=== PATIENT | female | born 1960 | race Caucasian/White ===

== ENCOUNTER 2023-01-23 09:19 | Outpatient (OUT) | payer OTHER, SELFPAY ==
--- NOTE | 2023-01-23 09:53 | PM.FPHP ---
History of Present Illness History of Present Illness Chief complaint: F/U Narrative: She is here for f/u to right hip injection done 12/31/22. She recieved 50% relief Meds Home Medications and Allergies Home Medications Medication Instructions Recorded Confirmed Type baclofen 10 mg tablet 10 mg PO TID 01/23/23 01/23/23 History levothyroxine 75 mcg tablet 75 mcg PO QDAY 01/23/23 01/23/23 History (Synthroid) loratadine 10 mg tablet (Claritin) 10 mg PO QDAY 01/23/23 01/23/23 History multivitamin 1 tab PO QDAY 01/23/23 01/23/23 History pantoprazole 40 mg tablet,delayed 40 mg PO QDAY 01/23/23 01/23/23 History release sucralfate 1 gram tablet 1 g PO TID 01/23/23 01/23/23 History zonisamide 50 mg capsule 50 mg PO QDAY 01/23/23 01/23/23 History Allergies Allergy/AdvReac Type Severity Reaction Status Date / Time Penicillins Allergy Intermediate Hives Verified 01/23/23 09:38 tetanus immune globulin Allergy Intermediate Redness of Verified 01/23/23 09:38 Skin levofloxacin [From Levaquin] Allergy Unknown Verified 01/23/23 09:38 morphine Allergy Unknown Anxiety Verified 01/23/23 09:38 Results Labs Labs: All other labs normal.
--- NOTE | 2023-01-23 12:44 | P.HP_ITS ---
Consult Note: HPI Data of Consult Patient: known to practice within the last 3 years Consult date: 01/23/23 Requesting Physician: GE MAGALLON NP Primary Care Provider: Norbert Snowden MD Consult Narrative Reason for consult: hip pain Narrative: Ivania is here for f/u to right hip injection done 12/31/22. She received 50% relief of pain and increased function for 2 weeks. No new sensorimotor sx or bowel or bladder issues. We discussed referral to orthopedics for hip d/t steroid injection not working. She has not seen ortho previously. Pain is worse with standing, walking, movements. I also advised to see chiropractor for leg length eval and possible lifts. cc:: CC: GE MAGALLON NP Review of Systems ROS Status of ROS 10 or more systems reviewed and unremarkable except as noted in history and below Meds Home Medications and Allergies Home Medications Medication Instructions Recorded Confirmed Type baclofen 10 mg tablet 10 mg PO TID 01/23/23 01/23/23 History levothyroxine 75 mcg tablet 75 mcg PO QDAY 01/23/23 01/23/23 History (Synthroid) loratadine 10 mg tablet (Claritin) 10 mg PO QDAY 01/23/23 01/23/23 History multivitamin 1 tab PO QDAY 01/23/23 01/23/23 History pantoprazole 40 mg tablet,delayed 40 mg PO QDAY 01/23/23 01/23/23 History release sucralfate 1 gram tablet 1 g PO TID 01/23/23 01/23/23 History zonisamide 50 mg capsule 50 mg PO QDAY 01/23/23 01/23/23 History Allergies Allergy/AdvReac Type Severity Reaction Status Date / Time Penicillins Allergy Intermediate Hives Verified 01/23/23 09:38 tetanus immune globulin Allergy Intermediate Redness of Verified 01/23/23 09:38 Skin levofloxacin [From Levaquin] Allergy Unknown Verified 01/23/23 09:38 morphine Allergy Unknown Anxiety Verified 01/23/23 09:38 Exam Constitutional: Common normals: no apparent distress, average body habitus, oriented x3, no limitations, healthy appearing, alert and well nourished Ge neral appearance: cooperative, comfortable and well developed Nutritional appearance: overweight Orientation/consciousness: Yes awake, Yes oriented to person, Yes oriented to place and Yes oriented to time HENMT: Common normals: normocephalic and head/scalp atraumatic Nose: external nose normal Mouth: oral and palatal mucosa normal Neck & C-Spine: Common normals: full ROM General: normal visual inspection Respiratory: Common normals: normal respiratory effort, no retractions and no use of accessory muscles Effort & inspection: able to speak in complete sentences Back & Pelvis: Thoracic spine/upper back: normal to inspection Lumbar spine/lower back: normal to inspection, pain with ROM, lumbar spinal tenderness, paraspinal muscle tenderness, straight leg raise positive right and other soft tissue findings (positive maryann right, tender over right hip) Skin: Common normals: no rashes or lesions noted Assessment and Plan Assessment and Plan (1) Degenerative arthritis of hip: (2) Lumbar stenosis: Plan LESI and RFA have not helped in past. consult ortho for right hip chiropractic etodolac
== END 2023-01-23 09:20 ==
PROVIDERS: PCP Family Medicine; Visit Provider Nurse Practitioner
DX: M16.9 Osteoarthritis of hip, unspecified (principal); M48.061 Spinal stenosis, lumbar region without neurogenic claudication
CPT/HCPCS: G0463

== ENCOUNTER 2023-03-03 09:19 | Outpatient (OUT) | payer OTHER, SELFPAY ==
[2023-03-03 10:28] LABS: Albumin Level 3.5 g/dL (3.4-5.0); BUN Creatinine Ratio 19.1; Calcium 10.5 mg/dL (8.5-10.1); Chloride 104 mmol/L (98-107); Estimated GFR (African America >60 (>=60); Estimated GFR (Non-African Ame >60 (>=60); Free T3 2.56 pg/mL (2.18-3.98); Glucose 97 mg/dL (74-106); Phosphorus 3.5 mg/dL (2.6-4.7); Sodium 140 mmol/L (136-145); Thyroid Stimulating Hormone 1.406 uIU/mL (0.358-3.740)
[2023-03-03 14:48] LABS: Free T4 1.21 ng/dL (0.76-1.46)
== END 2023-03-03 09:20 | disposition home or self-care (01) ==
LOC: LAB 09:20
PROVIDERS: PCP Family Medicine; Visit Provider Internal Medicine
DX: M81.0 Age-related osteoporosis without current pathological fracture (principal); E55.9 Vitamin D deficiency, unspecified
CPT/HCPCS: 36415; 80069; 82306; 84439; 84443; 84481

== ENCOUNTER 2023-03-25 07:26 | Outpatient (OUT) | payer OTHER, SELFPAY ==
[2023-03-25 07:42] LABS: Basophils Absolute Auto 0.1 10^3/uL (0.0-0.1); Basophils Percent Auto 1.4 % (0.2-2.0); Eosinophils Absolute Auto 0.2 10^3/uL (0.0-0.7); Eosinophils Percent Auto 4.7 % (0.9-7.0); Hematocrit 43.6 % (36.0-48.0); Hemoglobin 13.7 g/dL (12.0-16.0); Immature Granulocytes Abs Auto 0.02 10^3/uL (0.00-0.03); Immature Granulocytes Pct Auto 0.4 % (0.0-0.5); Lymphocytes Absolute Auto 1.8 10^3/uL (1.2-3.8); Lymphocytes Percent Auto 35.8 % (20.5-60.0); Mean Corpuscular HGB Conc 31.4 g/dL (29.9-35.2); Mean Corpuscular Hemoglobin 25.6 pg (26.7-34.0); Mean Corpuscular Volume 81.3 fL (81.0-99.0); Mean Platelet Volume 10.5 fL (9.5-13.5); Monocytes Absolute Auto 0.5 10^3/uL (0.3-0.8); Monocytes Percent Auto 9.1 % (1.7-12.0); Neutrophils Absolute Auto 2.5 10^3/uL (1.4-6.5); Neutrophils Percent Auto 48.6 % (43.0-75.0); Platelet Count 305 10^3/uL (150-450); Red Blood Count 5.36 10^6/uL (4.20-5.40); Red Cell Distribution Width 15.5 % (11.0-15.0); White Blood Count 5.1 10^3/uL (4.0-11.0)
[2023-03-25 07:54] LABS: Estimated Average Glucose 117 mg/dL; Glycohemoglobin A1C 5.7 % (4.5-6.2)
[2023-03-25 08:32] LABS: Alanine Aminotransferase 48 U/L (14-59); Albumin Level 3.7 g/dL (3.4-5.0); Alkaline Phosphatase 97 U/L (46-116); Anion Gap 12.1; Aspartate Amino Transferase 24 U/L (15-37); BUN Creatinine Ratio 24.7; Bilirubin Total 0.6 mg/dL (0.2-1.0); Calcium 10.1 mg/dL (8.5-10.1); Carbon Dioxide 29.8 mmol/L (21.0-32.0); Chloride 104 mmol/L (98-107); Chol HDL Ratio 3.1; Cholesterol 156 mg/dL (<=200); Estimated GFR (African America >60 (>=60); Estimated GFR (Non-African Ame >60 (>=60); Free T3 2.68 pg/mL (2.18-3.98); Globulin 3.7 g/dL; Glucose 99 mg/dL (74-106); HDL Cholesterol 51 mg/dL (40-60); Potassium 3.9 mmol/L (3.5-5.1); Sodium 142 mmol/L (136-145); Thyroid Stimulating Hormone 1.018 uIU/mL (0.358-3.740); Total Protein 7.4 g/dL (6.4-8.2); Triglycerides 170 mg/dL (<=150)
[2023-03-25 08:59] LABS: Free T4 1.23 ng/dL (0.76-1.46)
== END 2023-03-25 07:27 | disposition home or self-care (01) ==
PROVIDERS: PCP Family Medicine; Visit Provider Family Medicine
DX: Z00.00 Encounter for general adult medical examination without abnormal findings (principal); Z79.899 Other long term (current) drug therapy; R53.83 Other fatigue
CPT/HCPCS: 36415; 80053; 80061; 83036; 84439; 84443; 84481; 85025

== ENCOUNTER 2023-10-22 09:52 | Outpatient (OUT) | payer OTHER, SELFPAY ==
--- NOTE | 2023-10-22 09:55 | MM_ITS ---
Patient Name: SHIRA CASON MR#: [id number] : 1960 Exam Date: 10/22/2023 Ordering Doctor: DR Norbert Snowden . RADIOLOGY REPORT PROCEDURE: MM TOMOSYNTHESIS SCREENING BI COMPARISON: MG MAMM SCREEN 3D JOSE CAD, 07/15/2022. MG MAMM SCREEN 3D JOSE CAD, 05/22/2021. INDICATIONS: screening Calculator Name NCI Breast Cancer Risk Assessment Tool 5 Year Breast Cancer Risk 1.50% Lifetime Breast Cancer Risk 6.60% Personal Breast Cancer No Personal Ovarian Cancer No Treatments None Family Cancers Father with colon cancer at age 80; Father with prostate cancer at age 80. LOCATION: [facility] BREAST COMPOSITION: Scattered areas fibroglandular density. FINDINGS: DIAGNOSTIC CATEGORY 2--BENIGN FINDING. NO CHANGE FROM COMPARISON. Scattered benign-appearing nodules are present. Scattered benign-appearing calcifications are present. Scattered benign-appearing lymph nodes are present. RIGHT BREAST: No significant suspicious finding. LEFT BREAST: No significant suspicious finding. RECOMMENDATIONS: ROUTINE MAMMOGRAM AND CLINICAL EVALUATION IN 12 MONTHS. PLEASE NOTE: A NORMAL MAMMOGRAM DOES NOT EXCLUDE THE POSSIBILITY OF BREAST CANCER. A CLINICALLY SUSPICIOUS PALPABLE LUMP SHOULD BE BIOPSIED. Dictated by: Jonathan Manuel MD on 10/22/2023 at 10:59 Approved by: Jonathan Manuel MD on 10/22/2023 at 10:59
== END 2023-10-22 09:53 | disposition home or self-care (01) ==
LOC: MAMMO 09:53
PROVIDERS: PCP Family Medicine; Visit Provider Family Medicine
DX: Z12.31 Encounter for screening mammogram for malignant neoplasm of breast (principal); Z80.0 Family history of malignant neoplasm of digestive organs; Z80.42 Family history of malignant neoplasm of prostate
CPT/HCPCS: 77063; 77067

== ENCOUNTER 2024-03-05 08:05 | Outpatient (OUT) | payer OTHER, SELFPAY ==
--- NOTE | 2024-03-05 08:21 | XR_ITS ---
The [address] [address] Patient Name: SHIRA CASON MRN: [id number] date: 1960 Sex: F Assigned Patient Location: [facility] Current Patient Location: [facility] Accession/Order Number: [id number] Exam Date: 03/05/2024 08:30 Report Date: 03/05/2024 09:04 At the request of: CLARY CONKLIN Procedure: XR DEXA axial skeleton EXAMINATION: XR DEXA axial skeleton, 03/05/2024 8:30 AM EDT HISTORY: Age Related Osteoporosis COMPARISON: 1999 2019, 2017 TECHNIQUE: Dual-energy X-ray absorptiometry (DEXA) bone density study performed for the axial skeleton. FINDINGS: Bone mineral density AP spine L1-L4 measures 1.162 g/sq cm. T score 0.2. Normal Lowest bone mineral density is in the left femoral neck measuring 0.750 g/sq cm. T score -2.1. Osteopenia XR/XR DEXA axial skeleton IMPRESSION: Osteopenia. Moderate fracture risk Pharmacologic treatment recommendations * No uniform recommendation applies to all patients. Management plans must be individualized. * Consider initiating pharmacologic treatment in postmenopausal women and men >= 50 years of age who have the following: Primary fracture prevention: * T-score <= - 2.5 at the femoral neck, total hip, lumbar spine, 33% radius (some uncertainty with existing data) by DXA. * Low bone mass (osteopenia: T-score between - 1.0 and - 2.5) at the femoral neck or total hip by DXA with a 10-year hip fracture risk >= 3% or a 10-year major osteoporosis-related fracture risk >= 20% (i.e., clinical vertebral, hip, forearm, or proximal humerus) based on the [place]-adapted FRAXregistered model. Secondary fracture prevention: * Fracture of the hip or vertebra regardless of BMD [4, 5]. * Fracture of proximal humerus, pelvis, or distal forearm in persons with low bone mass (osteopenia: T-score between - 1.0 and - 2.5). The decision to treat should be individualized in persons with a fracture of the proximal humerus, pelvis, or distal forearm who do not have osteopenia or low BMD [12, 13]. Ronaldo Martinez MSan SL, Citlalli KL, Salvador EM, Parker KG, Roldan AJ, Javier ES. The clinician's guide to prevention and treatment of osteoporosis. Osteoporos Int. 2021;33(10):4301-7348. doi: 10.1007/h12849-701-75158-j. Epub 2021Dec 20. Erratum in: Osteoporos Int. 2021Mar 21;: PMID: 03217896; PMCID: [id number]. Electronically authenticated by: TYLER SALMON Date: 03/05/2024 09:04
[2024-03-05 09:34] LABS: Albumin Level 3.4 g/dL (3.4-5.0); Anion Gap 11.6; BUN Creatinine Ratio 19.7; Calcium 8.9 mg/dL (8.5-10.1); Carbon Dioxide 28.1 mmol/L (21.0-32.0); Chloride 105 mmol/L (98-107); Estimated GFR (African America >60 (>=60); Estimated GFR (Non-African Ame >60 (>=60); Free T3 2.56 pg/mL (2.18-3.98); Glucose 100 mg/dL (74-106); Phosphorus 2.8 mg/dL (2.6-4.7); Potassium 3.7 mmol/L (3.5-5.1); Sodium 141 mmol/L (136-145)
[2024-03-05 10:39] LABS: Free T4 1.17 ng/dL (0.76-1.46)
== END 2024-03-05 08:06 | disposition home or self-care (01) ==
LOC: RAD 08:08
PROVIDERS: PCP Family Medicine; Visit Provider Internal Medicine
DX: M81.0 Age-related osteoporosis without current pathological fracture (principal); E89.0 Postprocedural hypothyroidism; E55.9 Vitamin D deficiency, unspecified; Z79.83 Long term (current) use of bisphosphonates; M85.80 Other specified disorders of bone density and structure, unspecified site
CPT/HCPCS: 36415; 77080; 80069; 82306; 84439; 84443; 84481

== ENCOUNTER 2024-09-06 08:46 | Outpatient (OUT) | payer OTHER, SELFPAY ==
--- OUTSIDE RECORDS SUMMARY | 2024-09-06 09:07 | XMS_ITS | CCD ---
Author Organization [facility]iniSyn[facility] Care Team Providers Care School Leader Name Role Phone BANUELOS ., DR FAITH Majano Admitting Unavailable BANUELOS ., DR FAITH Majano Attending Unavailable BANUELOS ., DR FAITH Majano Consulting Unavailable HOY ., DR GIBSON Primary Care Unavailable HOY ., DR GIBSON Primary Care Unavailable PAYNE ., VEDA Consulting Unavailable BANUELOS ., DR FAITH Majano Admitting Unavailable BANUELOS ., DR FAITH Majano Attending Unavailable HOY ., DR GIBSON Primary Care Unavailable BANUELOS ., DR FAITH Majano Admitting Unavailable BANUELOS ., DR FAITH Majano Attending Unavailable BANUELOS ., DR FAITH Majano Consulting Unavailable PERALTATIFFANY FELIPE Consulting Unavailable HOY ., DR GIBSON Attending Unavailable HOY ., DR GIBSON Consulting Unavailable HOY ., DR GIBSON Admitting Unavailable HOY ., DR GIBSON Primary Care Unavailable ZIEBER, DR JOSE Collazo Consulting Unavailable HOY ., DR GIBSON Attending Unavailable HOY ., DR GIBSON Admitting Unavailable HOY ., DR GIBSON Consulting Unavailable HOY ., DR GIBSON Primary Care Unavailable ZIEBER, DR JOSE Collazo Consulting Unavailable LAKSHMIPATHY ., NARENDRANATH Consulting Pricilla vailable LAKSHMIPATHY ., NARROSEMARYRANATH Admitting Pricilla vailable LAKSHMIPATHY ., TRENTONATH Attending Pricilla vailable HOY ., DR GIBSON Primary Care Unavailable PAYNE ., VEDA Consulting Unavailable BANUELOS ., DR FAITH Majano Admitting Unavailable BANUELOS ., DR FAITH Majano Attending Unavailable HOY ., DR GIBSON Primary Care Unavailable PAYNE ., VEDA Consulting Unavailable BANUELOS ., DR FAITH Majano Attending Unavailable BANUELOS ., DR FAITH Majano Admitting Unavailable HOY ., DR GIBSON Primary Care Unavailable BANUELOS ., DR FAITH Majano Consulting Unavailable BANUELOS ., DR FAITH Majano Attending Unavailable BANUELOS ., DR FAITH Majano Admitting Unavailable HOY ., DR GIBSON Primary Care Unavailable BANUELOS ., DR FAITH Majano Consulting Unavailable BANUELOS ., DR FAITH Majano Attending Unavailable BANUELOS ., DR FAITH Majano Admitting Unavailable HOY ., DR GIBSON Primary Care Unavailable PAYNE ., VEDA Consulting Unavailable BANUELOS ., DR FAITH Majano Consulting Unavailable BANUELOS ., DR AFITH Majano Attending Unavailable BANUELOS ., DR FAITH Majano Admitting Unavailable HOY ., DR GIBSON Primary Care Unavailable TIFFANY PERALTA Consulting Unavailable HOY ., DR GIBSON Primary Care Unavailable BANUELOS ., DR FAITH Majano Admitting Unavailable BANUELOS ., DR FAITH Majano Attending Unavailable BANUELOS ., DR FAITH Majano Consulting Unavailable CARLOS PANG Consulting Unavailable HOY ., DR GIBSON Primary Care Unavailable PAYNE ., VEDA Consulting Unavailable BANUELOS ., DR FAITH Majano Admitting Unavailable BANUELOS ., DR FAITH Majano Attending Unavailable HALKER ., GE Attending Unavailable HALKER ., GE Admitting Unavailable HOY ., DR GIBSON Primary Care Unavailable LAKSHMIPATHY ., NARENDRANATH Attending Pricilla vailable LAKSHMIPATHY ., NARENDRANATH Consulting Pricilla vailable LAKSHMIPATHY ., NARENDKIERRAATH Admitting Pricilla vailable HOY ., DR GIBSON Primary Care Unavailable BANUELOS ., DR FAITH Majano Admitting Unavailable BANUELOS ., DR FAITH Majano Attending Unavailable BANUELOS ., DR FAITH Majano Consulting Unavailable HOY ., DR GIBSON Primary Care Unavailable BANUELOS ., DR FAITH Majano Attending Unavailable BANUELOS ., DR FAITH Majano Consulting Unavailable BANUELOS ., DR FAITH Majano Admitting Unavailable HOY ., DR GIBSON Primary Care Unavailable LAKSHMIPATHY ., NARENDRANATH Attending Pricilla vailable LAKSHMIPATHY ., NARENDRANATH Admitting Pricilla vailable ZIEBER, DR JOSE Collazo Consulting Unavailable HOY ., DR GIBSON Primary Care Unavailable LAKSHMIPATHY ., NARENDYESY Consulting Pricilla vailable RUBIN, AHKAVOND Admitting Unavailable HOY ., DR GIBSON Consulting Unavailable RUBIN, AHKAVOND Attending Unavailable HOY ., DR GIBSON Primary Care Unavailable ZIEBER, DR JOSE Collazo Consulting Unavailable RUBIN, AHJUANCARLOS Consulting Unavailable LAKSHMIPATHY ., NARENDRANATH Attending Pricilla vailable LAKSHMIPATHY ., NARENDRANATH Admitting Pricilla vailable HOY ., DR GIBSON Primary Care Unavailable VIN ., DR FAITH Majano Admitting Unavailable BANUELOS ., DR FAITH Majano Attending Unavailable SP ., DR GIBSON Primary Care Unavailable SP ., DR GIBSON Primary Care Unavailable SP ., DR GIBSON Attending Unavailable SP ., DR GIBSON Consulting Unavailable SP ., DR GIBSON Admitting Unavailable WEST, DR TYLER Lester Consulting Unavailable ELMER ., VEDA Consulting Unavailable VIN ., DR FAITH Majano Admitting Unavailable VIN ., DR FAITH Majano Attending Unavailable SP ., DR GIBSON Primary Care Unavailable NISH EAGLE Attending Unavailable NISH EAGLE Attending Unavailable NISH EAGLE Referring Unavailable Paige Snowden MD Primary Care Provider [phone] Allergies Allergy Classification Reported Allergen(s) Allergy Type Date of Onset Reaction(s) Facility (2 sources) Allopurinol Drug Allergy 7 [facility] Repository (1 source) levoFLOXacin Drug Allergy [facility] Repository (1 source) Morphine Drug Allergy 7 [facility] Repository (2 sources) Penicillin Drug Allergy 7 [facility] Repository (4 sources) levoFLOXacin Drug Allergy 3 Hives, Nausea And Vomiting [facility] Work Phone: (4 sources) Morphine Drug Allergy 3 Rash [facility] (4 sources) Penicillins Drug Allergy 3 Hives, Rash [facility] (4 sources) Tetanus Toxoid, Adsorbed Allergy to substance 3 Rash [facility] Medications Current Medications Medication Drug Class(es) Dates Sig (Normalized) Sig (Original) cholecalciferol 0.025 mg oral capsule (4 sources) Vitamin D cholecalciferol (Vitamin D-3) 25 MCG (1000 UT) capsule Vitamin D3 25 mcg (1,000 unit) capsule Take by oral route. Active etodolac 400 mg oral tablet (3 sources) Nonsteroidal Anti-inflammatory Drug Start: 02-11-2023 End: 05-03-2024 etodolac (Lodine) 400 MG tablet 02/11/2023 05/03/2024 Discontinued levothyroxine sodium 0.075 mg oral tablet (4 sources) l-Thyroxine levothyroxine (Synthroid, Levoxyl) 75 MCG tablet Daily. Active loratadine 10 mg oral tablet (3 sources) loratadine (Claritin) 10 MG tablet Take by mouth Active pantoprazole 40 mg delayed release oral tablet (4 sources) Proton Pump Inhibitor pantoprazole (ProtoNix) 40 MG EC tablet Daily. Active Turmeric Curcumin 500 MG capsule (4 sources) Turmeric Curcumi n 500 MG capsule as directed Orally Active zonisamide 50 mg oral capsule (4 sources) Anti-epileptic Agent Start: 01-28-2023 take 1 capsule by mouth once daily at bedtime zonisamide (Zonegran) 50 MG capsule TAKE 1 CAPSULE BY MOUTH EVERY DAY AT BEDTIME 01/28/2023 Active Problems Active Problems Problem Classification Problem Date Documented Date Episodic/Chronic Complications of surgical procedures or medical care (1 source) Postprocedural hypothyroidism; Translations: [POSTPROCEDURAL HYPOTHYROIDISM] Onset: 03-03-2022 Chronic Esophageal disorders (4 sources) Gastroesophageal reflux disease; Translations: [Gastro-esophageal reflux disease without esophagitis] Onset: 01-23-2022 04-01-2023 Chronic Mood disorders (4 sources) Major depressive disorder; Translations: [Major depressive disorder, single episode, unspecified] Onset: 04-01-2023 04-01-2023 Chronic Nutritional deficiencies (1 source) Vitamin D deficiency, unspecified; Translations: [VITAMIN D DEFICIENCY UNSPECIFIED] Onset: 03-03-2022 Chronic Osteoarthritis (13 sources) Unilateral primary osteoarthritis, right hip; Translations: [Arthritis of left knee] Onset: 12-20-2022 Chronic Osteoporosis (8 sources) Age-related osteoporosis without current pathological fracture; Translations: [Osteoporosis] Onset: 01-23-2022 Chronic Other connective tissue disease (2 sources) History of total replacement of right hip joint; Translations: [Presence of right artificial hip joint] 05-02-2024 Chronic Other nervous system disorders (1 source) Other chronic pain; Translations: [OTHER CHRONIC PAIN] Onset: 12-20-2022 Chronic Other non-traumatic joint disorders (4 sources) Derangement of right shoulder joint; Translations: [Other specific joint derangements of right shoulder, not elsewhere classified] Onset: 04-01-2023 04-01-2023 Chronic Other non-traumatic joint disorders (4 sources) Pain in right hip; Translations: [PAIN IN RIGHT HIP] Onset: 12-19-2022 Episodic Other nutritional; endocrine; and metabolic disorders (4 sources) Body mass index 30+ - obesity; Translations: [Obesity, unspecified] Onset: 04-01-2023 04-01-2023 Chronic Spondylosis; intervertebral disc disorders; other back problems (15 sources) Spondylosis without myelopathy or radiculopathy, lumbar region; Translations: [Other intervertebral disc degeneration, lumbar region] Onset: 04-04-2022 Chronic Thyroid disorders (8 sources) Hyperthyroidism; Translations: [Thyrotoxicosis, unspecified without thyrotoxic crisis or storm] Onset: 01-23-2022 04-01-2023 Chronic Unclassified (1 source) CONTACT W/AND (SUSP) EXPOS COVID-19; Translations: [CONTACT W/AND (SUSP) EXPOS COVID-19] Onset: 08-14-2022 Unclassified (4 sources) LOW BACK PAIN, UNSPECIFIED; Translations: [LOW BACK PAIN, UNSPECIFIED] Onset: 01-11-2022 Past or Other Problems Problem Classification Problem Date Documented Da te Episodic/Chronic Neoplasms of unspecified nature or uncertain behavior (4 sources) Neoplasm of uncertain behavior of skin of chest; Translations: [Neoplasm of uncertain behavior of skin] Onset: 04-01-2023 04-01-2023 Episodic Other and unspecified benign neoplasm (4 sources) Adenomatous polyp of colon ; Translations: [Benign neoplasm of colon, unspecified] Onset: 04-01-2023 04-01-2023 Episodic Other bone disease and musculoskeletal deformities (1 source) Other specified disorders of bone density and structure, unspecified site; Translations: [OTH D/O BONE DEN STRUCT UNS SITE] Onset: 03-03-2022 Episodic Other connective tissue disease (4 sources) Tear of right rotator cuff; Translations: [Unspecified rotator cuff tear or rupture of right shoulder, not specified as traumatic] Onset: 04-01-2023 04-01-2023 Episodic Other fractures (1 source) Collapsed vertebra, not elsewhere classified, lumbar region, initial encounter for fracture; Translations: [COLLAPSED VERT NEC LUMBAR INIT ENC] Onset: 01-17-2022 Episodic Other non-traumatic joint disorders (2 sources) Hip pain; Translations: [Pain in right hip] 05-02-2024 Episodic Other screening for suspected conditions (not mental disorders or infectious disease) (4 sources) Encounter for screening mammogram for malignant neoplasm of breast; Translations: [ENC SCR MAMMO MALIG NEOPLASM BREAST] Onset: 07-15-2022 Episodic Other skin disorders (4 sources) Epidermoid cyst of skin; Translations: [Epidermal cyst] Onset: 04-01-2023 04-01-2023 Episodic Other skin disorders (4 sources) Skin tag; Translations: [Other hypertrophic disorders of the skin] Onset: 04-01-2023 04-01-2023 Episodic Other skin disorders (4 sources) Seborrheic keratosis; Translations: [Other seborrheic keratosis] Onset: 04-01-2023 04-01-2023 Episodic Residual codes; unclassified (1 source) Family history of malignant neoplasm of digestive organs; Translations: [FAM HX MALIG NEOPLASM DIGESTIV ORGN] Onset: 07-17-2022 Episodic Residual codes; unclassified (1 source) Family history of malignant neoplasm of other organs or systems; Translations: [FAM HX MALIG NEOPLASM OTH ORGN/SYS] Onset: 07-17-2022 Episodic Spondylosis; intervertebral disc disorders; other back problems (20 sources) Spinal stenosis, lumbosacral region; Translations: [Muscle spasm of back] Onset: 01-11-2022 Episodic Unclassified (1 source) LOW BACK PAIN, UNSPECIFIED; Translations: [LOW BACK PAIN, UNSPECIFIED] Onset: 01-07-2022 Results Test Name Value Interpretation Reference Range Facil ity [facility] SARS-CoV-2 (COVID-19) RNA LOWELL+probe Ql (Unsp spec) Not detected Normal NOT DETECTED [facility] Comment on above: Result Comment: This test is not yet approved or cleared by the [place] FDA. When there are no FDA-approved or cleared tests available, and other criteria are met, FDA can make tests available under an emergency access mechanism called an Emergency Use Authorization (EUA). The EUA for this test is supported by the Vessel Specialist of Health and Human Service's (HHS's) declaration that circumstances exist to justify the emergency use of in vitro diagnostics for the detection and/or diagnosis of the virus that causes COVID-19. This EUA will remain in effect (meaning this test can be used) for the duration of the COVID-19 declaration justifying emergency of IVDs, unless it is terminated or revoked by FDA (after which the test may no longer be used). When diagnostic testing is negative, the possibility of a false negative should be considered in the context of a patient's recent exposures and the presence of clinical signs and symptoms consistent with SARS-CoV-2. Performed By: #### C VDTB #### [facility] [address] [place], [place] [address] Dr. Tanja Soto Covid-19 PCR ([facility])on SARS-CoV-2 (COVID-19) RNA LOWELL+probe Ql (Unsp spec) Not detected Normal NOT DETECTED [facility] Comment on above: Result Comment: When diagnostic testing is negative, the possibility of a false negative should be considered in the context of a patient's recent exposures and the presence of clinical signs and symptoms consistent with SARS-CoV-2. This test is not yet approved or cleared by the [place] FDA. When there are no FDA-approved or cleared tests available, and other criteria are met, FDA can make tests available under an emergency access mechanism called an Emergency Use Authorization (EUA). The EUA for this test is supported by the Vessel Specialist of Health and Human Service's declaration that circumstances exist to justify the emergency use of in vitro diagnostics for the detection and/or diagnosis of the virus that causes COVID-19. This EUA will remain in effect for the duration of the COVID-19 declaration justifying emergency of IVDs, unless it is terminated or revoked by the FDA (after which the test may no longer be used). Performed By: #### C VDTB ####[facility] [address] [place], [place] [address]WfDr. Tanja Soto MG MAMM SCREEN 3D JOSE CADon 07-15-2022 MG MAMM SCREEN 3D JOSE CAD Patient: SHIRA GIBBS Exam Date: 07/15/2022 : 1960 Gender:F Ordering : DR PAIGE SNOWDEN . Admission #: [id number] Family : Order #: [id number] CLICK HERE TO VIEW EXAM RADIOLOGY REPORT PROCEDURE: MAMMOGRAM SCREENING 3D BILATERAL CAD COMPARISON: MG MAMM SCREEN JOSE W CAD, 03/09/2020. MG MAMM SCREEN 3D JOSE CAD, 05/22/2021. INDICATIONS: Screening mammography Calculator Name NCI Breast Cancer Risk Assessment Tool 5 Year Breast Cancer Risk 1.50% Lifetime Breast Cancer Risk 6.80% Personal Breast Cancer No Personal Ovarian Cancer No Treatments None Family Cancers Father with colon cancer at age 80; Father with prostate cancer at age 80. LOCATION: [facility] BREAST COMPOSITION: Scattered areas fibroglandular density. FINDINGS: DIAGNOSTIC CATEGORY 2--BENIGN FINDING. NO CHANGE FROM COMPARISON. Scattered benign-appearing nodules are present. Scattered benign-appearing calcifications are present. Scattered benign-appearing lymph nodes are present. RIGHT BREAST: No significant suspicious finding. LEFT BREAST: No significant suspicious finding. RECOMMENDATIONS: ROUTINE MAMMOGRAM AND CLINICAL EVALUATION IN 12 MONTHS. PLEASE NOTE: A NORMAL MAMMOGRAM DOES NOT EXCLUDE THE POSSIBILITY OF BREAST CANCER. A CLINICALLY SUSPICIOUS PALPABLE LUMP SHOULD BE BIOPSIED. Dictated by: Tyler Manuel MD on 07/15/2022 at 10:02 Approved by: Tyler Manuel MD on 07/15/2022 at 10:04 Normal [facility] FREE T3on 02-27-2022 FREE T3 3.00 pg/mlL Normal 2.18-3.98 [facility] Comment on above: Performed By: #### F T3, RENAL, TSH ####[facility] [address] [place] [address]Dr. Tanja Soto FREE T4on 02-27-2022 Free T4 [Mass/Vol] 1.34 ng/dL Normal 0.76-1.[address] [facility] Comment on above: Performed By: #### V ITAD, FT4 ####[facility] [address] [place] [address]Dr. Tanja Soto RENAL FUNCTION PANELon 02-27 Albumin [Mass/Vol] 3.3 g/dL Critically low 3.4-5.0 [facility] Comment on above: Performed By: #### F T3, RENAL, TSH ####[facility] [address] [place] [address]Dr. Tanja Soto Calcium [Mass/Vol] 9.0 mg/dL Normal 8.5-10.[address] [facility] Comment on above: Performed By: #### F T3, RENAL, TSH ####[facility] [address] [place] [id number]. Tanja Soto Chloride [Moles/Vol] 105 mmol/L Normal 98-107 [facility] Comment on above: Performed By: #### F T3, RENAL, TSH ####[facility] [address] [place] [id number]. Tanja Soto CO2 [Moles/Vol] 28.3 mmol/L Normal 21.0-32.[address] [facility] Comment on above: Performed By: #### F T3, RENAL, TSH ####[facility] [address] [place] [address]Dr. Tanja Soto Creatinine [Mass/Vol] 0.87 mg/dL Normal 0.55-1.02 [facility] Comment on above: Performed By: #### F T3, RENAL, TSH ####[facility] [address] [place], [place] [address]Dr. Tanja Soto EGFR-AF GREENLANDIC >60 Normal >=[address] [facility] Comment on above: Performed By: #### F T3, RENAL, TSH ####[facility] [address] [place], [place] [address]Dr. Tanja Soto EGFR-NON AF GREENLANDIC >60 Normal >=60 [facility] Comment on above: Performed By: #### F T3, RENAL, TSH ####[facility] [address] [place] [id number]. Tanja Soto Glucose [Mass/Vol] 93 mg/dL Normal 74-106 [facility] Comment on above: Performed By: #### F T3, RENAL, TSH ####[facility] [address] [place] [id number]. Tanja Soto Phosphate [Mass/Vol] 3.1 mg/dL Normal 2.6-4.7 [facility] Comment on above: Performed By: #### F T3, RENAL, TSH ####[facility] [address] [place] [address]Dr. Tanja Soto Potassium [Moles/Vol] 3.6 mmol/L Normal 3.5-5.1 [facility] Comment on above: Performed By: #### F T3, RENAL, TSH ####[facility] [address] [place] [address]Dr. Edelbailey Soto Sodium [Moles/Vol] 140 mmol/L Normal 136-[address] [facility] Comment on above: Performed By: #### F T3, RENAL, TSH ####[facility] [address] [place] [address]Dr. Tanja Soto Urea nitrogen [Mass/Vol] 13.0 mg/dL Normal 7.0-18.0 [facility] Comment on above: Performed By: #### F T3, RENAL, TSH ####[facility] [address] [place] [address]Dr. Tanja Soto TSHon 02-27-2022 TSH 0.759 uIU/mL Normal 0.358-3.740 [facility] Comment on above: Performed By: #### F T3, RENAL, TSH ####[facility] [address] [place] [address]Dr. Tanja Soto VITAMIN D 25 OHon 02-27-2022 VIT D 25-OH 35.5 ng/mL Normal [facility] Comment on above: Performed By: #### Tayler UMANZOR, FT4 ####[facility] [address] [place] [address]Dr. Tanja Soto VIT D RANGES SEE BELOW Normal [facility] Comment on above: Result Comment: <20 ng/mL Vit D deficient 20 - <30 ng/mL Vit D insufficient 30 - 100 ng/mL Vit D sufficient >100 ng/mL Potential Toxicity Performed By: #### Tayler UMANZOR, FT4 ####[facility] [address] [place] [id number]. Tanja Soto XR DEXA BONE DENSITYon 02-27 XR DEXA BONE DENSITY EXAMINATION: XR DEXA BONE DENSITY, 02/27/2022 8:28 AM EDT HISTORY: Senile osteoporosis COMPARISON: DEXA bone densitometry 03/09/2020 TECHNIQUE: Dual-energy X-ray absorptiometry (DEXA) bone density study performed for the axial skeleton. FINDINGS: SPINE ANALYSIS: Average bone mineral density is 1.178 g/cm2. T-score (standard deviation relative to young adult mean): 0.0 . -4.3% change since prior study. HIP ANALYSIS: Lowest bone mineral density is within the left femoral neck, 0.763 g/cm2. T-score (standard deviation relative to young adult mean): -2.0 . +3.6% change since prior study. IMPRESSION: World [employer] Classification: Osteopenia - Moderate Fracture Risk Electronically authenticated by: JOSE PORTER Date: 2022-02-27 16:07 Normal [facility] HIP RIGHT 1 OR 2 VWS WITH PE LVISon 01-23-2022 HIP RIGHT 1 OR 2 VWS WITH PELVIS [facility] Department of Radiology [address] [place] [id number] Patient Name: SHIRA GIBBS : 1960 Sex: F Age: Race: White Pt. Location: Patient Status: D Ordered Date: 01/23/2022 2:45:00 PM Completed Date: 01/23/2022 02:49 PM Requesting Provider: ADÁN CASTRO Attending Provider: ADÁN CASTRO Report Copy To: PAIGE SNOWDEN Signs & Symptoms: M25.551 Pain in right hip I10 History: Kamla Comments: , right hip pain, r/o osteoarthritis, fracture , right hip pain, r/o osteoarthritis, fracture , , , Ordering Provider - A MATTHEW ALBRECHT REFUSE DRIVER , Exam: HIP RIGHT 1 OR 2 VWS WITH PELVIS HIP RIGHT 1 OR 2 VWS WITH PELVIS 01/23/2022 2:50 PM CLINICAL INDICATIONS: M25.551 Pain in right hip I10 TECHNOLOGIST COMMENTS: low back pain radiating to right lateral hip and groin area x 4-6 weeks no direct trauma, patient states she bent over forwards and felt a pop and pain began QUESTION FOR THE RADIOLOGIST: , right hip pain, r/o osteoarthritis, fracture , right hip pain, r/o osteoarthritis, fracture , , , Ordering Provider - A MATTHEW MSN REFUSE DRIVER , PROTOCOL: AP(PA) and Lateral views were obtained. COMPARISON: None FINDINGS: Pelvic ring intact. Sacroiliac joints symmetric. Hips normally aligned bilaterally. No evidence of fracture. There is superior lateral joint space narrowing right hip IMPRESSION: Early degenerative change right hip Electronically signed: Roseann Lemus. Transcribed by: [email or web address], User Resident: Electronically Signed by: ROSEANN LEMUS @ 01/24/2022 02:04 PM Normal [facility] Comment on above: Order Comment: , rig ht hip pain, r/o osteoarthritis, fracture , right hip pain, r/o osteoarthritis, fracture , , , Ordering Provider - A MATTHEW MSN REFUSE DRIVER , MRI LSPINE WO CONon 01-12-20 MRI LSPINE WO CON EXAMINATION: MRI LSPINE WO CON HISTORY: Compression fracture of lumbar spine ; acute lumbar pain radiating to right leg COMPARISON: No relevant comparison available. TECHNIQUE: A variety of imaging planes and parameters were utilized for visualization of suspected pathology. FINDINGS: For the purposes of numbering, sagittal T2 image # 7 extends from the T10-T11 vertebral body superiorly to the S3 level inferiorly. PARASPINAL AREA: Normal with no visible mass. BONES: Slight anterior wedging of T12; developmental versus remote mild compression fracture. CORD/CAUDA EQUINA: Normal caliber, contour, and signal intensity. DISC LEVELS: 12-L1: Early degenerative disc disease is present without focal protrusion or neural impingement. L1-L2: No significant disc/facet abnormality, spinal stenosis, or foraminal stenosis. L2-L3: Mild central canal and bilateral foramen narrowing. Mild diffuse disc bulging and mild disc height reduction. Mild degenerative facet arthropathy bilaterally. L3-L4: Mild central canal and bilateral foramen narrowing. Mild diffuse disc bulging and mild degenerative facet arthropathy. L4-L5: Mild degenerative facet arthropathy. No significant disc bulging, central canal, or foramen narrowing. L5-S1: Moderate-marked foramen narrowing bilaterally without significant central canal narrowing. Mild diffuse disc bulging with moderate disc height reduction. Moderate degenerative facet arthropathy with prominent ligamentum flavum thickening, right greater than left. IMPRESSION: 1. Moderate-marked foramen narrowing at L5-S1 likely contributing to patient's symptoms. Electronically authenticated by: JOSE PORTER Date: 2022-01-11 13:45 Normal [facility] XR LSPINE MIN 4 VIEWSon 12-23 XR LSPINE MIN 4 VIEWS EXAMINATION: XR LSPINE MIN 4 VIEWS HISTORY: Low back pain ; right groin and left leg pain since bending over one and half weeks ago COMPARISON: No relevant comparison available. FINDINGS: BONES: Slight anterior wedging of T12 vertebral body. Minimal grade 1 retrolisthesis of L2 on 3. Mild degenerative facet arthropathy L3-4. DISC SPACES: Moderate narrowing L5-S1. Mild narrowing L2-3. PARASPINOUS: Negative. No paraspinous abnormality is seen. OTHER: Negative. IMPRESSION: 1. Multilevel mild degenerative changes, greatest at L5-S1. 2. Suspect mild remote compression fracture of T12. Electronically authenticated by: JOSE PORTER Date: 2022-01-07 13:40 Normal [facility] Ambulatory Visit Summaryon 0 11-02-2021 Ambulatory Visit Summary KAMLA SHIRA Yarelis :1960 Visit Date:11/02/2021 Ambulatory Visit Instructions Your Care Team Attending Physician - JUANI WATERS, Reece Collazo Primary Care Physician - Paige Snowden MD This Is Your Medications List alendronate (Fosamax 70 mg oral tablet) levothyroxine (levothyroxine 75 mcg (0.075 mg) Tab) pantoprazole (Pantoprazole [address] Tab) sucralfate (sucralfate 1 g Tab) Procedures Performed Colonoscopy (10/24/2021), Excision of cyst (10/24/2021), Excision of lesion of chest wall (10/24/2021), Excision of subcutaneous neoplasm of foot, Laparoscopy assisted vaginal hysterectomy with bilateral salpingo-oophorectom y, ORIF - Open reduction and internal fixation of fracture, Right hemithyroidectomy, Rotator cuff repair. Discharge Vitals Temperature (Temporal Artery) 36.2 ?C Medications What How Much When Instructions Unchanged alendronate (Fosamax 70 mg oral tablet) 1 Tablets By Mouth Every week Unchanged levothyroxine (levothyroxine 75 mcg (0.075 mg) Tab) 1 Tablets By Mouth Every day Unchanged pantoprazole (Pantoprazole [address] Tab) 1 Tablets By Mouth Every day Unchanged sucralfate (sucralfate 1 g Tab) 1 Tablets By Mouth Four times a day (before meals and at bedtime) Allergies Levaquin (Nausea and vomiting) morphine (Insomnia) penicillin (Hives) tetanus toxoids (Local) Problems Ongoing - Any problem that you are currently receiving treatment for. BMI 31.0-31.9,adult Cutaneous skin tags Encounter for screening for colorectal malignant neoplasm Epidermal cyst GERD (gastroesophageal reflux disease) Major depressive disorder Neoplasm of uncertain behavior of skin of chest Nontoxic goiter Osteoporosis Normal [facility] General Surgery Office/Clini c Noteon 11-02-2021 General Surgery Office/Clinic Note Chief Complaint post operative follow up HPI Staff 9 day post operative follow up post colonoscopy with hepatic flexure and sigmoid polypectomies as well as excision cyst right upper back and excision chest lesion. Denies pain, bleeding or drainage. Sutures intact. History of Present Illness 9 days s/p colonoscopy with polypectomies; excision sebaceous cyst of back and seborrheic keratosis of chest wall, also excision/cautery right neck skin tags; doing well, denies abdominal pain or blood in stools, incisions healing well; hepatic flexure polyp inflammatory; sigmoid polyp consistent with 1.2 cm tubulovillous adenoma. Review of Systems ROS - Provider Constitutional: no fever, no sweats, no weight loss. Eyes: no glasses, no blurred vision, no visual loss. ENMT: no dentures, no hoarseness, no swallowing difficulties, no hearing loss, no ear infection(s), no nose bleeds. Cardiovascular: normal blood pressure, no chest pain, regular heartbeat, no heart murmur. Respiratory: no shortness of breath, no cough, no asthma, no wheezing. Gastrointestinal: no nausea, no vomiting, no diarrhea, no constipation, no blood in stool, no change in bowel habits, no abdominal pain, no hepatitis. Genitourinary: no kidney stones, no urine infection, no dysuria. Musculoskeletal: no pain, no weakness. Skin: no changing moles, no rash, no skin lumps. Neurologic: no seizures, no epilepsy, no headache. Psychiatric: no emotional or psychiatric problem. Heme/Lymph: no bleeding problems, no anemia, no blood clots, no transfusions. Allergy/Immunologic: no swollen lymph nodes/glands, no IV drug abuse. Other: Additional ROS info: Except as noted in the above Review of Systems and in the History of Present Illness, all other systems have been reviewed and are negative or noncontributory. Physical Exam Vitals & Measurements T: 36.2 ?C(Temporal Artery) skin: incisions healing well, minimal erythema around sutures; no drainage or ecchymoses. Assessment/Plan 1. Tubulovillous adenoma of colon (D12.6: Benign neoplasm of colon, unspecified) recommend surveillance colonoscopy in 3 years, call sooner if problems/questions. 2. Epidermal cyst (L72.0: Epidermal cyst) sutures removed, doing well. 3. Seborrheic keratosis (L82.1: Other seborrheic keratosis) see # 2 Follow-up No qualifying data available Problem List/Past Medical History Ongoing BMI 31.0-31.9,adult Cutaneous skin tags Encounter for screening for colorectal malignant neoplasm Epidermal cyst GERD (gastroesophageal reflux disease) Major depressive disorder Neoplasm of uncertain behavior of skin of chest Nontoxic goiter Osteoporosis Seborrheic keratosis Tubulovillous adenoma of colon Historical No qualifying data Procedure/Surgical History Colonoscopy (10/24/2021), Excision of cyst (10/24/2021), Excision of lesion of chest wall (10/24/2021), Excision of subcutaneous neoplasm of foot, Laparoscopy assisted vaginal hysterectomy with bilateral salpingo-oophorectom y, ORIF - Open reduction and internal fixation of fracture, Right hemithyroidectomy, Rotator cuff repair. Medications Fosamax 70 mg oral tablet, 70 mg= 1 tab(s), Oral, qWeek levothyroxine 75 mcg (0.075 mg) Tab, 75 mcg= 1 tab(s), Oral, Daily Pantoprazole [address] Tab, 40 mg= 1 tab(s), Oral, Daily sucralfate 1 g Tab, 1 gm= 1 tab(s), Oral, QIDACHS Allergies Levaquin (Nausea and vomiting) morphine (Insomnia) penicillin (Hives) tetanus toxoids (Local) Social History Alcohol - Denies Alcohol Use, 10/09/2021 Substance Abuse - Denies Substance Abuse, 10/09/2021 Tobacco Never (less than 100 in lifetime) Tobacco Use:. Never Smokeless Tobacco Use:., 10/09/2021 Family History Autoimmune disease: Mother. Hypertension: Father. Primary malignant neoplasm of colon: Father. Immunizations Vaccine Date Status Comments influenza virus vaccine, inactivated - Not Given Patient Refuses [facility] Comment on above: Result Comment: Elec tronically Signed By: JUANI WATERS, Reece Vargas\Date and Time Signed: 11/02/21 15:19 EST Reminderson 11-02-2021 Reminders - From: Karen Roth LPN To: N - Clinical; Sent: 11/02/2021 16:03:44 EST Show up: 09/26/2024 07:00:00 EST Subject: colonoscopy recall Due Date/Time: 10/24/2024 07:00:00 EST Reminder/Recall Patient is due for colonoscopy 10/24/2024 due to history of tubulovillous adenoma. Normal [facility] Pathology Noteon 10-26-2021 Pathology Note [id number] #1.00CD:127 Normal [facility] Outside Colonoscopyon 2021 Outside Colonoscopy [id number] #1.00CD:127 Normal [facility] Lab Reportson 10-23-2021 Lab Reports [id number] #1.00CD:127 [facility] Consent for Procedure/Surger yon 10-10-2021 Consent for Procedure/Surgery [id number] #1.00CD:127 Normal [facility] Consent for Procedure/Surgery [id number].. [id number] #1.00CD:127 Normal [facility] Ambulatory Visit Summaryon 0 10-09-2021 Ambulatory Visit Summary SHIRA GIBBS :1960 Visit Date:10/09/2021 Ambulatory Visit Instructions Your Care Team Attending Physician - JUANI WATERS, Reece Collazo Primary Care Physician - Sp WATERS, Paige This Is Your Medications List Contact prescribing physician if questions or concerns alendronate (Fosamax 70 mg oral tablet) levothyroxine (levothyroxine 75 mcg (0.075 mg) Tab) pantoprazole (Pantoprazole [address] Tab) sucralfate (sucralfate 1 g Tab) Procedures Performed Excision of subcutaneous neoplasm of foot, Laparoscopy assisted vaginal hysterectomy with bilateral salpingo-oophorectom y, ORIF - Open reduction and internal fixation of fracture, Right hemithyroidectomy, Rotator cuff repair. Discharge Vitals Heart Rate (Peripheral) 76 Respiratory Rate 16 Blood Pressure 116/74 Height 162.6 cm Height 162.56 cm Weight 83.3 kg Weight 83.3 kg BMI 31.52 Medications What How Much When Instructions Unchanged alendronate (Fosamax 70 mg oral tablet) 1 Tablets By Mouth Every week Contact prescribing physician if questions or concerns Unchanged levothyroxine (levothyroxine 75 mcg (0.075 mg) Tab) 1 Tablets By Mouth Every day Contact prescribing physician if questions or concerns Unchanged pantoprazole (Pantoprazole [address] Tab) 1 Tablets By Mouth Every day Contact prescribing physician if questions or concerns Unchanged sucralfate (sucralfate 1 g Tab) 1 Tablets By Mouth Four times a day (before meals and at bedtime) Contact prescribing physician if questions or concerns Medications and Immunizations Administered Not Given influenza virus vaccine, inactivated, Patient Refuses Allergies Levaquin (Nausea and vomiting) morphine (Insomnia) penicillin (Hives) tetanus toxoids (Local) Problems Ongoing - Any problem that you are currently receiving treatment for. BMI 31.0-31.9,adult GERD (gastroesophageal reflux disease) Major depressive disorder Nontoxic goiter Osteoporosis Normal [facility] Physician Referralon 022 Physician Referral [id number] #1.00CD:127 Normal [facility] Encounters Encounter Date Encounter Type Care Provider Facility Start: 05-12-2024 End: 05-20-2024 Telephone encounter Reji Conklin MD Work Phone: [facility] Start: 05-03-2024 End: 05-03-2024 Bamboo flowsheet Nish HERNÁNDEZ Work Phone: [facility] Start: 05-03-2024 End: 05-03-2024 Bamboo flowsheet Nish HERNÁNDEZ Work Phone: [facility] Start: 05-03-2024 End: 05-03-2024 Office outpatient visit 15 minutes Nish HERNÁNDEZ Work Phone: [facility] Comment on above: Acute right hip pain (Primary Dx); History of total hip replacement, right Start: 05-03-2024 End: 05-03-2024 ambulatory NISH EAGLE Not Available Start: 07-07-2023 End: 07-07-2023 ambulatory NISH EAGLE Not Available Start: 01-23-2023 ambulatory GE MAGALLON . Facili ty:[facility] Start: 12-31-2022 End: 12-31-2022 ambulatory NARENDRANATH LAKSHMIPATHY . Facility:[facility] Start: 12-20-2022 ambulatory NARENDRANATH LAKSHMIPATHY . Facility:[facility] Start: 12-19-2022 End: 12-20-2022 ambulatory NARENDRANATH LAKSHMIPATHY . Facility:[facility] Start: 09-26-2022 End: 09-27-2022 ambulatory VEDA PAYNE . Facility:[facility] Start: 09-12-2022 End: 09-13-[address] PAIGE SNOWDEN . Facility:[facility] Start: 08-14-2022 Encounter for preprocedural laboratory examination DR FAITH BANUELOS . [facility] Start: 08-13-2022 End: 08-13-[address] PAIGE SNOWDEN . Facility:[facility] Start: 08-09-2022 End: 08-10-[address] FAITH BANUELOS . Facility:[facility] Start: 08-09-2022 End: 08-10-2022 Encounter for preprocedural laboratory examination DR FAITH BANUELOS . Facility:[facility] Start: 08-06-2022 End: 08-06-[address] PAIGE SNOWDEN . Facility:[facility] Start: 08-02-2022 End: 08-03-[address] FAITH BANUELOS . Facility:[facility] Start: 07-15-2022 End: 07-16-[address] PAIGE SNODWEN . Facility:[facility] Start: 06-27-2022 End: 06-28-[address] PAIGE SNOWDEN . Facility:[facility] Start: 06-18-2022 End: 06-18-[address] FAITH BANUELOS . Facility:[facility] Start: 05-30-2022 End: 05-31-2022 ambulatory VEDA PAYNE . Facility:[facility] Start: 05-14-2022 End: 05-14-[address] FAITH BANUELOS . Facility:[facility] Start: 04-04-2022 End: 04-05-[address] FAITH BANUELOS . Facility:[facility] Start: 03-19-2022 End: 03-19-[address] FAITH BANUELOS . Facility:[facility] Start: 02-28-2022 End: 03-01-2022 ambulatory VEDA PAYNE . Facility:[facility] Start: 02-27-2022 End: 02-28-2022 ambulatory REJI CONKLIN Facility:[facility] Start: 01-11-2022 End: 01-12-[address] PAIGE SNOWDEN . Facility:[facility] Start: 01-07-2022 End: 01-08-[address] PAIGE SNOWDEN . Facility:[facility] Procedures Date Procedure Procedure Detail Performing Clinician Start: 10-24-2021 Colonoscopy Nish HERNÁNDEZ Work Phone: Plan of Treatment Date Care Activity Detail Author Start: 10-25-2031 Screening for malignant neoplasm of colon [facility] Start: 05-08-2026 End: 05-08-2026 Patient encounter procedure 05/08/2026 10:45 AM EDT Office Visit [facility] [address] [place] [phone] Nish Eagle PA [address] [facility] [address] [place] [address] [facility] Start: 03-07-2025 End: 03-07-2025 Patient encounter procedure 03/07/2025 9:10 AM EDT Office Visit [facility] [address] [place] [phone] Reji Conklin MD [address] [place] [address] [facility] Start: 05-03-2024 End: 05-03-2024 Patient encounter procedure 05/03/2024 10:45 AM EDT Office Visit [facility] [address] [facility] [address] [place] [phone] Nish Eagle PA [address] [facility] [address] [place] [address] Acute right hip pain (Primary Dx); History of total hip replacement, right [facility] Comment on above: Acute right hip pain (Primary Dx); History of total hip replacement, right Start: 04-25-2024 Influenza vaccination Influenza Vacc ine (#1) [facility] Start: 2000 Screening for malignant neoplasm of breast Mammogram [facility] Start: 02-11-1990 Screening for malignant neoplasm of cervix [facility] Start: 02-11-1981 Screening for malignant neoplasm of cervix Pap Smear [facility] Start: 1960 Screening for malignant neoplasm of colon [facility] XR Hip - right 3 Views XR hip right 2 or 3 views Imaging Routine Acute right hip pain 05/03/2024 10:46 AM EDT [facility] Work Phone: Immunizations Immunization Date Immunization Notes Care Provider Fa [facility] 07-27-2018 influenza, injectabl e, quadrivalent, preservative free Nish HERNÁNDEZ Work Phone: [facility] 12-03-2018 influenza virus vacc ine, unspecified formulation Nish HERNÁNDEZ Work Phone: [facility] Payers Date Payer Category Payer Private Health Insurance [facility] [id number] 2023-Present [address] [address] [place] [address] [id number] [id number] 1960 Unknown [id number] 2.16.840.1.884781.3.579. 2.593 1960 Unknown [id number] 2.16.840.1.107980.3.579. 2.593 1960 Unknown [id number] 2.16.840.1.635341.3.579. 2.593 1960 Unknown [id number] 2.16.840.1.390872.3.579. 2.593 1960 Unknown [id number] 2.16.840.1.154118.3.579. 2.593 1960 Unknown [id number] 2.16.840.1.392444.3.579. 2.593 1960 Unknown [id number] 2.16.840.1.660010.3.579. 2.593 1960 Unknown [id number] 2.16.840.1.587423.3.579. 2.593 1960 Unknown [id number] 2.16.840.1.011345.3.579. 2.593 1960 Unknown [id number] 2.16.840.1.491656.3.579. 2.593 1960 Unknown [id number] 2.16.840.1.140804.3.579. 2.593 1960 Unknown [id number] 2.16.840.1.637077.3.579. 2.593 1960 Unknown [id number] 2.16.840.1.564685.3.579. 2.593 1960 Unknown [id number] 2.16.840.1.529489.3.579. 2.593 1960 Unknown [id number] 2.16.840.1.073901.3.579. 2.593 1960 Unknown [id number] 2.16.840.1.506869.3.579. 2.593 1960 Unknown [id number] 2.16.840.1.137381.3.579. 2.593 1960 Unknown [id number] 2.16.840.1.775540.3.579. 2.593 1960 Unknown [id number] 2.16.840.1.716147.3.579. 2.593 1960 Unknown [id number] 2.16.840.1.574874.3.579. 2.593 1960 Unknown [id number] 2.16.840.1.649584.3.579. 2.593 1960 Unknown [id number] 2.16.840.1.977722.3.579. 2.593 1960 Unknown [id number] 2.16.840.1.602523.3.579. 2.593 1960 Unknown [id number] 2.16.840.1.156754.3.579. 2.1259 1960 Unknown [id number] 2.16.840.1.808897.3.579. 2.1259 1960 Unknown [id number] 2.16.840.1.218102.3.579. 2.1259 1959 Private Health Insurance [id number] 1959 Private Health Insurance [id number] Social History Date Type Detail Facility Start: 02-20-[address] [facility] Never smoked tobacco [facility] Start: 02-20-2023 Tobacco use and exposure Smoke less tobacco non-user [facility] Start: 07-07-2023 End: 05-03-2024 Alcoholic beverage intake Lifetime non-drinker (finding) [facility] Start: 07-07-2023 End: 05-03-2024 History of Social function [facility] Start: 07-07-2023 End: 05-03-2024 Tobacco use panel [facility] Start: 1960 Sex assigned at Not on file [facility] Clinical Notes 10-12-2021 to 05-12-2024 Telephone Encounter - Ant Velarde - 05/12/2024 2:07 PM EDTTelephone Encounter - Antdeja Velarde - 05/12/2024 2:07 PM EDTMattBETTY El - 05/03/2024 10:45 AM EDT Note Date & Type Note Facility 05-12-2024 Telephone encounter Note More Needs Levothyroxine Rx canceled to [facility]. Cannot cotton picker at [facility] without cancellation please and thank you. [facility] 05-12-2024 Miscellaneous Notes More Needs Levothyroxine Rx canceled to [facility]. Cannot cotton picker at [facility] without cancellation please and thank you. documented in this encounter [facility] 05-03-2024 History of Presen t illness Narrative Images from the original note were not included. HISTORY OF PRESENT ILLNESS: EST PT Shira Gibbs is an 64 y.o. @ female. (EST PT) HERE FOR YEARLY CHECK OF (R) GREGG 04/24/23 (~1YR) XRAYS DONE TODAY, 05/03/24 IN EPIC NO BONE SCAN PREVIOUS PAIN MGMT ; [facility] DOING WELL. DENIES ANY CURRENT DISCOMFORT IN HER HIP - STATES SHE DOES HAVE SOME CONTINUED LOWER BACK PAIN ; SOME MUSCLE FATIGUE AT TIMES. NOTES GOOD ROM. TAKES TYLENOL PRN. ALLERGIES: Allergies Allergen Reactions Levofloxacin Hives and Nausea And Vomiting Morphine Rash Penicillins Hives and Rash Tetanus Toxoid, Adsorbed Rash HOME MEDICATIONS: Current Outpatient Medications Medication Instructions cholecalciferol (Vitamin D-3) 25 MCG (1000 UT) capsule Vitamin D3 25 mcg (1,000 unit) capsule Take by oral route. levothyroxine (Synthroid, Levoxyl) 75 MCG tablet Daily RT loratadine (Claritin) 10 MG tablet Oral pantoprazole (ProtoNix) 40 MG EC tablet Daily RT Turmeric Curcumin 500 MG capsule as directed Orally zonisamide (Zonegran) 50 MG capsule TAKE 1 CAPSULE BY MOUTH EVERY DAY AT BEDTIME PHYSICAL EXAM: Hip Musculoskeletal Exam Gait Gait is normal. Inspection Leg length disparity: no discrepancy Right Erythema: none Ecchymosis: none Edema: none Deformity: none Previous incision: anterolateral Incision: well-healed Palpation Right Right hip palpation is normal. Increased warmth: none Tenderness: none Range of Motion Right Right hip range of motion is within functional limits. Active ROM: normal. Passive ROM: normal. Strength Right Right hip strength is normal. Extension: 5/5. Flexion: 5/5. Internal rotation: 5/5. External rotation: 5/5. Adduction: 5/5. Abduction: 5/5. Neurovascular Right Right hip neurovascular exam is normal. Pulses - PT: normal Posterior tibial: 2+ General Constitutional: appears stated age Labored breathing: no Psychiatric: normal mood and affect Neurological: alert and oriented x3 Skin: intact Lymphadenopathy: none Vitals: There is no height or weight on file to calculate BMI. Tobacco Use: Low Risk (05/03/2024) Patient History Smoking Tobacco Use: Never Smokeless Tobacco Use: Never Passive Exposure: Not on file Alcohol Use: Not on file IMAGING: Procedures Orders Placed This Encounter Procedures XR hip right 2 or 3 views Order Specific Question: Reason for exam: Answer: POST-OP ASSESSMENT: ICD-10-CM 1. Acute right hip pain M25.551 XR hip right 2 or 3 views 2. History of total hip replacement, right Z96.641 PLAN: Xrays discussed. Pt doing well. Having some return of low back pain after car ride where she leaned over to grab something in car. No pain with manipulation. Pt had prior tx with [facility] pain management and plans to call.. Pt recommend to have dental prophylaxis with cleanings/ tx. Pt advised she had a filling don recently and the dentist told her antibiotics weren't indicated... I discussed with the patient the general recommendations for the use of prophylactic antibiotics prior to dental work after joint replacement. I advised the patient that the use of antibiotics for dental work is still a debated topic amongst specialist and dental providers. I currently have recommended that prophylactic antibiotics be used for lifetime postop and also advised that these guidelines and recommendations may change in the future. Questions answered in laymen terms at the bedside. The diagnosis, home exercise plan and any ongoing restrictions/ recommendations reviewed. If unable to be reached in office, I recommend evaluation at nearest Emergency Room if any symptoms worsened or new symptoms develop for requiring urgent evaluation. documented in this encounter [facility] 12-19-2022 Note PROCEDURE: XR HIP RT 2 3V WO PELVIS HISTORY: Pain in right hip joint , low back pain COMPARISON: None. FINDINGS: BONES:Complete loss of the hip joint space with [id number]-px-samd articulation. Small degenerative osteophytes along superior rim of acetabulum. No fracture or dislocation. SOFT TISSUES:No visible soft tissue swelling. EFFUSION:None visible. OTHER: Negative. IMPRESSION: 1. Marked degenerative joint disease of right hip. Electronically authenticated by: JOSE PORTER Date: 2022-12-19 11:08 [facility] 12-19-2022 Note CONSULTATION CONSULTATION DATE: 12/19/2022 TO: Paige Snowden M.D. CHIEF COMPLAINT: Includes right sided hip pain, leg pain. HISTORY: She rates the pain as being 5-7/10, sharp in character with a deep aching component, increased with activities such as standing, walking and performing transitioning maneuvers. She feels most comfortable in the semi-recumbent position. Denies any change in bowel and bladder habits or new sensorimotor changes in the lower extremities. EXAM: Notable for patient having no clinical radiculopathy involving the lower extremities on today's visit. No clinically myelopathy involving the lower extremities on today's visit. Patient did have a positive right sided FABERs sign and significant myofascial spasm of the lumbar paravertebral muscles on the right side. She had no pain with lumbar facet joint loading maneuvers. IMPRESSION: Our impression is patient appears to have chronic pain secondary to right hip joint related pain clinically. 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 RECOMMENDATIONS: I recommend a right hip x-ray. I have discontinued Robaxin secondary to ineffectiveness. Will trial her on baclofen 10 mg pills, half a pill in the morning and afternoon, half a pill up to two pills at bedtime. I have started her on aquatic therapy and placed the patient on Zonegran 50 mg at h.s. We discussed the possibility of proceeding with a diagnostic right hip joint injection using primarily local anesthetic consisting of Marcaine 0.25% versus proceeding with an epidural steroid injection under fluoroscopic guidance. We will make this determination after we review her imaging study. As part of providing excellent, safe, comprehensive care, the following was completed at our patient's visit: 1. A medication reconciliation and review to ensure accurate knowledge of current/active medications, including asking our patients to inform us about any ssvh-[id number] medications or herbal remedies/nutritional supplements/alternative remedies. 2. A review to specifically ensure our patients have had annual screening for: elevated body mass index (BMI, see intake chart for exact total), tobacco use, screening for depression, and screening for unhealthy alcohol use. When screening is concerning, patients are provided with education and the specific recommendation to discuss the concerning health issue and treatment options with their primary care provider. ADDENDUM: This is report on her right hip x-rays - Did reveal significant osteoarthritic changes/degenerative changes of her right hip joint. At this point, I have recommended that we proceed with a diagnostic right hip joint injection under fluoroscopic guidance. We will be utilizing likely Marcaine at 0.25%. We will use a low dose corticosteroid solution in the form of Depo-Medrol, being no more than 20 mg. We will also inject Omnipaque dye to confirm needle tip placement. She was informed to do a pain diary in the immediate post procedural period. All of her questions answered. She agrees to proceed with the outlined plan. [facility] 09-26-2022 Note CONSULTATION PROCEDURE DATE: 09/26/2022 PREOPERATIVE DIAGNOSIS: Right erector spinae spasm. POSTOPERATIVE DIAGNOSIS: Right erector spinae spasm. PROCEDURE: Right lumbar trigger point injection. Subsequent to obtaining informed consent, the patient was placed in an upright standing forward flexion position. Alcohol prep was used to sterilize the site. A 25 gauge needle with 0.125% Marcaine and 40 mg of Kenalog was used and placed to rest inside the trigger zone. Negative heme. Medication was injected in a slow, fan-like pattern, and patient tolerated the procedure well. She will be followed up in the clinic in three months. [facility] 09-12-2022 Note CONSULTATION CONSULTATION DATE: 09/12/2022 HISTORY OF PRESENT ILLNESS: This is a 62-year-old, very active female, who returns to the clinic status post bilateral RFA of L2, L3 and L4, L5 last completed on 08/13/2022. The patient states she has zero to the right side and 50% to the left. She is very active, going to the gym, and she does multiple exercises with free weights, assisted weights, treadmill and recumbent bicycle. Medications include Robaxin 250 mg q.h.s., magnesium, multivitamin and Extra Strength Tylenol. Occasionally, she will use 600 mg of Motrin. Patient states she has bilateral lower lumbar tightness and it is worse with any physical activity, pushing, pulling and changes in the weather. She denies any vasomotor changes. Patient's REVIEW OF SYSTEMS / PAST MEDICAL HISTORY / ALLERGIES and IMAGES have been reviewed and noted on the chart. PHYSICAL EXAM: VITAL SIGNS: Blood pressure 134/85, heart rate is 82. Temperature is 98. He is 5'4 , weighs 186 pounds. GENERAL IMPRESSION: Pleasant, appropriate, no acute distress. FOCUSED EXAM - BACK: Bilateral paravertebral muscles are spasmodic with a positive jump response to deep palpation that reproduces the patient's pain symptomatology. No spinal axial pain upon compression of the lumbar facets. Samreen's point is non-tender bilaterally. Negative FABERs and compression test. MUSCULOSKELETAL: Motor is intact, 5/5 bilaterally with good muscle tone. Patient walks unassisted with a steady gait. NEUROLOGICAL: Radicular sensory is intact. Negative polyneuropathy. +2 bilateral reflexes to the lower extremities. DIAGNOSIS: Lumbar spondylosis, lumbar spasms, lumbar degenerative disc disease. PLAN: We will preauthorize for bilateral lumbar paravertebral trigger point injections. The patient currently does not use heat, and she was instructed to use a menthol heat rub twice daily to her back, as well as heat application. Stretches were demonstrated, as well as direction given on which gym exercises were appropriate. Upon authorization, patient will be brought back to the clinic to receive those trigger injections, and patient agrees with this plan. [facility] 06-27-2022 Note CONSULTATION CONSULTATION DATE: 06/27/2022 HISTORY OF PRESENT ILLNESS: This is a pleasant, 62-year-old female returning to the clinic status post #2 bilateral MBB of L2, L3 and L4, L5 which was completed on 06/18/2022. This afforded her 90% relief and is ongoing. Today, she rates her pain 1/10 at rest, but will increase to 5/10 with activities. Pushing, pulling, standing, walking, bending and lifting legs up aggravate her pain. Medications include ibuprofen, Robaxin 250 mg q.h.s. magnesium, multivitamin and Vitamin B and D. Patient has been lately increasing her amount of exercise by using the treadmill and a recumbent bike. That does aggravate her pain, but she pushes through anyway. Overall, she feels this second injection made a big improvement in her functionality and overall pain. Patient's REVIEW OF SYSTEMS / PAST MEDICAL HISTORY / ALLERGIES and IMAGES have been reviewed and they are noted on the chart. PHYSICAL EXAM: VITAL SIGNS: Blood pressure is 104/74. Heart rate is 82. Temperature is 97. She is 5'4 , weighs 83.5 kg. GENERAL IMPRESSION: Pleasant, appropriate, no acute distress. FOCUSED EXAM - BACK: Range of motion is guarded in lateral rotation and flexion/extension. Paravertebral muscles are non-spasmodic. Reproduction of patient's spinal axial pain noted to direct compression along the lower lumbar facets of L2, L3 and L4, L5 bilaterally. Pain does not radiate below the knees. Samreen's point is non-tender. Negative FABERs and compression tests. MUSCULOSKELETAL: Motor is intact, 4/5 bilaterally. Patient walks with a stable and steady gait. Good muscle tone. NEUROLOGICAL: Radicular sensory is intact. Negative polyneuropathy. Patellar and Achilles reflexes are +2 bilaterally. DIAGNOSIS: Lumbar degenerative disc disease, lumbar spondylosis, spinal axial lower back pain. PLAN: We will move forward with radiofrequency ablation on the right side, subsequently move to the left of L2, L3 and L4, L5. She is to continue with supportive home measures such as heat and a menthol heat rub, as well as exercise and vitamin regimen. We will continue on Robaxin daily. Patient agrees with the plan of care to move forward. She will be followed up in the office post procedure. [facility] 05-30-2022 Note CONSULTATION CONSULTATION DATE: 05/30/2022 This is a 62-year-old female who returns to the clinic status post #1 bilateral MBB of L2, L3 and L4, L5 completed on 05/14/2022. The patient states she received 90% relief for one hour and 80% relief for one day following. During that time her functionality improved as well as her posture. She was able to walk longer distance, vacuum her carpet and work in the kitchen with less pain. Today at rest her pain is 3 out of 10; with activity goes to 6 out of 10. She describes it as sharp and stabbing with radiating pain to her right leg to mid-tibial region. Activities such as standing, walking, transitioning positions, left leg raises and squatting increase her pain. She does use ice and Vicks which decreases her pain. Medications include ibuprofen 600 mg q. day, Robaxin 250 mg q.h.s., magnesium and a multivitamin regimen. She denies any vasomotor weakness. REVIEW OF SYSTEMS, PAST MEDICAL HISTORY, ALLERGIES AND IMAGES: Have been reviewed and noted in the chart. PHYSICAL EXAM: VITAL SIGNS: Blood pressure 146/84, heart rate is 86, temperature is 97.8. Height is 5'4 , weighs 82.8 kg. GENERAL APPEARANCE: Pleasant, appropriate and in no acute distress. is at bedside. FOCUSED EXAM: BACK: Range of motion is guarded in lateral rotation and flexion/extension. Rotation to the right is limited. Paravertebral muscles are non-spasmodic. Samreen's point is nontender bilaterally, negative Daphne's and compression test. The patient's pain is reproduced upon direct compression of the lower lumbar facets along the posterior elements of L2, L3 and L4, L5. MUSCULOSKELETAL: Motor is intact, 4 out of 5 bilaterally. Has a slight limp to the right. Anterior tibialis muscle with slight weakness to the right lower extremity. The patient does not use assistive device. NEUROLOGICAL: Radicular sensory is intact. Negative polyneuropathy. DIAGNOSIS: Lumbar degenerative disk disease, lumbar spondylosis, spinoaxial lower back pain, lumbar radiculitis. PLAN: We will move forward with #2 bilateral MBB of L2, L3 and L4, L5. The patient does exercise and I reiterated to do non-impact exercises only. She is to continue with her vitamin regimen, heat and stretches. The patient will be brought to the clinic post-procedure and the patient is in agreement with this. [facility] 04-04-2022 Note CONSULTATION CONSULTATION DATE: 04/04/2022 This is a 62-year-old female returning to the clinic status post lumbar epidural steroid injection completed on 03/19/2022 that afforded her 40-50% relief. Her main complaint is right lower back pain in the right leg, radiating pain and right leg weakness. Since the injection, she is able to lift her right leg up and cross it, which she was unable to do before. She cannot do it for a long period of time, but has gained improvement. Today she rates her pain approximately 3 out of 10, which is diffusely across her lower back with radiating pain to the right butt and hip. She was at [employer] recently with a lot of walking and during the end of that day, she was in significant amount of sharp pain. Medications include tizanidine 10 mg q.h.s., diclofenac 75 mg p.r.n., ibuprofen 600 mg p.r.n. and a multivitamin regimen. The patient does state that tizanidine is very strong for her to the point where she may lose bladder control through the night. She denies any new radicular pain or vasomotor changes. REVIEW OF SYSTEMS, PAST MEDICAL HISTORY, ALLERGIES AND IMAGES: Have been reviewed and noted in the chart. PHYSICAL EXAM: VITAL SIGNS: Blood pressure 129/89, heart rate is 75, temperature is 96. Height is 5'5'', weighs 83 kg. GENERAL APPEARANCE: Pleasant, appropriate, no acute distress. Pleasant mood. FOCUSED EXAM: BACK: Range of motion is guarded in lateral rotation and flexion/extension. Reproduction of the patient's spinoaxial pain to direct compression along the posterior elements of the lumbar facets of L2, L3 and L4, L5 bilaterally, right greater than left. Pain does not radiate below the knees. Fullness is palpated along the facets, indicative of ill facet arthropathy, lumbar spondylosis. Paravertebral muscles are non-spasmodic. Samreen's point is mildly tender to the right; negative Daphne's. MUSCULOSKELETAL: Intact 4 out of 5 bilaterally. The patient walks with a stable and steady gait. She does not use an assistive device. Muscle condition is good. NEUROLOGICAL: Negative polyneuropathy, bilateral +2 patellar and Achilles reflexes. DIAGNOSIS: Lumbar radiculitis/spinoaxial motor back pain, lumbar degenerative disk disease, lumbar spondylosis. PLAN: After discussing rhizotomy series with the patient, she agrees to move forward to authorize #1 bilateral MBB to L2, L3 and L4, L5. We will change her muscle relaxer to Robaxin 250 mg q.h.s. and patient was instructed to stop the Tizanidine. She is to continue with her heat rub, stretches and heat application. She is compliant with her vitamins at this time. She will be followed in the clinic post-procedure and would like to move forward. [facility] 02-28-2022 Note CONSULTATION CONSULTATION DATE: 02/28/2022 This is a 62-year-old female that was referred to our clinic as a new patient for her lower back pain and right groin pain. The patient has had pain for some time, but it greatly increased approximately 2 months ago. The patient reports bending over to cotton picker something and following that she had pelvic pain and lower back pain. It is aggravated by prolonged sitting, stairs, bending and lifting. Using ice deceases her pain. She has been seeing her PCP, Dr. Snowden, and he placed her on diclofenac 75 mg b.i.d., tizanidine 4 mg q. day and gabapentin 300 mg q. day. The patient was unable to tolerate the gabapentin and the tizanidine as she felt over-medicated and was near incontinence during the night. The patient just recently returned from [place] and walked on the beach many times. She said it was tolerable but since her trip her pain is increased. Today her pain is 4 out of 10 and described as stabbing and catchy. With increased activity her pain goes to 7 out of 10. She has a recent MRI which reveals some mild central canal stenosis along with foraminal stenosis at multiple levels of her lumbar. She does have a disk bulge in-between L2 and L3. Her pain does radiate down her right lower leg to the anterior, anterior lateral portion to the level of the ankle. Current medications include Fosamax which she just started briefly for osteoporosis and ibuprofen. The patient does like to go to the gym 3-4 times a week and do non-impact exercise. She was sent to Neurosurgery in [place] for a consult where they stated she was not a surgical candidate at this time. REVIEW OF SYSTEMS, PAST MEDICAL HISTORY, ALLERGIES AND IMAGES: Have been reviewed and noted in the chart. PHYSICAL EXAM: VITAL SIGNS: Blood pressure 131/90, heart rate is 97, temperature is 09.2. Height is 5'4 , weighs 82.3 kg. GENERAL APPEARANCE: Pleasant, appropriate, in no acute distress. FOCUSED EXAM: BACK: Range of motion is functional in lateral rotation and flexion/extension. The paravertebral muscles are taut but not spasmodic. Samrene's point is nontender bilaterally. Daphne's, compression tests are negative. Spinoaxial pain is reproduced upon direct compression along the lumbar facets of L1, L2 and L3, L4 bilaterally which reproduces the patient's pain symptomatology and radicular pain to her anterior thigh. MUSCULOSKELETAL: Motor is intact, 4 out of 5 bilaterally. The patient has good muscle tone and walks with a steady gait. NEUROLOGICAL: Patchy hypesthesia noted along right-sided L1, L2, L3 dermatomes to the level of the ankle. Plus 2 bilateral patellar and Achilles reflexes. DIAGNOSIS: Lumbar radiculitis, lumbar degenerative disk, lumbar spinal canal stenosis without claudication. PLAN: I discussed with the patient our interventional approach at our clinic. Vitamin list was given and recommended, which the patient does agree to. I also recommended a lumbar epidural steroid injection at the level of L2, L3 with a decreased Depo dose secondary to her osteoporosis. I did instruct her to continue the diclofenac 75 mg q. day and to half dose the tizanidine down to 2 mg at bedtime. She may continue her non-impact exercises at this time. The patient does agree with the plan of care and procedure and will be followed up in the clinic for following. [facility] Signed and Approved by: VEDA PAYNE . 03/07/2022 09:46:00 [facility] 10-12-2021 Note Chief Complaint consultation for colonoscopy, skin tag, mole and cyst HPI Staff 61 year old female presents on consultation from Dr. Snowden for colonoscopy, skin tags right neck, dark mole on chest and cyst right back. Denies abdominal pain. Reports rectal pain and bleeding with known fissure. Denies nausea or vomiting. No change in bowel habits or unexplained weight loss. Previous colonoscopy completed greater than 10 years ago per patient and reported normal. Father with colon cancer, diagnosed age 80's. Reports multiple year history of dark mole on chest with recent increased darkness. Denies this being painful, bleeding or itching. Reports several skin tags to right neck that frequently get caught in necklace which causes irritation. States she has a cyst mid upper back that has been present many years. Denies this being painful. Spouse used to express malodorous material from this but has not been successful in doing so for quite some time. History of Present Illness 61 yo female with h/o GERD, hypothyroidism, referred for colorectal screening and changing skin lesions; denies change in bms, or abdominal complaints; reports intermittent BRBPR with wiping, that she attributes to a longstanding fissure, but she has no pain; no hematochezia or melena; last colonoscopy over 10 years ago; abdominal operations significant for ELIEZER with bso; denies asa or NSAID use, no SBE prophylaxis; fmhx of colon cancer in patient's father, dx in his 80's, no fmhx of IBD; also irritated cyst upper back, has drained in the past; changing mole on chest and irritated skin tags right neck. Review of Systems PHQ Score Initial Depression Screen Score: 0 ROS - Provider Constitutional: no fever, no sweats, no weight loss. Eyes: no glasses, no blurred vision, no visual loss. ENMT: no dentures, no hoarseness, no swallowing difficulties, no hearing loss, no ear infection(s), no nose bleeds. Cardiovascular: normal blood pressure, no chest pain, regular heartbeat, no heart murmur. Respiratory: no shortness of breath, no cough, no asthma, no wheezing. Gastrointestinal: no nausea, no vomiting, no diarrhea, no constipation, no blood in stool, no change in bowel habits, no abdominal pain, no hepatitis. Genitourinary: no kidney stones, no urine infection, no dysuria. Musculoskeletal: no pain, no weakness. Skin: yes changing moles, no rash, yes skin lumps. Neurologic: no seizures, no epilepsy, no headache. Psychiatric: no emotional or psychiatric problem. Heme/Lymph: no bleeding problems, no anemia, no blood clots, no transfusions. Allergy/Immunologic: no swollen lymph nodes/glands, no IV drug abuse. Other: Additional ROS info: Except as noted in the above Review of Systems and in the History of Present Illness, all other systems have been reviewed and are negative or noncontributory. Physical Exam Vitals & Measurements HR: 76(Peripheral) RR: 16 BP: 116/74 HT: 162.6 cm HT: 162.56 cm WT: 83.3 kg WT: 83.3 kg BMI: 31.52 HEENT: normal conjunctiva, sclera clear, no scleral icterus, EOM intact, PERRLA, oral mucosa moist without lesions. Neck: trachea midline, no mass, symmetric, no thyromegaly or nodules, no adenopathy Respiratory: lungs CTA, respirations non labored. Cardiovascular: regular rate and rhythm, no murmur, no pedal edema or varicosities. Gastrointestinal: obese, soft, non distended, no tenderness, no masses, no palpable hernias, diastasis recti no, no hepatosplenomegaly; normal bs Lymphatic: no cervical adenopathy, Musculoskeletal: normal gait, digits and nails without infection, nodes, cyanosis, clubbing. Skin: no rashes, 1 cm epidermal cyst right upper back, anterior mid chest with 4 mm dark lesion, irregular border, no ulceration; right neck with several inflamed skin tags, 2-4 mm. Psychiatric/Neuro: oriented to time, place, person, judgement normal, affect appropriate for age, insight intact, no focal deficits. Tests: review of old records completed, Discussed surgical options, risks, and possible complications with patient. Assessment/Plan 1. Encounter for screening for colorectal malignant neoplasm (Z12.11: Encounter for screening for malignant neoplasm of colon) plan colonoscopy under anesthesia, informed consent obtained. 2. Epidermal cyst (L72.0: Epidermal cyst) plan excisional biopsy under local anesthesia, informed consent obtained. 3. Neoplasm of uncertain behavior of skin of chest (D48.5: Neoplasm of uncertain behavior of skin) see # 2 4. Cutaneous skin tags (L91.8: Other hypertrophic disorders of the skin) see # 2 5. BMI 31.0-31.9,adult (Z68.31: Body mass index [BMI] 31.0-31.9, adult) recommend diet and exercise. Encounter for screening for malignant neoplasm of rectum (Z12.12: Encounter for screening for malignant neoplasm of rectum) Follow-up No qualifying data available Problem List/Past Medical History Ongoing BMI 31.0-31.9,adult Cutaneous skin tags Encounter for screening for colorectal malignant n (more content not included)... [facility] Comment on above: Result Comment: Elec tronically Signed By: JUANI WATERS, Reece Vargas\Date and Time Signed: 10/12/21 15:42 EST Evaluation note Diagnosis Acute right hip pain- Primary History of total hip replacement, right documented in this encounter [facility] Summary Purpose Family History No Family History Records FoundNo Family History Records FoundNo Family History Records FoundNo Family History Records Found Advance Directives No Advanced Directives Records FoundNo Advanced Directives Records FoundNo Advanced Directives Records FoundNo Advanced Directives Records Found Additional Source Comments INFORMATION SOURCE (unrecogn ized section and content) DATE CREATED AUTHOR 11/11/2021 [facility] DATE CREATED AUTHOR AUTHOR'S ORGANIZ ATION 01/28/2022 [facility] DATE CREATED AUTHOR AUTHOR'S ORGANIZ ATION 01/03/2023 [facility] DATE CREATED AUTHOR AUTHOR'S ORGANIZ ATION 05/09/2024 [facility] [employer] Care Teams (unrecognized sec tion and content) School Leader Relationship Specialty Start Date End Date Paige Snowden MD [address] [place] [address] PCP - General Family Medicine 02/20/23 School Leader Relationship Specialty Start Date End Date Paige Snowden MD [address] [place] [address] PCP - General Family Medicine 02/20/23 Reason for Visit (unrecogniz ed section and content) Reason Comments Post-op FOR RECORDS PERTAINING TO PATIENTS WHO ARE OR HAVE BEEN ENROLLED IN A CHEMICAL DEPENDENCY/SUBSTANCEABUSE PROGRAM, SOME INFORMATION MAY BE OMITTED. This clinical summary was aggregated from multiple sources. Caution should be exercised in using it in the provision of clinical care. This summary normalizes information from multiple sources, and as a consequence, information in this document may materially change the coding, format and clinical context of patient data. In addition, data may be omitted in some cases. CLINICAL DECISIONS SHOULD BE BASED ON THE PRIMARY CLINICAL RECORDS. [facility]. provides no warranty or guarantee of the accuracy or completeness of information in this document.
== END 2024-09-06 08:47 | disposition home or self-care (01) ==
LOC: SLEEP 08:47
PROVIDERS: PCP Family Medicine; Visit Provider Family Medicine
DX: G47.33 Obstructive sleep apnea (adult) (pediatric) (principal)
CPT/HCPCS: 95806

== ENCOUNTER 2024-09-27 20:49 | Outpatient (OUT) | payer OTHER, SELFPAY ==
--- OUTSIDE RECORDS SUMMARY | 2024-09-27 20:51 | XMS_ITS | CCD ---
Author Organization [facility] CliniSyfl Care Team Providers Care Machine Filler Servicer Name Role Phone BANUELOS ., DR FAITH [...] BANUELOS ., DR FAITH Majano Consulting Unavailable PERALTACAMILO FELIPELE Consulting Unavailable HOY ., DR GIBSON Attending [...] FAITH Majano Admitting Unavailable HOY ., DR GIBOSN Primary Care Unavailable PAYNE ., VEDA Consulting [...] Unavailable Paige Snowden MD Primary Care Provider [phone] Allergies Allergy Classification Reported Allergen(s) Allergy Type Date of Onset Reaction(s) Facility (2 sources) Allopurinol Drug Allergy 7 [facility] Repository (1 source) levoFLOXacin Drug Allergy [facility] Repository (1 source) Morphine Drug Allergy 7 [facility] Repository (2 sources) Penicillin Drug Allergy 7 [facility] Repository (4 sources) levoFLOXacin Drug [...] Interpretation Reference Range [facility]il [facility]25 SARS-CoV-2 (COVID-19) RNA LOWELL+probe Ql (Unsp spec) Not detected Normal NOT DETECTED [facility] Comment on above: Result Comment: This test is not yet approved or cleared by the [place] FDA. When there are no FDA-approved or cleared tests available, and other criteria are met, FDA can make tests available under an emergency access mechanism called an Emergency Use Authorization (EUA). The EUA for this test is supported by the Manager Contracting of Health and Human Service's (HHS's) declaration [...] SARS-CoV-2. Performed By: #### C VDTB #### [facility] Laboratory [address] [place], [place] [address] Dr. Tanja Soto Covid-19 PCR ([facility])on SARS-CoV-2 (COVID-19) RNA LOWELL+probe Ql (Unsp spec) Not detected Normal NOT DETECTED [facility] Comment on above: Result [...] for this test is supported by the Manager Contracting of Health and Human Service's declaration that [...] be used). Performed By: #### C VDTB ####[facility] [address] [place], [place] [address]LxDr. Tanja Soto MG MAMM SCREEN 3D JOSE CADon 07-15-2022 MG MAMM SCREEN 3D JOSE CAD Patient: SHIRA GIBBS Exam Date: 07/15/2022 : 1960 Gender:F Ordering : DR PAIGE SNOWDEN . Admission #: [id number] Family : Order #: [id number] CLICK HERE TO VIEW EXAM RADIOLOGY REPORT [...] prostate cancer at age 80. LOCATION: [facility] BREAST COMPOSITION: Scattered areas fibroglandular [...] Manuel MD on 07/15/2022 at 10:04 Normal [facility] FREE T3on 02-27-2022 FREE T3 3.00 pg/mlL Normal 2.18-3.98 [facility] Comment on above: Performed By: #### F T3, RENAL, TSH ####[facility] [address] [place] [address]Dr. Tanja Soto FREE T4on 02-27-2022 Free T4 [Mass/Vol] 1.34 ng/dL Normal 0.76-1.46 [facility] Comment on above: Performed By: #### V ITAD, FT4 ####[facility] [address] [place] [address]Dr. Tanja Soto RENAL FUNCTION PANELon 02-27 Albumin [Mass/Vol] 3.3 g/dL Critically low 3.4-5.0 [facility] Comment on above: Performed By: #### F T3, RENAL, TSH ####[facility] [address] [place] [address]Dr. Tanja Soto Calcium [Mass/Vol] 9.0 mg/dL Normal 8.5-10.1 [facility] Comment on above: Performed By: #### F T3, RENAL, TSH ####[facility] [address] [place] [id number]. Tanja Soto Chloride [Moles/Vol] 105 mmol/L Normal 98-107 [facility] Comment on above: Performed By: #### F T3, RENAL, TSH ####[facility] [address] [place] [id number]. Tanja Soto CO2 [Moles/Vol] 28.3 mmol/L Normal 21.0-32.0 [facility] Comment on above: Performed By: #### F T3, RENAL, TSH ####[facility] [address] [place] [address]Dr. Tanja Soto Creatinine [Mass/Vol] 0.87 mg/dL Normal 0.55-1.02 [facility] Comment on above: Performed By: #### F T3, RENAL, TSH ####[facility] [address] [place], [place] [address]Dr. Tanja Soto EGFR-AF CITIZEN [place] >60 Normal >=60 [facility] Comment on above: Performed By: #### F T3, RENAL, TSH ####[facility] [address] [place], [place] [address]Dr. Tanja Soto EGFR-NON AF CITIZEN OF [place] >60 Normal >=60 [facility] Comment on above: Performed By: #### F T3, RENAL, TSH ####[facility] [address] [place] [id number]. Tanja Soto Glucose [Mass/Vol] 93 mg/dL Normal 74-106 The [facility] Comment on above: Performed By: #### F T3, RENAL, TSH ####[facility] [address] [place] [id number]. Tanja Soto Phosphate [Mass/Vol] 3.1 mg/dL Normal 2.6-4.7 [facility] Comment on above: Performed By: #### F T3, RENAL, TSH ####[facility] [address] [place] [address]Dr. Tanja Soto Potassium [Moles/Vol] 3.6 mmol/L Normal 3.5-5.1 [facility] Comment on above: Performed By: #### F T3, RENAL, TSH ####[facility] [address] [place] [address]Dr. Edelbailey Soto Sodium [Moles/Vol] 140 mmol/L Normal 136-145 [facility] Comment on above: Performed By: #### F T3, RENAL, TSH ####[facility] [address] [place] [address]Dr. Tanja Soto Urea nitrogen [Mass/Vol] 13.0 mg/dL Normal 7.0-18.0 [facility] Comment on above: Performed By: #### F T3, RENAL, TSH ####[facility] [address] [place] [address]Dr. Tanja Soto TSHon 02-27-2022 TSH 0.759 uIU/mL Normal 0.358-3.740 [facility] Comment on above: Performed By: #### F T3, RENAL, TSH ####[facility] [address] [place] [address]Dr. Tanja Soto VITAMIN D 25 OHon 02-27-2022 VIT D 25-OH 35.5 ng/mL Normal [facility] Comment on above: Performed By: #### Tayler UMANZOR, FT4 ####[facility] [address] [place] [address]Dr. Tanja Soto VIT D RANGES SEE BELOW Normal [facility] Comment on above: Result Comment: <20 ng/mL Vit D deficient 20 - <30 ng/mL Vit D insufficient 30 - 100 ng/mL Vit D sufficient >100 ng/mL Potential Toxicity Performed By: #### Tayler UMANZOR, FT4 ####[facility] [address] [place] [id number]. Tanja Soto XR DEXA BONE DENSITYon 02-27 [...] by: JOSE PORTER Date: 2022-02-27 16:07 Normal [facility] HIP RIGHT 1 OR 2 VWS WITH PE LVISon 01-23-2022 HIP RIGHT 1 OR 2 VWS WITH PELVIS [facility] Department of Radiology [address] [place] [id number] Patient Name: SHIRA GIBBS : 1960 [...] , Ordering Provider - A MATTHEW ALBRECHT NEONATAL NURSE PRACTITIONER , Exam: HIP RIGHT 1 OR 2 [...] , Ordering Provider - A MATTHEW MSN NEONATAL NURSE PRACTITIONER , PROTOCOL: AP(PA) and Lateral views were obtained. COMPARISON: None FINDINGS: Pelvic ring intact. Sacroiliac joints symmetric. Hips normally aligned bilaterally. No evidence of fracture. There is superior lateral joint space narrowing right hip IMPRESSION: Early degenerative change right hip Electronically signed: Roseann Lemus. Transcribed by: [email or web address], User Resident: Electronically Signed by: ROSEANN LEMUS @ 01/24/2022 02:04 PM Normal [facility] Comment on above: Order Comment: , rig ht hip pain, r/o osteoarthritis, fracture , right hip pain, r/o osteoarthritis, fracture , , , Ordering Provider - A MATTHEW MSN NEONATAL NURSE PRACTITIONER , MRI LSPINE WO CONon 01-12-20 MRI [...] by: JOSE PORTER Date: 2022-01-11 13:45 Normal [facility] XR LSPINE MIN 4 VIEWSon 12-23 [...] by: JOSE PORTER Date: 2022-01-07 13:40 Normal [facility] Ambulatory Visit Summaryon 0 11-02-2021 Ambulatory [...] skin of chest Nontoxic goiter Osteoporosis Normal [facility] General Surgery Office/Clini c Noteon 11-02-2021 [...] vaccine, inactivated - Not Given Patient Refuses [facility] Comment on above: Result Comment: Elec tronically Signed By: JUANI WATERS, Reece Vargas\Date and Time Signed: 11/02/21 15:19 EST Reminderson 11-02-2021 Reminders - From: Karen Roth LPN To: N - Clinical; Sent: 11/02/2021 16:03:44 EST Show up: 09/26/2024 07:00:00 EST Subject: colonoscopy recall Due Date/Time: 10/24/2024 07:00:00 EST Reminder/Recall Patient is due for colonoscopy 10/24/2024 due to history of tubulovillous adenoma. Normal [facility] Pathology Noteon 10-26-2021 Pathology Note [id number] #1.00CD:127 Normal [facility] Outside Colonoscopyon 2021 Outside Colonoscopy [id number] #1.00CD:127 Normal [facility] Lab Reportson 10-23-2021 Lab Reports [id number] #1.00CD:127 [facility] Consent for Procedure/Surger yon 10-10-2021 Consent for Procedure/Surgery 104.170.. [id number] #1.00CD:127 Normal [facility] Consent for Procedure/Surgery 104.170.. [id number] #1.00CD:127 Normal [facility] Ambulatory Visit Summaryon 0 10-09-2021 Ambulatory [...] Major depressive disorder Nontoxic goiter Osteoporosis Normal [facility] Physician Referralon 022 Physician Referral [id number] #1.00CD:127 Normal [facility] Encounters Encounter Date Encounter Type Care [...] laboratory examination DR FAITH BANUELOS . [facility] Start: 08-13-2022 End: 08-13-[address] PAIGE SNOWDEN . Facility:[facility] Start: 08-09-2022 End: 08-10-[address] FAITH BANUELOS . Facility:[facility] Start: 08-09-2022 End: 08-10-2022 Encounter for preprocedural laboratory examination DR FAITH BANUELOS . Facility:[facility] Start: 08-06-2022 End: 08-06-[address] PAIGE SNOWDEN . Facility:[facility] Start: 08-02-2022 End: 08-03-[address] FAITH BANUELOS . Facility:[facility] Start: 07-15-2022 End: 07-16-[address] PAIGE SNOWDEN . Facility:[facility] Start: 06-27-2022 End: 06-28-2022 ambulatory [...] [address] [place] [id number] Nish Eagle PA [address] [facility] [address] [place] [address] [facility] Start: 03-07-2025 End: 03-07-2025 Patient encounter procedure 03/07/2025 9:10 AM EDT Office Visit [facility] [address] [place] [address] Reji Conklin MD [address] [place] [address] [facility] Start: 05-03-2024 End: 05-03-2024 Patient encounter procedure 05/03/2024 10:45 AM EDT Office Visit [facility] [address] [facility] [address] [place] [id number] Nish Eagle PA [address] [facility] [address] [place] [address] Acute right hip pain (Primary Dx); History of total hip replacement, right [facility] Comment on above: Acute right hip pain (Primary Dx); History of total hip replacement, right Start: 04-25-2024 Influenza vaccination Influenza Vacc ine (#1) [facility] Start: 2000 Screening for malignant neoplasm of breast Mammogram [facility] Start: 02-11-1990 Screening for malignant neoplasm of cervix [facility] Start: 02-11-1981 Screening for malignant neoplasm of cervix Pap Smear [facility] Start: 1960 Screening for malignant neoplasm of colon [facility] XR Hip - right 3 Views XR hip right 2 or 3 views Imaging Routine Acute right hip pain 05/03/2024 10:46 AM EDT [facility] Work Phone: Immunizations Immunization Date Immunization Notes Care Provider Fa [facility] 07-27-2018 influenza, injectabl e, quadrivalent, preservative free Nish HERNÁNDEZ Work Phone: [facility] 12-03-2018 influenza virus vacc ine, unspecified formulation Nish HERNÁNDEZ Work Phone: [facility] Payers Date Payer Category Payer Private Health Insurance [facility] [id number] 2023-Present [address] [address] [place] [address] [id number] [id number] 1960 Unknown [id number] 2.16.840.1.218002.3.579. 2.593 1960 Unknown [id number] 2.16.840.1.225725.3.579. 2.593 1960 Unknown [id number] 2.16.840.1.832567.3.579. 2.593 1960 Unknown [id number] 2.16.840.1.240671.3.579. 2.593 1960 Unknown [id number] 2.16.840.1.494196.3.579. 2.593 1960 Unknown [id number] 2.16.840.1.677533.3.579. 2.593 1960 Unknown [id number] 2.16.840.1.659623.3.579. 2.593 1960 Unknown [id number] 2.16.840.1.270760.3.579. 2.593 1960 Unknown [id number] 2.16.840.1.463599.3.579. 2.593 1960 Unknown [id number] 2.16.840.1.204656.3.579. 2.593 1960 Unknown [id number] 2.16.840.1.418261.3.579. 2.593 1960 Unknown [id number] 2.16.840.1.257413.3.579. 2.593 1960 Unknown [id number] 2.16.840.1.229723.3.579. 2.593 1960 Unknown [id number] 2.16.840.1.400676.3.579. 2.593 1960 Unknown [id number] 2.16.840.1.737269.3.579. 2.593 1960 Unknown [id number] 2.16.840.1.428288.3.579. 2.593 1960 Unknown [id number] 2.16.840.1.765108.3.579. 2.593 1960 Unknown [id number] 2.16.840.1.065451.3.579. 2.593 1960 Unknown [id number] 2.16.840.1.100670.3.579. 2.593 1960 Unknown [id number] 2.16.840.1.016468.3.579. 2.593 1960 Unknown [id number] 2.16.840.1.031155.3.579. 2.593 1960 Unknown [id number] 2.16.840.1.662815.3.579. 2.593 1960 Unknown [id number] 2.16.840.1.305248.3.579. 2.593 1960 Unknown [id number] 2.16.840.1.983275.3.579. 2.1259 1960 Unknown [id number] 2.16.840.1.715249.3.579. 2.1259 1960 Unknown [id number] 2.16.840.1.029615.3.579. 2.1259 1959 Private Health Insurance [id number] 1959 Private Health Insurance [id number] Social History Date Type Detail Facility Start: 02-20-2023 Tobacco smoking stat [facility] Never smoked tobacco [facility] Start: 02-20-2023 Tobacco use and exposure Smoke less tobacco non-user [facility] Start: 07-07-2023 End: 05-03-2024 Alcoholic beverage intake Lifetime non-drinker (finding) [facility] Start: 07-07-2023 End: 05-03-2024 History of Social function [facility] Start: 07-07-2023 End: 05-03-2024 Tobacco use panel [facility] Start: 1960 Sex assigned at Not on file [facility] Clinical Notes 10-12-2021 to 05-12-2024 Telephone Encounter - Ant Velarde - 05/12/2024 2:07 PM EDTTelephone Encounter - Antdeja Velarde - 05/12/2024 2:07 PM EDTMattBETTY El - 05/03/2024 10:45 AM EDT Note Date & Type Note Facility 05-12-2024 Telephone encounter Note More Needs Levothyroxine Rx canceled to [facility]. 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 [facility] 05-12-2024 Miscellaneous Notes More Needs Levothyroxine Rx canceled to [facility]. 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 documented in this encounter [facility] 05-03-2024 History of Presen t illness Narrative [...] with manipulation. Pt had prior tx with [facility] pain management and plans to [...] requiring urgent evaluation. documented in this encounter [facility] 12-19-2022 Note PROCEDURE: XR HIP RT 2 3V WO PELVIS HISTORY: Pain in right hip joint , low back pain COMPARISON: None. FINDINGS: BONES:Complete loss of the hip joint space with nvjt-iz-lujj articulation. Small degenerative osteophytes along superior rim of acetabulum. No fracture or dislocation. SOFT TISSUES:No visible soft tissue swelling. EFFUSION:None visible. OTHER: Negative. IMPRESSION: 1. Marked degenerative joint disease of right hip. Electronically authenticated by: JOSE PORTER Date: 2022-12-19 11:08 [facility] 12-19-2022 Note CONSULTATION CONSULTATION DATE: 12/19/2022 [...] our patients to inform us about any xaxq-vho-smwnprs medications or herbal remedies/nutritional supplements/alternative remedies. 2. [...] to proceed with the outlined plan. [facility] 09-26-2022 Note CONSULTATION PROCEDURE DATE: [...] in the clinic in three months. [facility] 09-12-2022 Note CONSULTATION CONSULTATION DATE: [...] and patient agrees with this plan. [facility] 06-27-2022 Note CONSULTATION CONSULTATION DATE: [...] up in the office post procedure. [facility] 05-30-2022 Note CONSULTATION CONSULTATION DATE: [...] patient is in agreement with this. [facility] 04-04-2022 Note CONSULTATION CONSULTATION DATE: [...] right butt and hip. She was at [place] recently with a lot of walking and [...] and would like to move forward. [facility] 02-28-2022 Note CONSULTATION CONSULTATION DATE: 02/28/2022 This is a 62-year-old female that was referred to our clinic as a new patient for her lower back pain and right groin pain. The patient has had pain for some time, but it greatly increased approximately 2 months ago. 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 The patient just recently returned from [place] and walked on the beach many times. [...] exercise. She was sent to Neurosurgery in [place] for a consult where they stated she [...] paravertebral muscles are taut but not spasmodic. Samreen's point is nontender bilaterally. Daphne's, compression tests [...] followed up in the clinic for following. [facility] Signed and Approved by: VEDA PAYNE . 03/07/2022 09:46:00 [facility] 10-12-2021 Note Chief Complaint consultation for [...] colorectal malignant n (more content not included)... [facility] Comment on above: Result [...] section and content) DATE CREATED AUTHOR 11/11/2021 [facility] DATE CREATED AUTHOR AUTHOR'S ORGANIZ ATION 01/28/2022 [facility] DATE CREATED AUTHOR AUTHOR'S ORGANIZ ATION 01/03/2023 [facility] DATE CREATED AUTHOR AUTHOR'S ORGANIZ ATION 05/09/2024 [facility] dical Specialists EP[employer] Care Teams (unrecognized sec tion and content) Machine Filler Servicer Relationship Specialty Start Date End Date Paige Snowden MD [address] [place] [address] PCP - General Family Medicine 02/20/23 Machine Filler Servicer Relationship Specialty Start Date End Date Paige Snowden MD [address] [place] [address] PCP - General Family Medicine 02/20/23 Reason [...] BE BASED ON THE PRIMARY CLINICAL RECORDS. [employer] [facility]. provides no warranty or guarantee of the accuracy or completeness of information in this document.
== END 2024-09-27 20:50 | disposition home or self-care (01) ==
LOC: SLEEP 20:49
PROVIDERS: PCP Family Medicine; Visit Provider Family Medicine
DX: G47.33 Obstructive sleep apnea (adult) (pediatric) (principal); G47.34 Idiopathic sleep related nonobstructive alveolar hypoventilation
CPT/HCPCS: 95811

== ENCOUNTER 2025-01-19 10:01 | Outpatient (OUT) | payer OTHER, SELFPAY ==
--- OUTSIDE RECORDS SUMMARY | 2024-08-10 06:30 | XMS_ITS ---
Author Organization The [facility] [place] Address [address] [place] [address] Care Team Providers Care Potter Or Ceramic Artist Name Role Phone Tanner Snowden Primary Care Provider [phone] Allergies Allergen (clinical drug ingredient) Drug/Non Drug Allergy documented on EMR Reaction Allergy Type Onset Date Status amoxicillin Amoxicillin hives Drug Allergy Act natalya Levaquin hives Drug Allergy Active morphine Morphine Sulfate isominia Drug Allergy Active Tetanus Immune Globulin rash Drug Allergy Active REASON FOR VISIT Wants Sleep study Medications Medication SIG (Take, Route, Frequency, Duration) Notes Start Date End Date Status Levothyroxine Sodium 75 MCG 1 tablet in the morning on an empty stomach Orally Once a day Active ZyrTEC Allergy 10 MG 1 capsule Orally On ce a day Active Turmeric 500 MG as directed Orally Active Vitamin D (Cholecalciferol) 25 MCG (1000 UT) 1 tablet Orally Once a day Active Pantoprazole Sodium 40 MG TAKE 1 TABLET BY MOUTH EVERY DAY for 30 days Active Social History Tobacco Use: Social History Observation Description Date Details (start date - stop date) Never Smoker NA - NA Tobacco Use/Smoking Question Answer Notes Patient is a nonsmoker Problems Problem Type SNOMED Code ICD Code Onset Dates Problem Status W/U Status Risk Notes Problem Snoring (54250042) Snoring (R06.83) Active confirmed Problem Fatigue (R53.83) Active confirmed Vital Signs Weight 180.2 lbs 08/10/2024 Height 64 in 08/10/2024 Blood pressure systolic 140 mm Hg 08/10/20 24 Blood pressure diastolic 80 mm Hg 024 BMI 30.93 kg/m2 08/10/2024 Procedures Procedure Date Ordered Date Performed Result Body Sit e Sleep study - Diagnostic Polysonogram 08/10/2024 N/A Encounters Encounter Location Date Provider Diagnosis [facility] [address] [facility] [place] [address] 08/10/2024 Tanner Snowden Snoring R06.83 and Fatigue R53.83 Assessments Encounter Date Diagnosis (ICD Code) Assessment Notes Treatment Notes Treatment Clinical Notes Section Notes 08/10/2024 Snoring (ICD-10 - R06.83) 08/10/2024 Fatigue (ICD-10 - R53.83) Plan Of Treatment Pending Test Test Name Order Date Sleep study - Diagnostic Polysonogram Progress Notes * Danitza GIBBSjazielDOB:1960 (64 yo F)Acc No.[id number]:08/10/2024 Progress Note Patient: Ivania MILAN Provider: Yarelis Snowden ([facility])MD :1960 A ge:64 Y S ex:Female Date:08/10/2024 Address:[address] [place] [address] [address], [facility] Check In:10:27 AM ESTCheck O ut:11:10 AM EST Subjective: * Chief Complaints: * W ants Sleep study * HPI: G eneral: stil snoring - then had hip surgery - disussed labs done overf a year ago nees sleep stuy now due fatiguye and snoring. * ROS: E ENT: hearing changes d enies. v isual changes d enies.?non-healing mouth sores d enies. s wollen glands or neck lumps d enies. h oarseness d enies. s ore throat d enies. d ifficulty swallowing d enies. n ose bleeds d enies. n jose miguel congestion d enies. e ar ache d enies. e ar discharge?denies. r inging in ears d enies. l ight sensitivity d enies. e ye pain d enies. b lurring d enies. e ye irritation d enies. d ouble vision d enies.?vision loss d enies. G eneral/Constitutional: Sweats: D enies. F atigue d enies. S leep problems d enies. A norexia d enies. M alaise d enies. W eight loss d enies.?Fatigue or Weakness d enies. F ever or Chills d enies. C ardiovascular: Shortness of Breath w/lying flat d enies. L ightheadedness/dizziness d enies. C hest tightness/ heavy pressure d enies. S welling of legs, ankles, or feet d enies. W aking up with shortness of breath d enies. C hest pain denies. P alpitations d enies. W eight gain d enies. R espiratory: Chronic or frequent cough d enies. C oughing up blood?denies. D ifficulty breathing d enies. P roductive cough d enies. S noring?denies. S hortness of breath that awakens from sleep (PND) d enies. C hest pain d enies. S putum production d enies. W heezing d enies. M usculoskeletal: Joint pain d enies. J oint Fluid d enies. B ack pain d enies. K nee pain d enies. N mary pain d enies. J oint Stiffness d enies. M uscle cramps d enies. W eakness of muscles d enies. A rthritis d enies. M uscle aches d enies. P ain in shoulder(s) d enies. S wollen joints d enies. * Active Problem List K21.9 Acid reflux Modified On:07/03/2023/U Status:confirmed M54.16 Acute lumbar radicul opathy Modified On:07/03/2023/U Status:confirmed Z00.00 Well adult Modified On:06/05/2023/U Status:confirmed M16.11 Unilateral primary o steoarthritis, right hip Modified On:04/04/2023/U Status:confirmed J32.9 Sinusitis Modified On:07/21/2023/U Status:confirmed R06.83 Snoring Modified On:08/10/2024/U Status:confirmed R53.83 Fatigue Modified On:12/17/2024W/U Status:confirmed * Medical History: * Surgical History: r ight shoulder surgery 2020thyroid left rmoval left foot surgery Right Total Hip Arthroplasty * Hospitalization/Major Diagno stic Procedure: s ee above * Family History: F ather: 101 yrs. M other: 74 yrs, diagnosed with Sjogrens syndrome, with unspecified organ involvement. B rother(s): alive. S on(s): alive. D aughter(s): alive. 1 brother(s) - healthy. 1 son(s) , 1 daughter(s) - healthy. . * Social History: T obacco Use: T obacco Use/Smoking P atient is a n onsmoker * Medications: T akingLevothyroxine Sodium 75 MCG Tablet 1 tablet in the morning on an empty stomach Orally Once a day Pantoprazole Sodium 40 MG Tablet Delayed Release TAKE 1 TABLET BY MOUTH EVERY DAY Turmeric 500 MG Tablet as directed Orally Vitamin D (Cholecalciferol) 25 MCG (1000 UT) Tablet 1 tablet Orally Once a day ZyrTEC Allergy(Cetirizine HCl) 10 MG Capsule 1 capsule Orally Once a day Taking Levothyroxine Sodium 75 MCG Tablet 1 tablet in the morning on an empty stomach Orally Once a day Taking Pantoprazole Sodium 40 MG Tablet Delayed Release TAKE 1 TABLET BY MOUTH EVERY DAY Taking Turmeric 500 MG Tablet as directed Orally Taking Vitamin D (Cholecalciferol) 25 MCG (1000 UT) Tablet 1 tablet Orally Once a day Taking ZyrTEC Allergy(Cetirizine HCl) 10 MG Capsule 1 capsule Orally Once a day DiscontinuedCarafate(Sucralfate) 1 GM Tablet 1 tablet on an empty stomach Orally before each meal and bedtime , Notes to Pharmacist: PRNMeloxicam 15 MG Tablet 1 tablet Orally Once a day Medication List reviewed and reconciled with the patientDiscontinued Carafate(Sucralfate) 1 GM Tablet 1 tablet on an empty stomach Orally before each meal and bedtime , Notes to Pharmacist: PRNDiscontinued Meloxicam 15 MG Tablet 1 tablet Orally Once a day Medication List reviewed and reconciled with the patient * Allergies: A moxicillin: hives - Allergy - Criticality LowLevaquin: hives - Side Effects - Criticality HighTetanus Immune Globulin: rash - Allergy - Criticality HighMorphine Sulfate: isominia - Side Effects - Criticality [place][Allergies Verified] Objective: * Vitals: W t:180.2lbs, Ht: 64 in, BP:140/80mm Hg, BMI:30.93Index, Ht-cm: 162.56 cm, Wt-k.74 kg. * Examination: P hysical Exam: GENERAL: w ell developed, well nourished, in no acute distress. HEAD: n ormocephalic/atraumatic. EYES: p upils equal, round and reactive to light, conjunctivae and sclerae normal. EARS: n o deformity or lesion of external ear, canals and TM appear normal bilaterally, TM's intact, not inflamed with normal light reflex, hearing grossly normal to conversational speech. NOSE: n o deformity, discharge, inflammation, or lesions.? MOUTH: m ucous membranes moist, normal oropharynx and posterior pharynx without lesions or exudates, tongue normal, dentition normal. NECK: n mary supple, no masses or palpable cervical nodes, trachea midline, thyroid without nodules, masses, tenderness, or enlargement. CHEST: n o chest wall deformity, no chest wall tenderness.? LUNGS: n ormal respiratory effort and clear to auscultation, no wheezes, rales, or rhonchi, good air exchange. CARDIO: r egular rate and rhythm, normal S1 and S2, nor murmur, rub, or gallop. PULSES: n ormal capillary refill. ABDOMEN: s oft, non-distended, non-tender, no masses. MUSCULOSKELETAL: n o deformity or scoliosis noted, normal range of motion, joints normal, no erythema, edema, effusion, or ecchymosis. EXTREMITY: n o clubbing, cyanosis, edema, or deformity with normal ROM in both upper and lower bilateral extremities. NEUROLOGIC: g rossly normal. SKIN: n o rashes, ulcerations, or suspicious lesions. LYMPH NODES: n o cervical adenopathy, nodes normal. MENTAL STATUS: a lert and oriented x3, normal mood and affect. Assessment: * Assessment: 1. S stephan - R06.83 (Primary) 2 . F atjack - R53.83 Plan: * Treatment: * Procedure Codes: * Preventive Medicine: Screenings/Counseling: B WI ACTION PLAN Above Normal BMI Follow-up D ietary management education, guidance, and counseling * * Sign off status: Completed Visit Status: C HK (Check Out) true * Provider: Yarelis Snowden ([facility])MD Date: 10/11/2023 Generated for Printi ng/Faxing/eTransmitting on: 0 01/19/2025 10:05 AM EDT History and Physical Notes * HPI (History of Present Illness) Category Sub-Category Detail Notes Category Not es General stil snoring - then had hip surgery - disussed labs done overf a year ago nees sleep stuy now due fatiguye and snoring Examination Category Sub-Category Detail Notes Category Not es Physical Exam GENERAL: well developed, well nourished, in no acute distress HEAD: normocephalic/atraum atic EYES: pupils equal, round and reactive to light, conjunctivae and sclerae normal EARS: no deformity or lesi on of external ear, canals and TM appear normal bilaterally, TM's intact, not inflamed with normal light reflex, hearing grossly normal to conversational speech NOSE: no deformity, discha rge, inflammation, or lesions MOUTH: mucous membranes delmi st, normal oropharynx and posterior pharynx without lesions or exudates, tongue normal, dentition normal NECK: neck supple, no mass es or palpable cervical nodes, trachea midline, thyroid without nodules, masses, tenderness, or enlargement CHEST: no chest wall deform ity, no chest wall tenderness LUNGS: normal respiratory e ffort and clear to auscultation, no wheezes, rales, or rhonchi, good air exchange CARDIO: regular rate and rhy thm, normal S1 and S2, nor murmur, rub, or gallop PULSES: normal capillary ref ill ABDOMEN: soft, non-distended, non-tender, no masses RECTAL: MUSCULOSKELETAL: no deformity or scol iosis noted, normal range of motion, joints normal, no erythema, edema, effusion, or ecchymosis EXTREMITY: no clubbing, cyanosi s, edema, or deformity with normal ROM in both upper and lower bilateral extremities NEUROLOGIC: grossly normal SKIN: no rashes, ulceratio ns, or suspicious lesions LYMPH NODES: no cervical adenopat hy, nodes normal MENTAL STATUS: alert and oriented x 3, normal mood and affect
--- OUTSIDE RECORDS SUMMARY | 2024-08-12 04:42 | XMS_ITS ---
Author Organization The [facility] in [place] Address [address] [place] [address] Care Team Providers Care Hitcher Name Role Phone Tanner Snowden Primary Care Provider REASON FOR VISIT sick Medications Medication SIG (Take, Route, Fr equency, Duration) Notes Start Date End Date Status Azithromycin 250 MG 2 tabs today then 1 tab Orally daily for 5 days 08/12/2024 Active Encounters Encounter Location Date Provider Diagnosis [facility] [address] [place] [address] 08/12/2024 Tanner Sp Plan Of Treatment Medication Medication Name Sig Start Date Stop Date Notes Azithromycin 250 MG 2 tabs today then 1 tab Orally daily for 5 days 08/12/2024 Progress Notes * Ivania GIBBSDOB:1960 (64 yo F)Acc No.[id number]:08/12/2024 Patient: Ivania MILAN :1960 A ge:64 Y S ex:Female Address:[address] [place] [address] [address], [place] [address] * Refills Start Azithromycin Tablet, 250 MG, Orally, 6, 2 tabs today then 1 tab, daily, 5 days, Refills=0 * true * Date: Generated for Gustavo watkins/Ayush/eTransmitting on: 0 01/19/2025 10:05 AM EDT
--- OUTSIDE RECORDS SUMMARY | 2025-01-19 05:15 | XMS_ITS ---
Author Organization [facility] [place] Address [address] [place] [address] Care Team Providers Care Privacy Director Name Role Phone Tanner Snowden Primary Care Provider [phone] Allergies Allergen (clinical drug ingredient) Drug/Non Drug Allergy documented on EMR Reaction Allergy Type Onset Date Status amoxicillin Amoxicillin hives Drug Allergy Act natalya Levaquin hives Drug Allergy Active morphine Morphine Sulfate isominia Drug Allergy Active Tetanus Immune Globulin rash Drug Allergy Active REASON FOR VISIT low back pain- this time started in the left groin area and moved to back, Right and ankle swelling, Finger numbness/ tingling- right worse than left, Would like note for Jury Duty Medications Medication SIG (Take, Route, Frequency, Duration) Notes Start Date End Date Status tiZANidine HCl 4 MG 2 tabs Orally qhs fo r 30 days 01/19/2025 Active ZyrTEC Allergy 10 MG 1 capsule Orally On ce a day Active Levothyroxine Sodium 75 MCG 1 tablet in the morning on an empty stomach Orally Once a day Active Pantoprazole Sodium 40 MG TAKE 1 TABLET BY MOUTH EVERY DAY for 30 days Active Meloxicam 15 MG 1 tablet Orally Once a day for 30 days 01/19/2025 Active Tylenol Arthritis Pain 2 PO QD Active Turmeric 500 MG as directed Orally Active Vitamin D (Cholecalciferol) 25 MCG (1000 UT) 1 tablet Orally Once a day Active Probiotic 2 po QD Active Social History Tobacco Use: Social History Observation Description Date Details (start date - stop date) Never Smoker NA - NA Tobacco Use/Smoking Question Answer Notes Patient is a nonsmoker Problems Problem Type SNOMED Code ICD Code Onset Dates Problem Status W/U Status Risk Notes Problem Hip pain, acute, left (M25.552) Active confirmed Problem Carpal tunnel syndrome (49770108) Carpal tunnel syndrome (G56.00) Active confirmed Vital Signs Weight 185.2 lbs 01/19/2025 Height 64 in 01/19/2025 Blood pressure systolic 126 mm Hg 01/20/20 25 Blood pressure diastolic 88 mm Hg 025 BMI 31.79 kg/m2 01/19/2025 Encounters Encounter Location Date Provider Diagnosis [facility] [address] [place] [address] 01/19/2025 Tanner Snowden Acute lumbar radiculopathy M54.16 ; Hip pain, acute, left M25.552 and Carpal tunnel syndrome G56.00 Assessments Encounter Date Diagnosis (ICD Code) Assessment Notes Treatment Notes Treatment Clinical Notes Section Notes 01/19/2025 Acute lumbar radiculopathy (ICD-10 - M54.16) 01/19/2025 Hip pain, acute, left (ICD-10 - M25.552) 01/19/2025 Carpal tunnel syndrome (ICD-10 - G56.00) 01/19/2025 Other Recommended to rest and use a heating pad on the area. Take NSAIDs for pain as needed Plan Of Treatment Medication Medication Name Sig Start Date Stop Date Notes tiZANidine HCl 4 MG 2 tabs Orally qhs for 30 days 01/20/20 25 Meloxicam 15 MG 1 tablet Orally Once a day for 30 days Treatment Notes Assessment Notes Other Recommended to rest and use a heating pad on the area. Take NSAIDs for pain as needed Pending Test Test Name Order Date XR HIP LT 2 3V W PELVIS 01/19/2025 XR LSPINE MIN 4 VIEWS 01/19/2025 Progress Notes * Ivania GIBBSDOB:1960 (64 yo F)Acc No.[id number]:01/19/2025 UNLOCKED PROGRESS NOTE Progress Note Patient: Ivania MILAN Provider: Yarelis Snowden ([facility])MD :1960 A ge:64 Y S ex:Female Date:01/19/2025 Address:[address] [place], [place] [id number] Check In:09:09 AM ESTCheck O ut:09:54 AM EST Subjective: * Chief Complaints: * 1 . Low back pain- this time started in the left groin area and moved to back. 2. Right and ankle swelling. 3. Finger numbness/ tingling- right worse than left. 4. Would like note for Jury Duty. * HPI: G eneral: poor romin back due to back pain - starting a week or so ago - R back pain - and now wtih left back pain diff ambulating Stays in back and int R Groin - seems to be lingering disucssed CTS classic fingers 1-3rd. B ack Pain: The patient complains of -. The symptoms have been present for 1-2 days. The patient believes symptoms are injury related No. The symptoms are mild. Symptomatic treatment has included heating pad, stretching. Associated symptoms include None. * ROS: G eneral/Constitutional: Lightheadedness d enies. C hange in appetite d enies. W eight Change d enies. C ardiovascular: Irregular heartbeat d enies. S welling in hands/feet?denies. R espiratory: Shortness of breath d enies. S hortness of breath with exertion d enies. W heezing d enies. M usculoskeletal: Comments S ee HPI for details. N eurologic: Dizziness d enies. F ainting d enies. H eadache?denies. 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 * Surgical History: r ight shoulder surgery 2019, thyroid left rmoval , left foot surgery , Right Total Hip Arthroplasty . * Hospitalization/Major Diagno stic Procedure: s ee above . * Family History: F ather: 101 yrs. M other: 74 yrs, diagnosed with Sjogrens syndrome, with unspecified organ involvement. B rother(s): alive. S on(s): alive. D aughter(s): alive. 1 brother(s) - healthy. 1 son(s) , 1 daughter(s) - healthy. . * Social History: T obacco Use: T obacco Use/Smoking P atient is a n onsmoker * Medications: T aking Levothyroxine Sodium 75 MCG Tablet 1 tablet in the morning on an empty stomach Orally Once a day , Taking Pantoprazole Sodium 40 MG Tablet Delayed Release TAKE 1 TABLET BY MOUTH EVERY DAY , Taking Probiotic , Notes to Pharmacist: 2 po QD, Taking Turmeric 500 MG Tablet as directed Orally , Taking Tylenol Arthritis Pain , Notes to Pharmacist: 2 PO QD, Taking Vitamin D (Cholecalciferol) 25 MCG (1000 UT) Tablet 1 tablet Orally Once a day , Taking ZyrTEC Allergy(Cetirizine HCl) 10 MG Capsule 1 capsule Orally Once a day , Discontinued Azithromycin 250 MG Tablet 2 tabs today then 1 tab Orally daily , Medication List reviewed and reconciled with the patient * Allergies: A moxicillin: hives - Allergy - Criticality Low, Levaquin: hives - Side Effects - Criticality High, Tetanus Immune Globulin: rash - Allergy - Criticality High, Morphine Sulfate: isominia - Side Effects - Criticality Low. Objective: * Vitals: W t:185.2lbs, Ht: 64 in, BP:126/88mm Hg, BMI:31.79Index, Ht-cm: 162.56 cm, Wt-k.01 kg. * Examination: G eneral Examination: GENERAL APPEARANCE: i n no acute distress, well developed, well nourished. LUNGS: clear to auscultation bilaterally. CARDIO: S1, S2 normal, no murmurs, rubs, gallops. MUSCULOSKELETAL: p oor romin back duet o pain - poor rom in hlp due to pain. EXTREMITIES: no clubbing, cyanosis, or edema. NEUROLOGIC: alert, oriented to time, place, & person.? Assessment: * Assessment: 1. A cute lumbar radiculopathy - M54.16 (Primary) 2 . H ip pain, acute, left - M25.552 3 . C arpal tunnel syndrome - G56.00 Plan: * Treatment: 2. O thers Notes: Recommended to rest and use a heating pad on the area. Take NSAIDs for pain as needed ? * Preventive Medicine: Screenings/Counseling: B CT ACTION PLAN Above Normal BMI Follow-up D ietary management education, guidance, and counseling * * Electronic signature of Tanner Snowden MD, [phone] on 01/19/2025 at 10:05 AM EDT Sign off status: Pending Visit Status: C HK (Check Out) * Provider: Yarelis Snowden ([facility])MD Date: 01/19/2025 Generated for Stalini ng/Faezg/eTransmitting on: 01/19/2025 10:05 AM EDT History and Physical Notes * HPI (History of Present Illness) Category Sub-Category Detail Notes Category Not es General poor romin back due to back pain - starting a week or so ago - R back pain - and now wtih left back pain diff ambulating Stays in back and int R Groin - seems to be lingering disucssed CTS classic fingers 1-3rd Examination Category Sub-Category Detail Notes Category Not es General Examination GENERAL APPEARANCE: in no ac marylu distress, well developed, well nourished CARDIO: S1, S2 normal, no mu rmurs, rubs, gallops LUNGS: clear to auscultatio n bilaterally NEUROLOGIC: alert, oriented to t cor[place], place, & person EXTREMITIES: no clubbing, cyanosi s, or edema MUSCULOSKELETAL: poor romin back duet o pain - poor rom in hlp due to pain
--- OUTSIDE RECORDS SUMMARY | 2025-01-19 10:05 | XMS_ITS | Clinical Summary ---
Author Organization [facility] Address [address] [place] [address] Care Team Providers Care Medical Specialist Name Role Phone Norbert Snowden MD Primary Care Provider [phone] Allergies Active Allergy Reactions Criticality Noted Date Comments Levofloxacin Hives,Nausea And Vomiting 04/01/20 23 Morphine Rash Low 02/17/2023 Penicillins Hives,Rash Low 02/17/2023 Tetanus Toxoid, Adsorbed Rash Low 02/17/2023 Medications levothyroxine (Synthroid, Levoxyl) 75 MCG tablet Daily. Active pantoprazole (ProtoNix) 40 MG EC tablet Daily. Active cholecalciferol (Vitamin D-3) 25 MCG (1000 UT) capsule Vitamin D3 25 mcg (1,000 unit) capsule Take by oral route. Active Turmeric Curcumin 500 MG capsule as directed Orally Active zonisamide (Zonegran) 50 MG capsule TAKE 1 CAPSULE BY MOUTH EVERY DAY AT BEDTIME 01/28/2023 Active loratadine (Claritin) 10 MG tablet Take by mouth Active diclofenac (Voltaren) 75 MG EC tablet Take 1 tablet by mouth in the morning and 1 tablet before bedtime. Do not crush, chew, or split.. Active sucralfate (Carafate) 1 g tablet Take 1 tablet by mouth in the morning and 1 tablet at noon and 1 tablet in the evening and 1 tablet before bedtime. Take before meals. Active Active Problems Problem Noted Date Diagnosed Date Adenomatous polyp of colon 04/01/2023 Arthritis of left knee 04/01/2023 Arthritis of right acromioclavicular joint 04/01 Epidermoid cyst of skin 04/01/2023 Internal derangement of right shoulder Major depressive disorder 04/01/2023 Neoplasm of uncertain behavior of skin of chest 04/01/2023 Obesity with body mass index 30 or greater 04/01 Skin tag 04/01/2023 Seborrheic keratosis 04/01/2023 Simple goiter 04/01/2023 Tear of right rotator cuff 04/01/2023 Chronic low back pain 01/23/2022 Gastroesophageal reflux disease 01/23/2022 Hyperthyroidism 01/23/2022 Osteoporosis 01/23/2022 Immunizations Immunization Administration Dates Next Due Influenza, injectable, quadrivalent, preservativ e free 07/27/2018 Family History Medical History Relation Name Comments Cancer Father Hypertension Father Asthma Other Colon cancer Other Heart disease Other Hyperlipidemia Other Hypertension Other Relation Name Status Comments Brother x 1 Daughter x 1 Alive Father Mother Other Son x 1 Social History Tobacco Use Types Packs/Day Years Used Date Smoking Tobacco: Never Smokeless Tobacco: Never Tobacco Cessation:Counseling Given: Not Answered Alcohol Use Standard Drinks/Week Comments Never 0 (1 standard drink = 0.6 oz pur e alcohol) Comments Unknown Sex and Gender Information Value Date Recorded Sex Assigned at Not on file Legal Sex Female 7:11 PM EDT Gender Identity Not on file Sexual Orientation Not on file Last Filed Vital Signs Vital Sign Reading Time Taken Comments Blood Pressure 120/82 03/08/2024 9:11 AM EDT Pulse 86 03/08/2024 9:11 AM EDT Temperature - - Respiratory Rate 18 03/08/2024 9:11 AM EDT Oxygen Saturation 96% 03/08/2024 9:11 AM EDT Inhaled Oxygen Concentration - - Weight 82.6 kg (182 lb) 03/08/2024 9:11 AM EDT Height 162.6 cm (5' 4 ) 03/08/2024 9:11 AM EDT Body Mass Index 31.24 03/08/2024 9:11 AM EDT Plan of Treatment Upcoming Encounters Date Type Department Care Team (Late st Contact Info) Description 03/07/2025 9:10 AM EDT Office Visit [facility] [address] [place] [id number] Reji Haley MD [address] [place] [address] 05/08/2026 10:45 AM EDT Office Visit [facility] [address] [place] [address] Chris Eagle, [place] [address] [facility] [address] [place] [address] Health Maintenance Due Date Last Done Comments CT Colonography 1960 FIT-DNA 1960 FIT 1960 FOBT 1960 Sigmoidoscopy 1960 Pap Smear 02/11/1981 Cervical Cancer Screening 02/11/1990 HPV/Cotest 02/11/1990 Mammogram 2000 Influenza Vaccine (Season Ended) 2025 07/27/20 18 Colonoscopy 10/25/2031 10/24/2021 Colorectal Cancer Screening 10/25/2031 Insurance [facility] Care Teams Medical Specialist Relationship Specialty Start Date End Date Norbert Snowden MD [address] [facility] [place] [id number] PCP - General Family Medicine 01/07/25
--- OUTSIDE RECORDS SUMMARY | 2025-01-19 10:06 | XMS_ITS | Encounter Summary ---
Author Organization [facility] Address [address] [place] [address] [place] [address] Care Team Providers Care Scientific Programmer Analyst Name Role Phone Norbert Snowden MD Primary Care Provider [phone] Norbert Snowden MD Primary Care Provider [phone] Encounter Details Date Type Department Care Team (Late Contact Info) Description 05/09/2023 Abstract [facility] [address] [facility] [address] [place] [address] Chris Eagle PA [address] [facility] [address] [place] [address] Social History Tobacco Use Types Packs/Day Years Used Date Smoking Tobacco: Never Smokeless Tobacco: Never Alcohol Use Standard Drinks/Week Comments Never 0 (1 standard drink = 0.6 oz pur e alcohol) Comments Unknown Sex and Gender Information Value Date Recorded Sex Assigned at Not on file Legal Sex Female 7:11 PM EDT Gender Identity Not on file Sexual Orientation Not on file COVID-19 Exposure Response Date Recorded In the last 10 days, have yo u been in contact with someone who was confirmed or suspected to have Coronavirus/COVID-19? No / Unsure 05/06/2023 11:39 AM EDT documented as of this encounter Plan of Treatment Upcoming Encounters Date Type Department Care Team (Late Contact Info) Description 03/07/2025 9:10 AM EDT Office Visit [facility] [address] [place] [address] Reji Haley MD [address] [place] [address] 05/08/2026 10:45 AM EDT Office Visit [facility] [address] [facility] [address] [place] [address] Chris Eagle, [place] [address] [facility] [address] [place] [address] documented as of this encounter Visit Diagnoses Not on filedocumented in this encounter Care Teams Scientific Programmer Analyst Relationship Specialty Start Date End Date Norbert Snowden MD PCP - General Family Medicine 02/20/23 01/06/25 Norbert Snowden MD [address] [facility] [place] [address] PCP - General Family Medicine 01/07/25 documented as of this encounter
--- OUTSIDE RECORDS SUMMARY | 2025-01-19 10:06 | XMS_ITS | Patient Health Record ---
Author Organization [facility] [place] Address [address] [place] [address] Care Team Providers Care Director Telemetry Name Role Phone Tanner Snowden Primary Care Provider Allergies Allergen (clinical drug ingredient) Drug/Non Drug Allergy documented on EMR Reaction Allergy Type Onset Date Status amoxicillin Amoxicillin hives Drug Allergy Act natalya Levaquin hives Drug Allergy Active morphine Morphine Sulfate isominia Drug Allergy Active Tetanus Immune Globulin rash Drug Allergy Active Results Component Value Reference Range Notes XR DEXA axial skeleton Reviewed date:03/07/2024 11:58:37 AM Interpretation: Performing Lab: Notes/Report: Source Facility: [place] [id number] XRay Report Signed Patient: SHIRA GIBBS MR#: [id number] : 1960 Acct:[id number] Age/Sex: 64 / F ADM Date: 03/05/24 Loc: RAD Attending Dr: CLARY CONKLIN Ordering Physician: CLARY CONKLIN Date of Service: 03/05/24 Procedure(s): XR DEXA axial skeleton Accession Number(s): [id number] cc: Norbert Snowden M.D.; CLARY CONKLIN [address] [address] Patient Name: SHIRA GIBBS MRN: [id number] date: 1960 Sex: F Assigned Patient Location: RAD Current Patient Location: RAD Accession/Order Number: [id number] Exam Date: 03/05/2024 08:30 Report Date: 03/05/2024 09:04 At the request of: CLARY CONKLIN Procedure: XR DEXA axial skeleton EXAMINATION: XR DEXA axial skeleton, 03/05/2024 8:30 AM EDT HISTORY: Age Related Osteoporosis COMPARISON: 1999 2019, 2017 TECHNIQUE: Dual-energy X-ray absorptiometry (DEXA) bone density study performed for the axial skeleton. FINDINGS: Bone mineral density AP spine L1-L4 measures 1.162 g/sq cm. T score 0.2. Normal Lowest bone mineral density is in the left femoral neck measuring 0.750 g/sq cm. T score -2.1. Osteopenia XR/XR DEXA axial skeleton IMPRESSION: Osteopenia. Moderate fracture risk Pharmacologic treatment recommendations * No uniform recommendation applies to all patients. Management plans must be individualized. * Consider initiating pharmacologic treatment in postmenopausal women and men >= 50 years of age who have the following: Primary fracture prevention: * T-score <= - 2.5 at the femoral neck, total hip, lumbar spine, 33% radius (some uncertainty with existing data) by DXA. * Low bone mass (osteopenia: T-score between - 1.0 and - 2.5) at the femoral neck or total hip by DXA with a 10-year hip fracture risk >= 3% or a 10-year major osteoporosis-related fracture risk >= 20% (i.e., clinical vertebral, hip, forearm, or proximal humerus) based on the US-adapted FRAXregistered model. Secondary fracture prevention: * Fracture of the hip or vertebra regardless of BMD [4, 5]. * Fracture of proximal humerus, pelvis, or distal forearm in persons with low bone mass (osteopenia: T-score between - 1.0 and - 2.5). The decision to treat should be individualized in persons with a fracture of the proximal humerus, pelvis, or distal forearm who do not have osteopenia or low BMD [12, 13]. Michelle MS, Sylvester SL, Citlalli KL, Salvador EM, Parker KG, AJ, Javier ES. The clinician's guide to prevention and treatment of osteoporosis. Osteoporos Int. 2021;33(10):1647-5840. doi: 10.1007/q02169-692-17210-h. Epub 2021Dec 20. Erratum in: Osteoporos Int. 2021Mar 21;: PMID: 77465105; PMCID: [id number]. Electronically authenticated by: TYLER SALMON Date: 03/05/2024 09:04 Dictated By: Tyler Salmon M.D. Signed By: 03/05/24905 DD/ 3 TD/TT: Research Interviewer: [place] [address] XRay Report Signed Patient: GEENA GIBBS MR#: [id number] : 1960 Acct:[id number] Age/Sex: 64 / F ADM Date: 03/05/24 Loc: [facility] Attending Dr: CLARY CONKLIN Ordering Physician: CLARY CONKLIN Date of Service: 03/05/24 Procedure(s): XR DEX A axial skeleton Accession Number(s): [id number] cc: Norbert Snowden M.D. ; CLARY CONKLIN [place] [address] Patient Name: SHIRA GIBBS MRN: [id number] date: 1960 Sex: F Assigned Patient Location: [facility] Current Patient Location: [facility] Accession/Order Numb er: [id number] Exam Date: 03/05/2024 08:30 Report Date: 03/05/2024 09:04 At the request of: CLARY CONKLIN Procedure: XR DEXA a xial skeleton EXAMINATION: XR DEXA axial skeleton, 03/05/2024 8:30 AM EDT HISTORY: Age Related Osteoporosis COMPARISON: 1999 202 , 2019, 2017 TECHNIQUE: Dual-ener gy X-ray absorptiometry (DEXA) bone density study performed for the axial skeleton. FINDINGS: Bone mineral density AP spine L1-L4 measures 1.162 g/sq cm. T score 0.2. Normal Lowest bone mineral density is in the left femoral neck measuring 0.750 g/sq cm. T score -2.1. Osteopenia X R/XR DEXA axial skeleton IMPRESSION: Osteopenia. Moderate fracture risk Pharmacologic treatm ent recommendations * No uniform recommendation applies to all patients. Management plans must be individualized. * Consider initiatin g pharmacologic treatment in postmenopausal women and men >= 50 years of age w ho have the following: Primary fracture prevention: * T-score <= - 2.5 a t the femoral neck, total hip, lumbar spine, 33% radius (some uncertainty wi th existing data) by DXA. * Low bone mass (osteopenia: T-score between - 1.0 and - 2.5) at the femoral neck or total hip by DXA with a 10-year hip fracture risk >= 3% or a 10-year major osteoporosis-related fracture risk >= 20% (i.e., clinical vertebral, hip, forearm, or proximal humerus) based on the US-adapted FRAXregistered model. Secondary fracture prevention: * Fracture of the hi p or vertebra regardless of BMD [4, 5]. * Fracture of proxim al humerus, pelvis, or distal forearm in persons with low bone mass (osteopeni a: T-score between - 1.0 and - 2.5). The decision to treat should be individual ized in persons with a fracture of the proximal humerus, pelvis, or distal forearm who do not have osteopenia or low BMD [12, 13]. Michelle MS, Sylvester SL, Citlalli KL, Salvador EM, Parker KG, AJ, Javier ES. The clinician's guid e to prevention and treatment of osteoporosis. Osteoporos Int. 2021;33(10):3327-3357. doi: 10.1007/b47853-536-32316 -y. Epub 2021Dec 20. Erratum in: Osteoporos Int. 2021Mar 21;: PMID: 83937132; PMCID: [id number]. Electronically authenticated by: TYLER SALMON Date: 03/05/2024 09:04 Dictated By: Preston Salmon M.D. Signed By: 03/05/24905 DD/ 3 TD/TT: Research Interviewer: TSH Reviewed date:03/07/2024 11:58:37 AM Interpretation: Performing Lab: Notes/Report: [facility] , Thyroid Stimulating Hormone 0.550 0.358-3.740 uIU/mL Performing Lab: see note ML - [facility] RENAL FUNCTION PANEL Reviewed date:03/07/2024 11:58:37 AM Interpretation: Performing Lab: Notes/Report: [facility] , Sodium 141 136-145 mmol/L Potassium 3.7 3.5-5.1 mmol/L Chloride 105 98-107 mmol/L Carbon Dioxide 28.1 21.0-32.0 mmol/L Anion Gap 11.6 Glucose 100 74-106 mg/dL Blood Urea Nitrogen 15.0 7.0-18.0 mg/dL Creatinine 0.76 0.55-1.02 mg/dL Estimated GFR ( Staci >60 >=60 Estimated GFR (Non- Rosie >60 >=60 BUN Creatinine Ratio 19.7 Calcium 8.9 8.5-10.1 mg/dL Phosphorus 2.8 2.6-4.7 mg/dL Albumin Level 3.4 3.4-5.0 g/dL Performing Lab: see note ML - [facility] FREE T3 Reviewed date:03/07/2024 11:58:37 AM Interpretation: Performing Lab: Notes/Report: [facility] Free T3 2.56 2.18-3.98 pg/mL Performing Lab: see note ML - [facility] VITAMIN D 25 [place] Reviewed date:03/07/2024 11:58:37 AM Interpretation: Performing Lab: Notes/Report: [facility] , Vitamin D 43.1 >100 ng/mL Potential Toxicity <20 ng/mL Vit D deficient 20-<30 ng/mL Vit D insufficient 30-100 ng/mL Vit D sufficient Performing Lab: see note ML - [facility] FREE T4 Reviewed date:03/07/2024 11:58:37 AM Interpretation: Performing Lab: Notes/Report: [facility] Free T4 1.17 0.76-1.46 ng/dL Performing Lab: see note ML - [facility] Reason For Referral No Information Medications Medication SIG (Take, Route, Frequency, Duration) Notes Start Date End Date Status Meloxicam 15 MG 1 tablet Orally Once a day for 30 days 01/19/2025 Active Tylenol Arthritis Pain 2 PO QD Active tiZANidine HCl 4 MG 2 tabs Orally qhs fo r 30 days 01/19/2025 Active Turmeric 500 MG as directed Orally Active ZyrTEC Allergy 10 MG 1 capsule Orally On ce a day Active Vitamin D (Cholecalciferol) 25 MCG (1000 UT) 1 tablet Orally Once a day Active Levothyroxine Sodium 75 MCG 1 tablet in the morning on an empty stomach Orally Once a day Active Probiotic 2 po QD Active Pantoprazole Sodium 40 MG TAKE 1 TABLET BY MOUTH EVERY DAY for 30 days Active Social History Tobacco Use: Social History Observation Description Date Details (start date - stop date) Never Smoker NA - NA Tobacco Use/Smoking Question Answer Notes Patient is a nonsmoker Alcohol Screen (Audit-C) Question Answer Notes Did you have a drink containing alcohol in the p ast year? No Points 0 Interpretation Negative Problems Problem Type SNOMED Code ICD Code Onset Dates Problem Status W/U Status Risk Notes Problem [id number] Unilateral primary osteoarthritis, right hip (M16.11) Active confirmed Problem Snoring (45340867) Snoring (R06.83) Active conf irmed Problem Fatigue (09306376) Fatigue (R53.83) Active conf irmed Problem Carpal tunnel syndrome (51028096) Carpal tunnel syndrome (G56.00) Active confirmed Problem Acid reflux (521383613) Acid reflux (K21.9) Active confirmed Problem Sinusitis (56840513) Sinusitis (J32.9) Active confirmed Problem Well adult (184463840) Well adult (Z00.00) Active confirmed Problem Arthralgia of the pelvic region and thigh (237526178) Hip pain, acute, left (M25.552) Active confirmed Problem Lumbar radiculopathy (479099726) Acute lumbar radiculopathy (M54.16) Active confirmed Vital Signs Blood pressure diastolic 88 mm Hg 01/19/2025 Height 64 in 01/19/2025 Blood pressure systolic 126 mm Hg 01/19/2025 Weight 185.2 lbs 01/19/2025 BMI 31.79 kg/m2 01/19/2025 Procedures Procedure Date Ordered Date Performed Result Body Sit e Sleep study - Diagnostic Polysonogram 08/10/2024 N/A Encounters Encounter Location Date Provider Diagnosis [facility] [address] [place] [address] 08/12/2024 Tanner Snowden [facility] [address] [place] [address] 08/10/2024 Tanner Snowden Snoring R06.83 and Fatigue R53.83 [facility] [address] [facility] [place] [address] 01/19/2025 Tanner Snowden Acute lumbar radiculopathy M54.16 ; Hip pain, acute, left M25.552 and Carpal tunnel syndrome G56.00 Assessments Encounter Date Diagnosis (ICD Code) Assessment Notes Treatment Notes Treatment Clinical Notes Section Notes 08/10/2024 Snoring (ICD-10 - R06.83) 08/10/2024 Fatigue (ICD-10 - R53.83) 01/19/2025 Acute lumbar radiculopathy (ICD-10 - M54.16) 01/19/2025 Hip pain, acute, left (ICD-10 - M25.552) 01/19/2025 Carpal tunnel syndrome (ICD-10 - G56.00) 01/19/2025 Other Recommended to rest and use a heating pad on the area. Take NSAIDs for pain as needed Plan Of Treatment Pending Test Test Name Order Date CMP (COMPLETE METABOLIC PANEL) T3 FREE, T4 FREE and TSH 03/17/2023 Sleep study - Diagnostic Polysonogram Sleep study - Diagnostic Polysonogram CBC AUTO DIFF 03/17/2023 GLYCOHEMOGLOBIN A1C 03/17/2023 LIPID PROFILE 03/17/2023 XR HIP LT 2 3V W PELVIS 01/19/2025 XR LSPINE MIN 4 VIEWS 01/19/2025 Insurance Providers Payer Name Payer Address Payer Phone Subscriber Number Group Number Insured Name Patient Relationship to Insured Coverage Start Date Coverage End Date [facility] [address] [address] [place], [place] [phone] [id number] Shira Gibbs Self - patient is the insured Medical (General) History Medical History History ICD Code Acute lumbar radiculopathy M54.16 Impingement syndrome of shoulder M75.40 Acute asthmatic bronchitis J45.909 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
--- OUTSIDE RECORDS SUMMARY | 2025-01-19 10:06 | XMS_ITS | Referral Summary ---
Author Organization [facility] Address [address] [place] [address] Care Team Providers Care Production Planner Scheduler Name Role Phone Unavailable Primary Care Provider Unavailabl e Social History Tobacco Use Types Packs/Day Years Used Date Smoking Tobacco: Never Assessed [place] Safety & Environment Answer Date Rec orded Fear of Current or Ex-Partner Not on file Emotionally Abused Not on file 10/16/2023 Physically Abused Not on file 10/16/2023 Sexually Abused Not on file 10/16/2023 Physically or Sexually Abused Not on file Sex and Gender Information Value Date Recorded Sex Assigned at Not on file Gender Identity Not on file Sexual Orientation Not on file Last Filed Vital Signs Vital Sign Reading Time Taken Comments Blood Pressure 128/87 01/23/2022 1:47 PM EDT Pulse 78 01/23/2022 1:47 PM EDT Temperature 36.8 C (98.3 F) 01/23/2022 1:46 PM EDT Respiratory Rate - - Oxygen Saturation - - Inhaled Oxygen Concentration - - Weight 83 kg (183 lb) 01/23/2022 1:34 PM EDT Height - - Body Mass Index - - Plan of Treatment Not on file
--- OUTSIDE RECORDS SUMMARY | 2025-01-19 10:06 | XMS_ITS | Encounter Summary ---
Author Organization [facility] Address [address] [facility] [place] [address] Care Team Providers Care Tumbling Barrel Painter Name Role Phone Norbert Snowden MD Primary Care Provider [phone] Norbert Snowden MD Primary Care Provider [phone] Reason for Visit * Reason Comments Med Refill Encounter Details Date Type Department Care Team (Late st Contact Info) Description 05/23/2023 Refill [facility] [address] [place] [phone] Chris Eagle PA [address] [address] Pre-op examination Social History Tobacco Use Types Packs/Day Years [...] AM EDT documented as of this encounter Miscellaneous Notes * Telephone Encounter - Sandrita Fu RN - 05/23/2023 2:49 PM EDT Medication Therapy Finished. documented in this encounter Plan of Treatment Upcoming Encounters Date Type Department Care Team (Late st Contact Info) Description 03/07/2025 9:10 AM EDT Office Visit [facility] [address] [place] [phone] Reji Haley MD [address] [place] [address] 05/08/2026 10:45 AM EDT Office Visit [facility] [address] [place] [address] Chris Eagle PA [address] [facility] [address] [place] [address] documented as of this encounter Visit Diagnoses Diagnosis Pre-op examination documented in this encounter Care Teams Tumbling Barrel Painter Relationship Specialty Start Date End Date Norbert Snowden MD PCP - General Family Medicine 02/20/23 01/06/25 Norbert Snowden MD [address] [facility] [place] [address] PCP - General Family Medicine 01/07/25 documented as of this encounter
--- OUTSIDE RECORDS SUMMARY | 2025-01-19 10:06 | XMS_ITS | Clinical Summary ---
Author Organization [facility] Address [address] [address] Care Team Providers Care Dope And Fabric Worker Name Role Phone Unavailable Primary Care Provider [...] Mass Index - - Plan of Treatment Health Maintenance Due Date Last Done Comments CT Colonography 1960 Colonoscopy 1960 Colorectal Cancer Screening 1960 FIT-DNA 1960 FIT 1960 FOBT 1960 Medicare Initial Physical (IPPE) 1960 Sigmoidoscopy 1960 Depression Screening 1972 Pap Smear 02/11/1981 Adult Tetanus 02/11/1982 Cervical Cancer Screening 02/11/1990 HPV/Cotest 02/11/1990 Mammogram 2000 Zoster Vaccines (1 of 2) 02/11/2010 Influenza Vaccine (Season Ended) 2025 HIB Vaccines Aged Out No longer eligi ble based on patient's age to complete this topic HPV Vaccines Aged Out No longer eligi ble based on patient's age to complete this topic IPV Vaccines Aged Out No longer eligi ble based on patient's age to complete this topic Meningococcal B Vaccine Aged Out No l onger eligible based on patient's age to complete this topic Meningococcal Vaccine Aged Out No ximena nico eligible based on patient's age to complete this topic Pneumococcal Vaccine: Pediat rics (0 to 5 Years) and At-Risk Patients (6 to 64 Years) Aged Out No longer eligible b ased on patient's age to complete this topic Rotavirus Vaccines Aged Out No longer eligible based on patient's age to complete this topic
--- OUTSIDE RECORDS SUMMARY | 2025-01-19 10:06 | XMS_ITS | Encounter Summary ---
Author Organization [facility] Address [address] [facility] [place] [address] Care Team Providers Care Third Rigger Name Role Phone Norbert Snowden MD Primary Care Provider [phone] Norbert Snowden MD Primary Care Provider [phone] Encounter Details Date Type Department Care Team (Late Contact Info) Description 06/06/2023 Abstract [facility] [address] [facility] [address] [place] [address] Chris Egale PA [address] [facility] [address] [place] [address] Social History Tobacco Use Types Packs/Day Years Used Date Smoking Tobacco: Never Smokeless Tobacco: Never Alcohol Use Standard Drinks/Week Comments Never 0 (1 standard drink = 0.6 oz pur e alcohol) Comments Unknown Sex and Gender Information Value Date Recorded Sex Assigned at Not on file Legal Sex Female 7:11 PM EDT Gender Identity Not on file Sexual Orientation Not on file documented as of this encounter Plan of Treatment Upcoming Encounters Date Type Department Care Team (Late st Contact Info) Description 03/07/2025 9:10 AM EDT Office Visit [facility] [address] [place] [address] Reji Haley MD [address] [place] [address] 05/08/2026 10:45 AM EDT Office Visit [facility] [address] [place] [phone] Chris [place], PA [address] [facility] [address] [place] [address] documented as of this encounter Visit Diagnoses Not on filedocumented in this encounter Care Teams Third Rigger Relationship Specialty Start Date End Date Norbert Snowden MD PCP - General Family Medicine 02/20/23 01/06/25 Norbert Snowden MD [address] [facility] [place] [phone] PCP - General Family Medicine 01/07/25 documented as of this encounter
--- NOTE | 2025-01-19 10:10 | XR_ITS ---
The [address] [address] Patient Name: SHIRA CASON MRN: [id number] date: 1960 Sex: F Assigned Patient Location: [facility] Current Patient Location: [facility] Accession/Order Number: [id number] Exam Date: 01/19/2025 11:02 Report Date: 01/19/2025 11:10 At the request of: PAIGE MARIE MD Procedure: XR hip LT 2V w/ pelvis CLINICAL HISTORY: Acute Lumbar Radiculopathy LUMBAR SPINE -5 views: COMPARISON: 01/07/2022 AP, lateral, both oblique and lateral coned-down view of the lumbosacral junction were obtained. There is osteopenia. Subtle dextroscoliotic curvature is present. There is no acute fracture. There is continued slight retrolisthesis of L2 on L3 and L5 on S1. There is disc space narrowing at L2-3 and the lumbosacral junction. There is mild endplate spurring and lower lumbar facet hypertrophy. No pars defect is identified. The sacroiliac joints are maintained. A partially imaged right hip prosthesis is visualized. There are no paraspinal soft tissue abnormalities. XR/XR hip LT 2V w/ pelvis IMPRESSION: OSTEOPENIA, SUBTLE SCOLIOSIS AND DEGENERATIVE CHANGES SIMILAR TO THE PRIOR. LEFT HIP WITH AP PELVIS - 3 views COMPARISON: None available AP view of the pelvis as well as AP and frog-lateral views of the left hip were obtained. There is osteopenia. A right hip prosthesis is present. The femoral stem is only partially imaged. As visualized the hardware appears intact and in appropriate position. No acute fracture or dislocation is identified. The left hip joint space is maintained. There is no significant hypertrophy. No soft tissue abnormalities are present. IMPRESSION: NO ACUTE BONY FINDINGS. Impression dictated by: Jodi Villalobos M.D. 01/19/2025 11:10 AM Dictation Location: [place] [address] Electronically authenticated by: [id number] Y Date: 01/19/2025 11:10
--- NOTE | 2025-01-19 10:10 | XR_ITS ---
The [address] [address] Patient Name: SHIRA CASON MRN: [id number] date: 1960 Sex: F Assigned Patient Location: [facility] Current Patient Location: [facility] Accession/Order Number: [id number] Exam Date: 01/19/2025 11:02 Report Date: 01/19/2025 11:10 At the request of: PAIGE MARIE MD Procedure: XR hip LT 2V w/ pelvis CLINICAL HISTORY: Acute Lumbar Radiculopathy LUMBAR SPINE -5 views: COMPARISON: 01/07/2022 AP, lateral, both oblique and lateral coned-down view of the lumbosacral junction were obtained. There is osteopenia. Subtle dextroscoliotic curvature is present. There is no acute fracture. There is continued slight retrolisthesis of L2 on L3 and L5 on S1. There is disc space narrowing at L2-3 and the lumbosacral junction. There is mild endplate spurring and lower lumbar facet hypertrophy. No pars defect is identified. The sacroiliac joints are maintained. A partially imaged right hip prosthesis is visualized. There are no paraspinal soft tissue abnormalities. XR/XR lumbar spine min 4V IMPRESSION: OSTEOPENIA, SUBTLE SCOLIOSIS AND DEGENERATIVE CHANGES SIMILAR TO THE PRIOR. LEFT HIP WITH AP PELVIS - 3 views COMPARISON: None available AP view of the pelvis as well as AP and frog-lateral views of the left hip were obtained. There is osteopenia. A right hip prosthesis is present. The femoral stem is only partially imaged. As visualized the hardware appears intact and in appropriate position. No acute fracture or dislocation is identified. The left hip joint space is maintained. There is no significant hypertrophy. No soft tissue abnormalities are present. IMPRESSION: NO ACUTE BONY FINDINGS. Impression dictated by: Jodi Villalobos M.D. 01/19/2025 11:10 AM Dictation Location: [place] [address] Electronically authenticated by: [id number] Y Date: 01/19/2025 11:10
--- OUTSIDE RECORDS SUMMARY | 2025-01-19 10:25 | XMS_ITS | CCD ---
Author Organization [facility] Care Team Providers Care Refrigeration Plant Operator Name Role Phone BANUELOS ., DR FAITH [...] BANUELOS ., DR FAITH Majano Consulting Unavailable PERALTA, TIFFANY Consulting Unavailable HOY ., DR GIBSON Attending Unavailable HOY ., DR GIBSON Consulting Unavailable HOY ., DR GIBSON Admnadege Unavailable HOY ., DR GIBSON Primary Care Unavailable ZIEBER, DR JOSE Collazo Consulting Unavailable HOY ., DR GIBSON Attending Unavailable HOY ., DR GIBSON Admitting Unavailable HOY ., DR GIBSON Consulting Unavailable HOY ., DR GIBSON Primary Care Unavailable ZIEBER, DR JOSE Collazo Consulting Unavailable LAKSHMIPATHY ., NARENDRANATH Consulting Pricilla vailable LAKSHMIPATHY ., NARENDRANATH Admitting Pricilla vailable LAKSHMIPATHY ., SHANTI Attending Pricilla vailable HOY ., DR GIBSON [...] BANUELOS ., DR FAITH Majano Consulting Unavailable BIRDCARLOS Pisano Consulting Unavailable HOY ., DR GIBSON Primary [...] LAKSHMIPATHY ., NARENDYESY Consulting Pricilla vailable RUBIN, AHMAD Admitting Unavailable HOY ., DR GIBSON Consulting Unavailable RUBIN, AHKAVOND Attending Unavailable HOY ., DR GIBSON Primary Care Unavailable ZIEBER, DR JOSE Collazo Consulting Unavailable RUBIN, AHJUANCARLOS Consulting Unavailable LAKSHMIPATHY ., NARENDRANATH Attending Pricilla vailable LAKSHMIPATHY ., NARENDRANATH Admitting Pricilla vailable CYNTHIA ., DR GIBSON Primary Care Unavailable BANUELOS ., DR FAITH Majano Admitting Unavailable ABNUELOS ., DR FAITH Majano Attending Unavailable HOY ., DR GIBSON Primary Care Unavailable HOY ., DR GIBSON Primary Care Unavailable HOY ., DR GIBSON Attending Unavailable HOY ., DR GIBSON Consulting Unavailable HOY ., DR GIBSON Admitting Unavailable WEST, DR TYLER Lester Consulting Unavailable ELMER .VEDA Consulting Unavailable BANUELOS ., DR FAITH Majano Admitting Unavailable BANUELOS ., DR FAITH Majano Attending Unavailable HOStevenson ., DR GIBSON Primary Care Unavailable NISH EAGLE Attending Unavailable NISH EAGLE Attending Unavailable NISH EAGLE Referring Unavailable Paige Snowden MD Primary Care Provider [phone] Reece GLORIA Attending Unavailable Paige Snowden Primary Care Physician Allergies Allergy Classification Reported Allergen(s) Allergy Type Date of Onset Reaction(s) Facility (2 sources) Allopurinol Drug Allergy 7 [facility] Repository (2 sources) levoFLOXacin; Translations: [Levaquin] Drug Allergy [facility] Repository (2 sources) Morphine; Translations: [morphine] Drug Allergy 7 [facility] Repository (4 sources) Penicillin; Translations: [penicillin] Drug Allergy 7 Weal (disorder) [facility] Repository (5 sources) levoFLOXacin; Translations: [levofloxacin] Drug Allergy 3 Hives, Nausea And Vomiting, Nausea and vomiting (disorder) [facility] Work Phone: (5 sources) Morphine; Translations: [morphine] Drug Allergy 7 Rash, Insomnia (disorder) [facility] (4 sources) Penicillins Drug Allergy 3 Hives, Rash [facility] (4 sources) Tetanus Toxoid, Adsorbed Allergy to substance 3 Rash [facility] (1 source) Allopurinol; Translations: [allopurinol] Drug Allergy 7 [facility] Repository (2 sources) Tetanus vaccine; Translations: [tetanus toxoids] Propensity to adverse reactions (disorder) Local (qualifier value) [facility] Repository Medications Current Medications Medication Drug Class(es) Dates Sig (Normalized) Sig (Original) alendronic acid 70 mg oral tablet (1 source) Bisphosphonate Start: 10-05-2021 take 1 tablet by mouth every week Fosamax 70 mg oral tablet 70 mg = 1 tab(s), Oral, qWeek, Refills(s) 0 Start Date: 10/05/21 Status: Ordered cholecalciferol 0.025 mg oral capsule (4 sources) Vitamin D cholecalciferol (Vitamin D-3) 25 MCG (1000 UT) capsule Vitamin D3 25 mcg (1,000 unit) capsule Take by oral route. Active etodolac 400 mg oral tablet (3 sources) Nonsteroidal Anti-inflammatory Drug Start: 02-11-2023 End: 05-03-2024 etodolac (Lodine) 400 MG tablet 02/11/2023 05/03/2024 Discontinued levothyroxine sodium 0.075 mg oral tablet (5 sources) l-Thyroxine Start: 10-05-2021 take 1 tablet by mouth once daily levothyroxine 75 mcg (0.075 mg) Tab 75 mcg = 1 tab(s), Oral, Daily, Refills(s) 0 Start Date: 10/05/21 Status: Ordered levothyroxine (S ynthroid, Levoxyl) 75 MCG tablet Daily. Active loratadine 10 mg oral tablet (3 sources) loratadine (Claritin) 10 MG tablet Take by mouth Active meloxicam 15 mg oral tablet (1 source) Nonsteroidal Anti-inflammatory Drug Start: 10-07-19 take 1 tablet by mouth once daily meloxicam 15 mg Tab 15 mg = 1 tab(s), Oral, Daily, Refills(s) 0 Start Date: 10/07/24 Status: Ordered pantoprazole 40 mg delayed release oral tablet (5 sources) Proton Pump Inhibitor Start: 10-05-19 take 1 tablet by mouth once daily Pantoprazole [address] Tab 40 mg = 1 tab(s), Oral, Daily, Refills(s) 0 Start Date: 10/05/21 Status: Ordered sucralfate 1000 mg oral tablet (1 source) Aluminum Complex Start: 10-05-19 sucralfate 1 g Tab 1 gm = 1 tab(s), Oral, QIDACHS, Refills(s) 0 Start Date: 10/05/21 Status: Ordered Turmeric Curcumin 500 MG capsule (4 sources) Turmeric Curcumi n 500 MG capsule as directed Orally Active zonisamide 50 mg oral capsule (4 sources) Anti-epileptic Agent Start: 01-29-20 take 1 capsule by mouth once daily at bedtime zonisamide (Zonegran) 50 MG capsule TAKE 1 CAPSULE BY MOUTH EVERY DAY AT BEDTIME 01/28/2023 Active Problems Active Problems Problem Classification Problem Date Documented Date Episodic/Chronic Complications of surgical procedures or medical care (1 source) Postprocedural hypothyroidism; Translations: [POSTPROCEDURAL HYPOTHYROIDISM] Onset: 03-03-2022 Chronic Esophageal disorders (5 sources) Gastroesophageal reflux disease; Translations: [Gastro-esophageal reflux disease without esophagitis] Onset: 01-23-2022 04-01-2023 Chronic Mood disorders (5 sources) Major depressive disorder; Translations: [Major depressive disorder, single episode, unspecified] Onset: 04-01-2023 04-01-2023 Chronic Neoplasms of unspecified nature or uncertain behavior (5 sources) Neoplasm of uncertain behavior of skin of chest; Translations: [Neoplasm of uncertain behavior of skin] Onset: 04-01-2023 04-01-2023 Episodic Nutritional deficiencies (1 source) Vitamin D deficiency, unspecified; Translations: [VITAMIN D DEFICIENCY UNSPECIFIED] Onset: 03-03-2022 Chronic Osteoarthritis (13 sources) Unilateral primary osteoarthritis, right hip; Translations: [Arthritis of left knee] Onset: 12-20-2022 Chronic Osteoporosis (9 sources) Age-related osteoporosis without current pathological fracture; Translations: [Osteoporosis] Onset: 01-23-2022 Chronic Other and unspecified benign neoplasm (5 sources) Adenomatous polyp of colon ; Translations: [Benign neoplasm of colon, unspecified] Onset: 04-01-2023 04-01-2023 Episodic Other connective tissue disease (2 sources) History [...] Episodic Other nutritional; endocrine; and metabolic disorders (5 sources) Body mass index 30+ - obesity; Translations: [Obesity, unspecified] Onset: 04-01-2023 04-01-2023 Chronic Other skin disorders (5 sources) Epidermoid cyst of skin; Translations: [Epidermal cyst] Onset: 04-01-2023 04-01-2023 Episodic Spondylosis; intervertebral disc disorders; other back problems (15 sources) Spondylosis without myelopathy or radiculopathy, lumbar region; Translations: [Other intervertebral disc degeneration, lumbar region] Onset: 04-04-2022 Chronic Thyroid disorders (9 sources) Hyperthyroidism; Translations: [Thyrotoxicosis, unspecified without thyrotoxic crisis or storm] Onset: 01-23-2022 04-01-2023 Chronic Unclassified (1 source) CONTACT W/AND (SUSP) EXPOS COVID-19; Translations: [CONTACT W/AND (SUSP) EXPOS COVID-19] Onset: 08-14-2022 Unclassified (4 sources) LOW BACK PAIN, UNSPECIFIED; Translations: [LOW BACK PAIN, UNSPECIFIED] Onset: 01-11-2022 Unclassified (1 source) Patient encounter status 10-12-2021 Unclassified (1 source) Seborrheic keratosis 11-02-2021 Past or Other Problems Problem Classification Problem Date Documented Da te Episodic/Chronic Other bone disease and musculoskeletal deformities (1 [...] 07-15-2022 Episodic Other skin disorders (4 sources) Skin [...] Interpretation Reference Range Facil ity [facility] SARS-CoV-2 (COVID-19) RNA LOWELL+probe Ql (Unsp spec) Not detected Normal NOT DETECTED [facility] Comment on above: Result Comment: This test is not yet approved or cleared by the [place] FDA. When there are no FDA-approved or cleared tests available, and other criteria are met, FDA can make tests available under an emergency access mechanism called an Emergency Use Authorization (EUA). The EUA for this test is supported by the [place] of Health and Human Service's (HHS's) declaration [...] SARS-CoV-2. Performed By: #### C VDTB #### [facility] [address] [place], [place] [address] Dr. Tanja Soto Covid-19 PCR ([facility])on SARS-CoV-2 (COVID-19) RNA LOWELL+probe Ql (Unsp spec) Not detected Normal NOT DETECTED [facility] Comment on above: Result Comment: [...] for this test is supported by the Inspector Chief of Health and Human Service's declaration that [...] be used). Performed By: #### C VDTB ####[facility] [address] [place], [place] [address]NaDr. Tanja Soto MG MAMM SCREEN 3D JOSE CADon 07-15-2022 MG MAMM SCREEN 3D JOSE CAD Patient: SHIRA GIBBS Exam Date: 07/15/2022 : 1960 Gender:F Ordering : DR PAIGE SNOWDEN . Admission #: [id number] Family : Order #: [id number] CLICK HERE TO VIEW EXAM RADIOLOGY REPORT [...] prostate cancer at age 80. LOCATION: [facility] BREAST COMPOSITION: Scattered areas fibroglandular [...] Manuel MD on 07/15/2022 at 10:04 Normal [facility] FREE T3on 02-27-2022 FREE T3 3.00 pg/mlL Normal 2.18-3.98 [facility] Comment on above: Performed By: #### F T3, RENAL, TSH ####[facility] [address] [place] [address]Dr. Tanja Soto FREE T4on 02-27-2022 Free T4 [Mass/Vol] 1.34 ng/dL Normal 0.76-1.46 [facility] Comment on above: Performed By: #### V ITAD, FT4 ####[facility] [address] [place] [address]Dr. Tanja Soto RENAL FUNCTION PANELon 02-27 Albumin [Mass/Vol] 3.3 g/dL Critically low 3.4-5.0 [facility] Comment on above: Performed By: #### F T3, RENAL, TSH ####[facility] [address] [place], [place] [address]Dr. Tanja Soto Calcium [Mass/Vol] 9.0 mg/dL Normal 8.5-10.1 [facility] Comment on above: Performed By: #### F T3, RENAL, TSH ####[facility] [address] [place] [address]Dr. Tanja Soto Chloride [Moles/Vol] 105 mmol/L Normal 98-107 [facility] Comment on above: Performed By: #### F T3, RENAL, TSH ####[facility] [address] [place] [id number]. Tanja Soto CO2 [Moles/Vol] 28.3 mmol/L Normal 21.0-32.0 [facility] Comment on above: Performed By: #### F T3, RENAL, TSH ####[facility] [address] [place] [address]Dr. Tanja Soto Creatinine [Mass/Vol] 0.87 mg/dL Normal 0.55-1.02 [facility] Comment on above: Performed By: #### F T3, RENAL, TSH ####[facility] [address] [place] [address]Dr. Tanja Soto EGFR-AF [place]ER >60 Normal >=60 [facility] Comment on above: Performed By: #### F T3, RENAL, TSH ####[facility] [address] [place] [address]Dr. Tanja Soto EGFR-NON AF [place] >60 Normal >=60 [facility] Comment on above: Performed By: #### F T3, RENAL, TSH ####[facility] [address] [place] [address]Dr. Tanja Soto Glucose [Mass/Vol] 93 mg/dL Normal 74-106 [facility] Comment on above: Performed By: #### F T3, RENAL, TSH ####[facility] [address] [place] [address]Dr. Tanja Soto Phosphate [Mass/Vol] 3.1 mg/dL Normal 2.6-4.7 [facility] Comment on above: Performed By: #### F T3, RENAL, TSH ####[facility] [address] [place] [address]Dr. Tanja Soto Potassium [Moles/Vol] 3.6 mmol/L Normal 3.5-5.1 [facility] Comment on above: Performed By: #### F T3, RENAL, TSH ####[facility] [address] [place] [address]Dr. Tanja Soto Sodium [Moles/Vol] 140 mmol/L Normal 136-145 [facility] Comment on above: Performed By: #### F T3, RENAL, TSH ####[facility] [address] [place] [address]Dr. Tanja Soto Urea nitrogen [Mass/Vol] 13.0 mg/dL Normal 7.0-18.0 [facility] Comment on above: Performed By: #### F T3, RENAL, TSH ####[facility] [address] [place] [address]Dr. Tanja Soto TSHon 02-27-2022 TSH 0.759 uIU/mL Normal 0.358-3.740 [facility] Comment on above: Performed By: #### F T3, RENAL, TSH ####[facility] [address] [place] [address]Dr. Tanja Charles VITAMIN D 25 OHon 02-27-2022 VIT D 25-OH 35.5 ng/mL Normal [facility] Comment on above: Performed By: #### Tayler UMANZOR, FT4 ####[facility] [address] [place] [address]Dr. Tanja Soto VIT D RANGES SEE BELOW Normal [facility] Comment on above: Result Comment: <20 ng/mL Vit D deficient 20 - <30 ng/mL Vit D insufficient 30 - 100 ng/mL Vit D sufficient >100 ng/mL Potential Toxicity Performed By: #### Tayler ITAD, FT4 ####[facility] [address] [place] [id number]. 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 COMPARISON: None FINDINGS: Pelvic ring intact. Sacroiliac joints symmetric. Hips normally aligned bilaterally. No evidence of fracture. There is superior lateral joint space narrowing right hip IMPRESSION: Early degenerative change right hip Electronically signed: Roseann Lemus. 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 General Surgery [place] Start: 05-12-2024 End: 05-20-2024 Telephone encounter Reji [...] right Start: 05-03-2024 End: 05-03-2024 ambulatory NISH Jo KYRIE Not Available Start: 07-07-2023 End: 07-07-2023 ambulatory NISH Jo KYRIE Not Available Start: 01-23-2023 ambulatory GE MAGALLON [...] laboratory examination DR FAITH BANUELOS . [facility] Start: 08-13-2022 End: 08-13-2022 ambulatory [...] End: 01-08-[address] PAIGE SNOWDEN . Facility: Procedures Date Procedure Procedure Detail Performing Clinician Start: 10-24-2021 Colonoscopy Nish HERNÁNDEZ Work Phone: Start: 10-24-2021 Colonoscopy Reece NI LL Start: 10-24-2021 Excision of cyst Michae l NILL Comment on above: back Start: 10-24-2021 Excision of lesion o f chest wall Reece NILL Excision of right lo be of thyroid gland Reece NILL Excision of subcutan eous neoplasm of foot Reece NILL Comment on above: right Laparoscopy assisted vaginal hysterectomy with bilateral salpingo-oophorectomy Reece NILL Open reduction of fr acture with internal fixation Reece NILL Comment on above: left 5th metatarsal Repair of musculoten dinous cuff of shoulder Reece NILL Plan of Treatment Date Care Activity Detail Author Start: 10-25-2031 Screening for malignant neoplasm of colon [facility] Start: 05-08-2026 End: 05-08-2026 Patient encounter procedure 05/08/2026 10:45 AM EDT Office Visit [facility] [address] [place] [address] Nish Eagle, [place] [address] [facility] [address] [place] [address] [facility] Start: 03-07-2025 End: 03-07-2025 Patient encounter procedure 03/07/2025 9:10 AM EDT Office Visit [facility] [address] [place] [address] Reji Conklin MD [address] [place] [address] [facility] Start: 05-03-2024 End: 05-03-2024 Patient encounter procedure 05/03/2024 10:45 AM EDT Office Visit [facility] [address] [place] [address] Nish Eagle PA [address] [facility] [address] [place] [address] Acute right hip pain (Primary Dx); History of total hip replacement, right [facility] Comment on above: Acute right hip pain (Primary Dx); History of total hip replacement, right Start: 04-25-2024 Influenza vaccination Influenza Vacc ine (#1) [facility] Start: 2000 Screening for malignant neoplasm of breast Mammogram [facility] Start: 02-11-1990 Screening for malignant neoplasm of cervix [facility] Start: 02-11-1981 Screening for malignant neoplasm of cervix Pap Smear [facility] Start: 1960 Screening for malignant neoplasm of colon [facility] XR Hip - right 3 Views XR hip right 2 or 3 views Imaging Routine Acute right hip pain 05/03/2024 10:46 AM EDT [facility] Work Phone: Immunizations Immunization Date Immunization Notes Care Provider Fa cility 12-25-2020 SARS-CoV-2 (COVID-19 ) mRNA BNT-162b2 vax Reece NILL [facility] 12-04-2020 SARS-CoV-2 (COVID-19 ) mRNA BNT-162b2 vax Reece NILL [facility] 07-27-2018 influenza, injectable, quadrivalent, preservative free Nish HERNÁNDEZ Work Phone: [facility] 07-27-2018 influenza virus vaccine, unspecified formulation Nish HERNÁNDEZ Work Phone: [facility] NEGATED: Highlighted row has not occurred!10-09-2021 influenza virus vaccine, unspecified formulation Reece JUANI [facility] Payers Date Payer Category Payer Private Health Insurance [facility] [id number] 2023-Present [address] [address] [place] [address] [id number] 1960 Unknown [id number] 2.840.1.477581.3.579. 2.593 1960 Unknown [id number] 2.840.1.514851.3.579. 2.593 1960 Unknown [id number] 2..840.1.859108.3.579. 2.593 1960 Unknown [id number] 2.16.840.1.795249.3.579. 2.593 1960 Unknown [id number] 2.16.840.1.728840.3.579. 2.593 1960 Unknown [id number] 2.16.840.1.027620.3.579. 2.593 1960 Unknown [id number] 2.16.840.1.291383.3.579. 2.593 1960 Unknown [id number] 2.16.840.1.797301.3.579. 2.593 1960 Unknown [id number] 2.16.840.1.013750.3.579. 2.593 1960 Unknown [id number] 2.16.840.1.573091.3.579. 2.593 1960 Unknown [id number] 2.16.840.1.900347.3.579. 2.593 1960 Unknown [id number] 2.16.840.1.446285.3.579. 2.593 1960 Unknown [id number] 2.16.840.1.128502.3.579. 2.593 1960 Unknown [id number] 2.16.840.1.263074.3.579. 2.593 1960 Unknown [id number] 2.16.840.1.121414.3.579. 2.593 1960 Unknown [id number] 2.16.840.1.485256.3.579. 2.593 1960 Unknown [id number] 2.16.840.1.796431.3.579. 2.593 1960 Unknown [id number] 2.16.840.1.699816.3.579. 2.593 1960 Unknown [id number] 2.16.840.1.028941.3.579. 2.593 1960 Unknown [id number] 2.16.840.1.727691.3.579. 2.593 1960 Unknown [id number] 2.16.840.1.537968.3.579. 2.593 1960 Unknown [id number] 2.16.840.1.229325.3.579. 2.593 1960 Unknown [id number] 2.16.840.1.343598.3.579. 2.593 1960 Unknown [id number] 2.16.840.1.468759.3.579. 2.1259 1960 Unknown [id number] 2.16.840.1.703679.3.579. 2.1259 1960 Unknown [id number] 2.16.840.1.665098.3.579. 2.1259 1960 Unknown [id number] 2.16.840.1.920256.3.579. 2.727 1959 Private Health Insurance [id number] 1959 Private Health Insurance [id number] Self-pay Social History Date Type Detail Facility Start: 02-20-2023 End: 10-07-2024 Tobacco smoking status [facility] Never smoked tobacco [facility] Start: 02-20-2023 Tobacco use and exposure Smokeless tobacco non-user [facility] Start: 07-07-2023 End: 05-03-2024 Alcoholic beverage intake Lifetime non-drinker (finding) [facility] Start: 07-07-2023 End: 05-03-2024 History of Social function [facility] Start: 07-07-2023 End: 05-03-2024 Tobacco use panel [facility] Start: 1960 Sex assigned at Not on file [facility] Clinical Notes 02-28-2022 to 05-12-2024 Telephone Encounter - Ant Velarde - 05/12/2024 2:07 PM EDTTelephone Encounter - Ant Velarde - 05/12/2024 2:07 PM EDTMBETTY Whatley - 05/03/2024 10:45 AM EDT Note Date & Type Note Facility 05-12-2024 Telephone encounter Note More Needs Levothyroxine Rx canceled to [facility]. 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 [facility] 05-12-2024 Miscellaneous Notes More Needs Levothyroxine Rx canceled to [facility]. Cannot pickle sorter at [facility] without cancellation please and thank you. documented in this encounter [facility] 05-03-2024 History of Presen t illness Narrative Images from the original note were not included. HISTORY OF PRESENT ILLNESS: EST PT Shira Gibbs is an 64 y.o. @ female. (EST PT) HERE FOR YEARLY CHECK OF (R) GREGG 04/24/23 (~1YR) XRAYS DONE TODAY, 05/03/24 IN [facility] NO BONE SCAN PREVIOUS PAIN MGMT ; [...] with manipulation. Pt had prior tx with [facility] pain management and plans to call.. [...] requiring urgent evaluation. documented in this encounter [facility] 12-19-2022 Note PROCEDURE: XR HIP RT 2 3V WO PELVIS HISTORY: Pain in right hip joint , low back pain COMPARISON: None. FINDINGS: BONES:Complete loss of the hip joint space with odej-dc-yveu articulation. Small degenerative osteophytes along superior rim of acetabulum. No fracture or dislocation. SOFT TISSUES:No visible soft tissue swelling. EFFUSION:None visible. OTHER: Negative. IMPRESSION: 1. Marked degenerative joint disease of right hip. Electronically authenticated by: JOSE PORTER Date: 2022-12-19 11:08 [facility] 12-19-2022 Note CONSULTATION CONSULTATION DATE: 12/19/2022 TO: [...] our patients to inform us about any enrs-hlo-okncygz medications or herbal remedies/nutritional supplements/alternative remedies. 2. [...] to proceed with the outlined plan. [facility] 09-26-2022 Note CONSULTATION PROCEDURE DATE: [...] in the clinic in three months. [facility] 09-12-2022 Note CONSULTATION CONSULTATION DATE: [...] and patient agrees with this plan. [facility] 06-27-2022 Note CONSULTATION CONSULTATION DATE: [...] up in the office post procedure. [facility] 05-30-2022 Note CONSULTATION CONSULTATION DATE: [...] patient is in agreement with this. [facility] 04-04-2022 Note CONSULTATION CONSULTATION DATE: [...] right butt and hip. She was at [place] recently with a lot of walking and [...] and would like to move forward. [facility] 02-28-2022 Note CONSULTATION CONSULTATION DATE: 02/28/2022 This is a 62-year-old female that was referred to our clinic as a new patient for her lower back pain and right groin pain. The patient has had pain for some time, but it greatly increased approximately 2 months ago. The patient reports bending over to pickle sorter something and following that she had pelvic [...] night. The patient just recently returned from [place] walked [place] many times. [...] exercise. She was sent to Neurosurgery in [place] for a consult where they stated she [...] followed up in the clinic for following. [facility] Signed and Approved by: VEDA PAYNE . 03/07/2022 09:46:00 [facility] Evaluation + Plan note No data available for this section [facility] [place] Evaluation note Diagnosis Acute right hip pain- Primary History of total hip replacement, right [facility] No data available for this section [facility] Progress note No data available for this section [facility] [place] Summary Purpose Family History No Family History Records FoundNo Family History Records FoundNo Family History Records FoundNo Family History Records Found No data available for this section Advance Directives No Advanced Directives Records FoundNo Advanced Directives Records FoundNo Advanced Directives Records FoundNo Advanced Directives Records Found Additional Source Comments INFORMATION SOURCE (unrecogn ized section and content) DATE CREATED AUTHOR 01/28/2022 [facility] DATE CREATED AUTHOR AUTHOR'S ORGANIZ ATION 01/03/2023 [facility] DATE CREATED AUTHOR AUTHOR'S ORGANIZ ATION 05/09/2024 [facility] DATE CREATED AUTHOR AUTHOR'S ORGANIZ ATION 10/14/2024 [facility] Care Teams (unrecognized sec tion and content) Personnel Name: Paige Snowden MD Address: Address: [address] [place] [address] Refrigeration Plant Operator Relationship Specialty Start Date End Date Paige Snowden MD [address] [place] [address] [place] [address] PCP - General Family Medicine 02/20/23 Refrigeration Plant Operator Relationship Specialty Start Date End Date Paige Snowden MD [address] [place] [address] [place] [address] PCP - General Family Medicine 02/20/23 Reason [...] BE BASED ON THE PRIMARY CLINICAL RECORDS. [employer] provides no warranty or guarantee of the accuracy or completeness of information in this document.
== END 2025-01-19 10:02 | disposition home or self-care (01) ==
LOC: RAD 10:03
PROVIDERS: PCP Family Medicine; Visit Provider Family Medicine
DX: M54.16 Radiculopathy, lumbar region (principal); M85.80 Other specified disorders of bone density and structure, unspecified site; M51.369 Other intervertebral disc degeneration, lumbar region without mention of lumbar back pain or lower extremity pain
CPT/HCPCS: 72110; 73502

== ENCOUNTER 2025-03-01 09:12 | Outpatient (OUT) | payer MEDICARE, SELFPAY ==
--- OUTSIDE RECORDS SUMMARY | 2025-03-01 09:18 | XMS_ITS | Clinical Summary ---
Author Organization [facility] Address [id number] [address] [place] [address] Care Team Providers Care Veterans' Coordinator Name Role Phone Norbert Snowden MD Primary Care Provider [phone] Social History Tobacco Use Types Packs/Day Years Used Date Smoking Tobacco: Never Assessed Childcare Answer Date Recorded Childcare Unknown 02/03/2019 Employment Answer Date Recorded Employment Unknown 02/03/2019 Comments Unknown Sex and Gender Information Value Date Recorded Sex Assigned at Not on file Legal Sex Female 11:35 AM EDT Gender Identity Not on file Sexual Orientation Not on file Plan of Treatment Health Maintenance Due Date Last Done Comments Depression Screening 1972 Tobacco Screening 1972 Adult BMI Screening 02/11/1978 DTaP,Tdap and Td Vaccines (1 - Tdap) 02/11/1979 Pap Smear 02/11/1981 Zoster (Shingles) Vaccine (1 of 2) 02/11/2010 COVID-19 Vaccine ( season) 04/25/202410/2020, 12/04/2020 Influenza Vaccine 04/25/2025 07/27/2018 Medical Devices Not on file Insurance [id number] PLAN Care Teams Veterans' Coordinator Relationship Specialty Start Date End Date Norbert Snowden MD PCP - General Family Medicine 04/01/23
--- OUTSIDE RECORDS SUMMARY | 2025-03-01 09:19 | XMS_ITS | Clinical Summary ---
Author Organization The [facility] Address [address] [place] [address] Care Team Providers Care Vaccine Customer Representative Name Role Phone Unavailable Primary Care Provider Unavailabl e Social History Tobacco Use Types Packs/Day Years Used Date Smoking Tobacco: Never Assessed [place] Safety & Environment Answer Date Rec orded Fear of Current or Ex-Partner Not on file Emotionally Abused Not on file 10/16/2023 Physically Abused Not on file 10/16/2023 Sexually Abused Not on file 10/16/2023 Physically or Sexually Abused Not on file Comments Unknown Sex and Gender Information Value Date Recorded Sex Assigned at Not on file Legal Sex Female 10:20 PM EDT Gender Identity Not on file [...]
--- OUTSIDE RECORDS SUMMARY | 2025-03-01 09:19 | XMS_ITS | Encounter Summary ---
Author Organization [facility] Address [address] [facility] [place] [address] Care Team Providers Care Aircraft Restorer Name Role Phone Norbert Snowden MD Primary Care Provider [phone] Norbert Snowden MD Primary Care Provider [phone] Encounter Details Date Type Department Care Team (Late st Contact Info) Description 06/06/2023 Abstract [facility] [address] [facility] [address] [place] [address] Chris Eagle PA [address] [facility] [address] [place] [address] Social History Tobacco Use Types Packs/Day Years [...] [facility] [address] [place] [address] Reji Haley MD [address] [place] [address] 05/08/2026 10:45 AM EDT Office Visit [facility] [address] [place] [address] Chris Eagle, PA [address] [facility] 150 [place] [address] documented as of this encounter Visit Diagnoses Not on filedocumented in this encounter Care Teams Aircraft Restorer Relationship Specialty Start Date End Date Norbert Snowden MD PCP - General Family Medicine 02/20/23 01/06/25 Norbert Snowden MD [address] [facility] [place] [address] PCP - General Family Medicine 01/07/25 documented as of this encounter
--- OUTSIDE RECORDS SUMMARY | 2025-03-01 09:19 | XMS_ITS | Encounter Summary ---
Author Organization [facility] Address [address] [place] [address] Care Team Providers Care Public Health Staff Nurse Name Role Phone Norbert Snowden MD Primary Care Provider [phone] Norbert Snowden MD Primary Care Provider [phone] Reason for Visit * Reason Comments Med Refill Encounter Details Date Type Department Care Team (Late st Contact Info) Description 05/23/2023 Refill [facility] [address] [place] [address] Chris Eagle PA [address] [address] Pre-op examination Social History Tobacco Use Types [...] [address] [place] [phone] Reji Haley MD [address] [place] [address] 05/08/2026 10:45 AM EDT Office Visit [facility] [address] [place] [address] Chris Eagle PA [address] [facility] [address] [place] [address] documented as of this encounter Visit Diagnoses Diagnosis Pre-op examination documented in this encounter Care Teams Public Health Staff Nurse Relationship Specialty Start Date End Date Norbert Snowden MD PCP - General Family Medicine 02/20/23 01/06/25 Norbert Snowden MD [address] [facility] [place] [address] PCP - General Family Medicine 01/07/25 documented as of this encounter
--- OUTSIDE RECORDS SUMMARY | 2025-03-01 09:19 | XMS_ITS | Encounter Summary ---
Author Organization [facility] Address [address] [facility] [place] [address] Care Team Providers Care Condenser Tester Name Role Phone Norbert Snowden MD Primary Care Provider [phone] Norbert Snowden MD Primary Care Provider [phone] Encounter Details Date Type Department Care Team (Late Contact Info) Description 05/09/2023 Abstract [facility] [address] [facility] 150 [place] [address] Chris Eagle PA [address] [facility] 150 [place] [address] Social History Tobacco Use Types Packs/Day Years [...] [address] [place] [address] Reji Haley MD [address] [place] [address] 05/08/2026 10:45 AM EDT Office Visit [facility] [address] [facility] [address] [place] [address] Chris Eagle, PA [address] [facility] 150 [place] [address] documented as of this encounter Visit Diagnoses Not on filedocumented in this encounter Care Teams Condenser Tester Relationship Specialty Start Date End Date Norbert Snowden MD PCP - General Family Medicine 02/20/23 01/06/25 Norbert Snowden MD [address] [facility] [place] [address] PCP - General Family Medicine 01/07/25 documented as of this encounter
[2025-03-01 10:12] LABS: Hematocrit 37.9 % (36.0-48.0); Hemoglobin 11.2 g/dL (12.0-16.0); Immature Granulocytes Abs Auto 0.01 10^3/uL (0.00-0.03); Immature Granulocytes Pct Auto 0.1 % (0.0-0.5); Lymphocytes Absolute Auto 1.3 10^3/uL (1.2-3.8); Mean Corpuscular HGB Conc 29.6 g/dL (29.9-35.2); Mean Corpuscular Hemoglobin 21.8 pg (26.7-34.0); Mean Corpuscular Volume 73.9 fL (81.0-99.0); Platelet Count 336 10^3/uL (150-450); Red Blood Count 5.13 10^6/uL (4.20-5.40); White Blood Count 7.6 10^3/uL (4.0-11.0)
[2025-03-01 10:25] LABS: Alanine Aminotransferase 52 U/L (14-59); Albumin Globulin Ratio 0.9; Albumin Level 3.4 g/dL (3.4-5.0); Alkaline Phosphatase 118 U/L (46-116); Anion Gap 14.4; Aspartate Amino Transferase 31 U/L (15-37); Blood Urea Nitrogen 22.0 mg/dL (7.0-18.0); Calcium 9.8 mg/dL (8.5-10.1); Carbon Dioxide 27.5 mmol/L (21.0-32.0); Chloride 106 mmol/L (98-107); Cholesterol 126 mg/dL (<=200); Estimated GFR (African America >60 (>=60 mL/min/1.73m^2); Estimated GFR (Non-African Ame >60 (>=60 mL/min/1.73m^2); Globulin 3.9 g/dL; Glucose 96 mg/dL (74-106); HDL Cholesterol 51 mg/dL (40-60); Potassium 3.9 mmol/L (3.5-5.1); Sodium 144 mmol/L (136-145); Total Protein 7.3 g/dL (6.4-8.2); Triglycerides 81 mg/dL (<=150); VLDL CHOLESTEROL 16.2 mg/dL
[2025-03-01 10:37] LABS: Iron 18.0 ug/dL (50.0-170.0)
== END 2025-03-01 09:13 | disposition home or self-care (01) ==
LOC: LAB 09:17
PROVIDERS: PCP Family Medicine; Visit Provider Family Medicine
DX: K21.9 Gastro-esophageal reflux disease without esophagitis (principal); K63.5 Polyp of colon; E78.5 Hyperlipidemia, unspecified; R73.09 Other abnormal glucose; D64.9 Anemia, unspecified; R53.83 Other fatigue; E55.9 Vitamin D deficiency, unspecified
CPT/HCPCS: 36415; 80053; 80061; 82306; 83036; 83540; 84436; 85025

== ENCOUNTER 2025-03-01 09:22 | Outpatient (OUT) | payer MEDICARE, SELFPAY ==
--- OUTSIDE RECORDS SUMMARY | 2024-10-12 14:40 | XMS_ITS ---
Author Name Auto Generated Organization [facility] Care Team Providers Care Circuit Court Clerk Name Role Phone NISH MITTAL Attending Unavailable NISH MITTAL Referring Unavailable Reece GLORIA Attending Unavailable PROBLEMS No Problem Records Found PROCEDURES No Procedure Records Found RESULTS No Result Records Found ALLERGIES DATE TYPE / CODE NAME / CODE REACTION SEVERITY SOURCE 12/03/2016 [id number]([facility]) allopurinol Unknown [facility] 12/03/2016 [id number]([facility] morphine [id number] [facility] MATTHIEU([facility]) penicillin [id number] [facility] MATTHIEU([facility] [place]) tetanus toxoids [id number] [facility] [id number]([facility]) Levaquin [id number] [facility] ENCOUNTERS ADMIT/DISCHARGE ACCOUNT NUMBER ADMITTING ENCOUNTER CLASS LOCATION SOURCE 10/12/2024/ 5 [id number] Ambulatory [facility] ding:[facility] 05/03/2024/ 4 [id number] Ambulatory Building:[facility] 05/03/2024/ 4 [id number] Ambulatory Building:[facility] PAYERS ENCOUNTER GUARANTOR PAYER SUBSCRIBER SOURCE 10/12/2024 SHIRA CASONDOB: [facility] 79Tel: ~([phone] (HP) Primary Insurance:SELF PAYPolicy Number: Effective Date:1799-08-24 SHIRA PATINO [facility] 05/03/2024 SHIRA ROGERS: [address] [address]Hey: (HP) Primary Insurance:[facility]AREPolicy Number: [id number] Date:2023-01-23 SHIRA ROGERS: [id number] [place] [id number] [facility] 05/03/2024 SHIRA ROGERS: [address] [address]Pui: (HP) Primary Insurance:[place] [facility]ALTHCAREPolicy Number: [id number] Date:2023-01-23 SHIRA ROGERS: [id number] [place] [id number] [facility]
--- OUTSIDE RECORDS SUMMARY | 2025-03-01 09:27 | XMS_ITS | Clinical Summary ---
Author Organization [facility] Address [address] [place] [address] Care Team Providers Care Shellfish Bed Worker Name Role Phone Norbert Snowden MD Primary Care Provider [phone] Allergies Active Allergy Reactions Criticality Noted Date [...] ENDOCRINOLOGY [address] [place] [address] Reji Haley MD [address] [place] [address] 05/08/2026 10:45 AM EDT Office Visit [facility] [address] [place] [address] Chris Eagle, PA [address] [facility] [address] [place] [address] Health Maintenance Due Date Last Done Comments CT Colonography 1960 FIT-DNA 1960 FIT 1960 FOBT 1960 Sigmoidoscopy 1960 Pap Smear 02/11/1981 Cervical Cancer Screening 02/11/1990 HPV/Cotest 02/11/1990 Mammogram 2000 Pneumococcal Vaccine: 65+ Years (1 of 1 - PCV) 010 Influenza Vaccine (#1) 2025 07/27/2018 Colonoscopy 10/25/2031 10/24/2021 Colorectal Cancer Screening 10/25/2031 Insurance [facility] Care Teams Shellfish Bed Worker Relationship Specialty Start Date End Date Norbert Snowden MD [address] [facility] [place] [address] PCP - General Family Medicine 01/07/25
[2025-03-01 10:43] LABS: Free T3 2.38 pg/mL (2.18-3.98); Thyroid Stimulating Hormone 0.162 uIU/mL (0.358-3.740)
== END 2025-03-01 09:23 | disposition home or self-care (01) ==
LOC: LAB 09:24
PROVIDERS: PCP Family Medicine; Visit Provider Internal Medicine
DX: E89.0 Postprocedural hypothyroidism (principal); K21.9 Gastro-esophageal reflux disease without esophagitis; K63.5 Polyp of colon; E78.5 Hyperlipidemia, unspecified; R73.09 Other abnormal glucose; D64.9 Anemia, unspecified; R53.83 Other fatigue; E55.9 Vitamin D deficiency, unspecified
CPT/HCPCS: 36415; 80053; 80061; 82306; 83036; 83540; 84436; 84439; 84443; 84481; 85025

== ENCOUNTER 2025-03-10 10:48 | Outpatient (OUT) | payer MEDICARE, SELFPAY ==
--- OUTSIDE RECORDS SUMMARY | 2025-03-07 09:10 | XMS_ITS | Encounter Summary ---
Author Organization [facility] Address [address] [facility] [place] [address] Care Team Providers Care Electromechanical Assembler Name Role Phone Norbert Snowden MD Primary Care Provider [phone] Reason for Visit * Reason Comments Follow-up Thyroid Problem Encounter Details Date Type Department Care Team (Latest Contact Info) Description 03/07/2025 9:10 AM EDT [facility] Visit [facility] [address] [place] [phone] Reji Haley MD [address] [place] [address] S/P partial thyroidectomy (Primary Dx); Age-related osteoporosis without current pathological fracture ; intermediate project manager use of bisphosphonates; Vitamin D deficiency Social History Tobacco Use Types Packs/Day Years [...] on file documented as of this encounter Last Filed Vital Signs Vital Sign Reading Time Taken Comments Blood Pressure 130/80 03/07/2025 9:25 AM EDT Pulse 81 03/07/2025 9:25 AM EDT Temperature - - Respiratory Rate 18 03/07/2025 9:25 AM EDT Oxygen Saturation 96% 03/07/2025 9:25 AM EDT Inhaled Oxygen Concentration - - Weight 82.6 kg (182 lb) 03/07/2025 9:25 AM EDT Height 162.6 cm (5' 4 ) 03/07/2025 9:25 AM EDT Body Mass Index 31.24 03/07/2025 9:25 AM EDT documented in this encounter Progress Notes * Reji Haley MD - 03/07/2025 9:10 AM EDT Ivania Gibbs is a 65 y.o. female No ref. provider found presents with chief complaint of Follow-up and Thyroid Problem HPI: IM : 02/2025 Follow-up visit 03/07/2025 for lab TSH 0.162, free T4 1.27 ( 0.76-1.48), free T3 2.38 ( 2.18-3.98) she is currently on levothyroxine 75 mcg daily, she is off Fosamax since 02/2022 plan to do DEXA scan next year, she was on Fosamax from 2010 on 05/2022 Interim History: 02/2024 Follow-up visit of 03/08/2024. she is on 75 mcg daily, OFF Fosamax 70 once weekly since 02/2022 due to drug holiday . and was before since 2010. lab wnl in 02/2024 TSH 0.55, FT3 2.57 (2.18-3.91), FT4 1.17(0.76-1.46), calcium 8.9 back to normal. had Right hip replacement done in 03/2023. new Dexa scan on 02/2024 L1- L4 1.161 0.2, LFN 0.750 -2.1. Interim History: 02/2023 Follow-up visit of 03/10/2023. she is on 75 mcg daily, OFF Fosamax 70 once weekly since 02/2023 due to drug holiday . lab wnl in 02/2023 TSH 1.406, FT3 2.56 (2.18-3.91), FT4 1.21(0.76-1.46), calcium 10.5 mildly high. had Right hip replacement Interim History: 02/2022. Follow-up visit of 03/12/2022. she is on 75 mcg daily and Fosamax 70 once weekly. lab wnl in 02/2022 TSH 0.759, calcium 9 ( 8.5-10.1) , FT3 3 (2.18-3.91). new DEXASCAN L1-L4 1.178 T socre 0, LFN 0.763 -2.0, RFN 0.811 -1.6. she is on fosamax for almost 10-11 since 2010 and it is time to stop and take drug holiday Interim History: 02/2021. Follow-up visit of 03/08/2021. Vitamin D 38 and she is on 75 mcg daily and Fosamax 70 once weekly. lab wnl in 02/2021 TSH 1.61,FT4 1.21(0.78-2.19), calcium 10 ( 8.4-10.2) Interim History: 02/2020. Follow-up visit of 03/16/2020. She has DEXA scan done L1-L4 1.231, 0.4, right femoral neck 0.76 3.8and thyroid lab within normal limits. Vitamin D 36 and she is on 75 mcg daily and Fosamax 70 once weekly. Interim History 12/11: Followup visit on 12/21/2018 for labs. Kidney function within normal limits. Calcium back to normal at 9.8 (8.4-10.4). TSH 1.515, free T4 1.14 (0.70-2.19). Vitamin D 27. Currently, she is on levothyroxine 75 mcg daily and alendronate 70 once weekly. Off calcium supplement. Off vitamin D supplement. Off multivitamin. Only doing Tums on and off for her GERD. Followup visit 04/28/18 for lab: TSH 5.2, free T4 1.16 (0.79-2.19). She is on levothyroxine 50 mcg daily. Vitamin D 41, calcium 10.3 (8.4-10.2), and she is levothyroxine 50 and she is vitamin D 1000 units. Off calcium supplement. Interim History: 02/09 Followup visit on 01/28/18 for labs: TSH 2.85, free T4 1.29 (0.78-2.19), vitamin D 31, kidney function within normal limits, GFR above 60, calcium back to normal (10). She cut back her calcium tablet to once a day. She also using Tums and multivitamin. INTERIM HISTORY 10/12 Follow up patient for lab. Calcium 10.5 (8.4-10.2), albumin 4.3, TSH 3.46, free T4 1.28 (0.78-2.19), free T3 4.84 (2.77-5.27), vitamin D 45. DEXA scan in 09/11: Lumbar spine T score -1.5, bone mineral density 0.126, -1.8% from last one in 2013, LFN T score -2.0, BMD 0.753, RFN -1.5, BMD 0.766. She is on levothyroxine 50 mcg daily, alendronate 70 mg once weekly, calcium 600/400, vitamin D twice a day. HPI: follow up visit 06/2017 hypothyroidism presented as fatigue, weight gain Hypothyroidism first diagnosed 12/06 status post right thyroidectomy Symptoms consistent with weakness Associated symptomsinclude osteoporosis With respect to the fertility postmenopausal The treatment that the patient had include improvement Response to therapy had been good compared to the last visit stable Side effect of the medication include none Compliance with the medical regime has been as good the patient cannot seem to lose weight unable to put up with the last lab TSH 3.77, FT4 1.34(0.78-2.19) in 09/10. She is on levothyroxine 50 MCG daily, needs refill today. She is on alendronalte 70 mg once weekly on Friday, since 2009, last Dexa scan in 12/06 with improvement of lumbar spine. SUBJECTIVE: MEDICATIONS: Current Outpatient Medications Medication Instructions cholecalciferol (Vitamin D-3) 25 MCG (1000 UT) capsule diclofenac (Voltaren) 75 MG EC tablet 1 tablet, 2 times daily levothyroxine (SYNTHROID, LEVOXYL) 75 mcg, Oral, Daily before breakfast loratadine (Claritin) 10 MG tablet Take by mouth pantoprazole (ProtoNix) 40 MG EC tablet Daily RT sucralfate (Carafate) 1 g tablet 1 tablet, 4 times daily before meals and nightly Turmeric Curcumin 500 MG capsule zonisamide (Zonegran) 50 MG capsule ALLERGIES: Allergies Allergen Reactions Levofloxacin Hives and Nausea And Vomiting Morphine Rash Penicillins Hives and Rash Tetanus Toxoid, Adsorbed Rash Past Medical History: Diagnosis Date Age-related osteoporosis without current pathological fracture Anxiety COVID-19 Depression GERD (gastroesophageal reflux disease) intermediate (current) use of bisphosphonates Nontoxic multinodular goiter Osteoporosis Overweight Postprocedural hypothyroidism Thyroid disease Vitamin D deficiency, unspecified Past Surgical History: Procedure Laterality Date FOOT SURGERY Left 2009 plate and 2 screws HYSTERECTOMY 2009 SHOULDER ARTHROSCOPY W/ ROTATOR CUFF REPAIR Right 08/31/2018 W/ SLAP REPAIR ; DR AVELAR THYROIDECTOMY, PARTIAL Left 11/24/2012 TOTAL HIP ARTHROPLASTY 04/24/2023 DR RIOS REVIEW OF SYMPTOMS: 14 POINT OF SYSTEM REVIEWED AND NEGATIVE OBJECTIVE: Visit Vitals BP 130/80 Pulse 81 Resp 18 Ht 5' 4 Wt 182 lb SpO2 96% BMI 31.24 kg/m² Smoking Status Never BSA 1.93 m² Physical Exam Constitutional: Appearance: Normal appearance. She is normal weight. HENT: Head: Normocephalic and atraumatic. Right Ear: External ear normal. Nose: Nose normal. Mouth/Throat: Pharynx: Oropharynx is clear. Eyes: Extraocular Movements: Extraocular movements intact. Pupils: Pupils are equal, round, and reactive to light. Cardiovascular: Rate and Rhythm: Normal rate and regular rhythm. Pulmonary: Effort: Pulmonary effort is normal. Abdominal: General: Abdomen is flat. Palpations: Abdomen is soft. Musculoskeletal: General: Normal range of motion. Skin: General: Skin is warm. Neurological: General: No focal deficit present. Mental Status: She is alert. Psychiatric: Mood and Affect: Mood normal. Behavior: Behavior normal. ASSESSMENT AND PLAN: Assessment/Plan Diagnoses and all orders for this visit: S/P partial thyroidectomy - levothyroxine (Synthroid, Levoxyl) 75 MCG tablet; Take 1 tablet (75 mcg) by mouth in the morning.Take before meals. - T3, free; Future - T4, free; Future - TSH; Future We will continue with levothyroxine 75 mcg daily Age-related osteoporosis without current pathological fracture - DEXA bone density; Future She was on Fosamax for almost 10 years from 2010 until 2021 we will check DEXA scan next year and give further recommendation. intermediate project manager use of bisphosphonates Vitamin D deficiency - Vitamin D 25 hydroxy Total; Future - Renal function panel; Future Follow up in about 1 year (around 03/07/2026). documented in this encounter Plan of Treatment Upcoming Encounters Date Type Department Care Team (Late st Contact Info) Description 03/06/2026 11:30 AM EDT Office Visit [facility] [address] [place] [phone] Reji Haley MD [address] [place] [address] 05/08/2026 10:45 AM EDT Office Visit [facility] [address] [place] [address] Chris Eagle, BETTY [address] [place] [address] Scheduled Orders Name Type Priority Associated Diagnoses Orde r Schedule T3, free Lab Routine S/P partial thyroidectomy Expected: 03/07/2025 (Approximate), Expires: 03/07/2026 T4, free Lab Routine S/P partial thyroidectomy Expected: 03/07/2025 (Approximate), Expires: 03/07/2026 TSH Lab Routine S/P partial thyroidectomy Expected: 03/07/2025 (Approximate), Expires: 03/07/2026 DEXA bone density Imaging Routine Age-related osteoporosis without current pathological fracture Expected: 03/07/2025, Expires: 03/07/2026 Vitamin D 25 hydroxy Total Lab Routine Vitamin D deficiency Expected: 03/07/2025 (Approximate), Expires: 03/07/2026 Renal function panel Lab Routine Vitamin D deficiency Expected: 03/07/2025 (Approximate), Expires: 03/07/2026 documented as of this encounter Visit Diagnoses Diagnosis S/P partial thyroidectomy- Primary Other postprocedural status Age-related osteoporosis without current pathological fracture intermediate use of bisphosphonates Vitamin D deficiency documented in this encounter Care Teams Electromechanical Assembler Relationship Specialty Start Date End Date Norbert Snowden MD [address] [place] [phone] PCP - General Family Medicine 01/07/25 documented as of this encounter
--- OUTSIDE RECORDS SUMMARY | 2025-03-09 23:59 | XMS_ITS | Continuity of Care Document ---
Author Organization [facility] Address [address] [facility] [place] [address] Care Team Providers Care Automatic Casting Machine Operator Name Role Phone Sp Norbert Primary Care Physician Encounter [id number] Date(s): 03/09/25 - 03/09/25 [facility] [address] [facility], [place], [place] [address] Encounter Diagnosis Personal history of adenomatous and serrated colon polyps(Discharge Diagnosis) - 03/09/25 Iron deficiency(Discharge Diagnosis) - 03/09/25 Epigastric pain(Discharge Diagnosis) - 03/09/25 Chronic GERD(Discharge Diagnosis) - 03/09/25 Discharge Disposition: Home (Routine DC) Attending Physician: Reece GLORIA MD Encounter Type: Clinic Allergies, Adverse Reactions, Alerts Substance Criticality Severity Reaction Reaction Severity Status morphine Insomnia Active Levaquin Nausea and vomiting Active penicillin Hives Active tetanus toxoids Local Acti ve Immunizations Given and Recorded Vaccine Date Status Refusal Reason SARS-CoV-2 (COVID-19) mRNA BNT-162b2 vax 12/25/20 Recorded SARS-CoV-2 (COVID-19) mRNA BNT-162b2 vax 12/04/20 Recorded Not Given Vaccine Date Status Refusal Reason influenza virus vaccine, inactivated 10/09/21 Not Given Patient Refuses Medications cetirizine 10 mg Tab 10 mg = 1 tab(s), Oral, Daily, Refills(s) 0 Start Date: 03/09/25 Status: Ordered Repeat number: 1 ferrous sulfate 325 mg Tab 325 mg = 1 tab(s), Oral, Daily, Refills(s) 0 Start Date: 03/09/25 Status: Ordered Repeat number: 1 levothyroxine 75 mcg (0.075 mg) Tab 75 mcg = 1 tab(s), Oral, Daily, Refills(s) 0 Start Date: 10/05/21 Status: Ordered Repeat number: 1 meloxicam 15 mg Tab 15 mg = 1 tab(s), Oral, Daily, Refills(s) 0 Start Date: 10/07/24 Status: Ordered Repeat number: [address] Tab 40 mg = 1 tab(s), Oral, Daily, Refills(s) 0 Start Date: 10/05/21 Status: Ordered Repeat number: 1 Probiotic Digestive Aid Gummies 5 mg, Chewed, BID, Refill(s) 0 Start Date: 03/09/25 Status: Ordered Repeat number: 1 tiZANidine 4 mg Tab 42 EA, 0 Refill(s), TAKE 2 TABLETS BY MOUTH AT BEDTIME, Refills(s) 0 Start Date: 03/02/25 Status: Ordered Repeat number: 1 turmeric 500 mg oral capsule 500 mg = 1 cap(s), Oral, Daily, Refills(s) 0 Start Date: 03/09/25 Status: Ordered Repeat number: 1 Tylenol 8 HR Arthritis Pain = 2 tab(s), Oral, Daily, Refills(s) 0 Start Date: 03/09/25 Status: Ordered Repeat number: 1 Vitamin D3 1000 intl units (25 mcg) Tab 25 mcg = 1 tab(s), Oral, Daily, Refills(s) 0 Start Date: 03/09/25 Status: Ordered Repeat number: 1 Problem List Condition Confirmation Course Effective Dates Status H ealth Status Informant Tubulovillous adenoma of colon Confirmed Active BMI 31.0-31.9,adult Confirmed Active Epidermal cyst Confirmed Resolved Epigastric pain Confirmed Active GERD (gastroesophageal reflux disease) Confirmed Active Chronic GERD Confirmed Active Personal history of adenomatous and serrated colon polyps Confirmed Active Iron deficiency Confirmed Active Major depressive disorder Confirmed Active Neoplasm of uncertain behavior of skin of chest Confirmed Resolved Obesity due to excess calories Confirmed Active Osteoporosis Confirmed Active Encounter for screening for colorectal malignant neoplasm Confirmed Active Seborrheic keratosis Confirmed Active Nontoxic goiter Confirmed Active Procedures Procedure Date Related Diagnosis Body Site Status Colonoscopy 10/24/21 Completed Excision of cyst 1 10/24/21 Comple roddy Excision of lesion of chest wall 10/24/21 Completed Arthroplasty of right hip Completed Colonoscopy Completed Excision of subcutaneous chalo plasm of foot 2 Completed Laparoscopy assisted vaginal hysterectomy with bilateral salpingo-oophorectomy Completed ORIF - Open reduction and in ternal fixation of fracture 3 Completed Right hemithyroidectomy C ompleted Rotator cuff repair Compl eted 1back 2right 3left 5th metatarsal Social History Social History Type Response Smoking Status Never (less than 100 in lifetime);Never entered on: 03/09/25 Sex Female Sex Representation Female (finding) Patient Care team information Care Team Personnel Name: Norbert Snowden MD Position: FT Physician Member Role: Primary Care Physician Address: [address] [place] [address] Telecom: Care Team Related Persons Name: TARYN DONNELLY Name: MIGUEL DONNELLY Name: SYBIL GIBBS Name: SLICK GIBBS Name: Slick Gibbs Insurance Providers Guarantor name: SHIRA GIBBS Health Plan Information #: 1 Payer: MILES Payer Identifier: [id number] Member Number: [id number] Group Number: [id number] Subscriber Identifier: [id number] Relationship to Subscriber: Self Coverage Type: MEDICARE Coverage Verification Date: NA Telecom: NA Address:
--- OUTSIDE RECORDS SUMMARY | 2025-03-10 10:51 | XMS_ITS | Encounter Summary ---
Author Organization [facility] Address [address] [place] [address] Care Team Providers Care Maintenance Shop Laborer Name Role Phone Norbert Snowden MD Primary Care Provider [phone] Norbert Snowden MD Primary Care Provider [phone] Encounter Details Date Type Department Care Team (Late Contact Info) Description 05/09/2023 Abstract [facility] [address] [place] [address] Chris Eagle, BETTY [address] [place] [address] Social History Tobacco Use Types Packs/Day Years [...] Department Care Team (Late Contact Info) Description 03/06/2026 11:30 AM EDT Office Visit [facility] [address] [place] [address] Reji Haley MD [address] [place] [address] 05/08/2026 10:45 AM EDT Office Visit [facility] [address] [place] [address] Chris Eagle, PA [address] [place] [address] documented as of this encounter Visit Diagnoses Not on filedocumented in this encounter Care Teams Maintenance Shop Laborer Relationship Specialty Start Date End Date Norbert Snowden MD PCP - General Family Medicine 02/20/23 01/06/25 Norbert Snowden MD [address] [facility] [place] [address] PCP - General Family Medicine 01/07/25 documented as of this encounter
--- OUTSIDE RECORDS SUMMARY | 2025-03-10 10:51 | XMS_ITS | Encounter Summary ---
Author Organization [facility] Address [address] [facility] [address] Care Team Providers Care Supervisor Brake Repair Name Role Phone Norbert Snowden MD Primary Care Provider [phone] Norbert Snowden MD Primary Care Provider [phone] Reason for Visit * Reason Comments Med Refill Encounter Details Date Type Department Care Team (Late st Contact Info) Description 05/23/2023 Refill [facility] [address] [address] Chris Eagle PA [address] [place] [address] Pre-op examination Social History Tobacco Use Types [...] [address] [place] [address] Reji Haley MD [address] [place] [address] 05/08/2026 10:45 AM EDT Office Visit [facility] [address] [place] [address] Chris Eagle, BETTY [address] [place] [address] documented as of this encounter Visit Diagnoses Diagnosis Pre-op examination documented in this encounter Care Teams Supervisor Brake Repair Relationship Specialty Start Date End Date Norbert Snowden MD PCP - General Family Medicine 02/20/23 01/06/25 Norbert Snowden MD [address] [facility] [place] [address] PCP - General Family Medicine 01/07/25 documented as of this encounter
--- OUTSIDE RECORDS SUMMARY | 2025-03-10 10:51 | XMS_ITS | Clinical Summary ---
Author Organization [facility] Address [address] [place] [address] Care Team Providers Care Mixing Machine Tender Cork Rod Name Role Phone Unavailable Primary Care Provider [...]
--- OUTSIDE RECORDS SUMMARY | 2025-03-10 10:51 | XMS_ITS | Clinical Summary ---
Author Organization [employer] [facility] tem Address [id number] [address] [place] [address] Care Team Providers Care Tube Building Machine Operator Name Role Phone Norbert Snowden MD Primary Care Provider [phone] Social History Tobacco Use Types Packs/Day Years [...] and Td Vaccines (1 - Tdap) 02/11/1979 Zoster (Shingles) Vaccine (1 of 2) 02/11/2010 COVID-19 Vaccine ( season) 04/25/202410/2020, 12/04/2020 Fall Risk Screening 02/11/2025 Influenza Vaccine 04/25/2025 07/27/2018 Medical Devices Not on file Insurance [id number] PLAN Care Teams Tube Building Machine Operator Relationship Specialty Start Date End Date Norbert Snowden MD PCP - General Family Medicine 04/01/23
--- OUTSIDE RECORDS SUMMARY | 2025-03-10 10:51 | XMS_ITS | Encounter Summary ---
Author Organization [facility] Address [address] [place] [address] Care Team Providers Care Medical Clerk Name Role Phone Norbert Snowden MD Primary Care Provider [phone] Encounter Details Date Type Department Care Team (Late st Contact Info) Description 03/01/2025 Orders Only [facility] [address] [place] [address] Reji Haley MD [address] [place] [address] Social History Tobacco Use Types Packs/Day Years [...] AM EDT Office Visit [facility] [address] [place] [address] Reji Haley MD [address] [place] [address] 05/08/2026 10:45 AM EDT Office Visit [facility] [address] [place] [address] Chris Eagle, PA [address] [facility] [place] [address] documented as of this encounter Procedures Procedure Name Priority Date/Time Associated Diagnosis Comments T3, FREE Routine 03/01/2025 11:22 AM EDT TSH Routine 03/01/2025 11:22 AM EDT T4, FREE Routine 03/01/2025 11:22 AM EDT documented in this encounter Results * T3, free (03/01/2025 11:22 AM EDT) Blood Venous blood specimen / Unknown us Reji Haley MD LAB BLOOD ORDERABLES Final Re sult * T4, free (03/01/2025 11:22 AM EDT) Blood Venous blood specimen / Unknown us Reji Haley MD LAB BLOOD ORDERABLES Final Re sult * TSH (03/01/2025 11:22 AM EDT) Blood Venous blood specimen / Unknown us Reji Haley MD LAB BLOOD ORDERABLES Final Re sult documented in this encounter Visit Diagnoses Not on filedocumented in this encounter Care Teams Medical Clerk Relationship Specialty Start Date End Date Norbert Snowden MD [address] [facility] [place] [address] PCP - General Family Medicine 01/07/25 documented as of this encounter
--- OUTSIDE RECORDS SUMMARY | 2025-03-10 10:51 | XMS_ITS | Encounter Summary ---
Author Organization [facility] Address [address] [place] [address] Care Team Providers Care Petrol Tanker Driver Name Role Phone Norbert Snowden MD Primary Care Provider [phone] Norbert Snowden MD Primary Care Provider [phone] Encounter Details Date Type Department Care Team (Late st Contact Info) Description 06/06/2023 Abstract [facility] [address] [place] [address] Chris Eagle, BETTY [address] [place] [address] Social History Tobacco Use Types [...] ENDOCRINOLOGY [address] [place] [id number] Reji Haley MD [address] [place] [address] 05/08/2026 10:45 AM EDT Office Visit [facility] [address] [facility] [address] [place] [address] Chris Eagle, PA [address] [facility] [place] [address] documented as of this encounter Visit Diagnoses Not on filedocumented in this encounter Care Teams Petrol Tanker Driver Relationship Specialty Start Date End Date Norbert Snowden MD PCP - General Family Medicine 02/20/23 01/06/25 Norbert Snowden MD [address] [facility] [place] [phone] PCP - General Family Medicine 01/07/25 documented as of this encounter
--- OUTSIDE RECORDS SUMMARY | 2025-03-10 10:51 | XMS_ITS | Clinical Summary ---
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 Active cholecalciferol (Vitamin D-3) 25 MCG (1000 UT) capsule Active Turmeric Curcumin 500 MG capsule Activ e zonisamide (Zonegran) 50 MG capsule 3 Active loratadine (Claritin) 10 MG tablet Take by mouth Active diclofenac (Voltaren) 75 MG EC tablet Take 1 tablet by mouth in the morning and 1 tablet before bedtime. Do not crush, chew, or split. Active sucralfate (Carafate) 1 g tablet Take 1 tablet by mouth in the morning and 1 tablet at noon and 1 tablet in the evening and 1 tablet before bedtime. Take before meals. Active levothyroxine (Synthroid, Levoxyl) 75 MCG tabletIndications :S/P partial thyroidectomy Take 1 tablet (75 mcg) by mouth in the morning. Take before meals. 90 tablet 3 5 03/02/20 26 Active levothyroxine (Synthroid, Levoxyl) 75 MCG tablet in the morning. 03/07/20 25 Discontinu ed(Reorder ) Active Problems Problem Noted Date Diagnosed Date [...] reflux disease 01/23/2022 Hyperthyroidism 01/23/2022 Osteoporosis 01/23/2022 Encounters Date Type Department Care Team Description 03/07/2025 9:10 AM EDT Office Visit [facility] [address] [place] [address] Reji Haley MD S/P partial thyroidectomy (Primary Dx); Age-related osteoporosis without current pathological fracture ; custodial use of bisphosphonates; Vitamin D deficiency 03/07/2025 Bamboo flowsheet [facility] [address] [place] [address] Reji Haley MD 03/01/2025 [facility] [address] [place] [address] Reji Haley MD from Last 3 Months Immunizations Immunization Administration Dates Next Due Influenza, [...] Mass Index 31.24 03/07/2025 9:25 AM EDT Plan of Treatment Upcoming Encounters Date Type Department Care Team (Late st Contact Info) Description 03/06/2026 11:30 AM EDT Office Visit [facility] [address] [place] [address] Rjei Haley MD [address] [place] [address] 05/08/2026 10:45 AM EDT Office Visit [facility] [address] [place] [address] Chris Eagle PA [address] [facility] [place] [address] Health Maintenance Due Date Last Done Comments CT Colonography 1960 FIT-DNA 1960 FIT 1960 FOBT 1960 Sigmoidoscopy 1960 Pap Smear 02/11/1981 Cervical Cancer Screening 02/11/1990 HPV/Cotest 02/11/1990 Mammogram 2000 Pneumococcal Vaccine: 65+ Years (1 of 1 - PCV) 010 Influenza Vaccine (#1) 2025 07/27/2018 Colonoscopy 10/25/2031 10/24/2021 Colorectal Cancer Screening 10/25/2031 Procedures Procedure Name Priority Date/Time Associated Diagnosis Comments T3, FREE Routine 03/01/2025 11:22 AM EDT T4, FREE Routine 03/01/2025 11:22 AM EDT TSH Routine 03/01/2025 11:22 AM EDT from Last 3 Months Results * T3, free (03/01/2025 11:22 AM EDT) Blood Venous blood specimen / Unknown Reji Haley MD LAB BLOOD ORDERABLES Final Re sult * TSH (03/01/2025 11:22 AM EDT) Blood Venous blood specimen / Unknown Reji Haley MD LAB BLOOD ORDERABLES Final Re sult * T4, free (03/01/2025 11:22 AM EDT) Blood Venous blood specimen / Unknown Reji Haley MD LAB BLOOD ORDERABLES Final Re sult from Last 3 Months Insurance [employer] Care Teams Farmworker Brooder Farm Relationship Specialty Start Date End Date Norbert Snowden MD [address] [place] [address] PCP - General Family Medicine 01/07/25
--- OUTSIDE RECORDS SUMMARY | 2025-03-10 10:51 | XMS_ITS | Encounter Summary ---
Author Organization [facility] Address [address] [place] [address] Care Team Providers Care Heel Room Supervisor Name Role Phone Norbert Snowden MD Primary Care Provider [phone] Encounter Details Date Type Department Care Team (Late st Contact Info) Description 03/07/2025 Bamboo flowsheet [facility] [address] [place] [phone] Reji Haley MD [address] [place] [address] Social History Tobacco Use Types [...] Visit [facility] [address] [place] [phone] Reji Haley MD [address] [place] [address] 05/08/2026 10:45 AM EDT Office Visit [facility] [address] [place] [address] Chris Eagle, PA [address] [facility] [place] [address] documented as of this encounter Visit Diagnoses Not on filedocumented in this encounter Care Teams Heel Room Supervisor Relationship Specialty Start Date End Date Norbert Snowden MD [address] [facility] [place] [address] PCP - General Family Medicine 01/07/25 documented as of this encounter
--- OUTSIDE RECORDS SUMMARY | 2025-03-10 11:04 | XMS_ITS | CCD ---
Author Organization [facility] CliniSymo Care Team Providers Care Edi Analyst Name Role Phone BANUELOS ., DR FAITH [...] ., NARENDRANATH Consulting Pricilla vailable LAKSHMIPATHY ., NARENZOATH Admitting Pricilla vailable LAKSHMIPATHY ., SHANTI Attending [...] BANUELOS ., DR FAITH Majano Attending Unavailable CYNTHIA ., DR GIBSON Primary Care Unavailable CYNTHIA ., DR GIBSON Primary Care Unavailable CYNTHIA ., DR GIBSON Attending Unavailable HOY ., DR GIBSON Consulting Unavailable HOY ., DR GIBSON Admitting Unavailable WEST, DR TYLER Lester Consulting Unavailable PAYNE ., VEDA Consulting Unavailable BANUELOS ., DR FAITH Majano Admitting Unavailable BANUELOS ., DR FAITH Majano Attending Unavailable CYNTHIA ., DR GIBSON Primary Care Unavailable Paige Snowden MD Primary Care Provider [phone] Paige Snowden Primary Care Physician [phone] Reece GLORIA Attending Unavailable Reece GLORIA Attending Unavailable Paige Snowden MD Primary Care Provider [phone] REJI CONKLIN Attending Unavailable NISH EAGLE Attending Unavailable NISH EAGLE Referring Unavailable Allergies Allergy Classification Reported Allergen(s) Allergy Type Date of Onset Reaction(s) Facility (2 sources) Allopurinol Drug Allergy 7 [facility] Repository (2 sources) levoFLOXacin; Translations: [Levaquin] Drug Allergy [facility] Repository (2 sources) Morphine; Translations: [morphine] Drug Allergy 7 [facility] Repository (5 sources) Penicillin; Translations: [penicillin] Drug Allergy 7 Weal (disorder) [facility] Repository (9 sources) levoFLOXacin; Translations: [levofloxacin] Drug Allergy 3 Hives, Nausea And Vomiting, Nausea and vomiting (disorder) [facility] Work Phone: (9 sources) Morphine; Translations: [morphine] Drug Allergy 7 Rash, Insomnia (disorder) [facility] (7 sources) Penicillins Drug Allergy 3 Hives, Rash [facility] (7 sources) Tetanus Toxoid, Adsorbed Allergy to substance 3 Rash [facility] (3 sources) Tetanus vaccine; Translations: [tetanus toxoids] Drug allergy Local (qualifier value) [facility] [place] (1 source) Allopurinol; Translations: [allopurinol] Drug Allergy 7 [facility] Repository Medications Current Medications Medication Drug Class(es) Dates Sig (Normalized) Sig (Original) alendronic acid 70 mg oral tablet (1 source) Bisphosphonate Start: 10-05-2021 take 1 tablet by mouth every week Fosamax 70 mg oral tablet 70 mg = 1 tab(s), Oral, qWeek, Refills(s) 0 Start Date: 10/05/21 Status: Ordered cetirizine hydrochloride 10 mg oral tablet (1 source) Histamine-1 Receptor Antagonist Start: 03-09-2025 take 1 tablet by mouth once daily cetirizine 10 mg Tab 10 mg = 1 tab(s), Oral, Daily, Refills(s) 0 Start Date: 03/09/25 Status: Ordered Repeat number: 1 cholecalciferol 0.025 mg oral capsule (7 sources) Vitamin D cholecalciferol (Vitamin D-3) 25 MCG (1000 UT) capsule Active cholecalciferol (Vitamin D-3) 25 MCG (1000 UT) capsule Vitamin D3 25 mcg (1,000 unit) capsule Take by oral route. Active diclofenac sodium 75 mg delayed release oral tablet (3 sources) Nonsteroidal Anti-inflammatory Drug take 1 tablet by mouth in the morning diclofenac (Voltaren) 75 MG EC tablet Take 1 tablet by mouth in the morning and 1 tablet before bedtime. Do not crush, chew, or split. Active etodolac 400 mg oral tablet (3 sources) Nonsteroidal Anti-inflammatory Drug Start: 023 End: etodolac (Lodine) 400 MG tablet 02/11/2023 05/03/2024 Discontinued ferrous sulfate 325 mg oral tablet (1 source) Start: take 1 tablet by mouth once daily ferrous sulfate 325 mg Tab 325 mg = 1 tab(s), Oral, Daily, Refills(s) 0 Start Date: 03/09/25 Status: Ordered Repeat number: 1 levothyroxine sodium 0.075 mg oral tablet (11 sources) l-Thyroxine Start: 025 End: 026 take 1 tablet by mouth before mealtime levothyroxine (Synthroid, Levoxyl) 75 MCG tablet Indications: S/P partial thyroidectomy Take 1 tablet (75 mcg) by mouth in the morning. Take before meals. 90 tablet 3 03/07/2025 03/02/2026 Active Start: 10-05-2021 take 1 tablet by michelle th once daily levothyroxine 75 mcg (0.075 mg) Tab 75 mcg = 1 tab(s), Oral, Daily, Refills(s) 0 Start Date: 10/05/21 Status: Ordered Repeat number: 1 loratadine 10 mg oral tablet (6 sources) loratadine (Claritin) 10 MG tablet Take by mouth Active meloxicam 15 mg oral tablet (2 sources) Nonsteroidal Anti-inflammatory Drug Start: 5 take 1 tablet by mouth once daily meloxicam 15 mg Tab 15 mg = 1 tab(s), Oral, Daily, Refills(s) 0 Start Date: 10/07/24 Status: Ordered Repeat number: 1 pantoprazole 40 mg delayed release oral tablet (9 sources) Proton Pump Inhibitor Start: 2 take 1 tablet by mouth once daily Pantoprazole [address] Tab 40 mg = 1 tab(s), Oral, Daily, Refills(s) 0 Start Date: 10/05/21 Status: Ordered Repeat number: 1 Probiotic Digestive Aid Gummies (1 source) Start: 5 Probiotic Digestive Aid Gummies 5 mg, Chewed, BID, Refill(s) 0 Start Date: 03/09/25 Status: Ordered Repeat number: 1 sucralfate 1000 mg oral tablet (4 sources) Aluminum Complex Start: 2 sucralfate 1 g Tab 1 gm = 1 tab(s), Oral, QIDACHS, Refills(s) 0 Start Date: 10/05/21 Status: Ordered sucralfate (Ciara fate) 1 g tablet Take 1 tablet by mouth in the morning and 1 tablet at noon and 1 tablet in the evening and 1 tablet before bedtime. Take before meals. Active Turmeric Curcumin 500 MG cap shantel (7 sources) Turmeric Curcumi n 500 MG capsule Active Turmeric Curcumi n 500 MG capsule as directed Orally Active turmeric extract 500 mg oral capsule (1 source) Start: 03-09-2025 take 1 capsule by mouth once daily turmeric 500 mg oral capsule 500 mg = 1 cap(s), Oral, Daily, Refills(s) 0 Start Date: 03/09/25 Status: Ordered Repeat number: 1 Tylenol 8 HR Arthritis Pain (1 source) Start: 03-09-2025 take 2 tablets by mouth once daily Tylenol 8 HR Arthritis Pain = 2 tab(s), Oral, Daily, Refills(s) 0 Start Date: 03/09/25 Status: Ordered Repeat number: 1 Vitamin D3 1000 intl units (25 mcg) Tab (1 source) Start: 03-09-2025 take 1 tablet by mouth once daily Vitamin D3 1000 intl units (25 mcg) Tab 25 mcg = 1 tab(s), Oral, Daily, Refills(s) 0 Start Date: 03/09/25 Status: Ordered Repeat number: 1 zonisamide 50 mg oral capsule (7 sources) Anti-epileptic Agent Start: 01-28-2023 zonisamide (Zonegran) 50 MG capsule 01/28/2023 Active Completed/Discontinued Medications Medication Drug Class(es) Dates Sig (Normalized) Sig (Original) tiZANidine 4 mg oral tablet (1 source) Central alpha-2 Adrenergic Agonist Start: 03-02-2025 tiZANidine 4 mg Tab 42 EA, 0 Refill(s), TAKE 2 TABLETS BY MOUTH AT BEDTIME, Refills(s) 0 Start Date: 03/02/25 Status: Ordered Repeat number: 1 Problems Active Problems Problem Classification Problem Date Documented Date Episodic/Chronic Abdominal pain (2 sources) Epigastric pain; Translations: [Epigastric pain] Onset: 03-09-2025 Episodic Complications of surgical procedures or medical care (3 sources) Postprocedural hypothyroidism; Translations: [History of subtotal thyroidectomy] Onset: 03-03-2022 03-07-2025 Chronic Esophageal disorders (11 sources) Gastroesophageal reflux disease; Translations: [Gastro-esophageal reflux disease without esophagitis] Onset: 01-23-2022 04-01-2023 Chronic Mood disorders (9 sources) Major depressive disorder; Translations: [Major depressive disorder, single episode, unspecified] Onset: 04-01-2023 04-01-2023 Chronic Neoplasms of unspecified nature or uncertain behavior (9 sources) Neoplasm of uncertain behavior of skin of chest; Translations: [Neoplasm of uncertain behavior of skin] Onset: 04-01-2023 04-01-2023 Episodic Nutritional deficiencies (3 sources) Vitamin D deficiency, unspecified; Translations: [Vitamin D deficiency] Onset: 03-03-2022 03-07-2025 Chronic Nutritional deficiencies (2 sources) Iron deficiency; Translations: [Iron deficiency] Onset: 03-09-2025 Episodic Osteoarthritis (19 sources) Unilateral primary osteoarthritis, right hip; Translations: [Arthritis of left knee] Onset: 12-20-2022 Chronic Osteoporosis (15 sources) Age-related osteoporosis without current pathological fracture; Translations: [Osteoporosis] Onset: 01-23-2022 Chronic Other aftercare (2 sources) Long-term current use of bisphosphonates; Translations: [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] 03-07-2025 Episodic Other and unspecified benign neoplasm (9 sources) Adenomatous polyp of colon ; Translations: [Benign neoplasm of colon, unspecified] Onset: 04-01-2023 04-01-2023 Episodic Other and unspecified benign neoplasm (2 sources) History of polyp of colon; Translations: [Personal history of adenomatous and serrated colon polyps] Onset: 03-09-2025 Episodic Other connective tissue disease (2 sources) History of total replacement of right hip joint; Translations: [Presence of right artificial hip joint] 05-02-2024 Chronic Other nervous system disorders (1 source) Other chronic pain; Translations: [OTHER CHRONIC PAIN] Onset: 12-20-2022 Chronic Other non-traumatic joint disorders (7 sources) Derangement of right shoulder joint; Translations: [Other specific joint derangements of right shoulder, not elsewhere classified] Onset: 04-01-2023 04-01-2023 Chronic Other non-traumatic joint disorders (4 sources) Pain in right hip; Translations: [PAIN IN RIGHT HIP] Onset: 12-19-2022 Episodic Other nutritional; endocrine; and metabolic disorders (9 sources) Body mass index 30+ - obesity; Translations: [Obesity, unspecified] Onset: 04-01-2023 04-01-2023 Chronic Other nutritional; endocrine; and metabolic disorders (1 source) Obesity caused by energy imbalance 03-09-2025 Chronic Other skin disorders (9 sources) Epidermoid cyst of skin; Translations: [Epidermal cyst] Onset: 04-01-2023 04-01-2023 Episodic Spondylosis; intervertebral disc disorders; other back problems (15 sources) Spondylosis without myelopathy or radiculopathy, lumbar region; Translations: [Other intervertebral disc degeneration, lumbar region] Onset: 04-04-2022 Chronic Thyroid disorders (16 sources) Hyperthyroidism; Translations: [Thyrotoxicosis, unspecified without thyrotoxic crisis or storm] Onset: 01-23-2022 04-01-2023 Chronic Unclassified (1 source) CONTACT W/AND (SUSP) EXPOS COVID-19; Translations: [CONTACT W/AND (SUSP) EXPOS COVID-19] Onset: 08-14-2022 Unclassified (4 sources) LOW BACK PAIN, UNSPECIFIED; Translations: [LOW BACK PAIN, UNSPECIFIED] Onset: 01-11-2022 Unclassified (2 sources) Patient encounter status 10-12-2021 Unclassified (2 sources) Seborrheic keratosis 11-02-2021 Past or Other Problems Problem Classification Problem Date Documented Da te Episodic/Chronic Other bone disease and musculoskeletal deformities (1 source) Other specified disorders of bone density and structure, unspecified site; Translations: [OTH D/O BONE DEN STRUCT UNS SITE] Onset: 03-03-2022 Episodic Other connective tissue disease (7 sources) Tear of right rotator cuff; Translations: [...] BREAST] Onset: 07-15-2022 Episodic Other skin disorders (7 sources) Skin tag; Translations: [Other hypertrophic disorders of the skin] Onset: 04-01-2023 04-01-2023 Episodic Other skin disorders (7 sources) Seborrheic keratosis; Translations: [Other seborrheic keratosis] Onset: 04-01-2023 04-01-2023 Episodic Residual codes; unclassified (1 source) Family history of malignant neoplasm of digestive organs; Translations: [FAM HX ROZ NEOPLASM DIGESTIV ORGN] Onset: 07-17-2022 Episodic Residual codes; unclassified (1 source) Family history of malignant neoplasm of other organs or systems; Translations: [FAM HX MALPATY NEOPLASM OTH ORGN/SYS] Onset: 07-17-2022 Episodic Spondylosis; intervertebral disc disorders; other back problems (20 sources) Spinal stenosis, lumbosacral region; Translations: [Muscle spasm of back] Onset: 01-11-2022 Episodic Unclassified (1 source) LOW BACK PAIN, UNSPECIFIED; Translations: [LOW BACK PAIN, UNSPECIFIED] Onset: 01-07-2022 Results Test Name Value Interpretation Reference Range Facil ity Covid-19 PCR (CVDTB)on 07-25 SARS-CoV-2 (COVID-19) RNA LOWELL+probe Ql (Unsp spec) Not detected Normal NOT DETECTED [facility] Comment on above: Result Comment: This test is not yet approved or cleared by the [place] FDA. When there are no FDA-approved or cleared tests available, and other criteria are met, FDA can make tests available under an emergency access mechanism called an Emergency Use Authorization (EUA). The EUA for this test is supported by the [place] of Health and Human Service's (HHS's) declaration [...] consistent with SARS-CoV-2. Performed By: #### [facility] #### [facility] [address] [place] [address] Dr. Tanja Soto Covid-19 PCR (CVDTBH)on SARS-CoV-2 (COVID-19) RNA LOWELL+probe Ql (Unsp spec) Not detected Normal NOT DETECTED [facility] Comment on above: Result Comment: When diagnostic [...] for this test is supported by the [place] of Health and Human Service's declaration that [...] longer be used). Performed By: #### C [facility] ####[facility] [id number] [place], [place] [address]Al. Tanja Soto MG MAMM SCREEN 3D JOSE CADon 07-15-2022 MG MAMM SCREEN 3D JOSE CAD Patient: SHIRA GIBBS Exam Date: 07/15/2022 : 1960 Gender:F Ordering : DR PAIGE SNOWDEN . Admission #: [id number] Family : Order #: [id number] CLICK HERE TO VIEW EXAM RADIOLOGY REPORT [...] prostate cancer at age 80. LOCATION: [facility] BREAST COMPOSITION: Scattered areas fibroglandular density. FINDINGS: [...] MD on 07/15/2022 at 10:04 Normal [facility] FREE T3on 02-27-2022 FREE T3 3.00 pg/mlL Normal 2.18-3.98 [facility] Comment on above: Performed By: #### F T3, RENAL, TSH ####[facility] [address] [place] [address]Dr. Tanja Charles FREE T4on 02-27-2022 Free T4 [Mass/Vol] 1.34 ng/dL Normal 0.76-1.46 [facility] Comment on above: Performed By: #### V ITAD, FT4 ####[facility] [id number] [place] [address]Dr. Tanja Soto RENAL FUNCTION PANELon 02-27 Albumin [Mass/Vol] 3.3 g/dL Critically low 3.4-5.0 [facility] Comment on above: Performed By: #### F T3, RENAL, TSH ####[facility] [id number] [place] [address]Dr. Tanja Soto Calcium [Mass/Vol] 9.0 mg/dL Normal 8.5-10.1 [facility] Comment on above: Performed By: #### F T3, RENAL, TSH ####[facility] [id number] [place] [address]Dr. Tanja Soto Chloride [Moles/Vol] 105 mmol/L Normal 98-107 [facility] Comment on above: Performed By: #### F T3, RENAL, TSH ####[facility] [address] [place] [address]Dr. Tanja Soto CO2 [Moles/Vol] 28.3 mmol/L Normal 21.0-32.0 [facility] Comment on above: Performed By: #### F T3, RENAL, TSH ####[facility] [address] [place] [address]Dr. Tanja Soto Creatinine [Mass/Vol] 0.87 mg/dL Normal 0.55-1.02 [facility] Comment on above: Performed By: #### F T3, RENAL, TSH ####[facility] [id number] [place] [id number]. Tanja Soto EGFR-AF MALDIVIAN >60 Normal >=60 [facility] Comment on above: Performed By: #### F T3, RENAL, TSH ####[facility] [id number] [place] [id number]. Tanja Soto EGFR-NON AF MALDIVIAN >60 Normal >=60 [facility] Comment on above: Performed By: #### F T3, RENAL, TSH ####[facility] [address] [place] [address]Dr. Tanja Soto Glucose [Mass/Vol] 93 mg/dL Normal 74-106 [facility] Comment on above: Performed By: #### F T3, RENAL, TSH ####[facility] [address] [place] [address]Dr. Edelbailey Soto Phosphate [Mass/Vol] 3.1 mg/dL Normal 2.6-4.7 [facility] Comment on above: Performed By: #### F T3, RENAL, TSH ####[facility] [address] [place], [place] [address]Dr. Tanja Soto Potassium [Moles/Vol] 3.6 mmol/L Normal 3.5-5.1 [facility] Comment on above: Performed By: #### F T3, RENAL, TSH ####[facility] [address] [place] [id number]. Tanja Soto Sodium [Moles/Vol] 140 mmol/L Normal 136-145 [facility] Comment on above: Performed By: #### F T3, RENAL, TSH ####[facility] [address] [place] [address]Dr. Tanja Soto Urea nitrogen [Mass/Vol] 13.0 mg/dL Normal 7.0-18.0 [facility] Comment on above: Performed By: #### F T3, RENAL, TSH ####[facility] [address] [place], [place] [id number]. Tanja Soto TSHon 02-27-2022 TSH 0.759 uIU/mL Normal 0.358-3.740 [facility] Comment on above: Performed By: #### F T3, RENAL, TSH ####[facility] [address] [place], [place] [address]Uk. Tanja Soto VITAMIN D 25 OHon 02-27-2022 VIT D 25-OH 35.5 ng/mL Normal [facility] Comment on above: Performed By: #### V ITAD, FT4 ####[facility] [address] [place] [id number]. Tanja Soto VIT D RANGES SEE BELOW Normal [facility] Comment on above: Result Comment: <20 ng/mL Vit D deficient 20 - <30 ng/mL Vit D insufficient 30 - 100 ng/mL Vit D sufficient >100 ng/mL Potential Toxicity Performed By: #### V ITAD, FT4 ####[facility] [address] [place] [id number]. Tanja Soto XR DEXA BONE DENSITYon 02-27 [...] by: JOSE PORTER Date: 2022-02-27 16:07 Normal [facility] HIP RIGHT 1 OR 2 VWS WITH PE LVISon 01-23-2022 HIP RIGHT 1 OR 2 VWS WITH PELVIS [facility] Department of Radiology [address] [place] [id number] Patient Name: SHIRA GIBBS : 1960 Sex: F Age: Race: White Pt. Location: 85 Patient Status: D Ordered Date: 01/23/2022 2:45:00 PM Completed Date: 01/23/2022 02:49 PM Requesting Provider: ADÁN CASTRO Attending Provider: ADÁN CASTRO Report Copy To: PAIGE SNOWDEN Signs & Symptoms: M25.551 Pain in right hip I10 History: [place] Comments: , right hip pain, r/o osteoarthritis, fracture , right hip pain, r/o osteoarthritis, fracture , , , Ordering Provider - A MATTHEW MSN [employer]OMOBI[employer] RENTAL AGENT , Exam: HIP RIGHT 1 OR 2 [...] , Ordering Provider - A MATTHEW MSN [employer]OM[employer] RENTAL AGENT , PROTOCOL: AP(PA) and Lateral views were obtained. COMPARISON: None FINDINGS: Pelvic ring intact. Sacroiliac joints symmetric. Hips normally aligned bilaterally. No evidence of fracture. There is superior lateral joint space narrowing right hip IMPRESSION: Early degenerative change right hip Electronically signed: Roseann Lemus. Transcribed by: [email or web address], User Resident: Electronically Signed by: ROSEANN LEMUS @ 01/24/2022 02:04 PM Normal [facility] Comment on above: Order Comment: , rig ht hip pain, r/o osteoarthritis, fracture , right hip pain, r/o osteoarthritis, fracture , , , Ordering Provider - Catrachita ALBRECHT [employer]OMOBILE RENTAL AGENT , MRI LSPINE WO CONon 01-12-20 MRI [...] by: JOSE PORTER Date: 2022-01-11 13:45 Normal [facility] XR LSPINE MIN 4 VIEWSon 12-23 [...] by: JOSE PORTER Date: 2022-01-07 13:40 Normal [facility] Vital Signs Date Time Vital Sign Value Performing Clinician Faci lity 03-07-2025 09:25-0400 Body height 162.6 cm Reji Conklin MD Work Phone: [facility] 03-07-2025 09:25-0400 Body mass index (BMI) [Ratio] 31.24 kg/m2 Reji Conklin MD Work Phone: [facility] 03-07-2025 09:25-0400 Body weight 82.56 kg Reji Conklin MD Work Phone: [facility] 03-07-2025 09:25-0400 Diastolic blood pressure 80 mm[Hg] Reji Conklin MD Work Phone: [facility] 03-07-2025 09:25-0400 Heart rate 81 /min Reji Conklin MD Work Phone: [facility] 03-07-2025 09:25-0400 Respiratory rate 18 /min Reji Conklin MD Work Phone: [facility] 03-07-2025 09:25-0400 SaO2% (BldA) [Mass fraction] 96 % Reji Conklin MD Work Phone: [facility] 03-07-2025 09:25-0400 Systolic blood pressure 130 mm[Hg] Reji Conklin MD Work Phone: [facility] Healthcare Encounters Encounter Date Encounter Type Care Provider Facility Start: 03-09-2025 ambulatory Reece GLORIA Facility :[facility] Start: 03-09-2025 End: 03-09-2025 Patient encounter procedure Reece GLORIA [facility] Start: 03-07-2025 End: 03-07-2025 Bamboo flowsheet Reji Conklin MD Work Phone: [facility] Start: 03-07-2025 End: 03-07-2025 Bamboo flowsheet Reji Conklin MD Work Phone: [facility] Start: 03-07-2025 End: 03-07-2025 ambulatory REJI CONKLIN Not Available Start: 03-07-2025 End: 03-07-2025 Office outpatient visit 40 minutes Reji Conklin MD Work Phone: [facility] Comment on above: S/P partial thyroide ctomy (Primary Dx); Age-related osteoporosis without current pathological fracture ; nursing home use of bisphosphonates; Vitamin D deficiency Start: 10-12-2024 End: 10-12-2024 ambulatory Reece GLORIA Facility:[facility] Start: 10-12-2024 End: 10-12-2024 Patient encounter procedure Reece GLORIA [facility] Start: 05-12-2024 End: 05-20-2024 Telephone encounter Reji Conklin MD Work Phone: [facility] Start: 05-03-2024 End: 05-03-2024 Bamboo flowsheet Nish HERNÁNDEZ Work Phone: [facility] Start: 05-03-2024 End: 05-03-2024 Bamboo flowsheet Nish HERNÁNDEZ Work Phone: [facility] Start: 05-03-2024 End: 05-03-2024 Office outpatient visit 15 minutes Nish Eagle PA Work Phone: [facility] Comment on above: Acute right hip pain (Primary Dx); History of total hip replacement, right Start: 05-03-2024 End: 05-03-2024 ambulatory NISH EAGLE Not Available Start: 01-23-2023 [...] laboratory examination DR FAITH BANUELOS . 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 Reece NILL Comment on above: right Laparoscopy assisted vaginal hysterectomy with bilateral salpingo-oophorectomy Reece NILL Open reduction of fr acture with internal fixation Reece NILL Comment on above: left 5th metatarsal Repair of joint of right hip Reece NILL Repair of musculoten dinous cuff of shoulder Reece NILL Plan of Treatment Date Care Activity Detail Author Start: 10-25-2031 Screening for malignant neoplasm of colon [facility] Start: 05-08-2026 End: 05-08-2026 Patient encounter procedure [facility] Start: 03-06-2026 End: 03-06-2026 Patient encounter procedure 03/06/2026 11:30 AM EDT Office Visit [facility] [address] [place] [id number] Reji Conklin MD [address] [place] [address] [facility] [facility] Start: 04-25-2025 Influenza vaccination Influenza Vaccine (#1) [facility] Start: 03-07-2025 End: 03-07-2026 25-hydroxyvitamin D3 [Mass/volume] in Serum or Plasma Vitamin D 25 hydroxy Total Lab Routine Vitamin D deficiency Expected: 03/07/2025 (Approximate), Expires: 03/07/2026 [facility] Comment on above: Expected: 03/07/2025 (Approximate), Expi res: 03/07/2026 Start: 03-07-2025 End: 03-07-2026 DXA Skeletal system Views for bone density DEXA bone density Imaging Routine Age-related osteoporosis without current pathological fracture Expected: 03/07/2025, Expires: 03/07/2026 [facility] Comment on above: Expected: 03/07/2025, Expires: Start: 03-07-2025 End: 03-07-2026 Renal function panel Renal function panel Lab Routine Vitamin D deficiency Expected: 03/07/2025 (Approximate), Expires: 03/07/2026 [facility] Comment on above: Expected: 03/07/2025 (Approximate), Expi res: 03/07/2026 Start: 03-07-2025 End: 03-07-2026 Thyrotropin [Units/volume] in Serum or Plasma TSH Lab Routine S/P partial thyroidectomy Expected: 03/07/2025 (Approximate), Expires: 03/07/2026 [facility] Comment on above: Expected: 03/07/2025 (Approximate), Expi res: 03/07/2026 Start: 03-07-2025 End: 03-07-2026 Thyroxine (T4) free [Mass/volume] in Serum or Plasma T4, free Lab Routine S/P partial thyroidectomy Expected: 03/07/2025 (Approximate), Expires: 03/07/2026 [facility] Comment on above: Expected: 03/07/2025 (Approximate), Expi res: 03/07/2026 Start: 03-07-2025 End: 03-07-2026 Triiodothyronine (T3) Free [Mass/volume] in Serum or Plasma T3, free Lab Routine S/P partial thyroidectomy Expected: 03/07/2025 (Approximate), Expires: 03/07/2026 [facility] Work Phone: Comment on above: Expected: 03/07/2025 (Approximate), Expi res: 03/07/2026 Start: 03-07-2025 End: 03-07-2025 Patient encounter procedure 03/07/2025 9:10 AM EDT Office Visit [facility] [address] [place] [address] Reji Conklin MD [address] [place] [address] [facility] Start: 05-03-2024 End: 05-03-2024 Patient encounter procedure 05/03/2024 10:45 AM EDT Office Visit [facility] [address] [place] [address] Nish Eagle PA [address] [place] [address] Acute right hip pain (Primary Dx); History of total hip replacement, right [facility] Comment on above: Acute right hip pain (Primary Dx); History of total hip replacement, right Start: 04-25-2024 Influenza vaccination Influenza Vaccine (#1) [facility] Start: 02-11-2010 Pneumococcal Vaccine: 65+ Years (1 of 1 - PCV) Pneumococcal Vaccine: 65+ Years (1 of 1 - PCV) [facility] Start: 2000 Screening for malignant neoplasm of breast Mammogram [facility] Start: 02-11-1990 Screening for malignant neoplasm of cervix [facility] Start: 02-11-1981 Screening for malignant neoplasm of cervix Pap Smear [facility] Start: 1960 Screening for malignant neoplasm of colon [facility] XR Hip - right 3 Views XR hip ri ght 2 or 3 views Imaging Routine Acute right hip pain 05/03/2024 10:46 AM EDT [facility] Work Phone: Immunizations Immunization Date Immunization Notes Care Provider Fa cility 12-25-2020 SARS-CoV-2 (COVID-19 ) mRNA BNT-162b2 vax Reece NILL [facility] 12-04-2020 SARS-CoV-2 (COVID-19 ) mRNA BNT-162b2 vax Reece NILL [facility] 07-27-2018 influenza, injectable, quadrivalent, preservative free Nish HERNÁNDEZ Work Phone: [facility] 07-27-2018 influenza virus vaccine, unspecified formulation Nish HERNÁNDEZ Work Phone: [facility] NEGATED: Highlighted row has not occurred!10-09-2021 influenza virus vaccine, unspecified formulation Reece JUANI [facility] Payers Date Payer Category Payer Medicare [id number] 2025 Medicare (Managed Care) [employer] [id number] 2025 Medicare [id number] 2023 Private Health Insurance [facility] [id number] 2023-Present [address] [address] [place] [address] [id number] [id number] 1960 Unknown [id number] 2.16.840.1.406953.3.579. 2.593 1960 Unknown [id number] 2.16.840.1.969688.3.579. 2.593 1960 Unknown [id number] 2.16.840.1.814301.3.579. 2.593 1960 Unknown [id number] 2.16.840.1.497860.3.579. 2.593 1960 Unknown [id number] 2.16.840.1.430063.3.579. 2.593 1960 Unknown [id number] 2.16.840.1.354387.3.579. 2.593 1960 Unknown [id number] 2.16.840.1.185928.3.579. 2.593 1960 Unknown [id number] 2.16.840.1.529062.3.579. 2.593 1960 Unknown [id number] 2.16.840.1.843729.3.579. 2.593 1960 Unknown [id number] 2.16.840.1.118386.3.579. 2.593 1960 Unknown [id number] 2.16.840.1.057015.3.579. 2.593 1960 Unknown [id number] 2.16.840.1.714591.3.579. 2.593 1960 Unknown [id number] 2.16.840.1.951432.3.579. 2.593 1960 Unknown [id number] 2.16.840.1.219564.3.579. 2.593 1960 Unknown [id number] 2.16.840.1.342408.3.579. 2.593 1960 Unknown [id number] 2.16.840.1.119521.3.579. 2.593 1960 Unknown [id number] 2.16.840.1.801406.3.579. 2.593 1960 Unknown [id number] 2.16.840.1.716056.3.579. 2.593 1960 Unknown [id number] 2.16.840.1.506288.3.579. 2.593 1960 Unknown [id number] 2.16.840.1.770328.3.579. 2.593 1960 Unknown [id number] 2.16.840.1.538522.3.579. 2.593 1960 Unknown [id number] 2.16.840.1.714923.3.579. 2.593 1960 Unknown [id number] 2.16.840.1.553390.3.579. 2.593 1960 Unknown [id number] 2.16.840.1.999971.3.579. 2.727 1960 Unknown [id number] 2.16.840.1.937030.3.579. 2.727 1960 Unknown [id number] 2.16.840.1.218118.3.579. 2.1259 1960 Unknown [id number] 2.16.840.1.412793.3.579. 2.1259 1960 Unknown [id number] 2.16.840.1.567252.3.579. 2.1259 1959 Private Health Insurance [id number] 1959 Private Health Insurance [id number] Self-pay Social History Date Type Detail Facility Start: 02-20-2023 End: 03-09-2025 Tobacco smoking status NHIS Never smoked tobacco [facility] Start: 02-20-2023 Tobacco use and exposure Smoke less tobacco non-user [facility] Start: 07-07-2023 End: 10-26-2024 Alcoholic beverage intake Lifetime non-drinker (finding) [facility] Start: 07-07-2023 End: 05-03-2024 History of Social function [facility] Start: 07-07-2023 End: 05-03-2024 Tobacco use panel [facility] Start: 1960 Sex assigned at Not on file [facility] Tobacco smoking status Never [facility] [place] Sexual Orientation [facility] [place] Start: 11-13-2018 Sex Female (finding) [facility] Clinical Notes 02-28-2022 to 03-07-2025 Reji Conklin MD - 03/07/2025 9:10 AM EDTTelephone Encounter - Ant Velarde - 05/12/2024 2:07 PM EDTTelephone Encounter - Ant Velarde - 05/12/2024 2:07 PM EDT Note Date & Type Note Facility 03-07-2025 History of Presen t illness Narrative Shira Gibbs is a 65 y.o. female No [...] in 03/2023. new Dexa scan on 02/2024 L1-L4 1.161 0.2, LFN 0.750 -2.1. Interim History: [...] L1-L4 1.231, 0.4, right femoral neck 0.76 3.8 and thyroid lab within normal limits. Vitamin D [...] right thyroidectomy Symptoms consistent with weakness Associated symptoms include osteoporosis With respect to the fertility postmenopausal [...] Anxiety COVID-19 Depression GERD (gastroesophageal reflux disease) nursing home (current) use of bisphosphonates Nontoxic multinodular goiter [...] Wt 182 lb SpO2 96% BMI 31.24 kg/m Smoking Status Never BSA 1.93 m Physical Exam Constitutional: Appearance: Normal appearance. She [...] mouth in the morning. Take before meals. - T3, free; Future - T4, free; Future - TSH; Future We will continue with levothyroxine 75 mcg daily Age-related osteoporosis without current pathological fracture - DEXA bone density; Future She was on Fosamax for almost 10 years from 2010 until 2021 we will check DEXA scan next year and give further recommendation. 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 documented in this encounter [facility] 05-12-2024 Telephone encounter Note More Needs Levothyroxine Rx canceled to [facility]. 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 [facility] 05-12-2024 Miscellaneous Notes More Needs Levothyroxine Rx canceled to [facility]. 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 documented in this encounter [facility] 05-03-2024 History of Presen t illness Narrative Images from the original note were not included. HISTORY OF PRESENT ILLNESS: EST PT Shira Gibbs is an 64 y.o. @ female. (EST PT) HERE FOR YEARLY CHECK OF (R) GREGG 04/24/23 (~1YR) XRAYS DONE TODAY, 05/03/24 IN [facility] NO BONE SCAN PREVIOUS PAIN MGMT ; [...] with manipulation. Pt had prior tx with [facility] pain management and plans to call.. [...] requiring urgent evaluation. documented in this encounter [facility] 12-19-2022 Note PROCEDURE: XR HIP RT 2 3V WO PELVIS HISTORY: Pain in right hip joint , low back pain COMPARISON: None. FINDINGS: BONES:Complete loss of the hip joint space with [id number]-[id number] articulation. Small degenerative osteophytes along superior rim of acetabulum. No fracture or dislocation. SOFT TISSUES:No visible soft tissue swelling. EFFUSION:None visible. OTHER: Negative. IMPRESSION: 1. Marked degenerative joint disease of right hip. Electronically authenticated by: JOSE PORTER Date: 2022-12-19 11:08 [facility] 12-19-2022 Note CONSULTATION CONSULTATION DATE: 12/19/2022 [...] our patients to inform us about any [id number] medications or herbal remedies/nutritional supplements/alternative remedies. 2. [...] to proceed with the outlined plan. [facility] 09-26-2022 Note CONSULTATION PROCEDURE DATE: 09/26/2022 PREOPERATIVE [...] in the clinic in three months. [facility] 09-12-2022 Note CONSULTATION CONSULTATION DATE: 09/12/2022 HISTORY [...] and patient agrees with this plan. [facility] 06-27-2022 Note CONSULTATION CONSULTATION DATE: 06/27/2022 HISTORY [...] up in the office post procedure. [facility] 05-30-2022 Note CONSULTATION CONSULTATION DATE: 05/30/2022 This [...] patient is in agreement with this. [facility] 04-04-2022 Note CONSULTATION CONSULTATION DATE: 04/04/2022 This [...] right butt and hip. She was at [place] recently with a lot of walking and [...] and would like to move forward. [facility] 02-28-2022 Note CONSULTATION CONSULTATION DATE: 02/28/2022 This is a 62-year-old female that was referred to our clinic as a new patient for her lower back pain and right groin pain. The patient has had pain for some time, but it greatly increased approximately 2 months ago. 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 The patient just recently returned from [place] and walked on the beach many times. [...] exercise. She was sent to Neurosurgery in [place] for a consult where they stated she [...] followed up in the clinic for following. [facility] Signed and Approved by: VEDA PAYNE . 03/07/2022 09:46:00 [facility] Evaluation + Plan note No data available for this section [facility] [place] Evaluation note Diagnosis Acute right hip pain- Primary History of total hip replacement, right [facility] Diagnosis S/P partial thyroidectomy- Primary Other postprocedural status Age-related osteoporosis without current pathological fracture nursing home use of bisphosphonates Vitamin D deficiency [facility] No data available for this section [facility] Progress note No data available for this section [facility] Summary Purpose Family History No Family History Records FoundNo Family History Records Found No data available for this section No Family History Records Found No data available for this section No Family History Records Found Advance Directives No Advanced Directives Records FoundNo Advanced Directives Records FoundNo Advanced Directives Records FoundNo Advanced Directives Records Found Additional Source Comments INFORMATION SOURCE (unrecogn ized section and content) DATE CREATED AUTHOR 01/28/2022 [facility] DATE CREATED AUTHOR AUTHOR'S ORGANIZ ATION 01/03/2023 [facility] DATE CREATED AUTHOR AUTHOR'S ORGANIZ ATION 03/05/2025 [facility] DATE CREATED AUTHOR AUTHOR'S ORGANIZ ATION 03/10/2025 [facility] [employer] Care Teams (unrecognized sec tion and content) Edi Analyst Relationship Specialty Start Date End Date Paige Snowden MD [address] [place] [address] PCP - General Family Medicine 02/20/23 Edi Analyst Relationship Specialty Start Date End Date Paige Snowden MD [address] [place] [address] PCP - General Family Medicine 02/20/23 Edi Analyst Relationship Specialty Start Date End Date Paige Snowden MD [address] [place] [address] PCP - General Family Medicine 01/07/25 Edi Analyst Relationship Specialty Start Date End Date Paige Snowden MD [address] [place] [address] PCP - General Family Medicine 01/07/25 Reason for Visit (unrecogniz ed section and content) Reason Comments Post-op Reason Comments Follow-up Thyroid Problem FOR RECORDS PERTAINING TO PATIENTS WHO ARE [...] BE BASED ON THE PRIMARY CLINICAL RECORDS. [facility]. provides no warranty or guarantee of the accuracy or completeness of information in this document.
--- NOTE | 2025-03-10 11:28 | PM.CN ---
Consult Note: HPI Data of Consult Patient: known to practice within the last 3 years Requesting Physician: Emma Avila NP Primary Care Provider: Norbert Snowden MD Consult Narrative Reason for consult: low back pain Narrative: Ivania Gibbs a pleasant 65 year old female presents for evaluation of chronic moderate to severe low back pain. Pain today 1/10 increasing to 8/10 intermittently without aggravating or alleviating factors per pt. she has completed > 6 weeks of provider guided HEP from her PCP and engaged in workout regimen without improvement in her pain. has utilized tylenol arthritis with mild relief, failed unknown muscle relaxer from pcp. pain aching. known hx of ddd and facet arthropathy. previously found benefit to lumbar RFAs per pt. noting intermittent left groin pain as well. upcoming orthopedic consult for hip pain. cc:: CC: Emma Avila NP Review of Systems ROS Musculoskeletal Reports: back pain Meds Home Medications and Allergies Home Medications �Medication �Instructions �Recorded �Confirmed �Type baclofen 10 mg tablet 10 mg PO TID 01/23/23 01/23/23 History levothyroxine 75 mcg tablet 75 mcg PO QDAY 01/23/23 01/23/23 History (Synthroid) loratadine 10 mg tablet (Claritin) 10 mg PO QDAY 01/23/23 01/23/23 History multivitamin 1 tab PO QDAY 01/23/23 01/23/23 History pantoprazole 40 mg tablet,delayed 40 mg PO QDAY 01/23/23 01/23/23 History release sucralfate 1 gram tablet 1 g PO TID 01/23/23 01/23/23 History zonisamide 50 mg capsule 50 mg PO QDAY 01/23/23 01/23/23 History Allergies Allergy/AdvReac Type Severity Reaction Status Date / Time Penicillins Allergy Intermediate Hives Verified 01/23/23 09:38 tetanus immune globulin Allergy Intermediate Redness of Verified 01/23/23 09:38 Skin levofloxacin (From Levaquin) Allergy Unknown Verified 01/23/23 09:38 morphine Allergy Unknown Anxiety Verified 01/23/23 09:38 Exam Constitutional Documenting provider has reviewed patient's vital signs: yes Common normals: no apparent distress, oriented x3, healthy appearing, alert and well nourished General appearance: cooperative HENMT Common normals: normocephalic, hearing grossly normal bilaterally and moist oral mucous membranes Head and scalp: normocephalic Eye Common normals: PERRL Pupil: PERRL Neck & C-Spine Common normals: full ROM General: normal visual inspection Chest Common normals: inspection of chest normal Respiratory Common normals: normal respiratory effort, no retractions and no use of accessory muscles Back & Pelvis Lumbar spine/lower back: pain with ROM, lumbar spinal tenderness and straight leg raise negative bilaterally Other: increased pain with forward flexion positive facet loading bilaterally facet tenderness noted L2-4 strength 5/5 in BLE sensation intact BLE Neuro Common normals: oriented x3 Sensorium/orientation: alert Psych Common normals: mental status grossly normal, thought process normal, cooperative, affect normal, speech normal and activity/motor behavior normal Speech: normal speech Thought process: normal thought process Results Imaging lumbar xray: Attestation: I have reviewed the pertinent imaging results. Radiologist's impression: AP, lateral, both oblique and lateral coned-down view of the lumbosacral junction were obtained. There is osteopenia. Subtle dextroscoliotic curvature is present. There is no acute fracture. There is continued slight retrolisthesis of L2 on L3 and L5 on S1. There is disc space narrowing at L2-3 and the lumbosacral junction. There is mild endplate spurring and lower lumbar facet hypertrophy. No pars defect is identified. The sacroiliac joints are maintained. A partially imaged right hip prosthesis is visualized. There are no paraspinal soft tissue abnormalities. Additional Findings Additional findings: If on a controlled substance or opioids, I have checked an [place]ARRS report on this patient and there are no aberrancies noted in the prescribing history.��If on a controlled substance or opioid a drug screen was completed and reviewed within the last year, and if there has not been a drug screen completed we ordered one today to monitor higher risk, state monitored pain medication use. As part of providing excellent, safe, comprehensive care, the following was completed at our patient's visit: 1. A medication reconciliation and review to ensure accurate knowledge of current/active medications, including asking our patients to inform us about any [id number] medications or herbal remedies/nutritional supplements/alternative remedies. 2. A review to specifically ensure our patients have had annual screening for screening for depression, screening for tobacco use, and screening for unhealthy alcohol use. For concerning screenings had a discussion with the patient, provided patient education, and recommended follow-up with primary care provider when appropriate. If patient noted with a risk of falling, they received education on strength, gait, and balance training to prevent future risk of falling. Portions of this note may have been carried over from the previous visit and updated as appropriate. Please note this office utilizes paper charting in addition to the electronic medical record. A list of current medications, vitals, and PMH is available there as the clinical staff outside of myself do not have access to [employer] charting during the clinic day operations. As part of providing quality comprehensive care the current medications, vitals, and PMH were reviewed in the paper chart. Assessment and Plan Assessment and Plan (1) Lumbar spondylosis: Assessment and Plan: The patient has had over 3 months of moderate to severe low back pain with functional impairment and inadequate response to conservative care including NSAIDS (unless there are contraindication such as concurrent blood thinners), multiple oral or topical pain medications, and home exercise program/physical therapy.� Patient has completed >6 weeks of guided home exercise program and/or formal physical therapy program without relief of their symptoms.� The Oswestry Disability Index was completed, and the patient scored a 14%.� (2) Degenerative disc disease (DDD) of lumbosacral region with axial back pain without leg pain: Plan update lumbar mri without contrast to assess low back pain and ddd f/u with orthopedics as scheduled for hip pain continue tylenol prn, not interested in additional medication management f/u to review mri
== END 2025-03-10 10:49 | disposition home or self-care (01) ==
LOC: PM 10:48
PROVIDERS: PCP Family Medicine; Visit Provider Nurse Practitioner
DX: M47.816 Spondylosis without myelopathy or radiculopathy, lumbar region (principal); M51.369 Other intervertebral disc degeneration, lumbar region without mention of lumbar back pain or lower extremity pain
CPT/HCPCS: G0463

== ENCOUNTER 2025-03-14 07:11 | Outpatient (OUT) | payer MEDICARE, SELFPAY ==
--- OUTSIDE RECORDS SUMMARY | 2025-03-14 07:14 | XMS_ITS | CCD ---
Author Organization [facility] CliniSysd Care Team Providers Care Manager Of Production Name Role Phone BANUELOS ., DR FAITH [...] ., NARENZOATH Admitting Pricilla vailable LAKSHMIPATHY ., TRENTONATH Attending [...] Primary Care Unavailable BANUELOS ., DR FAITH Majaon Consulting Unavailable BANUELOS ., DR FAITH Majano [...] CYNTHIA ., DR GIBSON Primary Care Unavailable HOStevenson ., DR GIBSON Attending Unavailable HOY ., DR GIBSON Consulting Unavailable HOY ., DR GIBSON Admitting Unavailable WEST, DR TYLER Lester Consulting Unavailable PAYNE ., VEDA Consulting Unavailable BANUELOS ., DR FAITH Majano Admitting Unavailable BANUELOS ., DR FAITH Majano Attending Unavailable CYNTHIA ., DR GIBSON Primary Care Unavailable Paige Snowden MD Primary Care Provider [phone] Paige Snowden Primary Care Physician [phone] Paige Snowden MD Primary Care Provider [phone] REJI CONKLIN Attending Unavailable NISH EAGLE Attending Unavailable NISH EAGLE Referring Unavailable Reece GLORIA Attending Unavailable Reece GLORIA Attending Unavailable Allergies Allergy Classification Reported Allergen(s) Allergy Type Date of Onset Reaction(s) Facility (2 sources) Allopurinol Drug Allergy 7 [facility] Repository (2 sources) levoFLOXacin; Translations: [Levaquin] Drug Allergy [facility] Repository (2 sources) Morphine; Translations: [morphine] Drug Allergy 7 [facility] Repository (5 sources) Penicillin; Translations: [penicillin] Drug Allergy 7 Weal (disorder) [facility] Repository (9 sources) levoFLOXacin; Translations: [levofloxacin] Drug [...] [tetanus toxoids] Drug allergy Local (qualifier value) [facility] [place] (1 source) Allopurinol; Translations: [allopurinol] Drug Allergy 7 [facility] Repository Medications Current Medications Medication Drug [...] sources) Long-term current use of bisphosphonates; Translations: [lobsterman (current) use of bisphosphonates] 03-07-2025 Episodic Other [...] spec) Not detected Normal NOT DETECTED [facility] Comment on above: Result Comment: This test is not yet approved or cleared by the [place] FDA. When there are no FDA-approved or cleared tests available, and other criteria are met, FDA can make tests available under an emergency access mechanism called an Emergency Use Authorization (EUA). The EUA for this test is supported by the [place] of Health and Human Service's (HHS's) declaration [...] consistent with SARS-CoV-2. Performed By: #### [facility] #### [facility] [address] [place] [address] Dr. Tanja Soto Covid-19 PCR (CVDTBH)on SARS-CoV-2 (COVID-19) RNA LOWELL+probe Ql (Unsp spec) Not detected Normal NOT DETECTED [facility] Comment on above: Result Comment: [...] for this test is supported by the Outpatient Interviewing Clerk of Health and Human Service's declaration that [...] longer be used). Performed By: #### C [facility] ####[facility] [address] [place], [place] [address]Bs. Tanja Soto MG MAMM SCREEN 3D JOSE CADon 07-15-2022 MG MAMM SCREEN 3D JOSE CAD Patient: SHIRA GIBBS Exam Date: 07/15/2022 : 1960 Gender:F Ordering : DR PAIGE SNOWDEN . Admission #: [id number] Family : Order #: [id number] CLICK HERE TO VIEW EXAM RADIOLOGY REPORT [...] prostate cancer at age 80. LOCATION: [facility] BREAST COMPOSITION: Scattered areas fibroglandular [...] MD on 07/15/2022 at 10:04 Normal [facility] FREE T3on 02-27-2022 FREE T3 3.00 pg/mlL Normal 2.18-3.98 [facility] Comment on above: Performed By: #### F T3, RENAL, TSH ####[facility] [address] [place] [address]Dr. Tanja Charles FREE T4on 02-27-2022 Free T4 [Mass/Vol] 1.34 ng/dL Normal 0.76-1.46 [facility] Comment on above: Performed By: #### V ITAD, FT4 ####[facility] [address] [place] [address]Dr. Tanja Soto RENAL FUNCTION PANELon 02-27 Albumin [Mass/Vol] 3.3 g/dL Critically low 3.4-5.0 [facility] Comment on above: Performed By: #### F T3, RENAL, TSH ####[facility] [address] [place] [address]Dr. Tanja Soto Calcium [Mass/Vol] 9.0 mg/dL Normal 8.5-10.1 [facility] Comment on above: Performed By: #### F T3, RENAL, TSH ####[facility] [address] [place] [address]Dr. Tanja Soto Chloride [Moles/Vol] 105 mmol/L Normal 98-107 [facility] Comment on above: Performed By: #### F T3, RENAL, TSH ####[facility] [address] [place] [address]Dr. Tanja Soto CO2 [Moles/Vol] 28.3 mmol/L Normal 21.0-32.0 [facility] Comment on above: Performed By: #### F T3, RENAL, TSH ####[facility] [address] [place] [address]Dr. Tanja Soto Creatinine [Mass/Vol] 0.87 mg/dL Normal 0.55-1.02 [facility] Comment on above: Performed By: #### F T3, RENAL, TSH ####[facility] [address] [place] [id number]. Tanja Soto EGFR-AF [place] >60 Normal >=60 The [facility] Comment on above: Performed By: #### F T3, RENAL, TSH ####[facility] [address] [place] [id number]. Tanja Soto EGFR-NON AF [place] >60 Normal >=60 [facility] Comment on above: Performed By: #### F T3, RENAL, TSH ####[facility] [address] [place] [address]Dr. Tanja Soto Glucose [Mass/Vol] 93 mg/dL Normal 74-106 [facility] Comment on above: Performed By: #### F T3, RENAL, TSH ####[facility] [address] [place] [address]Dr. Edelbailey Soto Phosphate [Mass/Vol] 3.1 mg/dL Normal 2.6-4.7 [facility] Comment on above: Performed By: #### F T3, RENAL, TSH ####[facility] [address] [place], [place] [address]Dr. Tanja Soto Potassium [Moles/Vol] 3.6 mmol/L Normal 3.5-5.1 [facility] Comment on above: Performed By: #### F T3, RENAL, TSH ####[facility] [address] [place] [id number]. Tanja Soto Sodium [Moles/Vol] 140 mmol/L Normal 136-145 [facility] Comment on above: Performed By: #### F T3, RENAL, TSH ####[facility] [address] [place] [address]Dr. Tanja Soto Urea nitrogen [Mass/Vol] 13.0 mg/dL Normal 7.0-18.0 [facility] Comment on above: Performed By: #### F T3, RENAL, TSH ####[facility] [address] [place], [place] [id number]. Tanja Soto TSHon 02-27-2022 TSH 0.759 uIU/mL Normal 0.358-3.740 [facility] Comment on above: Performed By: #### F T3, RENAL, TSH ####[facility] [address] [place], [place] [address]Rm. Tanja Soto VITAMIN D 25 OHon 02-27-2022 VIT D 25-OH 35.5 ng/mL Normal [facility] Comment on above: Performed By: #### V ITAD, FT4 ####[facility] [address] [place] [id number]. Tanja Soto VIT D RANGES SEE BELOW Normal [facility] Comment on above: Result Comment: <20 ng/mL Vit D deficient 20 - <30 ng/mL Vit D insufficient 30 - 100 ng/mL Vit D sufficient >100 ng/mL Potential Toxicity Performed By: #### V ITAD, FT4 ####[facility] [address] [place] [id number]. Tanja Soto XR DEXA BONE DENSITYon 02-27 [...] JOSE PORTER Date: 2022-02-27 16:07 Normal [facility] HIP RIGHT 1 OR 2 VWS WITH PE LVISon 01-23-2022 HIP RIGHT 1 OR 2 VWS WITH PELVIS [facility] Department of Radiology [address] [place] [id number] Patient Name: SHIRA GIBBS : 1960 Sex: F Age: Race: White Pt. Location: 85 Patient Status: D Ordered Date: 01/23/2022 2:45:00 PM Completed Date: 01/23/2022 02:49 PM Requesting Provider: ADÁN CASTRO Attending Provider: ADÁN CASTRO Report Copy To: PAIGE SNOWDEN Signs & Symptoms: M25.551 Pain in right hip I10 History: [place] Comments: , right hip pain, r/o osteoarthritis, fracture , right hip pain, r/o osteoarthritis, fracture , , , Ordering Provider - A MATTHEW MSN GARMENT CUTTER , Exam: HIP RIGHT 1 OR 2 [...] , Ordering Provider - A MATTHEW MSN GARMENT CUTTER , PROTOCOL: AP(PA) and Lateral views were obtained. COMPARISON: None FINDINGS: Pelvic ring intact. Sacroiliac joints symmetric. Hips normally aligned bilaterally. No evidence of fracture. There is superior lateral joint space narrowing right hip IMPRESSION: Early degenerative change right hip Electronically signed: Roseann Lemus. Transcribed by: [id number], User Resident: Electronically Signed by: ROSEANN LEMUS @ 01/24/2022 02:04 PM Normal [facility] Comment on above: Order Comment: , rig ht hip pain, r/o osteoarthritis, fracture , right hip pain, r/o osteoarthritis, fracture , , , Ordering Provider - Catrachita ALBRECHT GARMENT CUTTER , MRI LSPINE WO CONon 01-12-20 MRI [...] contributing to patient's symptoms. Electronically authenticated by: JOES PORTER Date: 2022-01-11 13:45 Normal [facility] XR LSPINE MIN 4 VIEWSon 12-23 XR [...] by: JOSE PORTER Date: 2022-01-07 13:40 Normal [facility] Vital Signs Date Time Vital Sign Value Performing Clinician Faci lity 03-07-2025 09:25-0400 Body height 162.6 cm Reji Conklin MD Work Phone: [facility] 03-07-2025 09:25-0400 Body mass index (BMI) [Ratio] 31.24 kg/m2 Reji Conklin MD Work Phone: [facility] 03-07-2025 09:25-0400 Body weight 82.56 kg Reji Conklin MD Work Phone: [facility] 03-07-2025 09:25-0400 Diastolic blood pressure 80 mm[Hg] Reji Conklin MD Work Phone: [facility] 03-07-2025 09:25-0400 Heart rate 81 /min Reji Conklin MD Work Phone: [facility] 03-07-2025 09:25-0400 Respiratory rate 18 /min Reji Conklin MD Work Phone: [facility] 03-07-2025 09:25-0400 SaO2% (BldA) [Mass fraction] 96 % Reji Conklin MD Work Phone: [facility] 03-07-2025 09:25-0400 Systolic blood pressure 130 mm[Hg] Reji Conklin MD Work Phone: [facility] Healthcare Encounters Encounter Date Encounter Type Care Provider Facility Start: 03-09-2025 End: 03-09-2025 ambulatory Reece GLORIA Facility:[facility] [place] Start: 03-09-2025 End: 03-09-2025 Patient encounter procedure Reece GLORIA [facility] Start: 03-07-2025 End: 03-07-2025 Bamboo flowsheet Reji Conklin MD Work Phone: [facility] Start: 03-07-2025 End: 03-07-2025 Bamboo flowsheet Reji Conklin MD Work Phone: [facility] Start: 03-07-2025 End: 03-07-2025 ambulatory REJI CONKLIN Not Available Start: 03-07-2025 End: 03-07-2025 Office outpatient visit 40 minutes Reji Conklin MD Work Phone: [facility] Comment on above: S/P partial thyroide ctomy (Primary Dx); Age-related osteoporosis without current pathological fracture ; group home use of bisphosphonates; Vitamin D deficiency Start: 10-12-2024 End: 10-12-2024 ambulatory Reece GLORIA Facility:[facility] [place] Start: 10-12-2024 End: 10-12-2024 Patient encounter procedure Reece GLORIA [facility] Start: 05-12-2024 End: 05-20-2024 Telephone encounter Reji Conklin MD Work Phone: [facility] Start: 05-03-2024 End: 05-03-2024 Bamboo flowsheet Nish HERNÁNDEZ Work Phone: [facility] Start: 05-03-2024 End: 05-03-2024 Bamboo [...] laboratory examination DR FAITH BANUELOS . [facility] Start: 08-13-2022 End: 08-13-2022 ambulatory [...] Screening for malignant neoplasm of colon [facility] Start: 05-08-2026 End: 05-08-2026 Patient encounter procedure [facility] Start: 03-06-2026 End: 03-06-2026 Patient encounter procedure 03/06/2026 11:30 AM EDT Office Visit [facility] [address] [place] [phone] Reji Conklin MD [address] [place] [address] [facility] Start: 04-25-2025 Influenza vaccination Influenza Vaccine (#1) [facility] Start: 03-07-2025 End: 03-07-2026 25-hydroxyvitamin D3 [Mass/volume] in Serum or Plasma Vitamin D 25 hydroxy Total Lab Routine Vitamin D deficiency Expected: 03/07/2025 (Approximate), Expires: 03/07/2026 [facility] Comment on above: Expected: 03/07/2025 (Approximate), Expi res: 03/07/2026 Start: 03-07-2025 End: 03-07-2026 DXA Skeletal system Views for bone density DEXA bone density Imaging Routine Age-related osteoporosis without current pathological fracture Expected: 03/07/2025, Expires: 03/07/2026 [facility] Comment on above: Expected: 03/07/2025, Expires: Start: 03-07-2025 End: 03-07-2026 Renal function panel Renal function panel Lab Routine Vitamin D deficiency Expected: 03/07/2025 (Approximate), Expires: 03/07/2026 [facility] Comment on above: Expected: 03/07/2025 (Approximate), Expi res: 03/07/2026 Start: 03-07-2025 End: 03-07-2026 Thyrotropin [Units/volume] in Serum or Plasma TSH Lab Routine S/P partial thyroidectomy Expected: 03/07/2025 (Approximate), Expires: 03/07/2026 [facility] Comment on above: Expected: 03/07/2025 (Approximate), Expi res: 03/07/2026 Start: 03-07-2025 End: 03-07-2026 Thyroxine (T4) free [Mass/volume] in Serum or Plasma T4, free Lab Routine S/P partial thyroidectomy Expected: 03/07/2025 (Approximate), Expires: 03/07/2026 [facility] Comment on above: Expected: 03/07/2025 (Approximate), Expi res: 03/07/2026 Start: 03-07-2025 End: 03-07-2026 Triiodothyronine (T3) Free [Mass/volume] in Serum or Plasma T3, free Lab Routine S/P partial thyroidectomy Expected: 03/07/2025 (Approximate), Expires: 03/07/2026 [facility] Work Phone: Comment on above: Expected: 03/07/2025 (Approximate), Expi res: 03/07/2026 Start: 03-07-2025 End: 03-07-2025 Patient encounter procedure 03/07/2025 9:10 AM EDT Office Visit [facility] [address] [place] [id number] Reji Conklin MD [address] [place] [address] [facility] Start: 05-03-2024 End: 05-03-2024 Patient encounter procedure 05/03/2024 10:45 AM EDT Office Visit [facility] [address] [place] [address] Nish Eagle PA [address] [facility] [address] [place] [address] Acute right hip pain (Primary Dx); History of total hip replacement, right [facility] Comment on above: Acute right hip pain (Primary Dx); History of total hip replacement, right Start: 04-25-2024 Influenza vaccination Influenza Vaccine (#1) [facility] Start: 02-11-2010 Pneumococcal Vaccine: 65+ Years (1 of 1 - PCV) Pneumococcal Vaccine: 65+ Years (1 of 1 - PCV) [facility] Start: 2000 Screening for malignant neoplasm of breast Mammogram [facility] Start: 02-11-1990 Screening for malignant neoplasm of cervix [facility] Start: 02-11-1981 Screening for malignant neoplasm of cervix Pap Smear [facility] Start: 1960 Screening for malignant neoplasm of colon [facility] XR Hip - right 3 Views XR hip ri ght 2 or 3 views Imaging Routine Acute right hip pain 05/03/2024 10:46 AM EDT [facility] Work Phone: Immunizations Immunization Date Immunization Notes Care Provider Fa cility 12-25-2020 SARS-CoV-2 (COVID-19 ) mRNA BNT-162b2 vax Reece NILL [facility] 12-04-2020 SARS-CoV-2 (COVID-19 ) mRNA BNT-162b2 vax Reece NILL [facility] 07-27-2018 influenza, injectable, quadrivalent, preservative free Nish HERNÁNDEZ Work Phone: [facility] 07-27-2018 influenza virus vaccine, unspecified formulation Nish HERNÁNDEZ Work Phone: [facility] NEGATED: Highlighted row has not occurred!10-09-2021 influenza virus vaccine, unspecified formulation Reece JUANI [facility] Payers Date Payer Category Payer Medicare [id number] 2025 Medicare (Managed Care) ELKEA Radha [employer] Member Subscriber Plan / Payer (Effective 2025-Present) Name: Shira Gibbs Relation to Subscriber: Self Name: Shira Gibbs Payer ID: [id number] (NAIC) Type: Not on file Address: [place] [id number] 2025 Medicare [id number] 2023 Private Health Insurance [facility] [id number] 2023-Present [address] [address] [place] [address] [id number] [id number] 1960 Unknown [id number] 2.16.840.1.310784.3.579. 2.593 1960 Unknown [id number] 2.16.840.1.485289.3.579. 2.593 1960 Unknown [id number] 2.16.840.1.345905.3.579. 2.593 1960 Unknown [id number] 2.16.840.1.907133.3.579. 2.593 1960 Unknown [id number] 2.16.840.1.709320.3.579. 2.593 1960 Unknown [id number] 2.16.840.1.424206.3.579. 2.593 1960 Unknown [id number] 2.16.840.1.766605.3.579. 2.593 1960 Unknown [id number] 2.16.840.1.744963.3.579. 2.593 1960 Unknown [id number] 2.16.840.1.189103.3.579. 2.593 1960 Unknown [id number] 2.16.840.1.737730.3.579. 2.593 1960 Unknown [id number] 2.16.840.1.264800.3.579. 2.593 1960 Unknown [id number] 2.16.840.1.364508.3.579. 2.593 1960 Unknown [id number] 2.16.840.1.567211.3.579. 2.593 1960 Unknown [id number] 2.16.840.1.110200.3.579. 2.593 1960 Unknown [id number] 2.16.840.1.881334.3.579. 2.593 1960 Unknown [id number] 2.16.840.1.953825.3.579. 2.593 1960 Unknown [id number] 2.16.840.1.383480.3.579. 2.593 1960 Unknown [id number] 2.16.840.1.093971.3.579. 2.593 1960 Unknown [id number] 2.16.840.1.508346.3.579. 2.593 1960 Unknown [id number] 2.16.840.1.491754.3.579. 2.593 1960 Unknown [id number] 2.16.840.1.314602.3.579. 2.593 1960 Unknown [id number] 2.16.840.1.777927.3.579. 2.593 1960 Unknown [id number] 2.16.840.1.937565.3.579. 2.593 1960 Unknown [id number] 2.16.840.1.668283.3.579. 2.1259 1960 Unknown [id number] 2.16.840.1.689231.3.579. 2.1259 1960 Unknown [id number] 2.16.840.1.839129.3.579. 2.1259 1960 Unknown [id number] 2.16.840.1.494217.3.579. 2.727 1960 Unknown [id number] 2.16.840.1.449791.3.579. 2.727 1959 Private Health Insurance [id number] 1959 Private Health Insurance [id number] Self-pay Social History Date Type Detail Facility Start: 02-20-2023 End: 03-09-2025 Tobacco smoking status NHIS Never smoked tobacco [facility] Start: 02-20-2023 Tobacco use and exposure Smoke less tobacco non-user [facility] Start: 07-07-2023 End: 10-26-2024 Alcoholic beverage intake Lifetime non-drinker (finding) [facility] Start: 07-07-2023 End: 05-03-2024 History of Social function [facility] Start: 07-07-2023 End: 05-03-2024 Tobacco use panel [facility] Start: 1960 Sex assigned at Not on file [facility] Tobacco smoking status Never [facility] [place] Sexual Orientation [facility] [place] Start: 11-13-2018 Sex Female (finding) [facility] Clinical Notes 02-28-2022 to 03-09-2025 Reji Conklin MD - 03/07/2025 9:10 AM EDTTelephone Encounter - Ant Velarde - 05/12/2024 2:07 PM EDTTelephone Encounter - Ant Velarde - 05/12/2024 2:07 PM EDT Note Date & Type Note Facility 03-09-2025 Note General Surgery Offi ce/Clinic Note Chief Complaint consultation for colonoscopy HPI Staff 65 year old female presents on consultation for surveillance colonoscopy. Last colonoscopy completed 10/2021 with sigmoid villous adenoma. Denies abdominal or rectal pain. No rectal bleeding or change in bowel habits. Denies nausea, vomiting or weight loss. Reports longstanding history of GERD with recent increase in frequency and intensity of epigastric pain and heartburn. She has been taking Pantoprazole for several years. Labs completed 03/01/25 with H/H 13.7 and 43.6, iron 18. History of Present Illness 65 yo female with h/o GERD, hypothyroidism, osteoporosis, referred for surveillance colonoscopy; last colonoscopy 10/2021 with removal of 1.2 cm tubulovillous adenoma from sigmoid colon; patient denies change in bms or blood in stools, reports intermittent epigastric pain and breakthrough GERD despite PPI daily; also recently found to have iron deficiency; abd operations significant for LS assisted vaginal hysterectomy with bilateral salpingo-oophorectomy; no previous EGD; on Meloxicam, no asa; no tobacco use; fmhx of colon cancer in patient's father dx in his 80's, no Fmhx of IBD. Review of Systems PHQ Score Initial Depression Screen Score: 0 SCORE ROS - Provider Constitutional: no fever, no [...] noncontributory. Physical Exam Vitals & Measurements HR: 72(Peripheral) RR: 16 BP: 116/78 HT: 64 in HT: 162.5 cm WT: 184.086 lb WT: 83.5 kg BMI: 31.62 HEENT: normal conjunctiva, sclera clear, no scleral [...] diastasis recti no, no hepatosplenomegaly; normal bs Musculoskeletal: normal gait, digits and nails without infection, nodes, cyanosis, clubbing. Skin: no rashes, no lesions, no ulcers, no subcutaneous nodules, induration. Psychiatric/Neuro: oriented to time, place, person, judgement normal, affect appropriate for age, insight intact, no focal deficits. Tests: review of old records completed , Discussed surgical options, risks, and possible complications with patient. Assessment/Plan 1. Personal history of adenomatous and serrated colon polyps (Z86.0101: Personal history of adenomatous and serrated colon polyps) plan surveillance colonoscopy under anesthesia, informed consent obtained. 2. Epigastric pain (R10.13: Epigastric pain) plan EGD with anesthesia for further evaluation, informed consent obtained. 3. Chronic GERD (K21.9: Gastro-esophageal reflux disease without esophagitis) see above 4. Iron deficiency (E61.1: Iron deficiency) see above Follow-up No qualifying data available Problem List/Past Medical History Ongoing BMI 31.0-31.9,adult Chronic GERD Encounter for screening for colorectal malignant neoplasm Epigastric pain GERD (gastroesophageal reflux disease) Iron deficiency Major depressive disorder Nontoxic goiter Obesity due to excess calories Osteoporosis Personal history of adenomatous and serrated colon polyps Seborrheic keratosis Tubulovillous adenoma of colon Historical Epidermal cyst Neoplasm of uncertain behavior of skin of chest Procedure/Surgical History Colonoscopy (10/24/2021), Excision of cyst (10/24/2021), Excision of lesion of chest wall (10/24/2021), Arthroplasty of right hip, Colonoscopy, Excision of subcutaneous neoplasm of foot, Laparoscopy assisted vaginal hysterectomy with bilateral salpingo-oophorectomy, ORIF - Open reduction and internal fixation of fracture, Right hemithyroidectomy, Rotator cuff repair. Medications cetirizine 10 mg (more content not included)... [facility] Comment on above: Result Comment: Elec tronically Signed By: JUANI WATERS, Reece Vargas\Date and Time Signed: 03/09/25 14:23 EDT 03-07-2025 History of Presen t illness Narrative [...] Anxiety COVID-19 Depression GERD (gastroesophageal reflux disease) group home (current) use of bisphosphonates Nontoxic multinodular [...] scan next year and give further recommendation. lobsterman use of bisphosphonates Vitamin D deficiency - Vitamin D 25 hydroxy Total; Future - Renal function panel; Future Follow up in about 1 year (around 03/07/2026). documented in this encounter [facility] 05-12-2024 Telephone encounter Note More Needs Levothyroxine Rx canceled to [facility]. Cannot waste picker at [facility] without cancellation please and thank you. [facility] 05-12-2024 Miscellaneous Notes More Needs Levothyroxine Rx canceled to [facility]. Cannot waste picker at [facility] without cancellation please and thank you. documented in this encounter [facility] 05-03-2024 History of Presen t illness Narrative Images from the original note were not included. HISTORY OF PRESENT ILLNESS: EST PT Shira Gibbs is an 64 y.o. @ female. (EST PT) HERE FOR YEARLY CHECK OF (R) GREGG 04/24/23 (~1YR) XRAYS DONE TODAY, 05/03/24 IN [facility] NO BONE SCAN PREVIOUS PAIN MGMT [...] with manipulation. Pt had prior tx with [facility] pain management and plans to call.. [...] urgent evaluation. documented in this encounter [facility] 12-19-2022 Note PROCEDURE: XR HIP RT 2 3V WO PELVIS HISTORY: Pain in right hip joint , low back pain COMPARISON: None. FINDINGS: BONES:Complete loss of the hip joint space with [id number] articulation. Small degenerative osteophytes along superior rim of acetabulum. No fracture or dislocation. SOFT TISSUES:No visible soft tissue swelling. EFFUSION:None visible. OTHER: Negative. IMPRESSION: 1. Marked degenerative joint disease of right hip. Electronically authenticated by: JOSE PORTER Date: 2022-12-19 11:08 [facility] 12-19-2022 Note CONSULTATION CONSULTATION DATE: 12/19/2022 TO: [...] our patients to inform us about any [id number] medications or herbal remedies/nutritional supplements/alternative remedies. 2. [...] to proceed with the outlined plan. [facility] 09-26-2022 Note CONSULTATION PROCEDURE DATE: [...] in the clinic in three months. [facility] 09-12-2022 Note CONSULTATION CONSULTATION DATE: [...] and patient agrees with this plan. [facility] 06-27-2022 Note CONSULTATION CONSULTATION DATE: [...] up in the office post procedure. [facility] 05-30-2022 Note CONSULTATION CONSULTATION DATE: [...] patient is in agreement with this. [facility] 04-04-2022 Note CONSULTATION CONSULTATION DATE: [...] right butt and hip. She was at [place] recently with a lot of walking and [...] and would like to move forward. [facility] 02-28-2022 Note CONSULTATION CONSULTATION DATE: 02/28/2022 This is a 62-year-old female that was referred to our clinic as a new patient for her lower back pain and right groin pain. The patient has had pain for some time, but it greatly increased approximately 2 months ago. The patient reports bending over to waste picker something and following that she had [...] night. The patient just recently returned from [place] and walked on the beach many times. [...] exercise. She was sent to Neurosurgery in [place] for a consult where they stated she [...] followed up in the clinic for following. [facility] Signed and Approved by: VEDA PAYNE . 03/07/2022 09:46:00 [facility] Evaluation + Plan note No data available for this section [facility] [place] Evaluation note Diagnosis Acute right hip pain- Primary History of total hip replacement, right documented in this encounter [facility] HealthcareEvaluation note* Diagnosis S/P partial thyroidectomy- Primary Other postprocedural status Age-related osteoporosis without current pathological fracture group home use of bisphosphonates Vitamin D deficiency documented in this encounter [facility] Discharge instructions No data available for this section [facility] [place] Progress note No data available for this section [facility] [place] Summary Purpose Family History No Family History Records FoundNo Family History Records Found No data available for this section No data available for this section No Family History Records FoundNo Family History Records Found Advance Directives No Advanced Directives Records FoundNo Advanced Directives Records FoundNo Advanced Directives Records FoundNo Advanced Directives Records Found Additional Source Comments INFORMATION SOURCE (unrecogn ized section and content) DATE CREATED AUTHOR 01/28/2022 [facility] DATE CREATED AUTHOR AUTHOR'S ORGANIZ ATION 01/03/2023 [facility] DATE CREATED AUTHOR AUTHOR'S ORGANIZ ATION 03/10/2025 [facility] EPIC DATE CREATED AUTHOR AUTHOR'S ORGANIZ ATION 03/11/2025 [facility] Care Teams (unrecognized sec tion and content) Manager Of Production Relationship Specialty Start Date End Date Paige Snowden MD [address] [place] [address] PCP - General Family Medicine 02/20/23 Manager Of Production Relationship Specialty Start Date End Date Paige Snowden MD [address] [place] [address] PCP - General Family Medicine 02/20/23 Manager Of Production Relationship Specialty Start Date End Date Paige Snowden MD [address] [place] [address] PCP - General Family Medicine 01/07/25 Manager Of Production Relationship Specialty Start Date End Date Paige Snowden MD [address] [place] [address] PCP - General Family Medicine 01/07/25 Reason [...] BE BASED ON THE PRIMARY CLINICAL RECORDS. [employer] provides no warranty or guarantee of the accuracy or completeness of information in this document.
--- NOTE | 2025-03-14 07:27 | MR_ITS ---
The [address] [address] Patient Name: SHIRA CASON MRN: [id number] date: 1960 Sex: F Assigned Patient Location: MRI Current Patient Location: MRI Accession/Order Number: [id number] Exam Date: 03/14/2025 08:42 Report Date: 03/14/2025 08:48 At the request of: KEL JEFFERS NP Procedure: MR lumbar spine wo con MRI lumbar spine performed without contrast INDICATION: Intervertebral disc degeneration lumbar region chronic lumbar pain with radiculopathy COMPARISON: X-rays lumbar spine 01/19/2025 FINDINGS: Lumbar vertebral heights, alignment maintained. Moderate intervertebral space narrowing L5-S1 xywj-nc-wwjalwni intervertebral space space narrowing L2-L3. Minimal intervertebral space narrowing L1-2 and L4-5. There is mild loss of height T11 and T12 likely on a chronic and/or congenital basis. Endplate marrow changes notably L2-3 and L5-S1. The conus medullaris terminates normally at1. T12-L1: Broad-based disc bulge with facet arthropathy. Canal neural foramen are patent. L1-2: Broad-based disc bulge with facet arthropathy. Canal and foramina grossly patent. L2-3: Broad-based disc bulge with itgi-nc-gzajxkce facet arthropathy. Mild central canal stenosis. There is mild left greater than right neural foraminal narrowing. L3-L4: Broad-based disc bulge with moderate to severe facet arthropathy. Moderate central canal narrowing. Moderate left vbnc-ay-bkqebujb right neural foraminal narrowing. L4-5: Disc desiccation with moderate severe facet arthropathy. Mild right mild to moderate left foraminal narrowing identified. L5-S1: Circumferential disc bulge with endplate osteophytosis greatest in the right extending to right foraminal zone. There is bilateral facet arthropathy. There is moderate to severe right subarticular recess narrowing and right neural foraminal narrowing, correlate with right L5 and S1 radiculopathy. Moderate left foraminal narrowing. Minimal canal narrowing. MR/MR lumbar spine wo con IMPRESSION: Multilevel degenerative changes greatest right L5-S1, correlate with possible right L5 and S1 radiculopathy. Otherwise otlk-zg-bczxcrnt degenerative changes elsewhere. Multilevel facet arthropathy greatest L3-L5. Impression dictated by: Mendoza Gale M.D. 03/14/2025 8:48 AM Dictation Location: [place] [address] Electronically authenticated by: [id number] Y Date: 03/14/2025 08:48
== END 2025-03-14 07:12 | disposition home or self-care (01) ==
LOC: MRI 07:12
PROVIDERS: PCP Family Medicine; Visit Provider Nurse Practitioner
DX: M51.360 Other intervertebral disc degeneration, lumbar region with discogenic back pain only (principal); Z12.31 Encounter for screening mammogram for malignant neoplasm of breast; K21.9 Gastro-esophageal reflux disease without esophagitis; Z80.0 Family history of malignant neoplasm of digestive organs; Z80.42 Family history of malignant neoplasm of prostate
CPT/HCPCS: 72148; 77063; 77067

== ENCOUNTER 2025-03-14 07:17 | Outpatient (OUT) | payer MEDICARE, SELFPAY ==
--- OUTSIDE RECORDS SUMMARY | 2025-02-23 05:30 | XMS_ITS ---
Author Organization The [facility] in [place] Address [address] [place] [address] Care Team Providers Care Reservations Agent Name Role Phone Sp Tanner Primary Care Provider Allergies Allergen (clinical drug ingredient) Drug/Non Drug Allergy documented on EMR Reaction Allergy Type Onset Date Status amoxicillin Amoxicillin hives Drug Allergy Act natalya Levaquin hives Drug Allergy Active morphine Morphine Sulfate isominia Drug Allergy Active Tetanus Immune Globulin rash Drug Allergy Active Reason For Referral Reason + FH and Dx with col on polyps Diagnosis 1 Colon polyps (K63.5) Referral Organization [facility] [place] [facility] Referring Provider First Name Tanner Referring Provider Last Name Sp Referring Provider Speciality Family Med kristina Referred Provider Reece Hutson Referred Provider Specialty General Surg bennett Referral Priority Routine REASON FOR VISIT needs referral for colonoscopy- Dr Hutson [facility], patient wants referral for repeat- had polyps when hadlast one done, three years ago this past September Medications Medication SIG (Take, Route, Frequency, Duration) Notes Start Date End Date Status Vitamin D (Cholecalciferol) 25 MCG (1000 UT) 1 tablet Orally Once a day Active Tylenol Arthritis Pain 2 PO QD Active Turmeric 500 MG as directed Orally Active tiZANidine HCl 4 MG 2 tabs Orally qhs fo r 30 days 01/19/2025 Active ZyrTEC Allergy 10 MG 1 capsule Orally On ce a day Active Probiotic 2 po QD Active Pantoprazole Sodium 40 MG TAKE 1 TABLET BY MOUTH EVERY DAY for 30 days Active Meloxicam 15 MG 1 tablet Orally Once a day for 30 days PRN 01/19/2025 Active Levothyroxine Sodium 75 MCG 1 tablet in the morning on an empty stomach Orally Once a day Active Social History Tobacco Use: Social History Observation Description Date Details (start date - stop date) Never Smoker NA - NA Tobacco Use/Smoking Question Answer Notes Patient is a nonsmoker Problems Problem Type SNOMED Code ICD Code Onset Dates Problem Status W/U Status Risk Notes Problem Gastroesophageal reflux disease (150337846) GERD (gastroeso phageal reflux disease) (K21.9) Active confirmed Problem Colon polyps (K63.5) Active confirmed Vital Signs Weight 182.6 lbs 02/23/2025 Height 64 in 02/23/2025 Blood pressure systolic 118 mm Hg 02/24/20 25 Blood pressure diastolic 82 mm Hg 025 BMI 31.34 kg/m2 02/23/2025 Encounters Encounter Location Date Provider Diagnosis [facility] [address] [place] [address] 02/23/2025 Tanner Hoceline GERD (gastroesophage al reflux disease) K21.9 and Colon polyps K63.5 Assessments Encounter Date Diagnosis (ICD Code) Assessment Notes Treatment Notes Treatment Clinical Notes Section Notes 02/23/2025 GERD (gastroesophage al reflux disease) (ICD-10 - K21.9) 02/23/2025 Colon polyps (ICD-10 - K63.5) Plan Of Treatment Pending Test Test Name Order Date HEMOGLOBIN A1C (GLYCO) 02/23/2025 IRON, TOTAL 02/23/2025 LIPID PANEL (CHOL/TRIG/HDL/LDL) 02/24/20 25 VITAMIN D, 25 LEVEL (TOTAL) 02/23/2025 THYROID PANEL (T4/TSH/FREE T3) 5 MM screening mammo BI 02/23/2025 CMP (COMP MET MCCANN) w/eGFR CKD-EPI 2024 CBC WITH DIFF 02/23/2025 Referrals Referral Date Details 02/23/2025 02/23/2025, + FH and Dx with colon polyps, Reece uHtson Progress Notes * Corrine GIBBS:1960 (65 yo F)Acc No.[id number]:02/23/2025 Progress Note Patient: Ivania MILAN Provider: Yarelis Snowden ([facility])MD :1960 A ge:65 Y S ex:Female Date:02/23/2025 Address:[address] [place] [address] [address], [id number] Check In:09:31 AM ESTCheck O ut:10:02 AM EST Subjective: * Chief Complaints: * n eeds referral for colonoscopy- Dr Hutson [facility]patient wants referral for repeat- had polyps when had last one done, three years ago this past September * HPI: G eneral: 3 year ago 0 polyps - opn scoping - Dr Hutson + fh colon cancer -0 no 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 * ROS: E ENT: hearing changes d [...] joints d enies. * Active Problem List M54.16 Acute lumbar radicul opathy Modified On:07/03/2023U Status:confirmed Z00.00 Well adult Modified On:06/05/2023U Status:confirmed M16.11 Unilateral primary o steoarthritis, right hip Modified On:04/04/2023/U Status:confirmed J32.9 Sinusitis Modified On:07/21/2023U Status:confirmed R06.83 Snoring Modified On:08/10/2024U Status:confirmed R53.83 Fatigue Modified On:08/10/2024/U Status:confirmed M25.552 Hip pain, acute, lef t Modified On:01/19/2025/U Status:confirmed G56.00 Carpal tunnel syndro me Modified On:01/19/2025/U Status:confirmed K21.9 GERD (gastroesophage al reflux disease) Modified On:02/23/2025/U Status:confirmed K63.5 Colon polyps Modified On:02/23/2025U Status:confirmed * Medical History: * Surgical History: r ight shoulder surgery 2020thyroid left rmoval left foot surgery Right Total Hip Arthroplasty * Hospitalization/Major Diagno stic Procedure: s ee above * Family History: F ather: 101 yrs. M other: 74 yrs, diagnosed with Sjogrens syndrome, with unspecified organ involvement. B edyer(s): alive. S on(s): alive. D aughter(s): alive. 1 brother(s) - healthy. 1 son(s) , 1 daughter(s) - healthy. . * Social History: T obacco Use: T obacco Use/Smoking P atient is a n onsmoker * Medications: T akingLevothyroxine Sodium 75 MCG Tablet 1 tablet in the morning on an empty stomach Orally Once a day Meloxicam 15 MG Tablet 1 tablet Orally Once a day , Notes to Pharmacist: PRNPantoprazole Sodium 40 MG Tablet Delayed Release TAKE 1 TABLET BY MOUTH EVERY DAY Probiotic , Notes to Pharmacist: 2 po QDtiZANidine HCl 4 MG Tablet 2 tabs Orally qhs Turmeric 500 MG Tablet as directed Orally Tylenol Arthritis Pain , Notes to Pharmacist: 2 PO QDVitamin D (Cholecalciferol) 25 MCG (1000 UT) Tablet 1 tablet Orally Once a day ZyrTEC Allergy(Cetirizine HCl) 10 MG Capsule 1 capsule Orally Once a day Medication List reviewed and reconciled with the patientTaking Levothyroxine Sodium 75 MCG Tablet 1 tablet in the morning on an empty stomach Orally Once a day Taking Meloxicam 15 MG Tablet 1 tablet Orally Once a day , Notes to Pharmacist: PRNTaking Pantoprazole Sodium 40 MG Tablet Delayed Release TAKE 1 TABLET BY MOUTH EVERY DAY Taking Probiotic , Notes to Pharmacist: 2 po QDTaking tiZANidine HCl 4 MG Tablet 2 tabs Orally qhs Taking Turmeric 500 MG Tablet as directed Orally Taking Tylenol Arthritis Pain , Notes to Pharmacist: 2 PO QDTaking Vitamin D (Cholecalciferol) 25 MCG (1000 UT) Tablet 1 tablet Orally Once a day Taking ZyrTEC Allergy(Cetirizine HCl) 10 MG Capsule 1 capsule Orally Once a day Medication List reviewed and reconciled with the patient * Allergies: A moxicillin: hives - Allergy - Criticality LowLevaquin: hives - Side Effects - Criticality HighTetanus Immune Globulin: rash - Allergy - Criticality HighMorphine Sulfate: isominia - Side Effects - Criticality [place][Allergies Verified] Objective: * Vitals: W t:182.6lbs, Ht: 64 in, BP:118/82mm Hg, BMI:31.34Index, Ht-cm: 162.56 cm, Wt-k.83 kg. * Examination: P hysical Exam: GENERAL: [...] mood and affect. Assessment: * Assessment: 1. G ERD (gastroesophageal reflux disease) - K21.9 (Primary) 2 . C olon polyps - K63.5 Plan: * Treatment: 2. C olon polyps L AB: HEMOGLOBIN A1C (GLYCO) L AB: IRON, TOTAL L AB: LIPID PANEL (CHOL/TRIG/HDL/LDL) L AB: VITAMIN D, 25 LEVEL (TOTAL) L AB: THYROID PANEL (T4/TSH/FREE T3) L AB: CMP (COMP MET MCCANN) w/eGFR CKD-EPI L AB: CBC WITH DIFF Referral To:Reece Hutson General Surgery Reason:+ FH and Dx with colon polyps * Procedure Codes: * Preventive Medicine: Screenings/Counseling: B CO ACTION PLAN Above Normal BMI Follow-up D ietary management education, guidance, and counseling * * Sign off status: Completed Visit Status: C HK (Check Out) true * Provider: Yarelis Snowden ([facility])MD Date: 02/23/2025 Generated for Printi ng/Faxing/eTransmitting on: 0 03/14/2025 07:19 AM EDT History and Physical Notes * HPI (History of Present Illness) Category Sub-Category Detail Notes Category Not es General 3 year ago 0 polyps - opn scoping - Dr Hutson + colon cancer -0 no 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
--- OUTSIDE RECORDS SUMMARY | 2025-02-28 05:46 | XMS_ITS ---
Author Organization The [facility] in [place] Address [address] [place] [address] Care Team Providers Care Cattle Dealer Name Role Phone Tanner Snowden Primary Care Provider REASON FOR VISIT records to pain management Encounters Encounter Location Date Provider Diagnosis [facility] [address] [place] [address] 02/28/2025 Tanner Snowden Plan Of Treatment No Information Progress Notes * Ivania GIBBSDOB:1960 (65 yo F)Acc No.[id number]:02/28/2025 Patient: Ivania MILAN :1960 A ge:65 Y S ex:Female Address:[address] [place] [address] [address], [place] [address] * true * Date: Generated for Gustavo watkins/Ayush/eTransmitting on: 0 03/14/2025 07:20 AM EDT
--- OUTSIDE RECORDS SUMMARY | 2025-03-01 15:28 | XMS_ITS ---
Author Organization The [facility] in [place] Address [address] [place] [address] Care Team Providers Care Video Production Coordinator Name Role Phone Tanner Snowden Primary Care Provider [phone] REASON FOR VISIT lab results Medications Medication SIG (Take, Route, Frequency, Duration) Notes Start Date End Date Status Ferrous Sulfate 325 (65 Fe) MG 1 tablet Orally twice daily for 30 days 03/02/2025 Active Encounters Encounter Location Date Provider Diagnosis [facility] [address] [place] [address] 03/01/2025 Tanner Sp Plan Of Treatment Medication Medication Name Sig Start Date Stop Date Notes Ferrous Sulfate 325 (65 Fe) MG 1 tablet Orally twice daily for 30 days 03/02/2025 Progress Notes * Ivania GIBBSDOB:1960 (65 yo F)Acc No.[id number]:03/01/2025 Patient: Ivania MILAN :1960 A ge:65 Y S ex:Female Address:[address] [place] [address] [address], [place] [address] * Refills Start Ferrous Sulfate Tablet, 325 (65 Fe) MG, Orally, 60, 1 tablet, twice daily, 30 days, Refills=11 * true * Date: Generated for Gustavo watkins/Ayush/eTkatharinesmitting on: 0 03/14/2025 07:20 AM EDT
--- OUTSIDE RECORDS SUMMARY | 2025-03-14 07:19 | XMS_ITS | CCD ---
Author Organization [facility] CliniSyaz Care Team Providers Care Utilization Manager Name Role Phone BANUELOS ., DR FAITH [...] Primary Care Unavailable BANUELOS ., DR FAITH Maajno Attending Unavailable BANUELOS ., DR FAITH Majano [...] Unavailable Paige Snowden MD Primary Care Provider [phone] Paige Snowden Primary Care Physician [phone] Paige Snowden MD Primary Care Provider [phone] REJI CONKLIN Attending Unavailable NISH EAGLE Attending Unavailable NISH EAGLE Referring Unavailable Reece GLORIA Attending Unavailable Reece GLORIA Attending Unavailable Allergies Allergy Classification Reported Allergen(s) Allergy Type Date of Onset Reaction(s) Facility (2 sources) Allopurinol Drug Allergy 7 [facility] Repository (2 sources) levoFLOXacin; Translations: [Levaquin] Drug Allergy [facility] Repository (2 sources) Morphine; Translations: [morphine] Drug Allergy 7 [facility] Repository (5 sources) Penicillin; Translations: [penicillin] Drug Allergy 7 Weal (disorder) [facility] Repository (9 sources) levoFLOXacin; Translations: [levofloxacin] [...] [tetanus toxoids] Drug allergy Local (qualifier value) [facility] [place] (1 source) Allopurinol; Translations: [allopurinol] Drug Allergy 7 [facility] Repository Medications Current Medications Medication Drug [...] Long-term current use of bisphosphonates; Translations: [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 When there are no FDA-approved or cleared tests available, and other criteria are met, FDA can make tests available under an emergency access mechanism called an Emergency Use Authorization (EUA). The EUA for this test is supported by the [place] of Health and Human Service's (HHS's) declaration [...] consistent with SARS-CoV-2. Performed By: #### [facility] #### [facility] [address] [place] [address] Dr. Tanja Soto Covid-19 PCR (CVDTBH)on SARS-CoV-2 (COVID-19) RNA LOWELL+probe Ql (Unsp spec) Not detected Normal NOT DETECTED [facility] Comment on above: Result Comment: When [...] for this test is supported by the [place] of Health and Human Service's declaration that [...] longer be used). Performed By: #### C [facility] ####[facility] [address] [place], [place] [address]Fn. Tanja Soto MG MAMM SCREEN 3D JOSE CADon 07-15-2022 MG MAMM SCREEN 3D JOSE CAD Patient: SHIRA GIBBS Exam Date: 07/15/2022 : 1960 Gender:F Ordering : DR PAIGE SNOWDEN . Admission #: [id number] Family : Order #: [id number] CLICK HERE TO VIEW EXAM RADIOLOGY REPORT [...] prostate cancer at age 80. LOCATION: [facility] BREAST COMPOSITION: Scattered areas fibroglandular density. [...] MD on 07/15/2022 at 10:04 Normal [facility] FREE T3on 02-27-2022 FREE T3 3.00 pg/mlL Normal 2.18-3.98 [facility] Comment on above: Performed By: #### F T3, RENAL, TSH ####[facility] [address] [place] [address]Dr. Tanja Charles FREE T4on 02-27-2022 Free T4 [Mass/Vol] 1.34 ng/dL Normal 0.76-1.46 [facility] Comment on above: Performed By: #### V ITAD, FT4 ####[facility] [address] [place] [address]Dr. Tanja Soto RENAL FUNCTION PANELon 02-27 Albumin [Mass/Vol] 3.3 g/dL Critically low 3.4-5.0 [facility] Comment on above: Performed By: #### F T3, RENAL, TSH ####[facility] [address] [place] [address]Dr. Tanja Soto Calcium [Mass/Vol] 9.0 mg/dL Normal 8.5-10.1 [facility] Comment on above: Performed By: #### F T3, RENAL, TSH ####[facility] [address] [place] [address]Dr. Tanja Soto Chloride [Moles/Vol] 105 mmol/L Normal 98-107 [facility] Comment on above: Performed By: #### F T3, RENAL, TSH ####[facility] [address] [place] [address]Dr. Tanja Soto CO2 [Moles/Vol] 28.3 mmol/L Normal 21.0-32.0 [facility] Comment on above: Performed By: #### F T3, RENAL, TSH ####[facility] [address] [place] [address]Dr. Tanja Soto Creatinine [Mass/Vol] 0.87 mg/dL Normal 0.55-1.02 [facility] Comment on above: Performed By: #### F T3, RENAL, TSH ####[facility] [address] [place] [id number]. Tanja Soto EGFR-AF NORWEGIAN >60 Normal >=60 [facility] Comment on above: Performed By: #### F T3, RENAL, TSH ####[facility] [address] [place] [id number]. Tanja Soto EGFR-NON AF NORWEGIAN >60 Normal >=60 [facility] Comment on above: Performed By: #### F T3, RENAL, TSH ####[facility] [address] [place] [address]Dr. Tanja Soto Glucose [Mass/Vol] 93 mg/dL Normal 74-106 [facility] Comment on above: Performed By: #### F T3, RENAL, TSH ####[facility] [address] [place] [address]Dr. Edelbailey Soto Phosphate [Mass/Vol] 3.1 mg/dL Normal 2.6-4.7 [facility] Comment on above: Performed By: #### F T3, RENAL, TSH ####[facility] [address] [place], [place] [address]Dr. Tanja Soto Potassium [Moles/Vol] 3.6 mmol/L Normal 3.5-5.1 [facility] Comment on above: Performed By: #### F T3, RENAL, TSH ####[facility] [address] [place] [id number]. Tanja Soto Sodium [Moles/Vol] 140 mmol/L Normal 136-145 [facility] Comment on above: Performed By: #### F T3, RENAL, TSH ####[facility] [address] [place] [address]Dr. Tanja Soto Urea nitrogen [Mass/Vol] 13.0 mg/dL Normal 7.0-18.0 [facility] Comment on above: Performed By: #### F T3, RENAL, TSH ####[facility] [address] [place], [place] [id number]. Tanja Soto TSHon 02-27-2022 TSH 0.759 uIU/mL Normal 0.358-3.740 [facility] Comment on above: Performed By: #### F T3, RENAL, TSH ####[facility] [address] [place], [place] [address]Dv. Tanja Soto VITAMIN D 25 OHon 02-27-2022 VIT D 25-OH 35.5 ng/mL Normal [facility] Comment on above: Performed By: #### V ITAD, FT4 ####[facility] [address] [place] [id number]. Tanja Soto VIT D RANGES SEE BELOW Normal [facility] Comment on above: Result Comment: <20 ng/mL Vit D deficient 20 - <30 ng/mL Vit D insufficient 30 - 100 ng/mL Vit D sufficient >100 ng/mL Potential Toxicity Performed By: #### V ITAD, FT4 ####[facility] [address] [place] [id number]. Tanja Soto XR DEXA BONE DENSITYon 02-27 [...] JOSE PORTER Date: 2022-02-27 16:07 Normal [facility] HIP RIGHT 1 OR 2 VWS WITH PE LVISon 01-23-2022 HIP RIGHT 1 OR 2 VWS WITH PELVIS [facility] Department of Radiology [address] [place] [id number] Patient Name: SHIRA GIBBS : 1960 Sex: F Age: Race: White Pt. Location: 85 Patient Status: D Ordered Date: 01/23/2022 2:45:00 PM Completed Date: 01/23/2022 02:49 PM Requesting Provider: ADÁN CASTRO Attending Provider: ADÁN CASTRO Report Copy To: PAIGE SNOWDEN Signs & Symptoms: M25.551 Pain in right hip I10 History: [place] Comments: , right hip pain, r/o osteoarthritis, fracture , right hip pain, r/o osteoarthritis, fracture , , , Ordering Provider - A MATTHEW MSN [employer]TR[employer]PPLY SUPERVISOR , Exam: HIP RIGHT 1 OR 2 [...] , Ordering Provider - A MATTHEW MSN [employer]TR[employer] SUPERVISOR , PROTOCOL: AP(PA) and Lateral views were obtained. COMPARISON: None FINDINGS: Pelvic ring intact. Sacroiliac joints symmetric. Hips normally aligned bilaterally. No evidence of fracture. There is superior lateral joint space narrowing right hip IMPRESSION: Early degenerative change right hip Electronically signed: Roseann Lemus. Transcribed by: [email or web address], User Resident: Electronically Signed by: ROSEANN LEMUS @ 01/24/2022 02:04 PM Normal [facility] Comment on above: Order Comment: , rig ht hip pain, r/o osteoarthritis, fracture , right hip pain, r/o osteoarthritis, fracture , , , Ordering Provider - Catrachita ALBRECHT [employer]ENTRAL [employer]PPLY SUPERVISOR , MRI LSPINE WO CONon 01-12-20 MRI [...] by: JOSE PORTER Date: 2022-01-11 13:45 Normal [facility] XR LSPINE MIN 4 VIEWSon 12-23 [...] by: JOSE PORTER Date: 2022-01-07 13:40 Normal [facility] Vital Signs Date Time Vital Sign Value Performing Clinician Faci lity 03-07-2025 09:25-0400 Body height 162.6 cm Reji Conklin MD Work Phone: [facility] 03-07-2025 09:25-0400 Body mass index (BMI) [Ratio] 31.24 kg/m2 Reji Conklin MD Work Phone: [facility] 03-07-2025 09:25-0400 Body weight 82.56 kg Reji Conklin MD Work Phone: [facility] 03-07-2025 09:25-0400 Diastolic blood pressure 80 mm[Hg] Reji Conklin MD Work Phone: [facility] 03-07-2025 09:25-0400 Heart rate 81 /min Reji Conklin MD Work Phone: [facility] 03-07-2025 09:25-0400 Respiratory rate 18 /min Reji Conklin MD Work Phone: [facility] 03-07-2025 09:25-0400 SaO2% (BldA) [Mass fraction] 96 % Reji Conklin MD Work Phone: [facility] 03-07-2025 09:25-0400 Systolic blood pressure 130 mm[Hg] Reji Conklin MD Work Phone: [facility] Encounters Encounter Date Encounter Type Care Provider Facility Start: 03-09-2025 End: 03-09-2025 ambulatory Reece GLORIA Facility:[facility] Start: 03-09-2025 End: 03-09-2025 Patient encounter procedure Reece GLORIA [facility] Start: 03-07-2025 End: 03-07-2025 Bamboo flowsheet Reji Conklin MD Work Phone: [facility] Start: 03-07-2025 End: 03-07-2025 Bamboo flowsheet Reji Conklin MD Work Phone: [facility] Start: 03-07-2025 End: 03-07-2025 ambulatory REJI CONKLIN Not Available Start: 03-07-2025 End: 03-07-2025 Office outpatient visit 40 minutes Reji Conklin MD Work Phone: [facility] Comment on above: S/P partial thyroide ctomy (Primary Dx); Age-related osteoporosis without current pathological fracture ; shelter use of bisphosphonates; Vitamin D deficiency Start: 10-12-2024 End: 10-12-2024 ambulatory Reece GLORIA Facility:[facility] Start: 10-12-2024 End: 10-12-2024 Patient encounter procedure Reece GLORIA [facility] Start: 05-12-2024 End: 05-20-2024 Telephone encounter Reji Conklin MD Work Phone: [facility] Start: 05-03-2024 End: 05-03-2024 Bamboo flowsheet Nish HERNÁNDEZ Work Phone: [facility] Start: 05-03-2024 End: 05-03-2024 Bamboo flowsheet [...] laboratory examination DR FAITH BANUELOS . [facility] Start: 08-13-2022 End: 08-13-[address] [...] 10-25-2031 Screening for malignant neoplasm of colon [facility] Start: 05-08-2026 End: 05-08-2026 Patient encounter procedure [facility] Start: 03-06-2026 End: 03-06-2026 Patient encounter procedure 03/06/2026 11:30 AM EDT Office Visit [facility] [address] [place] [phone] Reji Conklin MD [address] [place] [address] [facility] Start: 04-25-2025 Influenza vaccination Influenza Vaccine (#1) [facility] Start: 03-07-2025 End: 03-07-2026 25-hydroxyvitamin D3 [Mass/volume] in Serum or Plasma Vitamin D 25 hydroxy Total Lab Routine Vitamin D deficiency Expected: 03/07/2025 (Approximate), Expires: 03/07/2026 [facility] Comment on above: Expected: 03/07/2025 (Approximate), Expi res: 03/07/2026 Start: 03-07-2025 End: 03-07-2026 DXA Skeletal system Views for bone density DEXA bone density Imaging Routine Age-related osteoporosis without current pathological fracture Expected: 03/07/2025, Expires: 03/07/2026 [facility] Comment on above: Expected: 03/07/2025, Expires: Start: 03-07-2025 End: 03-07-2026 Renal function panel Renal function panel Lab Routine Vitamin D deficiency Expected: 03/07/2025 (Approximate), Expires: 03/07/2026 [facility] Comment on above: Expected: 03/07/2025 (Approximate), Expi res: 03/07/2026 Start: 03-07-2025 End: 03-07-2026 Thyrotropin [Units/volume] in Serum or Plasma TSH Lab Routine S/P partial thyroidectomy Expected: 03/07/2025 (Approximate), Expires: 03/07/2026 [facility] Comment on above: Expected: 03/07/2025 (Approximate), Expi res: 03/07/2026 Start: 03-07-2025 End: 03-07-2026 Thyroxine (T4) free [Mass/volume] in Serum or Plasma T4, free Lab Routine S/P partial thyroidectomy Expected: 03/07/2025 (Approximate), Expires: 03/07/2026 [facility] Comment on above: Expected: 03/07/2025 (Approximate), Expi res: 03/07/2026 Start: 03-07-2025 End: 03-07-2026 Triiodothyronine (T3) Free [Mass/volume] in Serum or Plasma T3, free Lab Routine S/P partial thyroidectomy Expected: 03/07/2025 (Approximate), Expires: 03/07/2026 [facility] Work Phone: Comment on above: Expected: 03/07/2025 (Approximate), Expi res: 03/07/2026 Start: 03-07-2025 End: 03-07-2025 Patient encounter procedure 03/07/2025 9:10 AM EDT Office Visit [facility] [address] [place] [phone] Reji Conklin MD [address] [place] [address] [facility] Start: 05-03-2024 End: 05-03-2024 Patient encounter procedure 05/03/2024 10:45 AM EDT Office Visit [facility] [address] [place] [address] Nish Eagle PA [address] [facility] [address] [place] [address] Acute right hip pain (Primary Dx); History of total hip replacement, right [facility] Comment on above: Acute right hip pain (Primary Dx); History of total hip replacement, right Start: 04-25-2024 Influenza vaccination Influenza Vaccine (#1) [facility] Start: 02-11-2010 Pneumococcal Vaccine: 65+ Years (1 of 1 - PCV) Pneumococcal Vaccine: 65+ Years (1 of 1 - PCV) [facility] Start: 2000 Screening for malignant neoplasm of breast Mammogram [facility] Start: 02-11-1990 Screening for malignant neoplasm of cervix [facility] Start: 02-11-1981 Screening for malignant neoplasm of cervix Pap Smear [facility] Start: 1960 Screening for malignant neoplasm of colon [facility] XR Hip - right 3 Views XR hip ri ght 2 or 3 views Imaging Routine Acute right hip pain 05/03/2024 10:46 AM EDT [facility] Work Phone: Immunizations Immunization Date Immunization Notes Care Provider Fa cility 12-25-2020 SARS-CoV-2 (COVID-19 ) mRNA BNT-162b2 vax Reece NILL [facility] 12-04-2020 SARS-CoV-2 (COVID-19 ) mRNA BNT-162b2 vax Reece NILL [facility] 07-27-2018 influenza, injectable, quadrivalent, preservative free Nish HERNÁNDEZ Work Phone: [facility] 07-27-2018 influenza virus vaccine, unspecified formulation Nish HERNÁNDEZ Work Phone: [facility] NEGATED: Highlighted row has not occurred!10-09-2021 influenza virus vaccine, unspecified formulation Reece JUANI [facility] Payers Date Payer Category Payer Medicare [id number] 2025 Medicare (Managed Care) ELKEA Radha [employer] Member Subscriber Plan / Payer (Effective 2025-Present) Name: Shira Gibbs Relation to Subscriber: Self Name: Shira Gibbs Payer ID: [id number] (NAIC) Type: Not on file Address: [place] [id number] 2025 Medicare [id number] 2023 Private Health Insurance [facility] [id number] 2023-Present [address] [address] [place] [address] [id number] [id number] 1960 Unknown [id number] 2.16.840.1.714983.3.579. 2.593 1960 Unknown [id number] 2.16.840.1.953843.3.579. 2.593 1960 Unknown [id number] 2.16.840.1.725977.3.579. 2.593 1960 Unknown [id number] 2.16.840.1.997812.3.579. 2.593 1960 Unknown [id number] 2.16.840.1.369067.3.579. 2.593 1960 Unknown [id number] 2.16.840.1.997184.3.579. 2.593 1960 Unknown [id number] 2.16.840.1.881277.3.579. 2.593 1960 Unknown [id number] 2.16.840.1.002048.3.579. 2.593 1960 Unknown [id number] 2.16.840.1.012049.3.579. 2.593 1960 Unknown [id number] 2.16.840.1.367286.3.579. 2.593 1960 Unknown [id number] 2.16.840.1.014827.3.579. 2.593 1960 Unknown [id number] 2.16.840.1.315649.3.579. 2.593 1960 Unknown [id number] 2.16.840.1.190717.3.579. 2.593 1960 Unknown [id number] 2.16.840.1.813133.3.579. 2.593 1960 Unknown [id number] 2.16.840.1.307489.3.579. 2.593 1960 Unknown [id number] 2.16.840.1.447903.3.579. 2.593 1960 Unknown [id number] 2.16.840.1.099846.3.579. 2.593 1960 Unknown [id number] 2.16.840.1.245928.3.579. 2.593 1960 Unknown [id number] 2.16.840.1.597704.3.579. 2.593 1960 Unknown [id number] 2.16.840.1.474401.3.579. 2.593 1960 Unknown [id number] 2.16.840.1.097018.3.579. 2.593 1960 Unknown [id number] 2.16.840.1.245705.3.579. 2.593 1960 Unknown [id number] 2.16.840.1.643457.3.579. 2.593 1960 Unknown [id number] 2.16.840.1.822424.3.579. 2.1259 1960 Unknown [id number] 2.16.840.1.594221.3.579. 2.1259 1960 Unknown [id number] 2.16.840.1.439006.3.579. 2.1259 1960 Unknown [id number] 2.16.840.1.611223.3.579. 2.727 1960 Unknown [id number] 2.16.840.1.811693.3.579. 2.727 1959 Private Health Insurance [id number] 1959 Private Health Insurance [id number] Self-pay Social History Date Type Detail Facility Start: 02-20-2023 End: 03-09-2025 Tobacco smoking status NHIS Never smoked tobacco [facility] Start: 02-20-2023 Tobacco use and exposure Smoke less tobacco non-user [facility] Start: 07-07-2023 End: 10-26-2024 Alcoholic beverage intake Lifetime non-drinker (finding) [facility] Start: 07-07-2023 End: 05-03-2024 History of Social function [facility] Start: 07-07-2023 End: 05-03-2024 Tobacco use panel [facility] Start: 1960 Sex assigned at Not on file [facility] Tobacco smoking status Never [facility] [place] Sexual Orientation [facility] [place] Start: 11-13-2018 Sex Female (finding) [facility] Clinical Notes 02-28-2022 to 03-09-2025 Reji Conklin [...] cetirizine 10 mg (more content not included)... [facility] Comment on above: Result Comment: Elec [...] Anxiety COVID-19 Depression GERD (gastroesophageal reflux disease) shelter (current) use of bisphosphonates Nontoxic multinodular goiter [...] next year and give further recommendation. 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 documented in this encounter [facility] 05-12-2024 Telephone encounter Note More Needs Levothyroxine Rx canceled to [facility]. Cannot package pick up at [facility] without cancellation please and thank you. [facility] 05-12-2024 Miscellaneous Notes More Needs Levothyroxine Rx canceled to [facility]. Cannot package pick up at [facility] without cancellation please and thank you. documented in this encounter [facility] 05-03-2024 History of Presen t illness Narrative Images from the original note were not included. HISTORY OF PRESENT ILLNESS: EST PT Shira Gibbs is an 64 y.o. @ female. (EST PT) HERE FOR YEARLY CHECK OF (R) GREGG 04/24/23 (~1YR) XRAYS DONE TODAY, 05/03/24 IN [facility] NO BONE SCAN PREVIOUS PAIN MGMT [...] with manipulation. Pt had prior tx with [facility] pain management and plans to call.. [...] requiring urgent evaluation. documented in this encounter [facility] 12-19-2022 Note PROCEDURE: XR HIP RT 2 3V WO PELVIS HISTORY: Pain in right hip joint , low back pain COMPARISON: None. FINDINGS: BONES:Complete loss of the hip joint space with lzsp-uv-kyjp articulation. Small degenerative osteophytes along superior rim of acetabulum. No fracture or dislocation. SOFT TISSUES:No visible soft tissue swelling. EFFUSION:None visible. OTHER: Negative. IMPRESSION: 1. Marked degenerative joint disease of right hip. Electronically authenticated by: JOSE PORTER Date: 2022-12-19 11:08 [facility] 12-19-2022 Note CONSULTATION CONSULTATION DATE: 12/19/2022 [...] our patients to inform us about any xzsj-mkt-[id number] medications or herbal remedies/nutritional supplements/alternative remedies. 2. [...] to proceed with the outlined plan. [facility] 09-26-2022 Note CONSULTATION PROCEDURE DATE: 09/26/2022 [...] in the clinic in three months. [facility] 09-12-2022 Note CONSULTATION CONSULTATION DATE: 09/12/2022 [...] and patient agrees with this plan. [facility] 06-27-2022 Note CONSULTATION CONSULTATION DATE: 06/27/2022 [...] up in the office post procedure. [facility] 05-30-2022 Note CONSULTATION CONSULTATION DATE: 05/30/2022 [...] patient is in agreement with this. [facility] 04-04-2022 Note CONSULTATION CONSULTATION DATE: 04/04/2022 [...] right butt and hip. She was at [facility] recently with a lot of walking and [...] and would like to move forward. [facility] 02-28-2022 Note CONSULTATION CONSULTATION DATE: 02/28/2022 This is a 62-year-old female that was referred to our clinic as a new patient for her lower back pain and right groin pain. The patient has had pain for some time, but it greatly increased approximately 2 months ago. The patient reports bending over to package pick up something and following that she had pelvic [...] night. The patient just recently returned from [place] and walked on the beach many times. [...] exercise. She was sent to Neurosurgery in [place] for a consult where they stated she [...] followed up in the clinic for following. [facility] Signed and Approved by: VEDA PAYNE . 03/07/2022 09:46:00 [facility] Evaluation + Plan note No data available for this section [facility] [place] Evaluation note Diagnosis Acute right hip pain- Primary History of total hip replacement, right documented in this encounter [facility] HealthcareEvaluation note* Diagnosis S/P partial thyroidectomy- Primary Other postprocedural status Age-related osteoporosis without current pathological fracture shelter use of bisphosphonates Vitamin D deficiency documented in this encounter [facility] Dis[facility] instructions No data available for this section [facility] [place] Progress note No data available for this section [facility] [place] Summary Purpose Family History No Family History [...] and content) DATE CREATED AUTHOR 01/28/2022 [facility] DATE CREATED AUTHOR AUTHOR'S ORGANIZ ATION 01/03/2023 [facility] DATE CREATED AUTHOR AUTHOR'S ORGANIZ ATION 03/10/2025 [facility] EPIC DATE CREATED AUTHOR AUTHOR'S ORGANIZ ATION 03/11/2025 [facility] Care Teams (unrecognized sec tion and content) Utilization Manager Relationship Specialty Start Date End Date Paige Snowden MD [address] [facility] [place] [address] PCP - General Family Medicine 02/20/23 Utilization Manager Relationship Specialty Start Date End Date Paige Snowden MD [address] [facility] [place] [address] PCP - General Family Medicine 02/20/23 Utilization Manager Relationship Specialty Start Date End Date Paige Snowden MD [address] [facility] [place] [address] PCP - General Family Medicine 01/07/25 Utilization Manager Relationship Specialty Start Date End Date Paige Snowden MD [address] [facility] [place] [address] PCP - General Family Medicine 01/07/25 Reason [...] BE BASED ON THE PRIMARY CLINICAL RECORDS. [employer] provides no warranty or guarantee of the accuracy or completeness of information in this document.
--- OUTSIDE RECORDS SUMMARY | 2025-03-14 07:19 | XMS_ITS | Clinical Summary ---
Author Organization [facility] tem Address [id number] [address] [place] [address] Care Team Providers Care Cisco Consultant Name Role Phone Norbert Snowden MD Primary Care Provider [phone] Social History Tobacco Use Types Packs/Day Years [...] 07/27/2018 Medical Devices Not on file Insurance [id number] PLAN Care Teams Cisco Consultant Relationship Specialty Start Date End Date Norbert Snowden MD PCP - General Family Medicine 04/01/23
--- OUTSIDE RECORDS SUMMARY | 2025-03-14 07:20 | XMS_ITS | Patient Health Record ---
Author Organization The [facility] [place] Address [address] [place] [address] Care Team Providers Care Orthopaedic General Name Role Phone Sp Tanner Primary Care Provider Allergies Allergen (clinical drug ingredient) Drug/Non Drug Allergy documented on EMR Reaction Allergy Type Onset Date Status amoxicillin Amoxicillin hives Drug Allergy Act natalya Levaquin hives Drug Allergy Active morphine Morphine Sulfate isominia Drug Allergy Active Tetanus Immune Globulin rash Drug Allergy Active Results Component Value Reference Range Notes CBC AUTO DIFF Reviewed date:03/01/2025 07:29:43 PM Interpretation: Performing Lab: Notes/Report: The [facility] , White Blood Count 7.6 4.0-11.0 10 3/uL Red Blood Count 5.13 4.20-5.40 10 6/uL Hemoglobin 11.2 12.0-16.0 g/dL Hematocrit 37.9 36.0-48.0 % Mean Corpuscular Volume 73.9 81.0-99.0 fL Mean Corpuscular Hemoglobin 21.8 26.7-34.0 pg Mean Corpuscular HGB Conc 29.6 29.9-35.2 g/dL Red Cell Distribution Width 17.2 11.0-15.0 % Platelet Count 336 150-450 10 3/uL Mean Platelet Volume 10.3 9.5-13.5 fL Neutrophils Percent Auto 72.1 43.0-75.0 % Lymphocytes Percent Auto 16.5 20.5-60.0 % Monocytes Percent Auto 8.0 1.7-12.0 % Eosinophils Percent Auto 2.6 0.9-7.0 % Basophils Percent Auto 0.7 0.2-2.0 % Immature Granulocytes Pct Auto 0.1 0.0-0.5 % Neutrophils Absolute Auto 5.5 1.4-6.5 10 3/uL Lymphocytes Absolute Auto 1.3 1.2-3.8 10 3/uL Monocytes Absolute Auto 0.6 0.3-0.8 10 3/uL Eosinophils Absolute Auto 0.2 0.0-0.7 10 3/uL Basophils Absolute Auto 0.1 0.0-0.1 10 3/uL Immature Granulocytes Abs Auto 0.01 0.00-0.03 10 3/uL Performing Lab: see note ML - [facility] FREE T3 Reviewed date:03/01/2025 07:29:43 PM Interpretation: Performing Lab: Notes/Report: The [facility] Free T3 2.38 2.18-3.98 pg/mL Performing Lab: see note ML - [facility] FREE T4 Reviewed date:03/01/2025 07:29:43 PM Interpretation: Performing Lab: Notes/Report: The [facility] T4 1.27 0.76-1.46 ng/dL Performing Lab: see note ML - [facility] GLYCOHEMOGLOBIN A1C Reviewed date:03/01/2025 07:29:43 PM Interpretation: Performing Lab: Notes/Report: The [facility] , Glycohemoglobin A1C 6.0 4.5-6.2 % ADA RECOMMENDED LIMIT 4.0 - 6.0 ADA THERAPEUTIC TARGET < 7.0 ACTION SUGGESTED > 7.0 Estimated Average Glucose 126 Performing Lab: see note ML - [facility] IRON Reviewed date:03/01/2025 07:29:43 PM Interpretation: Performing Lab: Notes/Report: The [facility] , Iron 18.0 50.0-170.0 ug/dL Performing Lab: see note ML - [facility] LB LIPID PROFILE Reviewed date:03/01/2025 07:29:43 PM Interpretation: Performing Lab: Notes/Report: The [facility] , Triglycerides 81 <=150 mg/dL Cholesterol 126 <=200 mg/dL HDL Cholesterol 51 40-60 mg/dL > or =60 mg/dl - LOW CARDIOVASCULAR RISK <40 mg/dl - HIGH CARDIOVASCULAR RISK LDL Cholesterol Calculated 58.8 <100 mg/dl OPTIMAL 100-129 mg/dl NEAR OR ABOVE OPTIMAL 130-159 mg/dl BORDERLINE HIGH 160-189 mg/dl HIGH >190 mg/dl VERY HIGH VLDL CHOLESTEROL 16.2 Chol HDL Ratio 2.5 3.3 - 4.4 LOW RISK 4.4 - 7.1 AVERAGE RISK 7.1 - 11.0 MODERATE RISK >11.0 HIGH RISK Performing Lab: see note ML - [facility] LB PROF 14(COMP METB) Reviewed date:03/01/2025 07:29:43 PM Interpretation: Performing Lab: Notes/Report: The [facility] , Sodium 144 136-145 mmol/L Potassium 3.9 3.5-5.1 mmol/L Chloride 106 98-107 mmol/L Carbon Dioxide 27.5 21.0-32.0 mmol/L Anion Gap 14.4 Glucose 96 74-106 mg/dL Blood Urea Nitrogen 22.0 7.0-18.0 mg/dL Creatinine 0.57 0.55-1.02 mg/dL Estimated GFR ( Staci >60 >=60 mL/min/1.73m 2 Estimated GFR (Non- Rosie >60 >=60 mL/min/1.73m 2 BUN Creatinine Ratio 38.6 Calcium 9.8 8.5-10.1 mg/dL Bilirubin Total 0.5 0.2-1.0 mg/dL Aspartate Amino Transferase 31 15-37 U/L Alanine Aminotransferase 52 14-59 U/L Alkaline Phosphatase 118 46-116 U/L Total Protein 7.3 6.4-8.2 g/dL Albumin Level 3.4 3.4-5.0 g/dL Globulin 3.9 Albumin Globulin Ratio 0.9 Performing Lab: see note ML - [facility] LB T4 Reviewed date:03/01/2025 07:29:43 PM Interpretation: Performing Lab: Notes/Report: The [facility] , T4 Thyroxine 8.40 4.80-13.90 ug/dL Performing Lab: see note ML - [facility] LB TSH Reviewed date:03/01/2025 07:29:43 PM Interpretation: Performing Lab: Notes/Report: The [facility] , Thyroid Stimulating Hormone 0.162 0.358-3.740 uIU/mL Performing Lab: see note - [facility] LB VITAMIN D 25 [place] Reviewed date:03/01/2025 07:29:43 PM Interpretation: Performing Lab: Notes/Report: The [facility] , Vitamin D 49.5 <20 ng/mL Vit D deficient 20-<30 ng/mL Vit D insufficient 30-100 ng/mL Vit D sufficient >100 ng/mL Potential Toxicity Performing Lab: see note ML - The [facility] LB XR lumbar spine min 4V Reviewed date:01/19/2025 08:00:26 PM Interpretation: Performing Lab: Notes/Report: Source Facility: [facility] [place] [address] XRay Report Signed Patient: SHIRA GIBBS MR#: [id number] : 1960 Acct:[id number] Age/Sex: 64 / F ADM Date: 01/19/25 Loc: RAD Attending Dr: Norbert Marie M.D. Ordering Physician: Norbert Marie M.D. Date of Service: 01/19/25 Procedure(s): XR lumbar spine min 4V Accession Number(s): [id number] cc: Norbert Marie M.D. [place] [address] Patient Name: SHIRA GIBBS MRN: [id number] date: 1960 Sex: F Assigned Patient Location: [facility] Current Patient Location: [facility] Accession/Order Number: [id number] Exam Date: 01/19/2025 11:02 Report Date: 01/19/2025 11:10 At the request of: NORBERT MARIE MD Procedure: XR hip LT 2V w/ pelvis CLINICAL HISTORY: Acute Lumbar Radiculopathy LUMBAR SPINE -5 views: COMPARISON: 01/07/2022 AP, lateral, both oblique and lateral coned-down view of the lumbosacral junction were obtained. There is osteopenia. Subtle dextroscoliotic curvature is present. There is no acute fracture. There is continued slight retrolisthesis of L2 on L3 and L5 on S1. There is disc space narrowing at L2-3 and the lumbosacral junction. There is mild endplate spurring and lower lumbar facet hypertrophy. No pars defect is identified. The sacroiliac joints are maintained. A partially imaged right hip prosthesis is visualized. There are no paraspinal soft tissue abnormalities. XR/XR lumbar spine min 4V IMPRESSION: OSTEOPENIA, SUBTLE SCOLIOSIS AND DEGENERATIVE CHANGES SIMILAR TO THE PRIOR. LEFT HIP WITH AP PELVIS - 3 views COMPARISON: None available AP view of the pelvis as well as AP and frog-lateral views of the left hip were obtained. There is osteopenia. A right hip prosthesis is present. The femoral stem is only partially imaged. As visualized the hardware appears intact and in appropriate position. No acute fracture or dislocation is identified. The left hip joint space is maintained. There is no significant hypertrophy. No soft tissue abnormalities are present. IMPRESSION: NO ACUTE BONY FINDINGS. Impression dictated by: Jodi Villalobos M.D. 01/19/2025 11:10 AM Dictation Location: [place] [address] Electronically authenticated by: [id number] Y Date: 01/19/2025 11:10 Dictated By: Jodi Villalobos M.D. Signed By: 01/19/25 1112 DD/ 1110 TD/TT: Masonry Supervisor: [place] [address] XRay Report Signed Patient: GEENA GIBBS MR#: [id number] : 1960 Acct:[id number] Age/Sex: 64 / F ADM Date: 01/19/25 Loc: [facility] Attending Dr: Mariam Marie M.D. Ordering Physician: Norbert Marie M.D. Date of Service: 01/19/25 Procedure(s): XR lum bar spine min 4V Accession Number(s): [id number] cc: Norbert Marie M.D. [place] [address] Patient Name: SHIRA GIBBS MRN: [id number] date: 1960 Sex: F Assigned Patient Location: [facility] Current Patient Location: [facility] Accession/Order Numb er: [id number] Exam Date: 01/19/2025 11:02 Report Date: 01/19/2025 11:10 At the request of: NORBERT MARIE MD Procedure: XR hip LT 2V w/ pelvis CLINICAL HISTORY: Ac [place] Lumbar Radiculopathy LUMBAR SPINE -5 views: COMPARISON: 01/07/2022 AP, lateral, both oblique and lateral coned-down view of the lumbosacral junction were obtain ed. There is osteopenia. Subtle dextroscoliotic curvature is present . There is no acute fracture. There is continued slight retrolisthesis of L2 on L3 and L5 on S1. There is disc space narrowing at L2-3 and the lumbosacral junction. There is mild endplate spurring and lower lumbar facet hypertrophy. No pars defect is identified. The sacroiliac joints are maintaine d. A partially imaged right hip prosthesis is visualized. There are no paraspi nal soft tissue abnormalities. XR/XR lumbar spine min 4V IMPRESSION: OSTEOPENIA, SUBTLE SCOLIOSIS AND DEGENERATIVE CHANGES SIMILAR TO THE PRIOR. LEFT HIP WITH AP PEL VIS - 3 views COMPARISON: None available AP view of the pelvi s as well as AP and frog-lateral views of the left hip were obtained. There is osteopenia. A right hip prosthesis is present. The femoral stem is only partially imaged. As visualized the hardware appears intact and in appropriate position. No acute fracture or dislocation is identified. The left hip joint space is maintained. There is no significant hypertrophy. No soft tissue abnormalities are present. IMPRESSION: NO ACUTE BONY FINDINGS. Impression dictated by: Jodi Villalobos M.D. 01/19/2025 11:10 AM Dictation Location: [place] [address] Electronically authenticated by: [id number] Y Date: 01/19/2025 11:10 Dictated By: Jodi Villalobos M.D. Signed By: 01/19/25 1112 DD/ 1110 TD/TT: Masonry Supervisor: XR hip LT 2V w/ pelvis Reviewed date:01/19/2025 08:00:26 PM Interpretation: Performing Lab: Notes/Report: Source Facility: [facility] [place] [address] [place] [address] XRay Report Signed Patient: SHIRA GIBBS MR#: [id number] : 1960 Acct:[id number] Age/Sex: 64 / F ADM Date: 01/19/25 Loc: [facility] Attending Dr: Norbert Marie M.D. Ordering Physician: Norbert Marie M.D. Date of Service: 01/19/25 Procedure(s): XR hip LT 2V w/ pelvis Accession Number(s): [id number] cc: Norbert Marie M.D. [place] [address] Patient Name: SHIRA GIBBS MRN: [facility]:[id number] date: 1960 Sex: F Assigned Patient Location: [facility] Current Patient Location: [facility] Accession/Order Number: [id number] Exam Date: 01/19/2025 11:02 Report Date: 01/19/2025 11:10 At the request of: NORBERT MARIE MD Procedure: XR hip LT 2V w/ pelvis CLINICAL HISTORY: Acute Lumbar Radiculopathy LUMBAR SPINE -5 views: COMPARISON: 01/07/2022 AP, lateral, both oblique and lateral coned-down view of the lumbosacral junction were obtained. There is osteopenia. Subtle dextroscoliotic curvature is present. There is no acute fracture. There is continued slight retrolisthesis of L2 on L3 and L5 on S1. There is disc space narrowing at L2-3 and the lumbosacral junction. There is mild endplate spurring and lower lumbar facet hypertrophy. No pars defect is identified. The sacroiliac joints are maintained. A partially imaged right hip prosthesis is visualized. There are no paraspinal soft tissue abnormalities. XR/XR hip LT 2V w/ pelvis IMPRESSION: OSTEOPENIA, SUBTLE SCOLIOSIS AND DEGENERATIVE CHANGES SIMILAR TO THE PRIOR. LEFT HIP WITH AP PELVIS - 3 views COMPARISON: None available AP view of the pelvis as well as AP and frog-lateral views of the left hip were obtained. There is osteopenia. A right hip prosthesis is present. The femoral stem is only partially imaged. As visualized the hardware appears intact and in appropriate position. No acute fracture or dislocation is identified. The left hip joint space is maintained. There is no significant hypertrophy. No soft tissue abnormalities are present. IMPRESSION: NO ACUTE BONY FINDINGS. Impression dictated by: Jodi Villalobos M.D. 01/19/2025 11:10 AM Dictation Location: [place] [address] Electronically authenticated by: [id number] Y Date: 01/19/2025 11:10 Dictated By: Jodi Villalobos M.D. Signed By: 01/19/25 1112 DD/ 111 TD/TT: Masonry Supervisor: [address] [address] XRay Report Signed Patient: GEENA GIBBS MR#: [id number] : 1960 Acct:[id number] Age/Sex: 64 / F ADM Date: 01/19/25 Loc: RAD Attending Dr: Mariam Marie M.D. Ordering Physician: Norbert Marie M.D. Date of Service: 01/19/25 Procedure(s): XR hip LT 2V w/ pelvis Accession Number(s): [id number] cc: Norbert Marie M.D. [place] [address] Patient Name: SHIRA GIBBS MRN: [id number] date: 1960 Sex: F Assigned Patient Location: [facility] Current Patient Location: [facility] Accession/Order Numb er: [id number] Exam Date: 01/19/2025 11:02 Report Date: 01/19/2025 11:10 At the request of: NORBERT MARIE MD Procedure: XR hip LT 2V w/ pelvis CLINICAL HISTORY: Ac [place] Lumbar Radiculopathy LUMBAR SPINE -5 views: COMPARISON: 01/07/2022 AP, lateral, both oblique and lateral coned-down view of the lumbosacral junction were obtain ed. There is osteopenia. Subtle dextroscoliotic curvature is present . There is no acute fracture. There is continued slight retrolisthesis of L2 on L3 and L5 on S1. There is disc space narrowing at L2-3 and the lumbosacral junction. There is mild endplate spurring and lower lumbar facet hypertrophy. No pars defect is identified. The sacroiliac joints are maintaine d. A partially imaged right hip prosthesis is visualized. There are no paraspi nal soft tissue abnormalities. XR/XR hip LT 2V w/ pelvis IMPRESSION: OSTEOPENIA, SUBTLE SCOLIOSIS AND DEGENERATIVE CHANGES SIMILAR TO THE PRIOR. LEFT HIP WITH AP PEL VIS - 3 views COMPARISON: None available AP view of the pelvi s as well as AP and frog-lateral views of the left hip were obtained. There is osteopenia. A right hip prosthesis is present. The femoral stem is only partially imaged. As visualized the hardware appears intact and in appropriate position. No acute fracture or dislocation is identified. The left hip joint space is maintained. There is no significant hypertrophy. No soft tissue abnormalities are present. IMPRESSION: NO ACUTE BONY FINDINGS. Impression dictated by: Jodi Villalobos M.D. 01/19/2025 11:10 AM Dictation Location: [place] [address] Electronically authenticated by: [id number] Y Date: 01/19/2025 11:10 Dictated By: Jodi Villalobos M.D. Signed By: 01/19/25 1112 DD/ 1110 TD/TT: Masonry Supervisor: Reason For Referral Reason + FH and Dx with col on polyps Diagnosis 1 Colon polyps (K63.5) Referral Organization [facility] Referring Provider First Name Tanner Referring Provider Last Name Sp Referring Provider Speciality Family Med kristina Referred Provider Reece Hutson Referred Provider Specialty General Surg bennett Referral Priority Routine Medications Medication SIG (Take, Route, Frequency, Duration) Notes Start Date End Date Status Vitamin D (Cholecalciferol) 25 MCG (1000 UT) 1 tablet Orally Once a day Active Tylenol Arthritis Pain 2 PO QD Active Turmeric 500 MG as directed Orally Active Ferrous Sulfate 325 (65 Fe) MG 1 tablet Orally twice daily for 30 days 03/02/2025 Active tiZANidine HCl 4 MG 2 tabs [...] Problem Status W/U Status Risk Notes Problem [id number] Unilateral primary osteoarthritis, right hip (M16.11) Active confirmed Problem Snoring (23590845) Snoring (R06.83) Active conf irmed Problem Fatigue (08451241) Fatigue (R53.83) Active conf irmed Problem Gastroesophageal reflux disease (259464772) GERD (gastroesophagea l reflux disease) (K21.9) Active confirmed Problem Carpal tunnel syndrome (82998350) Carpal tunnel syndrome (G56.00) Active confirmed Problem Sinusitis (86624166) Sinusitis (J32.9) Active confirmed Problem Well adult (341268368) Well adult (Z00.00) Active confirmed Problem Polyp of colon (disorder) (92924592) Colon polyps (K63.5) Active confirmed Problem Arthralgia of the pelvic region and thigh (647464413) Hip pain, acute, left (M25.552) Active confirmed Problem Lumbar radiculopathy (932876057) Acute lumbar radiculopathy (M54.16) Active confirmed Vital Signs Blood pressure diastolic 82 mm Hg 02/23/2025 Height 64 in 02/23/2025 Blood pressure systolic 118 mm Hg 02/23/2025 Weight 182.6 lbs 02/23/2025 BMI 31.34 kg/m2 02/23/2025 Procedures Procedure Date Ordered Date Performed Result Body Sit e Sleep study - Diagnostic Polysonogram 08/10/2024 N/A Encounters Encounter Location Date Provider Diagnosis [facility] [address] [place] [address] 02/28/2025 Tanner Marie [facility] [address] [place] [address] 03/01/[address] [facility] [address] [place] [address] 08/12/2024 Tanner Marie [facility] [address] [place] [address] 01/19/2025 Tanner Hoy Acute lumbar radiculopathy M54.16 [facility] [address] [place] [address] 08/10/2024 Tanner Hoy Snoring R06.83 and Fatigue R53.83 [facility] [address] [place] [address] 01/19/2025 Tanner Hoy Acute lumbar radiculopathy M54.16 ; Hip pain, acute, left M25.552 and Carpal tunnel syndrome G56.00 [facility] [address] [place] [address] 02/23/2025 Tanner Hoy GERD (gastroesophage al reflux disease) K21.9 and Colon polyps K63.5 Assessments Encounter Date Diagnosis (ICD Code) Assessment Notes Treatment Notes Treatment Clinical Notes Section Notes 08/10/2024 Snoring (ICD-10 - R06.83) 08/10/2024 Fatigue (ICD-10 - R53.83) 01/19/2025 Acute lumbar radiculopathy (ICD-10 - M54.16) 01/19/2025 Hip pain, acute, left (ICD-10 - M25.552) 02/23/2025 GERD (gastroesophageal reflux disease) (ICD-10 - K21.9) 02/23/2025 Colon polyps (ICD-10 - K63.5) 01/19/2025 Acute lumbar radiculopathy (ICD-10 - M54.16) 01/19/2025 Carpal tunnel syndrome (ICD-10 - G56.00) 01/19/2025 Other Recommended to rest and use a heating pad on the area. Take NSAIDs for pain as needed Plan Of Treatment Pending Test Test Name Order Date CMP (COMPLETE METABOLIC PANEL) HEMOGLOBIN A1C (GLYCO) 02/23/2025 IRON, TOTAL 02/23/2025 LIPID PANEL (CHOL/TRIG/HDL/LDL) 02/24/20 25 VITAMIN D, 25 LEVEL (TOTAL) 02/23/2025 T3 FREE, T4 FREE and TSH 03/17/2023 Sleep study - Diagnostic Polysonogram Sleep study - Diagnostic Polysonogram CBC AUTO DIFF 03/17/2023 GLYCOHEMOGLOBIN A1C 03/17/2023 LIPID PROFILE 03/17/2023 XR HIP LT 2 3V W PELVIS 01/19/2025 XR LSPINE MIN 4 VIEWS 01/19/2025 THYROID PANEL (T4/TSH/FREE T3) 5 MM screening mammo BI 02/23/2025 CMP (COMP MET MCCANN) w/eGFR CKD-EPI 2024 CBC WITH DIFF 02/23/2025 Insurance Providers Payer Name Payer Address Payer Phone Subscriber Number Group Number Insured Name Patient Relationship to Insured Coverage Start Date Coverage End Date 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
--- NOTE | 2025-03-14 07:21 | MM_ITS ---
Patient Name: SHIRA CASON MR#: [id number] : 1960 Exam Date: 03/14/2025 Ordering Doctor: DR PAIGE MARIE . RADIOLOGY REPORT PROCEDURE: MM TOMOSYNTHESIS SCREENING BI COMPARISON: MM TOMOSYNTHESIS SCREENING BI, 10/22/2023. MG MAMM SCREEN 3D JOSE CAD, 07/15/2022. MG MAMM SCREEN 3D JOSE CAD, 05/22/2021. MG MAMM JOSE SCRN W CAD DIG, 12/14/2013. INDICATIONS: Screening Calculator Name NCI Breast Cancer Risk Assessment Tool 5 Year Breast Cancer Risk 1.60% Lifetime Breast Cancer Risk 6.20% Personal Breast Cancer No Personal Ovarian Cancer No Treatments None Family Cancers Father with colon cancer at age 80; Father with prostate cancer at age 80. LOCATION: [facility] BREAST COMPOSITION: There are scattered areas of fibroglandular density. FINDINGS: RIGHT BREAST: No significant suspicious finding. LEFT BREAST: No significant suspicious finding. DIAGNOSTIC CATEGORY 1--NEGATIVE. RECOMMENDATIONS: ROUTINE MAMMOGRAM AND CLINICAL EVALUATION IN 12 MONTHS. PLEASE NOTE: A NORMAL MAMMOGRAM DOES NOT EXCLUDE THE POSSIBILITY OF BREAST CANCER. A CLINICALLY SUSPICIOUS PALPABLE LUMP SHOULD BE BIOPSIED. Dictated by: Mendoza Gale MD on 03/14/2025 at 12:32 Approved by: Mendoza Glae MD on 03/14/2025 at 12:34
== END 2025-03-14 07:18 | disposition home or self-care (01) ==
LOC: MAMMO 07:18
PROVIDERS: PCP Family Medicine; Visit Provider Family Medicine
DX: Z12.31 Encounter for screening mammogram for malignant neoplasm of breast (principal); K21.9 Gastro-esophageal reflux disease without esophagitis; Z80.0 Family history of malignant neoplasm of digestive organs; Z80.42 Family history of malignant neoplasm of prostate
CPT/HCPCS: 77063; 77067

== ENCOUNTER 2025-03-15 09:21 | Outpatient (OUT) | payer MEDICARE, SELFPAY ==
--- OUTSIDE RECORDS SUMMARY | 2025-02-28 05:46 | XMS_ITS ---
Author Organization The [facility] in [place] Address [address] [place] [address] Care Team Providers Care Resident Care Aid Name Role Phone Tanner Snowden Primary Care Provider [phone] REASON FOR VISIT records to pain management Encounters Encounter Location Date Provider Diagnosis [facility] [address] [place] [address] 02/28/2025 Tanner Snowden Plan Of Treatment No Information Progress Notes * Ivania GIBBSDOB:1960 (65 yo F)Acc No.[id number]:02/28/2025 Patient: Ivania MILAN :1960 A ge:65 Y S ex:Female Address:[address] [place] [address] [address], [place] [address] * true * Date: Generated for Gustavo watkins/Ayush/eTransmitting on: 0 03/15/2025 09:24 AM EDT
--- OUTSIDE RECORDS SUMMARY | 2025-03-01 15:28 | XMS_ITS ---
Author Organization The [facility] in [place] Address [address] [place] [address] Care Team Providers Care Counselor Aide Name Role Phone Tanner Snowden Primary Care Provider REASON FOR VISIT lab results Medications Medication SIG (Take, Route, Frequency, Duration) Notes Start Date End Date Status Ferrous Sulfate 325 (65 Fe) MG 1 tablet Orally twice daily for 30 days 03/02/2025 Active Encounters Encounter Location Date Provider Diagnosis [facility] [address] [place] [address] 03/01/2025 Tanner Sp Plan Of Treatment Medication Medication Name Sig Start Date Stop Date Notes Ferrous Sulfate 325 (65 Fe) MG 1 tablet Orally twice daily for 30 days 03/02/2025 Progress Notes * Ivania IGBBSDOB:1960 (65 yo F)Acc No.[id number]:03/01/2025 Patient: Ivania MILAN :1960 A ge:65 Y S ex:Female Address:[address] [place] [address] [address], [place] [address] * Refills Start Ferrous Sulfate Tablet, 325 (65 Fe) MG, Orally, 60, 1 tablet, twice daily, 30 days, Refills=11 * true * Date: Generated for Gustavo watkins/Ayush/eTkatharinesmitting on: 0 03/15/2025 09:24 AM EDT
--- OUTSIDE RECORDS SUMMARY | 2025-03-07 09:10 | XMS_ITS | Encounter Summary ---
Author Organization [facility] Address [address] [facility] [place] [address] Care Team Providers Care Master Plumber Name Role Phone Norbert Snowden MD Primary Care Provider [phone] Reason for Visit * Reason Comments Follow-up Thyroid Problem Encounter Details Date Type Department Care Team (Latest Contact Info) Description 03/07/2025 9:10 AM EDT Office Visit [facility] [address] [place] [phone] Reji Haley MD [address] [place] [address] S/P partial thyroidectomy (Primary Dx); Age-related osteoporosis without current pathological fracture ; rat exterminator use of 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 Smoking Status Never BSA 1.93 m?? Physical Exam Constitutional: Appearance: Normal appearance. She [...] scan next year and give further recommendation. alf use of bisphosphonates Vitamin D deficiency - Vitamin D 25 hydroxy Total; Future - Renal function panel; Future Follow up in about 1 year (around 03/07/2026). documented in this encounter Plan of Treatment Upcoming Encounters Date Type Department Care Team (Late st Contact Info) Description 03/06/2026 11:30 AM EDT Office Visit [facility] [address] [place] [address] Reji Haley MD [address] [place] [address] 05/08/2026 10:45 AM EDT Office Visit [facility] [address] [place] [address] Chris Eagel PA [address] [facility] [place] [address] Scheduled Orders Name Type Priority [...] status Age-related osteoporosis without current pathological fracture rat exterminator use of bisphosphonates Vitamin D deficiency documented in this encounter Care Teams Master Plumber Relationship Specialty Start Date End Date Norbert Snowden MD [address] [facility] [place] [address] PCP - General Family Medicine 01/07/25 documented as of this encounter
--- OUTSIDE RECORDS SUMMARY | 2025-03-14 14:34 | XMS_ITS ---
Author Organization The [facility] in [place] Address [address] [place] [address] Care Team Providers Care Hotbed Lever Operator Name Role Phone Tanner Snowden Primary Care Provider REASON FOR VISIT Mammogram Results- LMTCB X 1 Encounters Encounter Location Date Provider Diagnosis [facility] [address] [place] [address] 03/14/2025 Tanner Snowden Plan Of Treatment No Information Progress Notes * Ivania GIBBSDOB:1960 (65 yo F)Acc No.[id number]:03/14/2025 UNLOCKED PROGRESS NOTE Patient: Ivania MILAN :1960 A ge:65 Y S ex:Female Address:[address] [facility] [address], [place] [address] * * Date:
--- OUTSIDE RECORDS SUMMARY | 2025-03-15 09:24 | XMS_ITS | Patient Health Record ---
Author Organization [facility] in [place] Address [address] [place] [address] Care Team Providers Care Pipe Blanks Cut Off Saw Operator Name Role Phone Sp Tanner Primary Care [...] 07:29:43 PM Interpretation: Performing Lab: Notes/Report: The [facility] , White Blood Count 7.6 4.0-11.0 [...] 3/uL Performing Lab: see note ML - [facility] FREE T3 Reviewed date:03/01/2025 07:29:43 PM Interpretation: Performing Lab: Notes/Report: The [facility] Free T3 2.38 2.18-3.98 pg/mL Performing Lab: see note ML - [facility] FREE T4 Reviewed date:03/01/2025 07:29:43 PM Interpretation: Performing Lab: Notes/Report: The [facility] T4 1.27 0.76-1.46 ng/dL Performing Lab: see note ML - [facility] GLYCOHEMOGLOBIN A1C Reviewed date:03/01/2025 07:29:43 PM Interpretation: Performing Lab: Notes/Report: The [facility] , Glycohemoglobin A1C 6.0 4.5-6.2 % ADA RECOMMENDED LIMIT 4.0 - 6.0 ADA THERAPEUTIC TARGET < 7.0 ACTION SUGGESTED > 7.0 Estimated Average Glucose 126 Performing Lab: see note ML - [facility] IRON Reviewed date:03/01/2025 07:29:43 PM Interpretation: Performing Lab: Notes/Report: The [facility] , Iron 18.0 50.0-170.0 ug/dL Performing Lab: see note ML - [facility] LB LIPID PROFILE Reviewed date:03/01/2025 07:29:43 PM Interpretation: Performing Lab: Notes/Report: The [facility] , Triglycerides 81 <=150 mg/dL Cholesterol [...] RISK Performing Lab: see note ML - [facility] LB PROF 14(COMP METB) Reviewed date:03/01/2025 07:29:43 PM Interpretation: Performing Lab: Notes/Report: The [facility] , Sodium 144 136-145 mmol/L Potassium [...] 0.9 Performing Lab: see note ML - [facility] LB T4 Reviewed date:03/01/2025 07:29:43 PM Interpretation: Performing Lab: Notes/Report: The [facility] , T4 Thyroxine 8.40 4.80-13.90 ug/dL Performing Lab: see note ML - [facility] LB TSH Reviewed date:03/01/2025 07:29:43 PM Interpretation: Performing Lab: Notes/Report: The [facility] , Thyroid Stimulating Hormone 0.162 0.358-3.740 uIU/mL Performing Lab: see note - [facility] LB VITAMIN D 25 [place] Reviewed date:03/01/2025 07:29:43 PM Interpretation: Performing Lab: Notes/Report: The [facility] , Vitamin D 49.5 <20 ng/mL Vit D deficient 20-<30 ng/mL Vit D insufficient 30-100 ng/mL Vit D sufficient >100 ng/mL Potential Toxicity Performing Lab: see note ML - The [facility] LB MM tomosynthesis screening B I Reviewed date:03/14/2025 06:35:11 PM Interpretation: Performing Lab: Notes/Report: Source Facility: [facility]-[address] [place] [address] [place] [address] Mammography Report Signed Patient: SHIRA GIBBS MR#: [id number] : 1960 Acct:[id number] Age/Sex: 65 / F ADM Date: 03/14/25 Loc: MAMMO Attending Dr: Paige Marie M.D. Ordering Physician: Paige Marie M.D. Results: Date of Service: 03/14/25 Follow Up: Procedure(s): MM tomosynthesis screening BI Accession Number(s): [id number] cc: Paige Marie M.D. Patient Name: SHIRA GIBBS MR#: [id number] : 1960 Exam Date: 03/14/2025 Ordering Doctor: DR PAIGE MARIE . RADIOLOGY REPORT PROCEDURE: MM TOMOSYNTHESIS SCREENING BI COMPARISON: MM TOMOSYNTHESIS SCREENING BI, 10/22/2023. MG MAMM SCREEN 3D JOSE CAD, 07/15/2022. MG MAMM SCREEN 3D JOSE CAD, 05/22/2021. MG MAMM JOSE SCRN W CAD DIG, 12/14/2013. INDICATIONS: Screening Calculator Name NCI Breast Cancer Risk Assessment Tool 5 Year Breast Cancer Risk 1.60% Lifetime Breast Cancer Risk 6.20% Personal Breast Cancer No Personal Ovarian Cancer No Treatments None Family Cancers Father with colon cancer at age 80; Father with prostate cancer at age 80. LOCATION: The [facility] BREAST COMPOSITION: There are scattered areas of fibroglandular density. FINDINGS: RIGHT BREAST: No significant suspicious finding. LEFT BREAST: No significant suspicious finding. DIAGNOSTIC CATEGORY 1--NEGATIVE. RECOMMENDATIONS: ROUTINE MAMMOGRAM AND CLINICAL EVALUATION IN 12 MONTHS. PLEASE NOTE: A NORMAL MAMMOGRAM DOES NOT EXCLUDE THE POSSIBILITY OF BREAST CANCER. A CLINICALLY SUSPICIOUS PALPABLE LUMP SHOULD BE BIOPSIED. Dictated by: Mendoza Gale MD on 03/14/2025 at 12:32 Approved by: Mendoza Gale MD on 03/14/2025 at 12:34 Dictated By: Mendoza Gale M.D. Signed By: 03/14/25 1235 DD/ 1234 TD/TT: Snow Ranger: [place] [address] Mammography Report Signed Patient: GEENA GIBBS MR#: [id number] : 1960 Acct:[id number] Age/Sex: 65 / F ADM Date: 03/14/25 Loc: MAMMO Attending Dr: Mariam Marie M.D. Ordering Physician: Paige Marie M.D. Results: Date of Service: 03/14/25 Follow Up: Procedure(s): MM tomosynthesis screening BI Accession Number(s): [id number] cc: Paige Marie M.D. Patient Name: SHIRA GIBBS MR#: [id number] : 1960 Exam Date: 03/14/2025 Ordering Doctor: DR PAIGE MARIE . RADIOLOGY REPORT PROCEDURE: MM TOMOSYNTHESIS SCREENING BI COMPARISON: MM TOMOSYNTHESIS SCREENING BI, 10/22/2023. MG MAMM SCREEN 3D JOSE CAD, 07/15/2022. MG MAMM SCREEN 3D JOSE CAD, 05/22/2021. MG MAMM JOSE SCRN W CAD DIG, 12/14/2013. INDICATIONS: Screening Calculator Name NCI Breast Cancer Risk Assessment Tool 5 Year Breast Cancer Risk 1.60% Lifetime Breast Canc er Risk 6.20% Personal Breast Canc er No Personal Ovarian Can cer No Treatments None Family Cancers Fathe r with colon cancer at age 80; Father with prostate cancer at age 80. LOCATION: [facility] BREAST COMPOSITION: There are scattered areas of fibroglandular density. FINDINGS: RIGHT BREAST: No significant suspicious finding. LEFT BREAST: No significant suspicious finding. DIAGNOSTIC CATEGORY 1--NEGATIVE. RECOMMENDATIONS: ROUTINE MAMMOGRAM AN D CLINICAL EVALUATION IN 12 MONTHS. PLEASE NOTE: A JAY L MAMMOGRAM DOES NOT EXCLUDE THE POSSIBILITY OF BREAST CANCER. A CLINICALLY SUSPICIOUS PALPABLE LUMP SHOULD BE BIOPSIED. Dictated by: Mendoza Gale MD on 03/14/2025 at 12:32 Approved by: Mendoza Gale MD on 03/14/2025 at 12:34 Dictated By: Radha Gale M.D. Signed By: 03/14/25 1235 DD/ 1234 TD/TT: Snow Ranger: MR lumbar spine wo con Reviewed date:03/14/2025 06:35:11 PM Interpretation: Performing Lab: Notes/Report: Source Facility: [place] [address] [place] [address] Magnetic Resonance Report Signed Patient: SHIRA GIBBS MR#: [id number] : 1960 Acct:[id number] Age/Sex: 65 / F ADM Date: 03/14/25 Loc: MRI Attending Dr: Kel Jeffers NP Ordering Physician: Kel Jeffers NP Date of Service: 03/14/25 Procedure(s): MR lumbar spine wo con Accession Number(s): [id number] cc: Kel Jeffers NP; Paige Marie M.D. [place] [address] Patient Name: SHIRA GIBBS MRN: [id number] date: 1960 Sex: F Assigned Patient Location: MRI Current Patient Location: MRI Accession/Order Number: [id number] Exam Date: 03/14/2025 08:42 Report Date: 03/14/2025 08:48 At the request of: KEL JEFFERS NP Procedure: MR lumbar spine wo con MRI lumbar spine performed without contrast INDICATION: Intervertebral disc degeneration lumbar region chronic lumbar pain with radiculopathy COMPARISON: X-rays lumbar spine 01/19/2025 FINDINGS: Lumbar vertebral heights, alignment maintained. Moderate intervertebral space narrowing L5-S1 yabn-dp-yseukeuc intervertebral space space narrowing L2-L3. Minimal intervertebral space narrowing L1-2 and L4-5. There is mild loss of height T11 and T12 likely on a chronic and/or congenital basis. Endplate marrow changes notably L2-3 and L5-S1. The conus medullaris terminates normally at1. T12-L1: Broad-based disc bulge with facet arthropathy. Canal neural foramen are patent. L1-2: Broad-based disc bulge with facet arthropathy. Canal and foramina grossly patent. L2-3: Broad-based disc bulge with nhgk-lq-wbyvasbh facet arthropathy. Mild central canal stenosis. There is mild left greater than right neural foraminal narrowing. L3-L4: Broad-based disc bulge with moderate to severe facet arthropathy. Moderate central canal narrowing. Moderate left alnw-is-xupexkck right neural foraminal narrowing. L4-5: Disc desiccation with moderate severe facet arthropathy. Mild right mild to moderate left foraminal narrowing identified. L5-S1: Circumferential disc bulge with endplate osteophytosis greatest in the right extending to right foraminal zone. There is bilateral facet arthropathy. There is moderate to severe right subarticular recess narrowing and right neural foraminal narrowing, correlate with right L5 and S1 radiculopathy. Moderate left foraminal narrowing. Minimal canal narrowing. MR/MR lumbar spine wo con IMPRESSION: Multilevel degenerative changes greatest right L5-S1, correlate with possible right L5 and S1 radiculopathy. Otherwise olcz-zk-ryzaumku degenerative changes elsewhere. Multilevel facet arthropathy greatest L3-L5. Impression dictated by: Mendoza Gale M.D. 03/14/2025 8:48 AM Dictation Location: [place] [address] Electronically authenticated by: [id number] Y Date: 03/14/2025 08:48 Dictated By: Mendoza Gale M.D. Signed By: 03/14/25 0850 DD/ 0848 TD/TT: Snow Ranger: [place] [address] Magnetic Resonance Report Signed Patient: GEENA GIBBS MR#: [id number] : 1960 Acct:[id number] Age/Sex: 65 / F ADM Date: 03/14/25 Loc: MRI Attending Dr: Kel Jeffers NP Ordering Physician: Kel Jeffers NP Date of Service: 03/14/25 Procedure(s): MR lum bar spine wo con Accession Number(s): [id number] cc: Kel Jeffers NP; Paige Marie M.D. [place] [id number] Patient Name: SHIRA GIBBS MRN: [id number] date: 1960 Sex: F Assigned Patient Location: MRI Current Patient Location: MRI Accession/Order Numb er: [id number] Exam Date: 03/14/2025 08:42 Report Date: 03/14/2025 08:48 At the request of: KEL JEFFERS NP Procedure: MR lumbar spine wo con MRI lumbar spine performed without contrast INDICATION: Intervertebral disc degeneration lumbar region chronic lumbar pain with radiculopathy COMPARISON: X-rays lumbar spine 01/19/2025 FINDINGS: Lumbar vertebral heights, alignment maintained. Moderate intervertebral space narrowing L5-S1 aluc-fz-unpjpade intervertebral space space narrowing L2-L 3. Minimal intervertebral space narrowing L1-2 and L4-5. There is mild loss o f height T11 and T12 likely on a chronic and/or congenital basis. Endplate bill ow changes notably L2-3 and L5-S1. The conus medullaris terminates normally at1. T12-L1: Broad-based disc bulge with facet arthropathy. Canal neural foramen are patent. L1-2: Broad-based di sc bulge with facet arthropathy. Canal and foramina grossly patent. L2-3: Broad-based di sc bulge with lfck-iw-ivaoncyy facet arthropathy. Mild central canal stenos is. There is mild left greater than right neural foraminal narrowing. L3-L4: Broad-based d isc bulge with moderate to severe facet arthropathy. Moderate central can al narrowing. Moderate left pifi-nq-gwlamwta right neural foraminal narrowing. L4-5: Disc desiccati on with moderate severe facet arthropathy. Mild right mild to moderate lef t foraminal narrowing identified. L5-S1: Circumferenti al disc bulge with endplate osteophytosis greatest in the right extending to right foraminal zone. There is bilateral facet arthropathy. There i s moderate to severe right subarticular recess narrowing and right neural foraminal narrowing, correlate with right L5 and S1 radiculopathy. Moder ate left foraminal narrowing. Minimal canal narrowing. MR/MR lumbar spine wo con IMPRESSION: Multilevel degenerat natalya changes greatest right L5-S1, correlate with possible right L5 and S1 radiculopathy. Otherwise hhdc-fc-vilbnqut degenerative changes elsewhere. Multilevel facet arthropathy greatest L3-L5. Impression dictated by: Mendoza Gale M.D. 03/14/2025 8:48 AM Dictation Location: [place] [address] Electronically authenticated by: [id number] Y Date: 03/14/2025 08:48 Dictated By: Radha Gale M.D. Signed By: 03/14/25 0850 DD/ 0848 TD/TT: Snow Ranger: XR lumbar spine min 4V Reviewed date:01/19/2025 08:00:26 PM Interpretation: Performing Lab: Notes/Report: Source Facility: [place] [address] XRay Report Signed Patient: SHIRA GIBBS MR#: [id number] : 1960 Acct:[id number] Age/Sex: 64 / F ADM Date: 01/19/25 Loc: RAD Attending Dr: Paige Marie M.D. Ordering Physician: Paige Marie M.D. Date of Service: 01/19/25 Procedure(s): XR lumbar spine min 4V Accession Number(s): [id number] cc: Paige Marie M.D. [place] [address] Patient Name: SHIRA GIBBS MRN: [id number] date: 1960 Sex: F Assigned Patient Location: [facility] Current Patient Location: [facility] Accession/Order Number: [id number] Exam Date: 01/19/2025 11:02 Report Date: 01/19/2025 11:10 At the request of: PAIGE MARIE MD Procedure: XR hip LT 2V [...] Villalobos M.D. 01/19/2025 11:10 AM Dictation Location: [place] [address] Electronically authenticated by: [id number] Y Date: 01/19/2025 11:10 Dictated By: Jodi Villalobos M.D. Signed By: 01/19/25 1112 DD/ 1110 TD/TT: Snow Ranger: [place] [address] XRay Report Signed Patient: GEENA GIBBS MR#: [id number] : 1960 Acct:[id number] Age/Sex: 64 / F ADM Date: 01/19/25 Loc: RAD Attending Dr: Mariam Marie M.D. Ordering Physician: Paige Marie M.D. Date of Service: 01/19/25 Procedure(s): XR lum bar spine min 4V Accession Number(s): [id number] cc: Paige Marie M.D. [address] [address] Patient Name: SHIRA GIBBS MRN: [id number] date: 1960 Sex: F Assigned Patient Location: [facility] Current Patient Location: [facility] Accession/Order Numb er: [id number] Exam Date: 01/19/2025 11:02 Report Date: 01/19/2025 11:10 At the request of: PAIGE MARIE MD Procedure: XR hip LT 2V w/ pelvis CLINICAL HISTORY: [place] Lumbar Radiculopathy LUMBAR SPINE -5 views: COMPARISON: [...] Villalobos M.D. 01/19/2025 11:10 AM Dictation Location: [place] [address] Electronically authenticated by: [id number] Y Date: 01/19/2025 11:10 Dictated By: Jodi Villalobos M.D. Signed By: 01/19/25 1112 DD/ 1110 TD/TT: Snow Ranger: XR hip LT 2V w/ pelvis Reviewed date:01/19/2025 08:00:26 PM Interpretation: Performing Lab: Notes/Report: Source Facility: [place] [address] [address] XRay Report Signed Patient: SHIRA GIBBS MR#: [id number] : 1960 Acct:[id number] Age/Sex: 64 / F ADM Date: 01/19/25 Loc: RAD Attending Dr: Paige Marie M.D. Ordering Physician: Paige Marie M.D. Date of Service: 01/19/25 Procedure(s): XR hip LT 2V w/ pelvis Accession Number(s): [id number] cc: Paige Marie M.D. The [place] [address] Patient Name: SHIRA GIBBS MRN: [id number] date: 1960 Sex: F Assigned Patient Location: [facility] Current Patient Location: [facility] Accession/Order Number: [id number] Exam Date: 01/19/2025 11:02 Report Date: 01/19/2025 11:10 At the request of: PAIGE MARIE MD Procedure: XR hip LT 2V [...] Villalobos M.D. 01/19/2025 11:10 AM Dictation Location: [place] [address] Electronically authenticated by: [id number] Y Date: 01/19/2025 11:10 Dictated By: Jodi Villalobos M.D. Signed By: 01/19/25 1112 DD/ 1110 TD/TT: Snow Ranger: [place] [address] XRay Report Signed Patient: GEENA GIBBS MR#: [id number] : 1960 Acct:[id number] Age/Sex: 64 / F ADM Date: 01/19/25 Loc: RAD Attending Dr: Mariam Marie M.D. Ordering Physician: Paige Marie M.D. Date of Service: 01/19/25 Procedure(s): XR hip LT 2V w/ pelvis Accession Number(s): [id number] cc: Paige Marie M.D. [place] [id number] Patient Name: SHIRA GIBBS MRN: [id number] date: 1960 Sex: F Assigned Patient Location: [facility] Current Patient Location: [facility] Accession/Order Numb er: [id number] Exam Date: 01/19/2025 11:02 Report Date: 01/19/2025 11:10 At the request of: PAIGE MARIE MD Procedure: XR hip LT 2V w/ pelvis CLINICAL HISTORY: [place] Lumbar Radiculopathy LUMBAR SPINE -5 views: COMPARISON: [...] Villalobos M.D. 01/19/2025 11:10 AM Dictation Location: [place] [address] Electronically authenticated by: [id number] Y Date: 01/19/2025 11:10 Dictated By: Jodi Villalobos M.D. Signed By: 01/19/25 1112 DD/ 1110 TD/TT: Snow Ranger: Reason For Referral Reason + FH and Dx with col on polyps Diagnosis 1 Colon polyps (K63.5) Referral Organization [facility] Referring Provider First Name Tanner Referring Provider [...] Problem Status W/U Status Risk Notes Problem [id number] Unilateral primary osteoarthritis, right hip (M16.11) Active confirmed Problem Snoring (77960617) Snoring (R06.83) Active conf irmed Problem Fatigue (46694392) Fatigue (R53.83) Active conf irmed Problem Gastroesophageal reflux disease (413736551) GERD (gastroesophagea l reflux disease) (K21.9) Active confirmed Problem Carpal tunnel syndrome (80127964) Carpal tunnel syndrome (G56.00) Active confirmed Problem Sinusitis (82570155) Sinusitis (J32.9) Active confirmed Problem Well adult (810823939) Well adult (Z00.00) Active confirmed Problem Polyp of colon (disorder) (84097250) Colon polyps (K63.5) Active confirmed Problem Arthralgia of the pelvic region and thigh (682179012) Hip pain, acute, left (M25.552) Active confirmed Problem Lumbar radiculopathy (253799395) Acute lumbar radiculopathy (M54.16) Active confirmed Vital Signs Blood pressure diastolic 82 mm Hg 02/23/2025 Height 64 in 02/23/2025 Blood pressure systolic 118 mm Hg 02/23/2025 Weight 182.6 lbs 02/23/2025 BMI 31.34 kg/m2 02/23/2025 Procedures Procedure Date Ordered Date Performed Result Body Sit e Sleep study - Diagnostic Polysonogram 08/10/2024 N/A Encounters Encounter Location Date Provider Diagnosis [facility] [address] [place] [address] 08/10/2024 Tanner Hoy Snoring R06.83 and Fatigue R53.83 [facility] [address] [place] [address] 01/19/2025 Tanner Hoy Acute lumbar radiculopathy M54.16 ; Hip pain, acute, left M25.552 and Carpal tunnel syndrome G56.00 [facility] [address] [place] [address] 02/23/2025 Tanner Aricceline GERD (gastroesophage al reflux disease) K21.9 and Colon polyps K63.5 [facility] [address] [place] [address] 08/12/2024 Tanner Marie [facility] [address] [place] [address] 01/19/2025 Tanner Marie Acute lumbar radiculopathy M54.16 [facility] [address] [place] [address] 02/28/2025 Tanner Marie [facility] [address] [place] [address] 03/01/2025 Tanner Marie [facility] [address] [place] [address] 03/14/2025 Tanner Marie Assessments Encounter Date Diagnosis (ICD Code) Assessment Notes Treatment Notes Treatment Clinical Notes Section Notes 08/10/2024 Snoring (ICD-10 - R06.83) 08/10/2024 Fatigue (ICD-10 - R53.83) 01/19/2025 Hip pain, acute, left (ICD-10 - M25.552) 01/19/2025 Acute lumbar radiculopathy (ICD-10 - M54.16) 02/23/2025 GERD (gastroesophageal reflux disease) (ICD-10 - K21.9) 02/23/2025 Colon polyps (ICD-10 - K63.5) 01/19/2025 Acute lumbar radiculopathy (ICD-10 - M54.16) 01/19/2025 Carpal tunnel syndrome (ICD-10 - G56.00) 01/19/2025 Other Recommended to rest and use a heating pad on the area. Take NSAIDs for pain as needed Plan Of Treatment Pending Test Test Name Order Date CMP (COMPLETE METABOLIC PANEL) 3 HEMOGLOBIN A1C (GLYCO) 02/23/2025 IRON, TOTAL 02/23/2025 [...] Insured Coverage Start Date Coverage End Date [facility] [address] [address] [place] [address] [id number] Shira Gibbs Self - patient is the [...]
--- OUTSIDE RECORDS SUMMARY | 2025-03-15 09:24 | XMS_ITS | Encounter Summary ---
Author Organization [facility] Address [address] [place] [address] Care Team Providers Care Vp Talent Management Name Role Phone Norbert Snowden MD Primary Care Provider [phone] Norbert Snowden MD Primary Care Provider [phone] Encounter Details Date Type Department Care Team (Late st Contact Info) Description 06/06/2023 Abstract [facility] [address] [place] [address] Chris [place], BETTY [address] [place] [address] Social History Tobacco Use Types [...] ENDOCRINOLOGY [address] [place] [address] Reji Haley MD [address] [place] [address] 05/08/2026 10:45 AM EDT Office Visit [facility] [address] [facility] [address] [place] [address] [place], [place] [address] [facility] [place] [address] documented as of this encounter Visit Diagnoses Not on filedocumented in this encounter Care Teams Vp Talent Management Relationship Specialty Start Date End Date Norbert Snowden MD PCP - General Family Medicine 02/20/23 01/06/25 Norbert Snowden MD [address] [facility] [place] [address] PCP - General Family Medicine 01/07/25 documented as of this encounter
--- OUTSIDE RECORDS SUMMARY | 2025-03-15 09:24 | XMS_ITS | Encounter Summary ---
Author Organization [facility] Address [address] [place] [address] Care Team Providers Care Charge Rn Name Role Phone Norbert Snowden MD Primary Care Provider [phone] Encounter Details Date Type Department Care Team (Late st Contact Info) Description 03/07/2025 Bamboo flowsheet [facility] [address] [place] [phone] Reji Haley MD [address] [place] [address] Social History Tobacco Use Types [...] [facility] [address] [place] [address] Reji Haley MD [address] [place] [address] 05/08/2026 10:45 AM EDT Office Visit [facility] [address] [place] [address] Chris [place], [place] [address] [facility] [place] [address] documented as of this encounter Visit Diagnoses Not on filedocumented in this encounter Care Teams Charge Rn Relationship Specialty Start Date End Date Norbert Snowden MD [address] [facility] [place] [address] PCP - General Family Medicine 01/07/25 documented as of this encounter
--- OUTSIDE RECORDS SUMMARY | 2025-03-15 09:24 | XMS_ITS | Clinical Summary ---
Author Organization [email or web address] [facility] tem Address [id number] [address] [place] [address] Care Team Providers Care Ear Pull Machine Operator Name Role Phone Norbert Snowden MD Primary Care Provider [phone] Social History Tobacco Use Types Packs/Day Years [...] 07/27/2018 Medical Devices Not on file Insurance [id number] PLAN Care Teams Ear Pull Machine Operator Relationship Specialty Start Date End Date Norbert Snowden MD PCP - General Family Medicine 04/01/23
--- OUTSIDE RECORDS SUMMARY | 2025-03-15 09:24 | XMS_ITS | Encounter Summary ---
Author Organization [facility] Address [address] [place] [address] Care Team Providers Care Craft Center Director Name Role Phone Norbert Snowden MD Primary Care Provider [phone] Encounter Details Date Type Department Care Team (Late st Contact Info) Description 03/01/2025 Orders Only [facility] [address] [place] [address] Reji Haley MD [address] [place] [address] Social History Tobacco Use Types [...] Visit [facility] [address] [place] [address] Reji Haley MD [address] [place] [address] 05/08/2026 10:45 AM EDT Office Visit [facility] [address] [place] [address] Chris Eagle, PA [address] [facility] [place] [address] documented as of this encounter [...] Venous blood specimen / Unknown us Reji Halye MD LAB BLOOD ORDERABLES Final Re sult * TSH (03/01/2025 11:22 AM EDT) Blood Venous blood specimen / Unknown us Reji Haley MD LAB BLOOD ORDERABLES Final Re sult documented in this encounter Visit Diagnoses Not on filedocumented in this encounter Care Teams Craft Center Director Relationship Specialty Start Date End Date Norbert Snowden MD [address] [facility] [place] [address] PCP - General Family Medicine 01/07/25 documented as of this encounter
--- OUTSIDE RECORDS SUMMARY | 2025-03-15 09:24 | XMS_ITS | Encounter Summary ---
Author Organization [facility] Address [address] [place] [address] [place] [address] Care Team Providers Care Car Blocker Name Role Phone Norbert Snowden MD Primary Care Provider [phone] Norbert Snowden MD Primary Care Provider [phone] Encounter Details Date Type Department Care Team (Late Contact Info) Description 05/09/2023 Abstract [facility] [address] [place] [address] Chris Eagle, BETTY [address] [place] [address] Social History Tobacco Use Types [...] ENDOCRINOLOGY [address] [place] [address] Reji Haley MD [address] [place] [address] 05/08/2026 10:45 AM EDT Office Visit [facility] [address] [place] [address] Chris Eagle, PA [address] [place] [address] documented as of this encounter Visit Diagnoses Not on filedocumented in this encounter Care Teams Car Blocker Relationship Specialty Start Date End Date Norbert Snowden MD PCP - General Family Medicine 02/20/23 01/06/25 Norbert Snowden MD [address] [facility] [place] [address] PCP - General Family Medicine 01/07/25 documented as of this encounter
--- OUTSIDE RECORDS SUMMARY | 2025-03-15 09:24 | XMS_ITS | Encounter Summary ---
Author Organization [facility] Address [address] [facility] [place] [address] Care Team Providers Care Health Informatics Advisor Name Role Phone Norbert Snowden MD Primary Care Provider [phone] Norbert Snowden MD Primary Care Provider [phone] Reason for Visit * Reason Comments Med Refill Encounter Details Date Type Department Care Team (Late st Contact Info) Description 05/23/2023 Refill [facility] [address] [facility] [place] [place] [address] Chris Eagle PA [address] [place] [address] Pre-op examination Social History Tobacco [...] [address] [place] [address] Reji Haley MD [address] [place] [address] 05/08/2026 10:45 AM EDT Office Visit [facility] [address] [place] [address] Chris Eagle, BETTY [address] [place] [address] documented as of this encounter Visit Diagnoses Diagnosis Pre-op examination documented in this encounter Care Teams Health Informatics Advisor Relationship Specialty Start Date End Date Norbert Snowden MD PCP - General Family Medicine 02/20/23 01/06/25 Norbert Snowden MD [address] [facility] [place] [address] PCP - General Family Medicine 01/07/25 documented as of this encounter
--- OUTSIDE RECORDS SUMMARY | 2025-03-15 09:24 | XMS_ITS | Clinical Summary ---
Author Organization [facility] Address [address] [place] [address] Care Team Providers Care Laboratory Immunologist Name Role Phone Norbert Snowden MD Primary Care Provider [phone] Allergies Active Allergy Reactions Criticality Noted Date [...] ENDOCRINOLOGY [address] [place] [address] Reji Hlaey MD S/P partial thyroidectomy (Primary Dx); Age-related osteoporosis without current pathological fracture ; shelter use of bisphosphonates; Vitamin D deficiency 03/07/2025 Bamboo flowsheet [facility] [address] [place] [address] Reji Haley MD 03/01/2025 [facility] [address] [place] [address] Reji Haley MD from Last 3 Months [...] [facility] [address] [place] [address] Reji Haley MD [address] [place] [address] 05/08/2026 10:45 AM EDT Office Visit [facility] [address] [place] [address] Chris Eagle PA [address] [facility] [place] [address] Health Maintenance Due Date Last [...] Months Insurance [employer] Care Teams Laboratory Immunologist Relationship Specialty Start Date End Date Norbert Snowden MD [address] [place] [address] PCP - General Family Medicine 01/07/25
--- OUTSIDE RECORDS SUMMARY | 2025-03-15 09:25 | XMS_ITS | Clinical Summary ---
Author Organization [facility] Address [address] [place] [address] Care Team Providers Care Chip Bin Operator Name Role Phone Unavailable Primary Care Provider [...]
== END 2025-03-15 09:22 | disposition home or self-care (01) ==
LOC: PST 09:21
PROVIDERS: PCP Family Medicine; Visit Provider Surgery
DX: Z01.818 Encounter for other preprocedural examination (principal); Z86.0101 Personal history of adenomatous and serrated colon polyps; Z12.11 Encounter for screening for malignant neoplasm of colon

== ENCOUNTER 2025-03-23 07:24 | Day surgery (SDC) | payer MEDICARE, SELFPAY ==
--- OUTSIDE RECORDS SUMMARY | 2025-02-28 05:46 | XMS_ITS ---
Author Organization The [facility] in [place] Address [address] [place] [address] Care Team Providers Care Imaging Analyst Name Role Phone Tanner Snowden Primary Care Provider REASON FOR VISIT records to pain management Encounters Encounter Location Date Provider Diagnosis [facility] [address] [place] [address] 02/28/2025 Tanner Snowden Plan Of Treatment No Information Progress Notes * Ivania GIBBSDOB:1960 (65 yo F)Acc No.[id number]:02/28/2025 Patient: Ivania MILAN :1960 A ge:65 Y S ex:Female Address:[address] [place] [address] [address], [place] [address] * true * Date: Generated for Gustavo watkins/Ayush/eTransmitting on: 0 03/23/2025 07:26 AM EDT
--- OUTSIDE RECORDS SUMMARY | 2025-03-01 15:28 | XMS_ITS ---
Author Organization The [facility] in [place] Address [address] [place] [address] Care Team Providers Care Clark Driver Name Role Phone Tanner Snowden Primary Care Provider [phone] REASON FOR VISIT lab results Medications Medication SIG (Take, Route, Frequency, Duration) Notes Start Date End Date Status Ferrous Sulfate 325 (65 Fe) MG 1 tablet Orally twice daily for 30 days 03/02/2025 Active Encounters Encounter Location Date Provider Diagnosis [facility] [address] [place] [address] 03/01/2025 Tanner Sp Plan Of Treatment Medication Medication Name Sig Start Date Stop Date Notes Ferrous Sulfate 325 (65 Fe) MG 1 tablet Orally twice daily for 30 days 03/02/2025 Progress Notes * Ivania GIBBSDOB:1960 (65 yo F)Acc No.[id number]:03/01/2025 Patient: Ivania MILNA :1960 A ge:65 Y S ex:Female Address:[address] [place] [address] [address], [place] [address] * Refills Start Ferrous Sulfate Tablet, 325 (65 Fe) MG, Orally, 60, 1 tablet, twice daily, 30 days, Refills=11 * true * Date: Generated for Gustavo watkins/Ayush/eTkatharinesmitting on: 0 03/23/2025 07:27 AM EDT
--- OUTSIDE RECORDS SUMMARY | 2025-03-14 14:34 | XMS_ITS ---
Author Organization The [facility] [place] Address [address] [place] [address] Care Team Providers Care Core Maker Helper Name Role Phone Tanner Snowden Primary Care Provider REASON FOR VISIT Mammogram Results Encounters Encounter Location Date Provider Diagnosis [facility] [address] [place] [address] 03/14/2025 Tanner Snowden Plan Of Treatment No Information Progress Notes * Ivania GIBBSDOB:1960 (65 yo F)Acc No.[id number]:03/14/2025 Patient: Ivania MILAN :1960 A ge:65 Y S ex:Female Address:[address] [facility] [address], [place] [address] * true * Date: Generated for Gustavo watkins/Ayush/eTransmitting on: 0 03/23/2025 07:27 AM EDT
--- NOTE | 2025-03-23 | OP_ITS ---
OPERATION DATE: 03/23/2025 PREOPERATIVE DIAGNOSIS: Intermittent epigastric pain, refractory gastroesophageal reflux disease. POSTOPERATIVE DIAGNOSIS: Small, sliding-type hiatal hernia as well as multiple polyps within the gastric body. PROCEDURE: EGD with biopsy of gastric body polyps. SURGEON: Reece Hutson M.D. ANESTHESIA: Monitored anesthesia care. ESTIMATED BLOOD LOSS: Less than 1 mL. INDICATIONS AND CONSENT: Patient is a 65-year-old female with a long history of gastroesophageal reflux disease, for which she takes chronic protonix daily. She does report intermittent breakthrough symptoms, as well as intermittent epigastric abdominal pain. No dysphagia. Indications, risks, benefits, alternatives of proceeding with EGD at the time of surveillance colonoscopy were explained extensively to the patient, including the risks of bleeding, aspiration, esophageal/gastric/duodenal perforation or anesthetic complications. All of her questions were answered. Informed consent was obtained. PROCEDURE: Patient was brought to the operating room, placed in the left lateral decubitus position. Monitored anesthesia care was provided. Bite block was placed in the patient?s mouth. Scope was inserted into the oropharynx. Under direct visualization, it was advanced into the esophagus, past the cricopharyngeus, down to the stomach. The stomach was insufflated with air. The pylorus was traversed down to the descending portion of the duodenum. There was no evidence of duodenitis or ulceration. There was no scarring within the pyloric channel. Scope was pulled back into the stomach and retroflexed. There was noted to be a small, sliding type hiatal hernia. There were also noted to be numerous small polyps within the body of the stomach. Multiple biopsies of these polyps were obtained with good hemostasis. The GE junction was noted at approximately 37 cm. There was no distal esophagitis or Samuels?s changes. The remainder of the esophagus was unremarkable. The scope was then withdrawn. Patient was then positioned for colonoscopy. Please see the separately dictated colonoscopy report. CC: Norbert Snowden M.D. [facility]
--- NOTE | 2025-03-23 | OP_ITS ---
OPERATION DATE: 03/23/2025 PREOPERATIVE DIAGNOSIS: Personal history of colon polyps. Last colonoscopy 2021. POSTOPERATIVE DIAGNOSIS: 3 mm descending colon polyp. PROCEDURE: Colonoscopy to cecum with cold snare polypectomy x1. SURGEON: Reece Hutson M.D. ANESTHESIA: Monitored anesthesia care. ESTIMATED BLOOD LOSS: Less than 1 mL. INDICATIONS AND CONSENT: Patient is a 65-year-old female with a personal history of colon polyps. She had a 1.5 cm tubular villous adenoma removed from the sigmoid colon in 2021. She now presents for surveillance. Indications, risks, benefits, alternatives of proceeding with colonoscopy were explained extensively to the patient, including the risks of bleeding, colon perforation or anesthetic complications. All of her questions were answered. Informed consent was obtained. PROCEDURE: Patient brought to the operating room, placed in the left lateral decubitus position. Monitored anesthesia care was provided. Rectal exam was performed which showed no masses or blood. The scope was inserted into the anal canal. Under direct visualization was advanced. It was advanced to the cecum where cecal markings were clearly identified. There was noted to be a good prep. Upon withdrawal of the scope, mucosal surfaces were carefully examined. There were no mass lesions or inflammatory changes. No significant diverticulosis. There was noted to be a 3 mm sessile polyp that was removed with cold snare polypectomy x1. There was good hemostasis. The scope was retroflexed in the anal canal. There were some prominent rectal veins. No significant hemorrhoidal disease. The scope was then withdrawn. Patient tolerated procedure well, was sent to recovery room in good condition. f/u surveillance colonoscopy likely in 5 years. CC: Norbert Snowden M.D. MATHEW
--- OUTSIDE RECORDS SUMMARY | 2025-03-23 07:26 | XMS_ITS | Clinical Summary ---
Author Organization [employer] [facility] tem Address [id number] [place] [address] Care Team Providers Care Keno Clerk Name Role Phone Norbert Snowden MD Primary Care Provider [phone] Social History Tobacco Use Types Packs/Day Years [...] 07/27/2018 Medical Devices Not on file Insurance [id number] PLAN Care Teams Keno Clerk Relationship Specialty Start Date End Date Norbert Snowden MD PCP - General Family Medicine 04/01/23
--- OUTSIDE RECORDS SUMMARY | 2025-03-23 07:27 | XMS_ITS | Encounter Summary ---
Author Organization [facility] Address [address] [place] [address] Care Team Providers Care Test Development Engineer Name Role Phone Norbert Snowden MD Primary Care Provider [phone] Norbert Snowden MD Primary Care Provider [phone] Reason for Visit * Reason Comments Med Refill Encounter Details Date Type Department Care Team (Late st Contact Info) Description 05/23/2023 Refill [facility] [address] [facility] [place] [address] Chris Eagle PA [address] [facility] [place] [place] [address] Pre-op examination Social History Tobacco [...] Description 03/06/2026 11:30 AM EDT Office Visit [facility] [address] [place] [address] Reji Haley MD [address] [place] [address] 05/08/2026 10:45 AM EDT Office Visit [facility] [address] [facility] [address] [place] [address] Chris Eagle, PA [address] [facility] [place] [address] documented as of this encounter Visit Diagnoses Diagnosis Pre-op examination documented in this encounter Care Teams Test Development Engineer Relationship Specialty Start Date End Date Norbert Snowden MD PCP - General Family Medicine 02/20/23 01/06/25 Norbert Snowden MD [address] [facility] [place] [address] PCP - General Family Medicine 01/07/25 documented as of this encounter
--- OUTSIDE RECORDS SUMMARY | 2025-03-23 07:27 | XMS_ITS | Patient Health Record ---
Author Organization [facility] in [place] Address [address] [place] [address] Care Team Providers Care Manager Landscape Name Role Phone Tanner Marie Primary Care Provider Allergies Allergen (clinical drug [...] 07:29:43 PM Interpretation: Performing Lab: Notes/Report: [facility] , White Blood Count 7.6 4.0-11.0 10 [...] 3/uL Performing Lab: see note ML - [facility] FREE T4 Reviewed date:03/01/2025 07:29:43 PM Interpretation: Performing Lab: Notes/Report: [facility] , Free T4 1.27 0.76-1.46 ng/dL Performing Lab: see note - [facility] GLYCOHEMOGLOBIN A1C Reviewed date:03/01/2025 07:29:43 PM Interpretation: Performing Lab: Notes/Report: [facility] , Glycohemoglobin A1C 6.0 4.5-6.2 % ADA RECOMMENDED LIMIT 4.0 - 6.0 ADA THERAPEUTIC TARGET < 7.0 ACTION SUGGESTED > 7.0 Estimated Average Glucose 126 Performing Lab: see note ML - [facility] VITAMIN D 25 [place] Reviewed date:03/01/2025 07:29:43 PM Interpretation: Performing Lab: Notes/Report: [facility] , Vitamin D 49.5 30-100 ng/mL Vit D sufficient >100 ng/mL Potential Toxicity 20-<30 ng/mL Vit D insufficient <20 ng/mL Vit D deficient Performing Lab: see note ML - [facility] TSH Reviewed date:03/01/2025 07:29:43 PM Interpretation: Performing Lab: Notes/Report: [facility] , Thyroid Stimulating Hormone 0.162 0.358-3.740 uIU/mL Performing Lab: see note ML - [facility] IRON Reviewed date:03/01/2025 07:29:43 PM Interpretation: Performing Lab: Notes/Report: [facility] , Iron 18.0 50.0-170.0 ug/dL Performing Lab: see note ML - [facility] FREE T3 Reviewed date:03/01/2025 07:29:43 PM Interpretation: Performing Lab: Notes/Report: [facility] , Free T3 2.38 2.18-3.98 pg/mL Performing Lab: see note ML - [facility] LB XR lumbar spine min 4V Reviewed date:01/19/2025 08:00:26 PM Interpretation: Performing Lab: Notes/Report: Source Facility: [facility] [place] [address] [place] [address] XRay Report Signed Patient: SHIRA GIBBS MR#: [id number] : 1960 Acct:[id number] Age/Sex: 64 / F ADM Date: 01/19/25 Loc: RAD Attending Dr: Paige Marie M.D. Ordering Physician: Paige Marie M.D. Date of Service: 01/19/25 Procedure(s): XR lumbar spine min 4V Accession Number(s): [id number] cc: Paige Marie M.D. The [place] [address] Patient Name: SHIRA GIBBS MRN: [id number] date: 1960 Sex: F Assigned Patient Location: [facility] Current Patient Location: [facility] Accession/Order Number: [id number] Exam Date: 01/19/2025 11:02 Report Date: 01/19/2025 [...] Villalobos M.D. 01/19/2025 11:10 AM Dictation Location: [place] [address] Electronically authenticated by: [id number] Y Date: 01/19/2025 11:10 Dictated By: Jodi Villalobos M.D. Signed By: 01/19/25 1112 DD/ 1110 TD/TT: Kiosk Sales Representative: [place] [address] XRay Report Signed Patient: GEENA GIBBS MR#: [id number] : 1960 Acct:[id number] Age/Sex: 64 / F ADM Date: 01/19/25 Loc: RAD Attending Dr: Mariam Marie M.D. Ordering Physician: Paige Marie M.D. Date of Service: 01/19/25 Procedure(s): XR lum bar spine min 4V Accession Number(s): [id number] cc: Paige Marie M.D. [place] [address] Patient Name: SHIRA GIBBS MRN: [id number] date: 1960 Sex: F Assigned Patient Location: [facility] Current Patient Location: [facility] Accession/Order Numb er: [id number] Exam Date: 01/19/2025 11:02 Report Date: 01/19/2025 11:10 At the request of: PAIGE MARIE MD Procedure: XR hip LT 2V w/ pelvis CLINICAL HISTORY: Ac [place] Lumbar Radiculopathy LUMBAR SPINE -5 views: COMPARISON: [...] Villalobos M.D. 01/19/2025 11:10 AM Dictation Location: [place] [address] Electronically authenticated by: [id number] Y Date: 01/19/2025 11:10 Dictated By: Jodi Villalobos M.D. Signed By: 01/19/25 1112 DD/ 1110 TD/TT: Kiosk Sales Representative: XR hip LT 2V w/ pelvis Reviewed date:01/19/2025 08:00:26 PM Interpretation: Performing Lab: Notes/Report: Source Facility: [facility] [place] [address] [place] [address] XRay Report Signed Patient: SHIRA GIBBS MR#: [id number] : 1960 Acct:[id number] Age/Sex: 64 / F ADM Date: 01/19/25 Loc: RAD Attending Dr: Paige Marie M.D. Ordering Physician: Paige Marie M.D. Date of Service: 01/19/25 Procedure(s): XR hip LT 2V w/ pelvis Accession Number(s): [id number] cc: Paige Marie M.D. [address] [address] Patient Name: SHIRA GIBBS MRN: [id number] date: 1960 Sex: F Assigned Patient Location: [facility] Current Patient Location: [facility] Accession/Order Number: [id number] Exam Date: 01/19/2025 11:02 Report Date: 01/19/2025 [...] Villalobos M.D. 01/19/2025 11:10 AM Dictation Location: [place] [address] Electronically authenticated by: [id number] Y Date: 01/19/2025 11:10 Dictated By: Jodi Villalobos M.D. Signed By: 01/19/25 1112 DD/ 1110 TD/TT: Kiosk Sales Representative: [place] [address] XRay Report Signed Patient: GEENA GIBBS MR#: [id number] : 1960 Acct:[id number] Age/Sex: 64 / F ADM Date: 01/19/25 Loc: RAD Attending Dr: Mariam Marie M.D. Ordering Physician: Paige Marie M.D. Date of Service: 01/19/25 Procedure(s): XR hip LT 2V w/ pelvis Accession Number(s): [id number] cc: Paige Marie M.D. [place] [address] Patient Name: SHIRA GIBBS MRN: [id number] date: 1960 Sex: F Assigned Patient Location: [facility] Current Patient Location: [facility] Accession/Order Numb er: [id number] Exam Date: 01/19/2025 11:02 Report Date: 01/19/2025 11:10 At the request of: PAIGE MARIE MD Procedure: XR hip LT 2V w/ pelvis CLINICAL HISTORY: Ac [place] Lumbar Radiculopathy LUMBAR SPINE -5 views: COMPARISON: [...] Villalobos M.D. 01/19/2025 11:10 AM Dictation Location: [place] [address] Electronically authenticated by: [id number] Y Date: 01/19/2025 11:10 Dictated By: Jodi Villalobos M.D. Signed By: 01/19/25 1112 DD/ 1110 TD/TT: Kiosk Sales Representative: MM tomosynthesis screening B I Reviewed date:03/14/2025 06:35:11 PM Interpretation: Performing Lab: Notes/Report: Source Facility: [place] [address] Mammography Report Signed Patient: SHIRA GIBBS MR#: [id number] : 1960 Acct:[id number] Age/Sex: 65 / F ADM Date: 03/14/25 Loc: MAMMO Attending Dr: Paige Marie M.D. Ordering Physician: Paige Marie M.D. Results: Date of Service: 03/14/25 Follow Up: Procedure(s): MM tomosynthesis screening BI Accession Number(s): [id number] cc: Paige Mraie M.D. Patient Name: SHIRA GIBBS MR#: [id number] : 1960 Exam Date: 03/14/2025 Ordering Doctor: [...] prostate cancer at age 80. LOCATION: [facility] BREAST COMPOSITION: There are scattered areas of [...] Signed By: 03/14/25 1235 DD/ 1234 TD/TT: Kiosk Sales Representative: [place] [address] Mammography Report Signed Patient: GEENA GIBBS MR#: [id number] : 1960 Acct:[id number] Age/Sex: 65 / F ADM Date: 03/14/25 Loc: MAMMO Attending Dr: Mariam Marie M.D. Ordering Physician: Paige Marie M.D. Results: Date of Service: 03/14/25 Follow Up: Procedure(s): MM tomosynthesis screening BI Accession Number(s): [id number] cc: Paige Marie M.D. Patient Name: SHIRA GIBBS MR#: [id number] : 1960 Exam Date: 03/14/2025 Ordering Doctor: [...] cancer at age 80. LOCATION: [facility] BREAST COMPOSITION: There are scattered [...] Signed By: 03/14/25 1235 DD/ 1234 TD/TT: Kiosk Sales Representative: T4 Reviewed date:03/01/2025 07:29:43 PM Interpretation: Performing Lab: Notes/Report: [facility] , T4 Thyroxine 8.40 4.80-13.90 ug/dL Performing Lab: see note ML - [facility] LB PROF 14(COMP METB) Reviewed date:03/01/2025 07:29:43 PM Interpretation: Performing Lab: Notes/Report: [facility] , Sodium 144 136-145 mmol/L Potassium 3.9 [...] 0.9 Performing Lab: see note ML - [facility] LB LIPID PROFILE Reviewed date:03/01/2025 07:29:43 PM Interpretation: Performing Lab: Notes/Report: [facility] , Triglycerides 81 <=150 mg/dL Cholesterol 126 <=200 mg/dL HDL Cholesterol 51 40-60 mg/dL > or =60 mg/dl - LOW CARDIOVASCULAR RISK <40 mg/dl - HIGH CARDIOVASCULAR RISK LDL Cholesterol Calculated 58.8 >190 mg/dl VERY HIGH <100 mg/dl OPTIMAL 130-159 mg/dl BORDERLINE HIGH 100-129 mg/dl NEAR OR ABOVE OPTIMAL 160-189 mg/dl HIGH VLDL CHOLESTEROL 16.2 Chol HDL Ratio 2.5 3.3 - 4.4 LOW RISK 4.4 - 7.1 AVERAGE RISK 7.1 - 11.0 MODERATE RISK >11.0 HIGH RISK Performing Lab: see note ML - [facility] MR lumbar spine wo con Reviewed date:03/14/2025 06:35:11 PM Interpretation: Performing Lab: Notes/Report: Source Facility: [place] [address] Magnetic Resonance Report Signed Patient: SHIRA GIBBS MR#: [id number] : 1960 Acct:[id number] Age/Sex: 65 / F ADM Date: 03/14/25 Loc: MRI Attending Dr: Kel Jeffers NP Ordering Physician: Kel Jeffers NP Date of Service: 03/14/25 Procedure(s): MR lumbar spine wo con Accession Number(s): [id number] cc: Kel Jeffers NP; Paige Marie M.D. [place] [address] Patient Name: SHIRA GIBBS MRN: [id number] date: 1960 Sex: F Assigned Patient Location: MRI Current Patient Location: MRI Accession/Order Number: [id number] Exam Date: 03/14/2025 08:42 Report Date: 03/14/2025 08:48 At the request of: KEL JEFFERS NP Procedure: MR lumbar spine wo con MRI lumbar spine performed without contrast INDICATION: Intervertebral disc degeneration lumbar region chronic lumbar pain with radiculopathy COMPARISON: X-rays lumbar spine 01/19/2025 FINDINGS: Lumbar vertebral heights, alignment maintained. Moderate intervertebral space narrowing L5-S1 jnyc-si-ipeovaoi intervertebral space space narrowing L2-L3. Minimal intervertebral [...] grossly patent. L2-3: Broad-based disc bulge with hvab-pa-iutuoydw facet arthropathy. Mild central canal stenosis. There is mild left greater than right neural foraminal narrowing. L3-L4: Broad-based disc bulge with moderate to severe facet arthropathy. Moderate central canal narrowing. Moderate left xuzh-zz-cuftfrre right neural foraminal narrowing. L4-5: Disc desiccation [...] possible right L5 and S1 radiculopathy. Otherwise goou-pl-wrhtvhkb degenerative changes elsewhere. Multilevel facet arthropathy greatest L3-L5. Impression dictated by: Mendoza Gale M.D. 03/14/2025 8:48 AM Dictation Location: [place] [address] Electronically authenticated by: [id number] Date: 03/14/2025 08:48 Dictated By: Mendoza Gale M.D. Signed By: 03/14/25 0850 DD/ TD/TT: Kiosk Sales Representative: [address] [address] Magnetic Resonance Report Signed Patient: GEENA GIBBS MR#: [id number] : 1960 Acct:[id number] Age/Sex: 65 / F ADM Date: 03/14/25 Loc: MRI Attending Dr: Kel Jeffers NP Ordering Physician: Kel Jeffers NP Date of Service: 03/14/25 Procedure(s): MR lum bar spine wo con Accession Number(s): [id number] cc: Kel Jeffers NP; Paige Marie M.D. [place] [id number] Patient Name: SHIRA GIBBS MRN: [id number] date: 1960 Sex: F Assigned Patient Location: MRI Current Patient Location: MRI Accession/Order Numb er: [id number] Exam Date: 03/14/2025 08:42 Report Date: 03/14/2025 08:48 At the request of: KEL JEFFERS NP Procedure: MR lumbar spine wo con MRI lumbar spine performed without contrast INDICATION: Intervertebral disc degeneration lumbar region chronic lumbar pain with radiculopathy COMPARISON: X-rays lumbar spine 01/19/2025 FINDINGS: Lumbar vertebral heights, alignment maintained. Moderate intervertebral space narrowing L5-S1 mrrp-af-behrktcs intervertebral space space narrowing L2-L 3. Minimal [...] patent. L2-3: Broad-based di sc bulge with yjfb-dt-rjfwovrf facet arthropathy. Mild central canal stenos is. There is mild left greater than right neural foraminal narrowing. L3-L4: Broad-based d isc bulge with moderate to severe facet arthropathy. Moderate central can al narrowing. Moderate left phcv-tp-sdopsvcl right neural foraminal narrowing. L4-5: Disc desiccati [...] possible right L5 and S1 radiculopathy. Otherwise atoa-im-ntsnugno degenerative changes elsewhere. Multilevel facet arthropathy greatest L3-L5. Impression dictated by: Mendoza Gale M.D. 03/14/2025 8:48 AM Dictation Location: [place] [address] Electronically authenticated by: [id number] Y Date: 03/14/2025 08:48 Dictated By: Radha Gale M.D. Signed By: 03/14/25 0850 DD/ TD/TT: Kiosk Sales Representative: Reason For Referral Reason + FH and Dx with col on polyps Diagnosis 1 Colon polyps (K63.5) Referral Organization [facility] Referring Provider First Name Tanner Referring [...] Problem Status W/U Status Risk Notes Problem [id number] Unilateral primary osteoarthritis, right hip (M16.11) Active confirmed Problem Snoring (38930939) Snoring (R06.83) Active conf irmed Problem Fatigue (65796474) Fatigue (R53.83) Active conf irmed Problem Gastroesophageal reflux disease (922858984) GERD (gastroesophagea l reflux disease) (K21.9) Active confirmed Problem Carpal tunnel syndrome (30455168) Carpal tunnel syndrome (G56.00) Active confirmed Problem Sinusitis (99468962) Sinusitis (J32.9) Active confirmed Problem Well adult (426144709) Well adult (Z00.00) Active confirmed Problem Polyp of colon (disorder) (47832188) Colon polyps (K63.5) Active confirmed Problem Arthralgia of the pelvic region and thigh (476631387) Hip pain, acute, left (M25.552) Active confirmed Problem Lumbar radiculopathy (211672340) Acute lumbar radiculopathy (M54.16) Active confirmed Vital Signs Blood pressure diastolic 82 mm Hg 02/23/2025 Height 64 in 02/23/2025 Blood pressure systolic 118 mm Hg 02/23/2025 Weight 182.6 lbs 02/23/2025 BMI 31.34 kg/m2 02/23/2025 Procedures Procedure Date Ordered Date Performed Result Body Sit e Sleep study - Diagnostic Polysonogram 08/10/2024 N/A Encounters Encounter Location Date Provider Diagnosis [facility] [address] [place] [address] 08/10/2024 Tanner Hoy Snoring R06.83 and Fatigue R53.83 [facility] [address] [place] [address] 01/19/2025 Tanner Hoceline Acute lumbar radiculopathy M54.16 ; Hip pain, acute, left M25.552 and Carpal tunnel syndrome G56.00 [facility] [address] [place] [address] 02/23/2025 Tanner Marie GERD (gastroesophage al reflux disease) K21.9 and Colon polyps K63.5 [facility] [address] [place] [address] 08/12/2024 Tanner Marie [facility] [address] [place] [address] 01/19/2025 Tanner Marie Acute lumbar radiculopathy M54.16 [facility] [address] [place] [address] 02/28/2025 Tanner Marie [facility] [address] [place] [address] 03/01/2025 Tanner Marie [facility] [address] [place] [address] 03/14/2025 Tanner Marie Assessments Encounter Date Diagnosis [...] Insured Coverage Start Date Coverage End Date [facility] [address] [address] [place] [address] [id number] Shira Gibbs Self - patient is the [...]
--- OUTSIDE RECORDS SUMMARY | 2025-03-23 07:27 | XMS_ITS | CCD ---
Author Organization [facility] CliniSyla Care Team Providers Care Inside Finisher Name Role Phone BANUELOS ., DR FAITH [...] Unavailable Paige Snowden MD Primary Care Provider [phone] Paige Snowden Primary Care Physician [phone] Paige Snowden MD Primary Care Provider [phone] REJI CONKLIN Attending Unavailable NISH EAGLE Attending Unavailable NISH EAGLE Referring Unavailable Reece GLORIA Attending Unavailable Reece GLORIA Attending Unavailable Allergies Allergy Classification Reported Allergen(s) Allergy Type Date of Onset Reaction(s) Facility (2 sources) Allopurinol Drug Allergy 7 [facility] Repository (2 sources) levoFLOXacin; Translations: [Levaquin] Drug Allergy [facility] Repository (2 sources) Morphine; Translations: [morphine] Drug Allergy 7 [facility] Repository (5 sources) Penicillin; Translations: [penicillin] Drug Allergy 7 Weal (disorder) [facility] Repository (9 sources) levoFLOXacin; Translations: [levofloxacin] [...] [tetanus toxoids] Drug allergy Local (qualifier value) [facility] [place] (1 source) Allopurinol; Translations: [allopurinol] Drug Allergy 7 [facility] Repository Medications Current Medications Medication Drug Class(es) [...] sources) Long-term current use of bisphosphonates; Translations: [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 When there are no FDA-approved or cleared tests available, and other criteria are met, FDA can make tests available under an emergency access mechanism called an Emergency Use Authorization (EUA). The EUA for this test is supported by the [place] of Health and Human Service's (HHS's) declaration [...] consistent with SARS-CoV-2. Performed By: #### [facility] #### [facility] [address] [place] [address] Dr. Tanja Soto Covid-19 PCR (CVDTBH)on SARS-CoV-2 (COVID-19) RNA LOWELL+probe Ql (Unsp spec) Not detected Normal NOT DETECTED [facility] Comment on above: Result Comment: When [...] for this test is supported by the Vascular Radiologist of Health and Human Service's declaration that [...] longer be used). Performed By: #### C [facility] ####[facility] [address] [place], [place] [address]Mh. Tanja Soto MG MAMM SCREEN 3D JOSE CADon 07-15-2022 MG MAMM SCREEN 3D JOSE CAD Patient: SHIRA GIBBS Exam Date: 07/15/2022 : 1960 Gender:F Ordering : DR PAIGE SNOWDEN . Admission #: [id number] Family : Order #: [id number] CLICK HERE TO VIEW EXAM RADIOLOGY REPORT [...] prostate cancer at age 80. LOCATION: [facility] BREAST COMPOSITION: Scattered areas fibroglandular density. [...] MD on 07/15/2022 at 10:04 Normal [facility] FREE T3on 02-27-2022 FREE T3 3.00 pg/mlL Normal 2.18-3.98 [facility] Comment on above: Performed By: #### F T3, RENAL, TSH ####[facility] [address] [place] [address]Dr. Tanja Charles FREE T4on 02-27-2022 Free T4 [Mass/Vol] 1.34 ng/dL Normal 0.76-1.46 [facility] Comment on above: Performed By: #### V ITAD, FT4 ####[facility] [address] [place] [address]Dr. Tanja Soto RENAL FUNCTION PANELon 02-27 Albumin [Mass/Vol] 3.3 g/dL Critically low 3.4-5.0 [facility] Comment on above: Performed By: #### F T3, RENAL, TSH ####[facility] [address] [place] [address]Dr. Tanja Soto Calcium [Mass/Vol] 9.0 mg/dL Normal 8.5-10.1 [facility] Comment on above: Performed By: #### F T3, RENAL, TSH ####[facility] [address] [place] [address]Dr. Tanja Soto Chloride [Moles/Vol] 105 mmol/L Normal 98-107 [facility] Comment on above: Performed By: #### F T3, RENAL, TSH ####[facility] [address] [place] [address]Dr. Tanja Soto CO2 [Moles/Vol] 28.3 mmol/L Normal 21.0-32.0 The [place] Comment on above: Performed By: #### F T3, RENAL, TSH ####[facility] [address] [place] [address]Dr. Tanja Soot Creatinine [Mass/Vol] 0.87 mg/dL Normal 0.55-1.02 [facility] Comment on above: Performed By: #### F T3, RENAL, TSH ####[facility] [address] [place] [id number]. Tanja Soto EGFR-AF QATARI >60 Normal >=60 The [place] Comment on above: Performed By: #### F T3, RENAL, TSH ####[facility] [address] [place] [id number]. Tanja Soto EGFR-NON AF QATARI >60 Normal >=60 [facility] Comment on above: Performed By: #### F T3, RENAL, TSH ####[facility] [address] [place] [address]Dr. Tanja Soto Glucose [Mass/Vol] 93 mg/dL Normal 74-106 [facility] Comment on above: Performed By: #### F T3, RENAL, TSH ####[facility] [address] [place] [address]Dr. Edelbailey Soto Phosphate [Mass/Vol] 3.1 mg/dL Normal 2.6-4.7 [facility] Comment on above: Performed By: #### F T3, RENAL, TSH ####[facility] [address] [place], [place] [address]Dr. Tanja Soto Potassium [Moles/Vol] 3.6 mmol/L Normal 3.5-5.1 [facility] Comment on above: Performed By: #### F T3, RENAL, TSH ####[facility] [address] [place] [id number]. Tanja Soto Sodium [Moles/Vol] 140 mmol/L Normal 136-145 [facility] Comment on above: Performed By: #### F T3, RENAL, TSH ####[facility] [address] [place] [address]Dr. Tanja Soto Urea nitrogen [Mass/Vol] 13.0 mg/dL Normal 7.0-18.0 [facility] Comment on above: Performed By: #### F T3, RENAL, TSH ####[facility] [address] [place], [place] [address]Dr. Tanja Soto TSHon 02-27-2022 TSH 0.759 uIU/mL Normal 0.358-3.740 [facility] Comment on above: Performed By: #### F T3, RENAL, TSH ####[facility] [address] [place], [place] [address]If. Tanja Soto VITAMIN D 25 OHon 02-27-2022 VIT D 25-OH 35.5 ng/mL Normal [facility] Comment on above: Performed By: #### V ITAD, FT4 ####[facility] [address] [place] [id number]. Tanja Soto VIT D RANGES SEE BELOW Normal [facility] Comment on above: Result Comment: <20 ng/mL Vit D deficient 20 - <30 ng/mL Vit D insufficient 30 - 100 ng/mL Vit D sufficient >100 ng/mL Potential Toxicity Performed By: #### V ITAD, FT4 ####[facility] [address] [place] [id number]. Tanja Soto XR DEXA BONE DENSITYon 02-27 [...] JOSE PORTER Date: 2022-02-27 16:07 Normal [facility] HIP RIGHT 1 OR 2 VWS WITH PE LVISon 01-23-2022 HIP RIGHT 1 OR [address] [facility] Department of Radiology [address] [place] [phone] Patient Name: SHIRA GIBBS : 1960 Sex: F Age: Race: White Pt. Location: 85 Patient Status: D Ordered Date: 01/23/2022 2:45:00 PM Completed Date: 01/23/2022 02:49 PM Requesting Provider: ADÁN CASTRO Attending Provider: ADÁN CASTRO Report Copy To: PAIGE SNOWDEN Signs & Symptoms: M25.551 Pain in right hip I10 History: [place] Comments: , right hip pain, r/o osteoarthritis, fracture , right hip pain, r/o osteoarthritis, fracture , , , Ordering Provider - A [facility]W [facility] NURSE , Exam: HIP RIGHT 1 OR 2 [...] , Ordering Provider - A [facility]URSE , PROTOCOL: AP(PA) and Lateral views were obtained. COMPARISON: None FINDINGS: Pelvic ring intact. Sacroiliac joints symmetric. Hips normally aligned bilaterally. No evidence of fracture. There is superior lateral joint space narrowing right hip IMPRESSION: Early degenerative change right hip Electronically signed: Roseann Lemus. Transcribed by: [email or web address], User Resident: Electronically Signed by: ROSEANN LEMUS @ 01/24/2022 02:[address] [facility] Comment on above: Order Comment: , rig ht hip pain, r/o osteoarthritis, fracture , right hip pain, r/o osteoarthritis, fracture , , , Ordering Provider - Catrachita [facility] NURSE , MRI LSPINE WO CONon 01-12-20 MRI [...] by: JOSE PORTER Date: 2022-01-11 13:45 Normal [facility] XR LSPINE MIN 4 VIEWSon 12-23 [...] by: JOSE PORTER Date: 2022-01-07 13:40 Normal [facility] Vital Signs Date Time Vital Sign Value Performing Clinician Faci lity 03-07-2025 09:25-0400 Body height 162.6 cm Reji Conklin MD Work Phone: [facility] 03-07-2025 09:25-0400 Body mass index (BMI) [Ratio] 31.24 kg/m2 Reji Conklin MD Work Phone: [facility] 03-07-2025 09:25-0400 Body weight 82.56 kg Reji Conklin MD Work Phone: [facility] 03-07-2025 09:25-0400 Diastolic blood pressure 80 mm[Hg] Reji Conklin MD Work Phone: [facility] 03-07-2025 09:25-0400 Heart rate 81 /min Rjei Conklin MD Work Phone: [facility] 03-07-2025 09:25-0400 Respiratory rate 18 /min Reji Conklin MD Work Phone: [facility] 03-07-2025 09:25-0400 SaO2% (BldA) [Mass fraction] 96 % Reji Conklin MD Work Phone: [facility] 03-07-2025 09:25-0400 Systolic blood pressure 130 mm[Hg] Reji Conklin MD Work Phone: [facility] Healthcare Encounters Encounter Date Encounter Type Care Provider Facility Start: 03-09-2025 End: 03-09-2025 ambulatory Reece GLORIA Facility:[facility] Start: 03-09-2025 End: 03-09-2025 Patient encounter procedure Reece GLORIA [facility] Start: 03-07-2025 End: 03-07-2025 Bamboo flowsheet Reji Conklin MD Work Phone: [facility] Start: 03-07-2025 End: 03-07-2025 Bamboo flowsheet Reji Conklin MD Work Phone: [facility] Start: 03-07-2025 End: 03-07-2025 ambulatory REJI CONKLIN Not Available Start: 03-07-2025 End: 03-07-2025 Office outpatient visit 40 minutes Reji Conklin MD Work Phone: [facility] Comment on above: S/P partial thyroide ctomy (Primary Dx); Age-related osteoporosis without current pathological fracture ; [facility]FP use of bisphosphonates; Vitamin D deficiency Start: 10-12-2024 End: 10-12-2024 ambulatory Reece GLORIA Facility:[facility] Start: 10-12-2024 End: 10-12-2024 Patient encounter procedure Reece GLORIA [facility] Start: 05-12-2024 End: 05-20-2024 Telephone encounter Reji Conklin MD Work Phone: [facility] Start: 05-03-2024 End: 05-03-2024 Bamboo flowsheet Nish HERNÁNDEZ Work Phone: [facility] Start: 05-03-2024 End: 05-03-2024 Bamboo flowsheet [...] laboratory examination DR FAITH BANUELOS . [facility] Start: 08-13-2022 End: 08-13-[address] [...] 10-25-2031 Screening for malignant neoplasm of colon [facility] Start: 05-08-2026 End: 05-08-2026 Patient encounter procedure [facility] Start: 03-06-2026 End: 03-06-2026 Patient encounter procedure 03/06/2026 11:30 AM EDT Office Visit [facility] [address] [place] [phone] Reji Conklin MD [address] [place] [address] [facility] Start: 04-25-2025 Influenza vaccination Influenza Vaccine (#1) [facility] Start: 03-07-2025 End: 03-07-2026 25-hydroxyvitamin D3 [Mass/volume] in Serum or Plasma Vitamin D 25 hydroxy Total Lab Routine Vitamin D deficiency Expected: 03/07/2025 (Approximate), Expires: 03/07/2026 [facility] Comment on above: Expected: 03/07/2025 (Approximate), Expi res: 03/07/2026 Start: 03-07-2025 End: 03-07-2026 DXA Skeletal system Views for bone density DEXA bone density Imaging Routine Age-related osteoporosis without current pathological fracture Expected: 03/07/2025, Expires: 03/07/2026 [facility] Comment on above: Expected: 03/07/2025, Expires: Start: 03-07-2025 End: 03-07-2026 Renal function panel Renal function panel Lab Routine Vitamin D deficiency Expected: 03/07/2025 (Approximate), Expires: 03/07/2026 [facility] Comment on above: Expected: 03/07/2025 (Approximate), Expi res: 03/07/2026 Start: 03-07-2025 End: 03-07-2026 Thyrotropin [Units/volume] in Serum or Plasma TSH Lab Routine S/P partial thyroidectomy Expected: 03/07/2025 (Approximate), Expires: 03/07/2026 [facility] Comment on above: Expected: 03/07/2025 (Approximate), Expi res: 03/07/2026 Start: 03-07-2025 End: 03-07-2026 Thyroxine (T4) free [Mass/volume] in Serum or Plasma T4, free Lab Routine S/P partial thyroidectomy Expected: 03/07/2025 (Approximate), Expires: 03/07/2026 [facility] Comment on above: Expected: 03/07/2025 (Approximate), Expi res: 03/07/2026 Start: 03-07-2025 End: 03-07-2026 Triiodothyronine (T3) Free [Mass/volume] in Serum or Plasma T3, free Lab Routine S/P partial thyroidectomy Expected: 03/07/2025 (Approximate), Expires: 03/07/2026 [facility] Work Phone: Comment on above: Expected: 03/07/2025 (Approximate), Expi res: 03/07/2026 Start: 03-07-2025 End: 03-07-2025 Patient encounter procedure 03/07/2025 9:10 AM EDT Office Visit [facility] [address] [place] [id number] Reji Conklin MD [address] [place] [address] [facility] Start: 05-03-2024 End: 05-03-2024 Patient encounter procedure 05/03/2024 10:45 AM EDT Office Visit [facility] [address] [place] [address] Nish Eagle PA [address] [facility] [address] [place] [address] Acute right hip pain (Primary Dx); History of total hip replacement, right [facility] Comment on above: Acute right hip pain (Primary Dx); History of total hip replacement, right Start: 04-25-2024 Influenza vaccination Influenza Vaccine (#1) [facility] Start: 02-11-2010 Pneumococcal Vaccine: 65+ Years (1 of 1 - PCV) Pneumococcal Vaccine: 65+ Years (1 of 1 - PCV) [facility] Start: 2000 Screening for malignant neoplasm of breast Mammogram [facility] Start: 02-11-1990 Screening for malignant neoplasm of cervix [facility] Start: 02-11-1981 Screening for malignant neoplasm of cervix Pap Smear [facility] Start: 1960 Screening for malignant neoplasm of colon [facility] XR Hip - right 3 Views XR hip ri ght 2 or 3 views Imaging Routine Acute right hip pain 05/03/2024 10:46 AM EDT [facility] Work Phone: Immunizations Immunization Date Immunization Notes Care Provider Fa cility 12-25-2020 SARS-CoV-2 (COVID-19 ) mRNA BNT-162b2 vax Reece NILL [facility] 12-04-2020 SARS-CoV-2 (COVID-19 ) mRNA BNT-162b2 vax Reece NILL [facility] 07-27-2018 influenza, injectable, quadrivalent, preservative free Nish HERNÁNDEZ Work Phone: [facility] 07-27-2018 influenza virus vaccine, unspecified formulation Nish HERNÁNDEZ Work Phone: [facility] NEGATED: Highlighted row has not occurred!10-09-2021 influenza virus vaccine, unspecified formulation Reece JUANI [facility] Payers Date Payer Category Payer Medicare [id number] 2025 Medicare (Managed Care) ELKEA [employer]ha [employer] Member Subscriber Plan / Payer (Effective 2025-Present) Name: Shira Gibbs Relation to Subscriber: Self Name: Shira Gibbs Payer ID: [id number] (NAIC) Type: Not on file Address: [place] [id number] 2025 Medicare [id number] 2023 Private Health Insurance [facility] [id number] 2023-Present [address] [address] [place] [address] [id number]. [id number] 1960 Unknown [id number] 2.16.840.1.203873.3.579. 2.593 1960 Unknown [id number] 2.16.840.1.969104.3.579. 2.593 1960 Unknown [id number] 2.16.840.1.692683.3.579. 2.593 1960 Unknown [id number] 2.16.840.1.358352.3.579. 2.593 1960 Unknown [id number] 2.16.840.1.977398.3.579. 2.593 1960 Unknown [id number] 2.16.840.1.422051.3.579. 2.593 1960 Unknown [id number] 2.16.840.1.596407.3.579. 2.593 1960 Unknown [id number] 2.16.840.1.349544.3.579. 2.593 1960 Unknown [id number] 2.16.840.1.043754.3.579. 2.593 1960 Unknown [id number] 2.16.840.1.916835.3.579. 2.593 1960 Unknown [id number] 2.16.840.1.563521.3.579. 2.593 1960 Unknown [id number] 2.16.840.1.581421.3.579. 2.593 1960 Unknown [id number] 2.16.840.1.470948.3.579. 2.593 1960 Unknown [id number] 2.16.840.1.597888.3.579. 2.593 1960 Unknown [id number] 2.16.840.1.385594.3.579. 2.593 1960 Unknown [id number] 2.16.840.1.002196.3.579. 2.593 1960 Unknown [id number] 2.16.840.1.431892.3.579. 2.593 1960 Unknown [id number] 2.16.840.1.496577.3.579. 2.593 1960 Unknown [id number] 2.16.840.1.277837.3.579. 2.593 1960 Unknown [id number] 2.16.840.1.577582.3.579. 2.593 1960 Unknown [id number] 2.16.840.1.946271.3.579. 2.593 1960 Unknown [id number] 2.16.840.1.016880.3.579. 2.593 1960 Unknown [id number] 2.16.840.1.299188.3.579. 2.593 1960 Unknown [id number] 2.16.840.1.026258.3.579. 2.1259 1960 Unknown [id number] 2.16.840.1.991209.3.579. 2.1259 1960 Unknown [id number] 2.16.840.1.925441.3.579. 2.1259 1960 Unknown [id number] 2.16.840.1.460093.3.579. 2.727 1960 Unknown [id number] 2.16.840.1.055932.3.579. 2.727 1959 Private Health Insurance [id number] 1959 Private Health Insurance [id number] Self-pay Social History Date Type Detail Facility Start: 02-20-2023 End: 03-09-2025 Tobacco smoking status NHIS Never smoked tobacco [facility] Start: 02-20-2023 Tobacco use and exposure Smoke less tobacco non-user [facility] Start: 07-07-2023 End: 10-26-2024 Alcoholic beverage intake Lifetime non-drinker (finding) [facility] Start: 07-07-2023 End: 05-03-2024 History of Social function [facility] Start: 07-07-2023 End: 05-03-2024 Tobacco use panel [facility] Start: 1960 Sex assigned at Not on file N [facility] Tobacco smoking status Never [facility] [place] Sexual Orientation [facility] [place] Start: 11-13-2018 Sex Female (finding) [facility] Clinical Notes 02-28-2022 to 03-09-2025 Reji [...] cetirizine 10 mg (more content not included)... [facility] Comment on above: Result [...] Anxiety COVID-19 Depression GERD (gastroesophageal reflux disease) [facility] (current) use of bisphosphonates Nontoxic multinodular goiter [...] scan next year and give further recommendation. 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 documented in this encounter [facility] 05-12-2024 Telephone encounter Note Moer Needs Levothyroxine Rx canceled to [facility]. Cannot lease picker at [facility] without cancellation please and thank you. [facility] 05-12-2024 Miscellaneous Notes More Needs Levothyroxine Rx canceled to [facility]. Cannot lease picker at [facility] without cancellation please and thank you. documented in this encounter [facility] 05-03-2024 History of Presen t illness Narrative Images from the original note were not included. HISTORY OF PRESENT ILLNESS: EST PT Shira Gibbs is an 64 y.o. @ female. (EST PT) HERE FOR YEARLY CHECK OF (R) GREGG 04/24/23 (~1YR) XRAYS DONE TODAY, 05/03/24 IN [facility] NO BONE SCAN PREVIOUS PAIN [...] with manipulation. Pt had prior tx with [facility] pain management and plans to call.. [...] requiring urgent evaluation. documented in this encounter [facility] 12-19-2022 Note PROCEDURE: XR HIP RT 2 3V WO PELVIS HISTORY: Pain in right hip joint , low back pain COMPARISON: None. FINDINGS: BONES:Complete loss of the hip joint space with tvfi-ol-wuoo articulation. Small degenerative osteophytes along superior rim of acetabulum. No fracture or dislocation. SOFT TISSUES:No visible soft tissue swelling. EFFUSION:None visible. OTHER: Negative. IMPRESSION: 1. Marked degenerative joint disease of right hip. Electronically authenticated by: JOSE PORTER Date: 2022-12-19 11:08 [facility] 12-19-2022 Note CONSULTATION CONSULTATION DATE: 12/19/2022 [...] our patients to inform us about any tzxw-ceb-lpeqjgd medications or herbal remedies/nutritional supplements/alternative remedies. 2. [...] to proceed with the outlined plan. [facility] 09-26-2022 Note CONSULTATION PROCEDURE DATE: 09/26/2022 [...] in the clinic in three months. [facility] 09-12-2022 Note CONSULTATION CONSULTATION DATE: 09/12/2022 [...] and patient agrees with this plan. [facility] 06-27-2022 Note CONSULTATION CONSULTATION DATE: 06/27/2022 [...] up in the office post procedure. [facility] 05-30-2022 Note CONSULTATION CONSULTATION DATE: 05/30/2022 [...] patient is in agreement with this. [facility] 04-04-2022 Note CONSULTATION CONSULTATION DATE: 04/04/2022 [...] right butt and hip. She was at [place] recently with a lot of walking and [...] and would like to move forward. [facility] 02-28-2022 Note CONSULTATION CONSULTATION DATE: 02/28/2022 This is a 62-year-old female that was referred to our clinic as a new patient for her lower back pain and right groin pain. The patient has had pain for some time, but it greatly increased approximately 2 months ago. The patient reports bending over to lease picker something and following that she had [...] night. The patient just recently returned from [place] and walked on the beach many times. [...] exercise. She was sent to Neurosurgery in [place] for a consult where they stated she [...] followed up in the clinic for following. [facility] Signed and Approved by: VEDA PAYNE . 03/07/2022 09:46:00 [facility] Evaluation + Plan note No data available for this section [facility] [place] Evaluation note Diagnosis Acute right hip pain- Primary History of total hip replacement, right documented in this encounter [facility] HealthcareEvaluation note* Diagnosis S/P partial thyroidectomy- Primary Other postprocedural status Age-related osteoporosis without current pathological fracture [facility]FP use of bisphosphonates Vitamin D deficiency documented [facility] this encounter [facility] No data available for this section [facility] [place] Progress note No data available for this section [facility] [place] Summary Purpose Family History No Family History [...] and content) DATE CREATED AUTHOR 01/28/2022 [facility] DATE CREATED AUTHOR AUTHOR'S ORGANIZ ATION 01/03/2023 [facility] DATE CREATED AUTHOR AUTHOR'S ORGANIZ ATION 03/10/2025 [facility] Special[facility] EPIC DATE CREATED AUTHOR AUTHOR'S ORGANIZ ATION 03/11/2025 [facility] Care Teams (unrecognized sec tion and content) Inside Finisher Relationship Specialty Start Date End Date Paige Snowden MD [address] [place] [address] PCP - General Family Medicine 02/20/23 Inside Finisher Relationship Specialty Start Date End Date Paige Snowden MD [address] [place] [address] PCP - General Family Medicine 02/20/23 Inside Finisher Relationship Specialty Start Date End Date Paige Snowden MD [address] [place] [facility] [place] [address] PCP - General Family Medicine 01/07/25 Inside Finisher Relationship Specialty Start Date End Date Paige Snowden MD [address] [place] [facility] [place] [address] PCP - General Family Medicine 01/07/25 Reason [...] BE BASED ON THE PRIMARY CLINICAL RECORDS. [employer] provides no warranty or guarantee of the accuracy or completeness of information in this document.
--- OUTSIDE RECORDS SUMMARY | 2025-03-23 07:27 | XMS_ITS | Encounter Summary ---
Author Organization [facility] Address [address] [place] [address] Care Team Providers Care First Helper Name Role Phone Norbert Snowden MD Primary Care Provider [phone] Encounter Details Date Type Department Care Team (Late st Contact Info) Description 03/01/2025 Orders Only [facility] [address] [place] [address] Reji Haley MD [address] [place] [address] Social History Tobacco Use Types [...] Description 03/06/2026 11:30 AM EDT Office Visit [facility] [place] [phone] Reji Haley MD [address] [place] [address] 05/08/2026 10:45 AM EDT Office Visit [facility] [address] [place] [address] Chris Eagle, BETTY [address] [facility] [address] documented as of this encounter [...] on filedocumented in this encounter Care Teams First Helper Relationship Specialty Start Date End Date Norbert Snowden MD [address] [facility] [place] [address] PCP - General Family Medicine 01/07/25 documented as of this encounter
--- OUTSIDE RECORDS SUMMARY | 2025-03-23 07:27 | XMS_ITS | Encounter Summary ---
Author Organization [facility] Address [address] [email or web address] [place] [address] Care Team Providers Care Retail Sales Professional Name Role Phone Norbert Snowden MD Primary Care Provider [phone] Norbert Snowden MD Primary Care Provider [phone] Encounter Details Date Type Department Care Team (Late Contact Info) Description 05/09/2023 Abstract [facility] [address] [place] [address] Chris Eagle, PA [address] [place] [address] Social History Tobacco Use Types [...] 03/06/2026 11:30 AM EDT Office Visit [facility] [place] [address] [place] [phone] Reji Haley MD [address] [place] [address] 05/08/2026 10:45 AM EDT Office Visit [facility] [address] [place] [address] Chris Eagle, PA [address] [place] [address] documented as of this encounter Visit Diagnoses Not on filedocumented in this encounter Care Teams Retail Sales Professional Relationship Specialty Start Date End Date Norbert Snowden MD PCP - General Family Medicine 02/20/23 01/06/25 Norbert Snowden MD [address] [facility] [place] [address] PCP - General Family Medicine 01/07/25 documented as of this encounter
--- OUTSIDE RECORDS SUMMARY | 2025-03-23 07:27 | XMS_ITS | Clinical Summary ---
Author Organization [facility] Address [address] [place] [address] Care Team Providers Care Lumber Stacker Operator Name Role Phone Unavailable Primary Care [...]
--- OUTSIDE RECORDS SUMMARY | 2025-03-23 07:27 | XMS_ITS | Encounter Summary ---
Author Organization [facility] Address [address] [place] [address] Care Team Providers Care Stock Shipper Name Role Phone Norbert Snowden MD Primary Care Provider [phone] Norbert Snowden MD Primary Care Provider [phone] Encounter Details Date Type Department Care Team (Late st Contact Info) Description 06/06/2023 Abstract [facility] [address] [place] [phone] Chris Eagle, BETTY [address] [place] [address] Social History Tobacco Use Types [...] AM EDT Office Visit [facility] [address] [place] [address] Reji Haley MD [address] [place] [address] 05/08/2026 10:45 AM EDT Office Visit [facility] [place] [facility] [address] [place] [address] Chris Eagle, PA [address] [facility] [address] [facility]ST[facility] [place] [address] documented as of this encounter Visit Diagnoses Not on filedocumented in this encounter Care Teams Stock Shipper Relationship Specialty Start Date End Date Norbert Snowden MD PCP - General Family Medicine 02/20/23 01/06/25 Norbert Snowden MD [address] [facility] [place] [address] PCP - General Family Medicine 01/07/25 documented as of this encounter
[2025-03-23 07:29] VITALS: BP 130/85; PULSE 18; TEMP 36.4; O2SAT 100; BMI 30.7
[2025-03-23] MEDS: 0.9 % SODIUM CHLORIDE 500 ML 50 ML IV ×2 (07:58→09:49)
[2025-03-23 09:55] VITALS: BP 101/52; PULSE 97; O2SAT 97
[2025-03-23 10:10] VITALS: BP 115/80; PULSE 82; O2SAT 98
== END 2025-03-23 10:32 | disposition home or self-care (01) ==
LOC: SURGOUT 07:25
PROVIDERS: PCP Family Medicine; Visit Provider Surgery
PROC: (CPT 45384; principal; 2025-03-23 09:00)
DX: R10.13 Epigastric pain (principal); Z86.0101 Personal history of adenomatous and serrated colon polyps; K63.5 Polyp of colon; G47.33 Obstructive sleep apnea (adult) (pediatric); Z90.710 Acquired absence of both cervix and uterus; M54.16 Radiculopathy, lumbar region; Z96.641 Presence of right artificial hip joint; K21.9 Gastro-esophageal reflux disease without esophagitis; E07.9 Disorder of thyroid, unspecified; F41.9 Anxiety disorder, unspecified; E61.1 Iron deficiency
CPT/HCPCS: 45384; 88305; J2371; J2704

== ENCOUNTER 2025-03-31 10:41 | Outpatient (OUT) | payer MEDICARE, SELFPAY ==
--- OUTSIDE RECORDS SUMMARY | 2025-02-28 05:46 | XMS_ITS ---
Author Organization The [facility] in [place] Address [address] [place] [address] Care Team Providers Care Rig Builder Name Role Phone Tanner Snowden Primary Care Provider [phone] REASON FOR VISIT records to pain management Encounters Encounter Location Date Provider Diagnosis [facility] [address] [place] [address] 02/28/2025 Tanner Snowden Plan Of Treatment No Information Progress Notes * Ivania GIBSBDOB:1960 (65 yo F)Acc No.[id number]:02/28/2025 Patient: Ivania MILAN :1960 A ge:65 Y S ex:Female Address:[address], [place] [address] * true * Date: Generated for Gustavo watkins/Ayush/eTransmitting on: 0 03/31/2025 10:43 AM EDT
--- OUTSIDE RECORDS SUMMARY | 2025-03-01 15:28 | XMS_ITS ---
Author Organization The [facility] in [place] Address [address] [place] [address] Care Team Providers Care Employment Coach Name Role Phone Tanner Snowden Primary Care Provider REASON FOR VISIT lab results Medications Medication SIG (Take, Route, Frequency, Duration) Notes Start Date End Date Status Ferrous Sulfate 325 (65 Fe) MG 1 tablet Orally twice daily for 30 days 03/02/2025 Active Encounters Encounter Location Date Provider Diagnosis [facility] [address] [place] [address] 03/01/2025 Tanner Sp Plan Of Treatment Medication Medication Name Sig Start Date Stop Date Notes Ferrous Sulfate 325 (65 Fe) MG 1 tablet Orally twice daily for 30 days 03/02/2025 Progress Notes * Ivania GIBBSDOB:1960 (65 yo F)Acc No.[id number]:03/01/2025 Patient: Ivania MILAN :1960 A ge:65 Y S ex:Female Address:[address] [place] [address] [address], [place] [address] * Refills Start Ferrous Sulfate Tablet, 325 (65 Fe) MG, Orally, 60, 1 tablet, twice daily, 30 days, Refills=11 * true * Date: Generated for Gustavo watkins/Ayush/eTkatharinesmitting on: 0 03/31/2025 10:44 AM EDT
--- OUTSIDE RECORDS SUMMARY | 2025-03-14 14:34 | XMS_ITS ---
Author Organization The [facility] in [place] Address [address] [place] [address] Care Team Providers Care Office Specialist Name Role Phone Tanner Snowden Primary Care Provider REASON FOR VISIT Mammogram Results Encounters Encounter Location Date Provider Diagnosis [facility] [address] [place] [address] 03/14/2025 Tanner Snowden Plan Of Treatment No Information Progress Notes * Ivania GIBBSDOB:1960 (65 yo F)Acc No.[id number]:03/14/2025 Patient: Ivania MILAN :1960 A ge:65 Y S ex:Female Address:[address], [place] [address] * true * Date: Generated for Gustavo watkins/Ayush/eTransmitting on: 0 03/31/2025 10:44 AM EDT
--- OUTSIDE RECORDS SUMMARY | 2025-03-31 10:43 | XMS_ITS | Clinical Summary ---
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; Vitamin D deficiency 03/07/2025 Bamboo flowsheet [facility] [place] [address] Reji Haley MD 03/01/2025 Orders Only [facility] [address] [place] [address] Reji Haley MD from Last 3 Months [...] AM EDT Office Visit [facility] [address] [place] [address] Reji Haley MD [address] [place] [address] 05/08/2026 10:45 AM EDT Office Visit [facility] [address] [place] [address] Chris [place], PA [address] [place] [address] Health Maintenance Due Date Last [...] Months Insurance [employer] Care Teams Pipe Tester Relationship Specialty Start Date End Date Norbert Snowden MD [address] [place] [address] PCP - General Family Medicine 5/16/25
--- OUTSIDE RECORDS SUMMARY | 2025-03-31 10:43 | XMS_ITS | Clinical Summary ---
Author Organization [employer] [facility] tem Address [id number] [place] [address] Care Team Providers Care Director Of Corporate Marketing Name Role Phone Norbert Snowden MD Primary Care Provider [phone] Social History Tobacco Use Types Packs/Day Years [...] 07/27/2018 Medical Devices Not on file Insurance [id number] PLAN Care Teams Director Of Corporate Marketing Relationship Specialty Start Date End Date Norbert Snowden MD PCP - General Family Medicine 04/01/23
--- OUTSIDE RECORDS SUMMARY | 2025-03-31 10:44 | XMS_ITS | Clinical Summary ---
Author Organization [facility] Address [address] [place] [address] Care Team Providers Care Bar Turner Name Role Phone Unavailable Primary Care Provider [...]
--- OUTSIDE RECORDS SUMMARY | 2025-03-31 10:44 | XMS_ITS | Patient Health Record ---
Author Organization [facility] Address [address] [place] [address] Care Team Providers Care Bankruptcy Processor Name Role Phone Sp Tanner Primary Care Provider [phone] Allergies Allergen (clinical drug ingredient) Drug/Non Drug Allergy documented on EMR Reaction Allergy Type Onset Date Status amoxicillin Amoxicillin hives Drug Allergy Act natalya Levaquin hives Drug Allergy Active morphine Morphine Sulfate isominia Drug Allergy Active Tetanus Immune Globulin rash Drug Allergy Active Results Component Value Reference Range Notes CBC AUTO DIFF Reviewed date:03/01/2025 07:29:43 PM Interpretation: Performing Lab: Notes/Report: [facility] , White Blood Count 7.6 4.0-11.0 [...] 3/uL Performing Lab: see note ML - [facility] FREE T4 Reviewed date:03/01/2025 07:29:43 PM Interpretation: Performing Lab: Notes/Report: [facility] , Free T4 1.27 0.76-1.46 ng/dL Performing Lab: see note ML - [facility] LB GLYCOHEMOGLOBIN A1C Reviewed date:03/01/2025 07:29:43 PM Interpretation: Performing Lab: Notes/Report: [facility] , Glycohemoglobin A1C 6.0 4.5-6.2 % ADA RECOMMENDED LIMIT 4.0 - 6.0 ADA THERAPEUTIC TARGET < 7.0 ACTION SUGGESTED > 7.0 Estimated Average Glucose 126 Performing Lab: see note ML - [facility] IRON Reviewed date:03/01/2025 07:29:43 PM Interpretation: Performing Lab: Notes/Report: [facility] , Iron 18.0 50.0-170.0 ug/dL Performing Lab: see note ML - [facility] LB LIPID PROFILE Reviewed date:03/01/2025 07:29:43 PM Interpretation: Performing Lab: Notes/Report: [facility] , Triglycerides 81 <=150 mg/dL Cholesterol [...] RISK Performing Lab: see note ML - [facility] LB PROF 14(COMP METB) Reviewed date:03/01/2025 07:29:43 PM Interpretation: Performing Lab: Notes/Report: [facility] , Sodium 144 136-145 mmol/L Potassium [...] 0.9 Performing Lab: see note ML - [facility] LB T4 Reviewed date:03/01/2025 07:29:43 PM Interpretation: Performing Lab: Notes/Report: [facility] , T4 Thyroxine 8.40 4.80-13.90 ug/dL Performing Lab: see note ML - [facility] LB VITAMIN D 25 [place] Reviewed date:03/01/2025 07:29:43 PM Interpretation: Performing Lab: Notes/Report: [facility] , Vitamin D 49.5 30-100 ng/mL Vit D sufficient >100 ng/mL Potential Toxicity 20-<30 ng/mL Vit D insufficient <20 ng/mL Vit D deficient Performing Lab: see note ML - [facility] LB MM tomosynthesis screening B I Reviewed date:03/14/2025 06:35:11 PM Interpretation: Performing Lab: Notes/Report: Source Facility: [facility]-[address] [place] [address] [place] [address] Mammography Report Signed Patient: SHIRA GIBBS MR#: [id number] : 1960 Acct:[id number] Age/Sex: 65 / F ADM Date: 03/14/25 Loc: MAMMO Attending Dr: Paige Marie M.D. Ordering Physician: Paige Marie M.D. Results: Date of Service: 03/14/25 Follow Up: Procedure(s): MM tomosynthesis screening BI Accession Number(s): [id number] cc: Paige Marie M.D. Patient Name: SHIRA GIBBS MR#: [id number] : 1960 Exam Date: 03/14/2025 Ordering Doctor: [...] cancer at age 80. LOCATION: [facility] BREAST COMPOSITION: There are scattered areas [...] Signed By: 03/14/25 1235 DD/ 1234 TD/TT: Director Of Diagnostic Imaging: The [place] [id number] Mammography Report Signed Patient: GEENA GIBBS MR#: [id number] : 1960 Acct:[id number] Age/Sex: 65 / F ADM Date: 03/14/25 Loc: MAMMO Attending Dr: Mariam Marie M.D. Ordering Physician: Paige Marie M.D. Results: Date of Service: 03/14/25 Follow Up: Procedure(s): MM tomosynthesis screening BI Accession Number(s): [id number] cc: Paige Marie M.D. Patient Name: SHIRA GIBBS MR#: [id number] : 1960 Exam Date: 03/14/2025 Ordering Doctor: [...] [facility] BREAST COMPOSITION: There are scattered [...] Signed By: 03/14/25 1235 DD/ 1234 TD/TT: Director Of Diagnostic Imaging: TSH Reviewed date:03/01/2025 07:29:43 PM Interpretation: Performing Lab: Notes/Report: [facility] , Thyroid Stimulating Hormone 0.162 0.358-3.740 uIU/mL Performing Lab: see note ML - [facility] LB FREE T3 Reviewed date:03/01/2025 07:29:43 PM Interpretation: Performing Lab: Notes/Report: [facility] , Free T3 2.38 2.18-3.98 pg/mL Performing Lab: see note ML - [facility] LB XR lumbar spine min 4V Reviewed date:01/19/2025 08:00:26 PM Interpretation: Performing Lab: Notes/Report: Source Facility: [facility]-[address] [place] [address] [place] [address] XRay Report Signed Patient: SHIRA GIBBS MR#: [id number] : 1960 Acct:[id number] Age/Sex: 64 / F ADM Date: 01/19/25 Loc: RAD Attending Dr: Paige Marie M.D. Ordering Physician: Paige Marie M.D. Date of Service: 01/19/25 Procedure(s): XR lumbar spine min 4V Accession Number(s): [id number] cc: Paige Marie M.D. The [place] [address] Patient Name: SHIRA GIBBS MRN: [id number] date: 1960 Sex: F Assigned Patient Location: [facility] Current Patient Location: [facility] Accession/Order Number: [id number] Exam Date: 01/19/2025 11:02 Report Date: 01/19/2025 [...] Villalobos M.D. 01/19/2025 11:10 AM Dictation Location: [place] [address] Electronically authenticated by: [id number] Y Date: 01/19/2025 11:10 Dictated By: Jodi Villalobos M.D. Signed By: 01/19/25 1112 DD/ 1110 TD/TT: Director Of Diagnostic Imaging: [place] [address] XRay Report Signed Patient: GEENA GIBBS MR#: [id number] : 1960 Acct:[id number] Age/Sex: 64 / F ADM Date: 01/19/25 Loc: RAD Attending Dr: Mariam Marie M.D. Ordering Physician: Paige Marie M.D. Date of Service: 01/19/25 Procedure(s): XR lum bar spine min 4V Accession Number(s): [id number] cc: Paige Marie M.D. [address] [address] Patient Name: SHIRA GIBBS MRN: [id number] date: 1960 Sex: F Assigned Patient Location: RAD Current Patient Location: [facility] Accession/Order Numb er: [id number] Exam Date: 01/19/2025 11:02 Report Date: 01/19/2025 11:10 At the request of: PAIGE MARIE MD Procedure: XR hip LT 2V w/ pelvis CLINICAL HISTORY: [place] Lumbar Radiculopathy LUMBAR SPINE -5 views: COMPARISON: [...] Villalobos M.D. 01/19/2025 11:10 AM Dictation Location: [place] [address] Electronically authenticated by: [id number] Y Date: 01/19/2025 11:10 Dictated By: Jodi Villalobos M.D. Signed By: 01/19/25 1112 DD/ 1110 TD/TT: Director Of Diagnostic Imaging: XR hip LT 2V w/ pelvis Reviewed date:01/19/2025 08:00:26 PM Interpretation: Performing Lab: Notes/Report: Source Facility: [facility]-[address] [place] [address] [place] [address] XRay Report Signed Patient: SHIRA GIBBS MR#: [id number] : 1960 Acct:[id number] Age/Sex: 64 / F ADM Date: 01/19/25 Loc: RAD Attending Dr: Paige Marie M.D. Ordering Physician: Paige Marie M.D. Date of Service: 01/19/25 Procedure(s): XR hip LT 2V w/ pelvis Accession Number(s): [id number] cc: Paige Marie M.D. [place] [id number] Patient Name: SHIRA GIBBS MRN: [id number] date: 1960 Sex: F Assigned Patient Location: [facility] Current Patient Location: [facility] Accession/Order Number: [id number] Exam Date: 01/19/2025 11:02 Report Date: 01/19/2025 [...] Villalobos M.D. 01/19/2025 11:10 AM Dictation Location: [place] [address] Electronically authenticated by: [id number] Y Date: 01/19/2025 11:10 Dictated By: Jodi Villalobos M.D. Signed By: 01/19/25 1112 DD/ 1110 TD/TT: Director Of Diagnostic Imaging: [place] [address] XRay Report Signed Patient: GEENA GIBBS MR#: [id number] : 1960 Acct:[id number] Age/Sex: 64 / F ADM Date: 01/19/25 Loc: RAD Attending Dr: Mariam Marie M.D. Ordering Physician: Paige Marie M.D. Date of Service: 01/19/25 Procedure(s): XR hip LT 2V w/ pelvis Accession Number(s): [id number] cc: Paige Marie M.D. [place] [address] Patient Name: SHIRA GIBBS MRN: [id number] date: 1960 Sex: F Assigned Patient Location: [facility] Current Patient Location: [facility] Accession/Order Numb er: [id number] Exam Date: 01/19/2025 11:02 Report Date: 01/19/2025 11:10 At the request of: PAIGE MARIE MD Procedure: XR hip LT 2V w/ pelvis CLINICAL HISTORY: [place] Lumbar Radiculopathy LUMBAR SPINE -5 views: COMPARISON: [...] Villalobos M.D. 01/19/2025 11:10 AM Dictation Location: [place] [address] Electronically authenticated by: [id number] Y Date: 01/19/2025 11:10 Dictated By: Jodi Villalobos M.D. Signed By: 01/19/25 1112 DD/ 1110 TD/TT: Director Of Diagnostic Imaging: MR lumbar spine wo con Reviewed date:03/14/2025 06:35:11 PM Interpretation: Performing Lab: Notes/Report: Source Facility: [place] [address] Magnetic Resonance Report Signed Patient: SHIRA GIBBS MR#: [id number] : 1960 Acct:[id number] Age/Sex: 65 / F ADM Date: 03/14/25 Loc: MRI Attending Dr: Kel Jeffers NP Ordering Physician: Kel Jeffers NP Date of Service: 03/14/25 Procedure(s): MR lumbar spine wo con Accession Number(s): [id number] cc: Kel Jeffers NP; Paige Marie M.D. [place] [address] Patient Name: SHIRA GIBBS MRN: [id number] date: 1960 Sex: F Assigned Patient Location: MRI Current Patient Location: MRI Accession/Order Number: [id number] Exam Date: 03/14/2025 08:42 Report Date: 03/14/2025 08:48 At the request of: KEL JEFFERS NP Procedure: MR lumbar spine wo con MRI lumbar spine performed without contrast INDICATION: Intervertebral disc degeneration lumbar region chronic lumbar pain with radiculopathy COMPARISON: X-rays lumbar spine 01/19/2025 FINDINGS: Lumbar vertebral heights, alignment maintained. Moderate intervertebral space narrowing L5-S1 rdbm-bh-zsjgtxwp intervertebral space space narrowing L2-L3. Minimal intervertebral [...] grossly patent. L2-3: Broad-based disc bulge with dite-mv-fhrvndvz facet arthropathy. Mild central canal stenosis. There is mild left greater than right neural foraminal narrowing. L3-L4: Broad-based disc bulge with moderate to severe facet arthropathy. Moderate central canal narrowing. Moderate left nvuc-zn-lohqhyob right neural foraminal narrowing. L4-5: Disc desiccation [...] possible right L5 and S1 radiculopathy. Otherwise bqph-rf-yipfvdvg degenerative changes elsewhere. Multilevel facet arthropathy greatest L3-L5. Impression dictated by: Mendoza Gale M.D. 03/14/2025 8:48 AM Dictation Location: [place] [address] Electronically authenticated by: [id number] Date: 03/14/2025 08:48 Dictated By: Mendoza Gale M.D. Signed By: 03/14/25 0850 DD/ TD/TT: Director Of Diagnostic Imaging: [address] [address] Magnetic Resonance Report Signed Patient: GEENA GIBBS MR#: [id number] : 1960 Acct:[id number] Age/Sex: 65 / F ADM Date: 03/14/25 Loc: MRI Attending Dr: Kel Jeffers NP Ordering Physician: Kel Jeffers NP Date of Service: 03/14/25 Procedure(s): MR lum bar spine wo con Accession Number(s): [id number] cc: Kel Jeffers NP; Paige Marie M.D. [place] [id number] Patient Name: SHIRA GIBBS MRN: [id number] date: 1960 Sex: F Assigned Patient Location: MRI Current Patient Location: MRI Accession/Order Numb er: [id number] Exam Date: 03/14/2025 08:42 Report Date: 03/14/2025 08:48 At the request of: KEL JEFFERS NP Procedure: MR lumbar spine wo con MRI lumbar spine performed without contrast INDICATION: Intervertebral disc degeneration lumbar region chronic lumbar pain with radiculopathy COMPARISON: X-rays lumbar spine 01/19/2025 FINDINGS: Lumbar vertebral heights, alignment maintained. Moderate intervertebral space narrowing L5-S1 rbxt-tr-qozblage intervertebral space space narrowing L2-L 3. Minimal [...] patent. L2-3: Broad-based di sc bulge with uwyh-vx-ddcjwrva facet arthropathy. Mild central canal stenos is. There is mild left greater than right neural foraminal narrowing. L3-L4: Broad-based d isc bulge with moderate to severe facet arthropathy. Moderate central can al narrowing. Moderate left ufev-oh-aqrnmtya right neural foraminal narrowing. L4-5: Disc desiccati [...] possible right L5 and S1 radiculopathy. Otherwise vvuy-ti-gxcrrekw degenerative changes elsewhere. Multilevel facet arthropathy greatest L3-L5. Impression dictated by: Mendoza Gale M.D. 03/14/2025 8:48 AM Dictation Location: [place] [address] Electronically authenticated by: [id number] Y Date: 03/14/2025 08:48 Dictated By: Radha [place] M.D. Signed By: 03/14/25 0850 DD/ TD/TT: Director Of Diagnostic Imaging: Reason For Referral Reason + FH and Dx with col on polyps Diagnosis 1 Colon polyps (K63.5) Referral Organization [facility] Medicine Referring Provider First Name Tanner [...] Problem Status W/U Status Risk Notes Problem [id number] Unilateral primary osteoarthritis, right hip (M16.11) Active confirmed Problem Snoring (58089159) Snoring (R06.83) Active conf irmed Problem Fatigue (42421102) Fatigue (R53.83) Active conf irmed Problem Gastroesophageal reflux disease (569610480) GERD (gastroesophagea l reflux disease) (K21.9) Active confirmed Problem Carpal tunnel syndrome (20418314) Carpal tunnel syndrome (G56.00) Active confirmed Problem Sinusitis (32520394) Sinusitis (J32.9) Active confirmed Problem Well adult (975608439) Well adult (Z00.00) Active confirmed Problem Polyp of colon (disorder) (28818614) Colon polyps (K63.5) Active confirmed Problem Arthralgia of the pelvic region and thigh (715055827) Hip pain, acute, left (M25.552) Active confirmed Problem Lumbar radiculopathy (647349382) Acute lumbar radiculopathy (M54.16) Active confirmed Vital Signs Blood pressure diastolic 82 mm Hg 02/23/2025 Height 64 in 02/23/2025 Blood pressure systolic 118 mm Hg 02/23/2025 Weight 182.6 lbs 02/23/2025 BMI 31.34 kg/m2 02/23/2025 Procedures Procedure Date Ordered Date Performed Result Body Sit e Sleep study - Diagnostic Polysonogram 08/10/2024 N/A Encounters Encounter Location Date Provider Diagnosis [facility] [address] [place] [address] 02/28/2025 Tanner Marie [facility] [address] [place] [address] 03/01/2025 Tanner Corbetty [facility] [address] [place] [address] 03/14/2025 Tanner Corbetty [facility] [address] [place] [facility] [address] 08/12/2024 Tanner Hoy [facility] [address] [place] [address] 01/19/2025 Tanner Hoy Acute lumbar radiculopathy M54.16 [facility] [address] [place] [address] 08/10/2024 Tanner Hoy Snoring R06.83 and Fatigue R53.83 [facility] [address] [place] [facility] [place] [address] 01/19/2025 Tanner Hoy Acute lumbar radiculopathy M54.16 ; Hip pain, acute, left M25.552 and Carpal tunnel syndrome G56.00 [facility] [address] [place] [facility] [place] [address] 02/23/2025 Tanner Corbetty GERD (gastroesophage al reflux disease) K21.9 and [...] Insured Coverage Start Date Coverage End Date [facility] [address] [address] [place] [address] [id number] Shira Gibbs Self - patient is the insured Medical (General) History Medical History History ICD Code Acute lumbar radiculopathy M54.16 Impingement syndrome of shoulder M75.40 Acute asthmatic bronchitis J45.909 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
--- OUTSIDE RECORDS SUMMARY | 2025-03-31 10:44 | XMS_ITS | Encounter Summary ---
Author Organization [facility] Address [address] [place] [address] [place] [address] Care Team Providers Care Public Health Officer Name Role Phone Norbert Snowden MD Primary Care Provider [phone] Norbert Snowden MD Primary Care Provider [phone] Encounter Details Date Type Department Care Team (Late st Contact Info) Description 06/06/2023 Abstract [facility] [address] [place] [id number] Chris Eagle, BETTY [address] [place] [address] Social History Tobacco Use Types [...] [facility] [address] [place] [address] Reji Haley MD [address] [place] [address] 05/08/2026 10:45 AM EDT Office Visit [facility] [address] [place] [address] Chris Eagle, PA [address] [facility] [address] [facility] [place] [address] documented as of this encounter Visit Diagnoses Not on filedocumented in this encounter Care Teams Public Health Officer Relationship Specialty Start Date End Date Norbert Snwoden MD PCP - General Family Medicine 02/20/23 01/06/25 Norbert Snowden MD [address] [facility] [place] [place] [address] PCP - General Family Medicine 01/07/25 documented as of this encounter
--- OUTSIDE RECORDS SUMMARY | 2025-03-31 10:44 | XMS_ITS | Encounter Summary ---
Author Organization [facility] Address [address] [place] [address] Care Team Providers Care Dispatcher Service Or Work Name Role Phone Norbert Snowden MD Primary Care Provider [phone] Norbert Snowden MD Primary Care Provider [phone] Reason for Visit * Reason Comments Med Refill Encounter Details Date Type Department Care Team (Late st Contact Info) Description 05/23/2023 Refill [facility] [address] [place] [address] Chris Eagle PA [address] [facility] [place] [address] Pre-op examination Social History Tobacco [...] [address] [place] [address] Reji Haley MD [address] [place] [address] 05/08/2026 10:45 AM EDT Office Visit [facility] [address] [facility] [address] [place] [address] Chris Eagle, PA [address] [place] [address] documented as of this encounter Visit Diagnoses Diagnosis Pre-op examination documented in this encounter Care Teams Dispatcher Service Or Work Relationship Specialty Start Date End Date Norbert Snowden MD PCP - General Family Medicine 02/20/23 01/06/25 Norbert Snowden MD [address] [facility] [place] [address] PCP - General Family Medicine 01/07/25 documented as of this encounter
--- OUTSIDE RECORDS SUMMARY | 2025-03-31 10:44 | XMS_ITS | Encounter Summary ---
Author Organization [facility] Address [address] [place] [address] Care Team Providers Care Manager Database Name Role Phone Norbert Snowden MD Primary Care Provider [phone] Norbert Snowden MD Primary Care Provider [phone] Encounter Details Date Type Department Care Team (Late Contact Info) Description 05/09/2023 Abstract [facility] [address] [place] [phone] Chirs Eagle, PA [address] [place] [address] Social History Tobacco Use Types [...] [facility] [address] [place] [phone] Reji Haley MD [address] [place] [address] 05/08/2026 10:45 AM EDT Office Visit [facility] [address] [place] [address] Chris Eagle, PA [address] [place] [address] documented as of this encounter Visit Diagnoses Not on filedocumented in this encounter Care Teams Manager Database Relationship Specialty Start Date End Date Norbert Snowden MD PCP - General Family Medicine 02/20/23 01/06/25 Norbert Snowden MD [address] [facility] [place] [address] PCP - General Family Medicine 01/07/25 documented as of this encounter
--- OUTSIDE RECORDS SUMMARY | 2025-03-31 10:44 | XMS_ITS | Encounter Summary ---
Author Organization [facility] Address [address] [place] [address] Care Team Providers Care Sales Technician Name Role Phone Norbert Snowden MD Primary Care Provider [phone] Encounter Details Date Type Department Care Team (Late st Contact Info) Description 03/01/2025 Orders Only [facility] [address] [place] [address] Reji Haley MD [address] [place] [address] Social History Tobacco Use Types [...] [address] [place] [phone] Reji Haely MD [address] [place] [address] 05/08/2026 10:45 AM EDT Office Visit [facility] [address] [place] [address] Chris Eagle, BETTY [address] [facility] [place] [address] documented as of this encounter [...] on filedocumented in this encounter Care Teams Sales Technician Relationship Specialty Start Date End Date Norbert Snowden MD [address] [facility] [place] [address] PCP - General Family Medicine 01/07/25 documented as of this encounter
--- NOTE | 2025-03-31 10:52 | PM.CN ---
Consult Note: HPI Data of Consult Patient: known to practice within the last 3 years Requesting Physician: Emma Avila NP Primary Care Provider: Norbert Snowden MD Consult Narrative Reason for consult: low back pain Narrative: Ivania Gibbs a pleasant 65 year old female presents for evaluation of chronic moderate to severe low back pain. Pain today 0/10 increasing to 8/10 intermittently without aggravating or alleviating factors per pt. she has completed > 6 weeks of provider guided HEP from her PCP and engaged in workout regimen without improvement in her pain. has utilized tylenol arthritis with mild relief, failed unknown muscle relaxer from pcp. pain aching. known hx of ddd and facet arthropathy. previously found benefit to lumbar RFAs per pt. noting intermittent left groin pain as well. no recent orthopedic consults, pt was mistaken last visit and reports next appointment in 2025. cc:: CC: Emma Avila NP Review of Systems ROS Musculoskeletal Reports: back pain PFSH PFS Medical History (Updated 03/23/25 @ 07:40 by Katerina Zamarripa RN) Encounter for screening for colorectal malignant neoplasm ?Z12.11 - Encounter for screening for malignant neoplasm of colon (ICD-10) ?Z12.12 - Encounter for screening for malignant neoplasm of rectum (ICD-10) Epigastric pain ?R10.13 - Epigastric pain (ICD-10) Skin lesion of chest wall ?L98.9 - Disorder of the skin and subcutaneous tissue, unspecified (ICD-10) Neoplasm of foot ?D49.89 - Neoplasm of unspecified behavior of other specified sites (ICD-10) Epidermal cyst ?L72.0 - Epidermal cyst (ICD-10) Neoplasm of uncertain behavior of skin ?D48.5 - Neoplasm of uncertain behavior of skin (ICD-10) Iron deficiency anemia ?D50.9 - Iron deficiency anemia, unspecified (ICD-10) Tubulovillous adenoma of colon ?D12.6 - Benign neoplasm of colon, unspecified (ICD-10) Osteoporosis ?M81.0 - Age-related osteoporosis without current pathological fracture (ICD-10) Degenerative disc disease (DDD) of lumbosacral region with axial back pain without leg pain ?M51.370 - Other intervertebral disc degeneration, lumbosacral region with discogenic back pain only (ICD-10) Lumbar stenosis ?M48.061 - Spinal stenosis, lumbar region without neurogenic claudication (ICD-10) Degenerative arthritis of hip ?M16.9 - Osteoarthritis of hip, unspecified (ICD-10) Lumbar spondylosis ?M47.816 - Spondylosis without myelopathy or radiculopathy, lumbar region (ICD-10) Nontoxic goiter ?E04.9 - Nontoxic goiter, unspecified (ICD-10) Seborrheic keratosis ?L82.1 - Other seborrheic keratosis (ICD-10) Personal history of adenomatous and serrated colon polyps ?Z86.0101 - Personal history of adenomatous and serrated colon polyps (ICD-10) Anxiety ?F41.9 - Anxiety disorder, unspecified (ICD-10) Sleep apnea ?G47.30 - Sleep apnea, unspecified (ICD-10) Menopause ?Z78.0 - Asymptomatic menopausal state (ICD-10) Heartburn ?R12 - Heartburn (ICD-10) GERD (gastroesophageal reflux disease) ?K21.9 - Gastro-esophageal reflux disease without esophagitis (ICD-10) Hypothyroidism ?E03.9 - Hypothyroidism, unspecified (ICD-10) Surgical History (Updated 03/23/25 @ 07:40 by Katerina Zamarripa, FIDEL) History of arthroplasty of right hip ?Z96.641 - Presence of right artificial hip joint (ICD-10) History of repair of rotator cuff ?Z98.890 - Other specified postprocedural states (ICD-10) History of hysterectomy with bilateral oophorectomy ?Z90.710 - Acquired absence of both cervix and uterus (ICD-10) ?Z90.722 - Acquired absence of ovaries, bilateral (ICD-10) H/O partial thyroidectomy ?E89.0 - Postprocedural hypothyroidism (ICD-10) Hx of colonoscopy ?Z98.890 - Other specified postprocedural states (ICD-10) Family History (Updated 03/23/25 @ 07:39 by Katerina Zamarripa, FIDEL) Other Family history of colon cancer Family history of hypertension Family history of prostate cancer Social History (Updated 03/15/25 @ 09:17 by Tricia Moya) Within the past year, how often did you have a drink containing alcohol: never Score interpretation: A score less than 3 is consistent with normal alcohol consumption. Smoking status: Never smoker Non-prescribed substance use: denies use Previous occupational history: retired Highest level of school completed/degree received: high school graduate Meds Home Medications and Allergies Home Medications ?Medication ?Instructions ?Recorded ?Confirmed ?Type levothyroxine 75 mcg tablet 75 mcg PO QDAY 01/23/23 03/23/25 History (Synthroid) loratadine 10 mg tablet (Claritin) 10 mg PO QDAY 01/23/23 03/23/25 History multivitamin 1 tab PO QDAY 01/23/23 03/23/25 History pantoprazole 40 mg tablet,delayed 40 mg PO QDAY 01/23/23 03/23/25 History release turmeric root extract 500 mg 500 mg PO DAILY 03/11/25 03/23/25 History capsule ferrous sulfate 325 mg (65 mg 325 mg PO BID 03/15/25 03/23/25 History iron) tablet Allergies Allergy/AdvReac Type Severity Reaction Status Date / Time Penicillins Allergy Intermediate Hives Verified 03/15/25 09:13 tetanus immune globulin Allergy Intermediate Hives Verified 03/15/25 09:13 levofloxacin (From Levaquin) Allergy Unknown Unknown Verified 03/15/25 09:13 morphine Allergy Unknown Anxiety Verified 01/23/23 09:38 Exam Constitutional Documenting provider has reviewed patient's vital signs: yes Common normals: no apparent distress, oriented x3, healthy appearing, alert and well nourished General appearance: cooperative HENMT Common normals: normocephalic, hearing grossly normal bilaterally and moist oral mucous membranes Head and scalp: normocephalic Eye Common normals: PERRL Pupil: PERRL Neck & C-Spine Common normals: full ROM General: normal visual inspection Chest Common normals: inspection of chest normal Respiratory Common normals: normal respiratory effort, no retractions and no use of accessory muscles Back & Pelvis Lumbar spine/lower back: pain with ROM, lumbar spinal tenderness and straight leg raise negative bilaterally Other: increased pain with forward flexion positive facet loading bilaterally facet tenderness noted L2-4 strength 5/5 in BLE sensation intact BLE intermittent L5/S1 radiculopathy Extremity Left lower extremity: hip joint Other: left hip negative internal and external rotation positive [facility] Neuro Common normals: oriented x3 Sensorium/orientation: alert Psych Common normals: mental status grossly normal, thought process normal, cooperative, affect normal, speech normal and activity/motor behavior normal Speech: normal speech Thought process: normal thought process Results Imaging lumbar xray: Attestation: I have reviewed the pertinent imaging results. Radiologist's impression: AP, lateral, both oblique and lateral coned-down view of the lumbosacral junction were obtained. There is osteopenia. Subtle dextroscoliotic curvature is present. There is no acute fracture. There is continued slight retrolisthesis of L2 on L3 and L5 on S1. There is disc space narrowing at L2-3 and the lumbosacral junction. There is mild endplate spurring and lower lumbar facet hypertrophy. No pars defect is identified. The sacroiliac joints are maintained. A partially imaged right hip prosthesis is visualized. There are no paraspinal soft tissue abnormalities. lumbar MRI : Attestation: I have reviewed the pertinent imaging results. Radiologist's impression: FINDINGS: Lumbar vertebral heights, alignment maintained. Moderate intervertebral space narrowing L5-S1 [id number] intervertebral space space narrowing L2-L3. Minimal intervertebral space narrowing L1-2 and L4-5. There is mild loss of height T11 and T12 likely on a chronic and/or congenital basis. Endplate marrow changes notably L2-3 and L5-S1. The conus medullaris terminates normally at1. T12-L1: Broad-based disc bulge with facet arthropathy. Canal neural foramen are patent. L1-2: Broad-based disc bulge with facet arthropathy. Canal and foramina grossly patent. L2-3: Broad-based disc bulge with [id number] facet arthropathy. Mild central canal stenosis. There is mild left greater than right neural foraminal narrowing. L3-L4: Broad-based disc bulge with moderate to severe facet arthropathy. Moderate central canal narrowing. Moderate left oekc-sz-kuikzprq right neural foraminal narrowing. L4-5: Disc desiccation with moderate severe facet arthropathy. Mild right mild to moderate left foraminal narrowing identified. L5-S1: Circumferential disc bulge with endplate osteophytosis greatest in the right extending to right foraminal zone. There is bilateral facet arthropathy. There is moderate to severe right subarticular recess narrowing and right neural foraminal narrowing, correlate with right L5 and S1 radiculopathy. Moderate left foraminal narrowing. Minimal canal narrowing. Additional Findings Additional findings: If on a controlled substance or opioids, I have checked an [place] report on this patient and there are no aberrancies noted in the prescribing history.??If on a controlled substance or opioid a drug screen was completed and reviewed within the last year, and if there has not been a drug screen completed we ordered one today to monitor higher risk, state monitored pain medication use. As part of providing excellent, safe, comprehensive care, the following was completed at our patient's visit: 1. A medication reconciliation and review to ensure accurate knowledge of current/active medications, including asking our patients to inform us about any [id number] medications or herbal remedies/nutritional supplements/alternative remedies. 2. A review to specifically ensure our patients have had annual screening for screening for depression, screening for tobacco use, and screening for unhealthy alcohol use. For concerning screenings had a discussion with the patient, provided patient education, and recommended follow-up with primary care provider when appropriate. If patient noted with a risk of falling, they received education on strength, gait, and balance training to prevent future risk of falling. Portions of this note may have been carried over from the previous visit and updated as appropriate. Please note this office utilizes paper charting in addition to the electronic medical record. A list of current medications, vitals, and PMH is available there as the clinical staff outside of myself do not have access to [employer] charting during the clinic day operations. As part of providing quality comprehensive care the current medications, vitals, and PMH were reviewed in the paper chart. Assessment and Plan Assessment and Plan (1) Lumbar spondylosis: Assessment and Plan: The patient has had over 3 months of moderate to severe low back pain with functional impairment and inadequate response to conservative care including NSAIDS (unless there are contraindication such as concurrent blood thinners), multiple oral or topical pain medications, and home exercise program/physical therapy.? Patient has completed >6 weeks of guided home exercise program and/or formal physical therapy program without relief of their symptoms.? The Oswestry Disability Index was completed, and the patient scored a 4%.?improved from prior (2) Degenerative disc disease (DDD) of lumbosacral region with axial back pain without leg pain: Plan lumbar MRI reviewed with pt, pain well controlled. continue tylenol prn, not interested in additional medication management f/u when pain worsens as discussed with pt today
== END 2025-03-31 10:42 | disposition home or self-care (01) ==
LOC: PM 10:42
PROVIDERS: PCP Family Medicine; Visit Provider Nurse Practitioner
DX: M47.816 Spondylosis without myelopathy or radiculopathy, lumbar region (principal); M51.369 Other intervertebral disc degeneration, lumbar region without mention of lumbar back pain or lower extremity pain
CPT/HCPCS: G0463